=== PATIENT | male | born 1945 | race Caucasian/White ===

== ENCOUNTER 2019-04-27 08:11 | Outpatient (CLI) | payer MEDICARE, SELFPAY ==
--- NOTE | 2019-04-27 08:00 | USCV_ITS ---
Chad Hoover Age: 74 Gender: M : 1945 Exam Date: 04/27/2019 08:37 Ordering Phys: Mayra Hamilton MD ([email or web address]) Technologist: Mary Serna Exam Location: [facility] [place] Indication: MVR BP: / HR: 123 Rhythm: Sinus Technical Quality: Good MEASUREMENTS (Male / Female) Normal Values 2D ECHO LV Diastolic Diameter PLAX 6.1 cm 4.2 - 5.9 / 3.9 - 5.3 cm LV Systolic Diameter PLAX 4.5 cm IVS Diastolic Thickness 1.1 cm 0.6 - 1.0 / 0.6 - 0.9 cm IVS Systolic Thickness 1.4 cm LVPW Diastolic Thickness 0.8 cm 0.6 - 1.0 / 0.6 - 0.9 cm LVPW Systolic Thickness 1.5 cm LVOT Diameter 2.0 cm LV Ejection Fraction 2D Teich 51.7 % LV Ejection Fraction MOD 2C 46.9 % LV Ejection Fraction 2C AL 46.4 % LA Diameter 4.5 cm LA Width 4.6 cm LA Height 5.0 cm RA Width 5.3 cm RA Height 6.3 cm M-MODE LV Diastolic Diameter MM 5.8 cm 4.2 - 5.9 / 3.9 - 5.3 cm LV Systolic Diameter MM 3.4 cm LV Ejection Fraction MM Teich 71.5 % IVS Diastolic Thickness MM 0.8 cm 0.6 - 1.0 / 0.6 - 0.9 cm IVS Systolic Thickness MM 1.4 cm LVPW Diastolic Thickness MM 1.2 cm 0.6 - 1.0 / 0.6 - 0.9 cm LVPW Systolic Thickness MM 1.9 cm Aortic Annulus Diameter 3.4 cm LA Ao Ratio MM 1.3 DOPPLER AV Peak Velocity 130.0 cm/s LVOT Peak Velocity 111.0 cm/s AV Area Cont Eq vti 2.9 cm squared AV Area Cont Eq pk 2.8 cm squared MV Peak Velocity 165.0 cm/s MV Area PHT 2.1 cm squared Mitral E to A Ratio 7.1 MV E' Velocity 9.0 cm/s Mitral E to MV E' Ratio 19.9 Mitral E to LV E' Lateral Ratio 15.3 Mitral E to LV E' Septal Ratio 29.2 TR Peak Velocity 310.0 cm/s TR Peak Gradient 38.5 mmHg Right Atrial Pressure 3.0 mmHg Pulmonary Artery Systolic Pressu 41.4 mmHg PV Peak Velocity 106.0 cm/s RV Acceleration Time 0.1 s FINDINGS Left Ventricle Diffuse hypokinesis left ventricle with ejection fraction of around 40 to 45%. Mildly dilated LV cavity Right Ventricle Normal right ventricular size and systolic function. Catheter/pacemaker wire visualized in the right ventricle. Right Atrium Moderately increased right atrial size. Catheter/pacemaker wire in the right atrial cavity. Left Atrium Moderately increased left atrial size. Mitral Valve The bioprosthetic valve of the mitral position appears to be seated close to the LV outflow tract. trace ofmitral valve regurgitation. Normal leaflet motion . The mitral valve area, based on the pressure half-time was calculated to be 2.1 cm squared Aortic Valve Thickened aortic valve. Mild to moderate aortic valve regurgitation. Tricuspid Valve Moderate tricuspid valve regurgitation. Estimated pulmonary artery peak systolic pressure of 41 mmHg Pulmonic Valve No gross abnormalities noted Pericardium No pericardial effusion. Aorta Normal aortic annulus size. CONCLUSIONS Diffuse hypokinesis left ventricle with ejection fraction of around 40 to 45%. Mildly dilated LV cavity. Moderate biatrial enlargement The bioprosthetic valve of the mitral position appears to be close to the LV outflow tract. The mitral valve area, based on the pressure half-time was calculated to be 2.1 cm squared Trace of mitral valve regurgitation. Normal leaflet motion Moderate tricuspid valve regurgitation. Estimated pulmonary artery peak systolic pressure of 41 mmHg There is no pericardial effusion. There are no intracardiac masses. Compared to the study from 10/17/2017, the mitral regurgitation is only trace Dr Mayra Hamilton MD [facility] (Electronically Signed) Final Date: 28 April 2019 08:55 S
== END 2019-04-27 08:12 | disposition home or self-care (01) ==
LOC: RAD 08:13
PROVIDERS: Family Provider Electrodiagnostic Medicine; PCP Electrodiagnostic Medicine; Visit Provider Internal Medicine Cardiovascular Disease
DX: I08.1 Rheumatic disorders of both mitral and tricuspid valves (principal); R06.02 Shortness of breath; Z95.2 Presence of prosthetic heart valve
CPT/HCPCS: 93306

== ENCOUNTER → 2019-10-18 16:09 | Outpatient (BNVA) | payer MEDICARE, SELFPAY | PROVIDERS: Family Provider Electrodiagnostic Medicine; PCP Electrodiagnostic Medicine; Visit Provider Internal Medicine Cardiovascular Disease | DX: I50.33 Acute on chronic diastolic (congestive) heart failure (principal); Z79.01 Long term (current) use of anticoagulants; I48.11 Longstanding persistent atrial fibrillation; I43 Cardiomyopathy in diseases classified elsewhere; Z95.0 Presence of cardiac pacemaker; Z95.2 Presence of prosthetic heart valve; I11.0 Hypertensive heart disease with heart failure | CPT/HCPCS: 80048; 83880; 85025 ==

== ENCOUNTER → 2019-11-01 10:01 | Outpatient (BNVA) | payer MEDICARE, SELFPAY | PROVIDERS: Family Provider Electrodiagnostic Medicine; PCP Electrodiagnostic Medicine; Visit Provider Internal Medicine Cardiovascular Disease | DX: I43 Cardiomyopathy in diseases classified elsewhere (principal); R06.02 Shortness of breath; Z95.0 Presence of cardiac pacemaker; Z95.2 Presence of prosthetic heart valve | CPT/HCPCS: 80048; 83880 ==

== ENCOUNTER → 2019-11-15 10:17 | Outpatient (BNVA) | payer MEDICARE, SELFPAY | PROVIDERS: Family Provider Electrodiagnostic Medicine; PCP Electrodiagnostic Medicine; Visit Provider Internal Medicine Cardiovascular Disease | DX: I43 Cardiomyopathy in diseases classified elsewhere (principal); R06.02 Shortness of breath; I48.11 Longstanding persistent atrial fibrillation | CPT/HCPCS: 80048; 83880 ==

== ENCOUNTER 2019-12-03 12:45 | Outpatient (CLI) | payer MEDICARE, SELFPAY ==
--- NOTE | 2019-12-03 12:51 | XR_ITS ---
WS: [id number] CHEST 2 VIEWS HISTORY: BRONCHITIS COMPARISON: 02/08/2019 Lungs: Stable patchy infiltrate RIGHT lower lobe with a linear area of scar. Otherwise lungs are celina r. No pneumonia. Cardiac size: Mildly enlarged cardiac silhouette. Mediastinum/Aorta: Prior median sternotomy. Single lead LEFT subclavian cardiac pacer. Bones: Single anchor LEFT rotator cuff. XR/XR chest 2V* [id number] IMPRESSION: Stable area of scarring at the RIGHT lung base. No pneumonia.
== END 2019-12-03 12:46 | disposition home or self-care (01) ==
LOC: RADWPI 12:48
PROVIDERS: Family Provider Electrodiagnostic Medicine; PCP Electrodiagnostic Medicine; Visit Provider Electrodiagnostic Medicine
DX: J42 Unspecified chronic bronchitis (principal)
CPT/HCPCS: 71046

== ENCOUNTER 2019-12-20 12:58 | Outpatient (CLI) | payer MEDICARE, SELFPAY ==
--- NOTE | 2019-12-20 14:41 | USCV_ITS ---
Chad Hoover Age: 74 Gender: M : 1945 Exam Date: 12/20/2019 14:39 Ordering Phys: Nick Kamara DO Technologist: Madison Sorensen [place] [facility] [place]ication: PAIN LT CALF HISTORY: Pain Lt Calf PROCEDURES: Venous duplex imaging was performed in only the left lower extremity. The following venous structures were evaluated: common femoral vein, profunda vein, proximal portion of the greater saphenous vein, superficial femoral vein, and the popliteal vein. In addition, the posterior tibial and peroneal trunk were evaluated. Serial compression, augmentation maneuvers, and spectral Doppler flow evaluation were performed. FINDINGS: Normal 2-D Doppler and augmentation and compressibility throughout the lower extremity venous structures. Additional imaging through the proximal calf veins also reveals no thrombus. Limited evaluation of the greater saphenous vein is patent with no thrombus. Complex cystic mass with low level echos and no vascularity measuring 12 cm in length in the left popliteal fossa. Maybe hemorrhagic cyst. CONCLUSIONS Left popliteal fossa complex Patel's cyst. No DVT left lower extremity. Dr. Laya Damon DO (Electronically Signed) Final Date: 20 December 2019 15:59 S
== END 2019-12-20 12:59 | disposition home or self-care (01) ==
PROVIDERS: PCP Electrodiagnostic Medicine; Visit Provider Electrodiagnostic Medicine
DX: M79.662 Pain in left lower leg (principal); M25.062 Hemarthrosis, left knee; Z95.0 Presence of cardiac pacemaker; Z95.5 Presence of coronary angioplasty implant and graft; I38 Endocarditis, valve unspecified; M71.22 Synovial cyst of popliteal space [Baker], left knee
CPT/HCPCS: 93971

== ENCOUNTER → 2020-01-26 12:20 | Outpatient (BNVA) | payer MEDICARE, SELFPAY | PROVIDERS: Family Provider Electrodiagnostic Medicine; PCP Electrodiagnostic Medicine; Visit Provider Internal Medicine Cardiovascular Disease | DX: R06.02 Shortness of breath (principal); Z79.01 Long term (current) use of anticoagulants; I50.33 Acute on chronic diastolic (congestive) heart failure | CPT/HCPCS: 80048; 83880 ==

== ENCOUNTER → 2020-02-09 10:21 | Outpatient (BNVA) | payer MEDICARE, SELFPAY | PROVIDERS: Family Provider Electrodiagnostic Medicine; PCP Electrodiagnostic Medicine; Visit Provider Internal Medicine Cardiovascular Disease | DX: R06.00 Dyspnea, unspecified (principal); I43 Cardiomyopathy in diseases classified elsewhere; R06.02 Shortness of breath; I48.11 Longstanding persistent atrial fibrillation; I10 Essential (primary) hypertension | CPT/HCPCS: 80048; 83880 ==

== ENCOUNTER 2020-03-15 12:35 | Outpatient (CLI) | payer MEDICARE, SELFPAY ==
[2020-03-15 12:49] LABS: Basophils % 0.3 %; Eosinophils # 0.2 10^3/uL (0.0-0.8); Eosinophils % 2.3 %; Hematocrit 30.4 % (42.0-52.0); Hemoglobin 9.7 g/dL (11.7-16.6); Lymphocytes # 1.2 10^3/uL (0.8-4.8); Lymphocytes % 17.9 %; Mean Corpuscular HGB Conc 31.9 g/dL (30.0-36.0); Mean Corpuscular Hemoglobin 32.8 pg (28.0-34.0); Mean Corpuscular Volume 102.7 fL (80-94); Mean Platelet Volume 10.3 fL (7.4-10.4); Monocytes # 1.2 10^3/uL (0.2-0.9); Monocytes % 17.9 %; Neutrophils # 3.88 10^3/uL (1.8-7.7); Neutrophils % 59.6 %; Nucleated Red Blood Cells % 0 %; Platelet Count 208 10^3/cmm (130-400); Red Blood Count 2.96 10^6/uL (4.1-5.3); Red Cell Distribution Width 16.2 % (12.1-15.1); White Blood Count 6.5 10^3/uL (4.0-10.0)
[2020-03-15 13:25] LABS: Alanine Aminotransferase 22 U/L (0-41); Albumin Level 4.2 g/dL (3.5-5.2); Alkaline Phosphatase 100 IU/L (40-130); Aspartate Amino Transferase 75 U/L (0-40); Blood Urea Nitrogen 21 mg/dL (8-23); Calcium 8.9 mg/dL (8.5-10.5); Carbon Dioxide 25 mmol/L (22-29); Chloride 102 mmol/L (98-107); Globulin 2.1 g/dL (1.3-4.6); Glucose 88 mg/dL (65-115); Osmolality Calculated 282 mOsm/kg (285-295); Sodium 135 mmol/L (136-145); Total Bilirubin 3.6 mg/dL (0.15-1.2); Total Protein 6.3 g/dL (6.6-8.7)
== END 2020-03-15 12:36 | disposition home or self-care (01) ==
PROVIDERS: PCP Electrodiagnostic Medicine; Visit Provider Electrodiagnostic Medicine
DX: R06.02 Shortness of breath (principal)
CPT/HCPCS: 80053; 85025

== ENCOUNTER 2020-03-17 07:50 | Outpatient (CLI) | payer MEDICARE, SELFPAY ==
--- NOTE | 2020-03-17 | CT_ITS ---
WS: [id number] CT CHEST TECHNIQUE: Contrast enhanced CT of the chest with coronal and sagittal reformatted images. CLINICAL INFORMATION: DYSPNEA COMPARISON: CT 4 28,010 DLP: 887.[address] scans at [facility] use at least one of these dose optimization techniques: automat ed exposure control; mA and/or kV adjustment per patient size (includes targeted exams where dose is matched to clinical indication); or iterative reconstruction. FINDINGS: Moderate chronic emphysematous changes. Subsegmental atelectasis in the right middle lobe. Small righ t pleural effusion. Left lung is well aerated. Cardiomegaly. Normal caliber thoracic aorta. Cardiomeg freddy. Prominent proximal main pulmonary arteries can be seen with pulmonary arterial hypertension. No mediastinal or hilar lymphadenopathy. No axillary lymphadenopathy. Adrenal glands are normal. Part ially visualized epigastric ventral abdominal wall hernia in the upper abdomen containing omental fat . Chronic left rib fractures with callus formation. IMPRESSION: 1. Small right pleural effusion with subsegmental atelectasis right lower lobe. 2. Moderate chronic emphysematous changes. 3. Cardiomegaly. 4. Prominent proximal main pulmonary arteries can be seen with pulmonary arterial hypertension. 5. No mediastinal or hilar lymphadenopathy. No axillary lymphadenopathy. 6. Partially visualized epigastric ventral abdominal wall hernia containing omental fat. This is onl y partially included.
[2020-03-17] MEDS: iohexol 300 mg/mL 100 mL Btl IV (09:05)
== END 2020-03-17 07:51 | disposition home or self-care (01) ==
LOC: RADWPI 07:53
PROVIDERS: PCP Electrodiagnostic Medicine; Visit Provider Electrodiagnostic Medicine
DX: R06.00 Dyspnea, unspecified (principal); J90 Pleural effusion, not elsewhere classified; I51.7 Cardiomegaly; K43.9 Ventral hernia without obstruction or gangrene
CPT/HCPCS: 71260; Q9967

== ENCOUNTER → 2020-07-24 16:42 | Outpatient (BNVA) | payer MEDICARE, SELFPAY | PROVIDERS: PCP Electrodiagnostic Medicine; Visit Provider Internal Medicine Cardiovascular Disease | DX: R06.02 Shortness of breath (principal); Z79.01 Long term (current) use of anticoagulants; I50.33 Acute on chronic diastolic (congestive) heart failure; R06.00 Dyspnea, unspecified; I48.11 Longstanding persistent atrial fibrillation; I43 Cardiomyopathy in diseases classified elsewhere; Z95.0 Presence of cardiac pacemaker; Z95.2 Presence of prosthetic heart valve; I11.0 Hypertensive heart disease with heart failure | CPT/HCPCS: 80048; 83880 ==

== ENCOUNTER → 2020-08-08 10:58 | Outpatient (BNVA) | payer MEDICARE, SELFPAY | PROVIDERS: PCP Electrodiagnostic Medicine; Visit Provider Internal Medicine Cardiovascular Disease | DX: R06.00 Dyspnea, unspecified (principal); I48.11 Longstanding persistent atrial fibrillation; I43 Cardiomyopathy in diseases classified elsewhere; R06.02 Shortness of breath; Z79.01 Long term (current) use of anticoagulants; Z95.0 Presence of cardiac pacemaker; Z95.2 Presence of prosthetic heart valve | CPT/HCPCS: 80048; 83880 ==

== ENCOUNTER → 2020-08-31 09:37 | Outpatient (BNVA) | payer MEDICARE, SELFPAY | PROVIDERS: PCP Electrodiagnostic Medicine; Visit Provider Internal Medicine Cardiovascular Disease | DX: I48.11 Longstanding persistent atrial fibrillation (principal); I43 Cardiomyopathy in diseases classified elsewhere; R06.00 Dyspnea, unspecified; R06.02 Shortness of breath; Z95.2 Presence of prosthetic heart valve; Z95.0 Presence of cardiac pacemaker | CPT/HCPCS: 80048; 83880 ==

== ENCOUNTER → 2020-09-18 08:49 | Outpatient (BNVA) | payer MEDICARE, SELFPAY | PROVIDERS: PCP Electrodiagnostic Medicine; Visit Provider Internal Medicine Cardiovascular Disease | DX: R06.00 Dyspnea, unspecified (principal); I43 Cardiomyopathy in diseases classified elsewhere; R06.02 Shortness of breath; I48.11 Longstanding persistent atrial fibrillation; Z95.2 Presence of prosthetic heart valve; Z79.01 Long term (current) use of anticoagulants; Z95.0 Presence of cardiac pacemaker | CPT/HCPCS: 80048; 83880 ==

== ENCOUNTER → 2021-01-22 16:14 | Outpatient (BNVA) | payer MEDICARE, SELFPAY | PROVIDERS: PCP Electrodiagnostic Medicine; Visit Provider Internal Medicine Cardiovascular Disease | DX: R06.02 Shortness of breath (principal); I50.33 Acute on chronic diastolic (congestive) heart failure; R06.00 Dyspnea, unspecified; I43 Cardiomyopathy in diseases classified elsewhere; I48.91 Unspecified atrial fibrillation; Z79.01 Long term (current) use of anticoagulants | CPT/HCPCS: 80048; 83880 ==

== ENCOUNTER → 2021-02-06 09:27 | Outpatient (BNVA) | payer MEDICARE, SELFPAY | PROVIDERS: PCP Electrodiagnostic Medicine; Visit Provider Internal Medicine Cardiovascular Disease | DX: R06.00 Dyspnea, unspecified (principal); R06.02 Shortness of breath | CPT/HCPCS: 80048; 83880 ==

== ENCOUNTER → 2021-03-08 09:08 | Outpatient (BNVA) | payer MEDICARE, SELFPAY | PROVIDERS: PCP Electrodiagnostic Medicine; Visit Provider Internal Medicine Cardiovascular Disease | DX: R06.00 Dyspnea, unspecified (principal); I43 Cardiomyopathy in diseases classified elsewhere; R06.02 Shortness of breath; Z79.01 Long term (current) use of anticoagulants; I48.11 Longstanding persistent atrial fibrillation; Z95.2 Presence of prosthetic heart valve | CPT/HCPCS: 80048; 83880 ==

== ENCOUNTER 2021-03-13 14:47 | Outpatient (CLI) | payer MEDICARE, SELFPAY ==
--- NOTE | 2021-03-13 15:00 | USCV_ITS ---
Chad Hoover Age: 76 Gender: M : 1945 Exam Date: 03/13/2021 15:04 Ordering Phys: Mayra Hamilton MD ([email or web address]) Technologist: Elisha Lebron [place]am [place] [facility] [place]ication: dyspnea BP: 128 / 62 HR: 72 Rhythm: Sinus Technical Quality: Adequate MEASUREMENTS (Male / Female) Normal Values 2D ECHO LV Diastolic Diameter PLAX 5.4 cm 4.2 - 5.9 / 3.9 - 5.3 cm LV Systolic Diameter PLAX 4.3 cm IVS Diastolic Thickness 1.4 cm 0.6 - 1.0 / 0.6 - 0.9 cm IVS Systolic Thickness 1.5 cm LVPW Diastolic Thickness 1.5 cm 0.6 - 1.0 / 0.6 - 0.9 cm LVPW Systolic Thickness 2.3 cm LVOT Diameter 2.0 cm LV Ejection Fraction 2D Teich 42.4 % LV Ejection Fraction MOD 2C 47.5 % LV Ejection Fraction 2C AL 46.9 % LA Diameter 4.1 cm LA Width 4.9 cm LA Height 6.0 cm RA Width 5.8 cm RA Height 6.8 cm Aorta at Sinotubular Diameter 2.7 cm M-MODE Aortic Annulus Diameter 2.9 cm LA Ao Ratio MM 1.4 DOPPLER AV Peak Velocity 150.3 cm/s LVOT Peak Velocity 121.0 cm/s AV Area Cont Eq vti 2.6 cm squared AV Area Cont Eq pk 2.5 cm squared MV Area PHT 1.5 cm squared Mitral E to A Ratio 1.8 MV E' Velocity 75.0 cm/s Mitral E to MV E' Ratio 13.7 Mitral E to LV E' Lateral Ratio 9.8 Mitral E to LV E' Septal Ratio 23.4 TR Peak Velocity 311.0 cm/s TR Peak Gradient 38.7 mmHg TR Mean Velocity 214.2 cm/s TR Mean Gradient 20.4 mmHg TR Velocity Time Integral 85.4 cm TV Peak E Velocity 60.0 cm/s Right Atrial Pressure 10.0 mmHg Pulmonary Artery Systolic Pressu 48.7 mmHg PV Peak Velocity 146.0 cm/s RV Acceleration Time 0.1 s RV Ejection Time 0.3 s RV AcT/ET 0.2 FINDINGS Left Ventricle Normal LV size with diminished ejection fraction of 46%. Diffuse hypokinesia of the septum and anteroseptal segments. Somewhat dyskinetic basal septal segment. Right Ventricle Maker wire is noted in the right ventricle Right Atrium Mildly increased right atrial size. Pacemaker wire is noted Left Atrium Mildly increased left atrial size. Mitral Valve A bioprosthetic valve at the mitral position appears to be seated close to the LV outflow tract. Mitral valve area is calculated to be 1.5 cm squared by pressure half-time Aortic Valve Thickened aortic valve. Mild aortic valve regurgitation. Tricuspid Valve Moderate tricuspid valve regurgitation. Estimated pulmonary artery peak systolic pressure was 49 mmHg. Pulmonic Valve No gross abnormalities noted Pericardium Mildly dilated inferior vena cava Aorta Normal aortic annulus size. CONCLUSIONS Normal LV size with diminished ejection fraction of 46%. Diffuse hypokinesia of the septum and anteroseptal segments. Somewhat dyskinetic basal septal segment. Mild biatrial enlargement. A bioprosthetic valve at the mitral position appears to be seated close to the LV outflow tract. Mitral valve area is calculated to be 1.5 cm squared by pressure half- time. Thickened aortic valve. Mild aortic valve regurgitation. Moderate tricuspid valve regurgitation. Estimated pulmonary artery peak systolic pressure was 49 mmHg. Mildly dilated inferior vena cava. Compared to the previous study from 04/27/2019, there may not be a significant change Dr Mayra Hamilton MD [facility] (Electronically Signed) Final Date: 13 March 2021 20:42 S
== END 2021-03-13 14:48 | disposition home or self-care (01) ==
LOC: RAD 14:49
PROVIDERS: PCP Electrodiagnostic Medicine; Visit Provider Internal Medicine Cardiovascular Disease
DX: R06.00 Dyspnea, unspecified (principal); I43 Cardiomyopathy in diseases classified elsewhere; Z95.2 Presence of prosthetic heart valve; I08.2 Rheumatic disorders of both aortic and tricuspid valves
CPT/HCPCS: 93306

== ENCOUNTER 2021-07-03 13:17 | Outpatient (CLI) | payer MEDICARE, SELFPAY ==
[2021-07-03 14:04] LABS: Basophils % 0.5 %; Eosinophils # 0.1 10^3/uL (0.0-0.8); Eosinophils % 1.4 %; Hematocrit 33.1 % (42.0-52.0); Hemoglobin 10.7 g/dL (11.7-16.6); Lymphocytes # 1.6 10^3/uL (0.8-4.8); Lymphocytes % 24.5 %; Mean Corpuscular HGB Conc 32.3 g/dL (30.0-36.0); Mean Corpuscular Hemoglobin 33.8 pg (28.0-34.0); Mean Corpuscular Volume 104.4 fl (80-94); Mean Platelet Volume 9.5 fL (7.4-10.4); Monocytes # 1.3 10^3/uL (0.2-0.9); Monocytes % 19.8 %; Neutrophils % 51.7 %; Nucleated Red Blood Cells % 0 %; Platelet Count 269 10^3/cmm (130-400); Red Blood Count 3.17 10^6/uL (4.1-5.3); White Blood Count 6.6 10^3/uL (4.0-10.0)
[2021-07-03 16:41] LABS: Ferritin 334 ng/mL (30-400); Iron 183 ug/dL (59-158); Percent Saturation 71.2 % (20-50); Total Iron Binding Capacity 257 mcg/dl; Unsaturated Iron Binding 74 ug/dL (112-347)
[2021-07-03 16:45] LABS: Reticulocyte % 3.3 % (0.5-2.0)
[2021-07-03 16:56] LABS: Vitamin B12 1001 pg/mL (232-1245)
[2021-07-03 19:18] LABS: Folate Level > 20.0 ng/mL (4.5-32.2)
--- NOTE | 2021-07-09 07:54 | ONC CON_ITS ---
Dr. Bustillos New Patient Note Patient: Chad Hoover Unit #: [id number]: 1945 Dicatated By: Fabrice Bustillos M.D.Date of Visit: Jul 03, 2021 Onc MED New Patient/Consult Referring Physician: Dr. Nick Kamara M.D. History of Present Illness: Mr. Chad Hoover, is a 76-year-old gentleman with history of anemia, initially diagnosed in early 2020, as per patient he was started on oral iron which he took it till summer 2020 and then stopped taking it till March 2021 when repeat labs shows evidence of anemia, he is also taking B12 supplement. Patient has history of atrial fibrillation, for which he was started on Xarelto which he took it for some time and then stopped taking in fall of 2020, as per patient he was having bleeding spots in his legs and in his eye and decided to consider herbal supplement from [facility] to keep his blood thin instead of taking Xarelto. As per patient lab work-up done on June 22, 2021 showed white blood count 11,500, hemoglobin 11.3 g hematocrit 33.1 platelets 258,000. Patient said he took prednisone for 10 days in February 2021 and then in March 2021 for upper respiratory infection/shortness of breath. Patient also use fluticasone spray but not on regular basis. Past medical history significant for coronary artery disease with valvular disease status post CABG in 2013 with mitral valve replacement by Dr. Acevedo. Then pacemaker in 2016 and in 2018 with new mitral valve replacement. Patient denies any melena or hematochezia, denies any hemoptysis hematemesis, denies any jaundice, denies any night sweats, denies any peripheral lymphadenopathy or abdominal fullness, denies any weight loss.. Patient never had colonoscopy or EGD done but has history of abdominal wall hernia repair by Dr. Salcedo. Past Medical History: Mr. Hoover's medical history consists of atrial fibrillation, cardiomyopathy, and coronary artery disease. Past Surgical History: Mr. Hoover's surgical/procedural history consists of coronary artery bypass, left shoulder, mitral valve replaacement, and pacemaker placement. Medications: Advair Diskus 1 Puff(s) (of 500-50 mcg/dose) Aerosol Powder, Breath Activated Inhalation daily, Cardizem LA 1 Tablet (of 180 mg) Tablet SR 24 HR Oral daily, Ferrous Sulfate 1 Tablet (of 325 (65 fe) mg) Oral t.i.d., Fluticasone Propionate 1 Hockley(s) (of 50 mcg/act) Suspension Nasal daily, Furosemide 1 Tablet (of 20 mg) Oral daily PRN, Potassium Chloride Shawna ER 1 Tablet (of 20 meq) Tablet, controlled release Oral daily Allergies: This patient has no documented allergies. Social History: Mr. Hoover is . Mr. Hoover has never smoked. He has no history of drinking. Family History: There is no documented family history. Review Of Symptoms: Review of Systems is not available for this patient. Vital Signs: Performed on Jul 03, 2021 15:03: 0, 0, 23.82, 1.97 sq.m, 71 in, 97 %, 61 /min, 16 /min, 108/66 mm(hg), 98.4 F, and 170.8 lbs (HIGH). Performance Status: 0 - Fully active, able to carry on all predisease activities without restrictions. (ECOG) Physical Examination: ENMT - No mouth sores, no thrush, no jaundice, Respiratory - Lungs are clear to auscultation, Cardiovascular - Irregular rate and rhythm, Abdomen - Soft, bowel sounds present, Extremities - No visible edema or peripheral lymphadenopathy. Lab/Imaging: Most recent lab results are not available for this patient. Impression: Anemia, etiology unclear but could be multifactorial including iron/B12 deficiency or anemia of chronic disease or considering his age underlying myelodysplasia cannot be ruled out. Leukocytosis, again could be due to steroids, or inflammation or subacute infection or myeloproliferative disorder but less likely. Coronary artery disease Mitral valve replacement Pacemaker placement Plan: Discussed with patient regarding his labs white blood count 6.6 compared to 11.5 on June 22, 2021, hemoglobin 10.7 g compared to 11.3 g on June 22, 2021, platelets 269,000 MCV 104.4 Clinically, patient is doing well with no new signs symptoms, he has well compensated mild anemia, etiology of his macrocytic anemia is unclear but possibilities include B12 deficiency or reticulocytosis due to acute/chronic blood loss or myelodysplasia. At this point we will check his iron studies, B12 level, folic acid level, reticulocyte count, patient is on ferrous sulfate 1 tablet 3 times a day since March 2021,-repeat iron studies shows low iron, will consider discontinue oral iron and try parenteral iron. Patient is on oral B12 supplement and if his B12 level is low consider parenteral B12 supplements on the other hand if anemia work-up remained inconclusive and patient has progressive anemia, will consider bone marrow evaluation to rule out underlying myelodysplasia. Leukocytosis seen on labs done on June 22, 2021, on repeat labs today shows resolution, his white blood count is in normal range so we will monitor Return to clinic in 2 weeks with CBC. Signed By: Fabrice Bustillos M.D. <<Signature on File>>
== END 2021-07-03 13:18 | disposition home or self-care (01) ==
LOC: ONCMED 13:21
PROVIDERS: PCP Electrodiagnostic Medicine; Visit Provider Internal Medicine Hematology & Oncology
DX: D64.9 Anemia, unspecified (principal); D72.829 Elevated white blood cell count, unspecified; I25.10 Atherosclerotic heart disease of native coronary artery without angina pectoris; I48.91 Unspecified atrial fibrillation; Z79.899 Other long term (current) drug therapy; Z95.2 Presence of prosthetic heart valve; Z95.0 Presence of cardiac pacemaker; Z95.1 Presence of aortocoronary bypass graft
CPT/HCPCS: 36415; 82607; 82728; 82746; 83540; 83550; 85025; 85045; 99204

== ENCOUNTER 2021-07-17 11:43 | Outpatient (CLI) | payer MEDICARE, SELFPAY ==
[2021-07-17 12:09] LABS: Basophils % 0.2 %; Eosinophils # 0.1 10^3/uL (0.0-0.8); Eosinophils % 1.1 %; Hematocrit 31.7 % (42.0-52.0); Hemoglobin 10.4 g/dL (11.7-16.6); Lymphocytes # 1.4 10^3/uL (0.8-4.8); Lymphocytes % 25.2 %; Mean Corpuscular HGB Conc 32.8 g/dL (30.0-36.0); Mean Corpuscular Hemoglobin 33.8 pg (28.0-34.0); Mean Corpuscular Volume 102.9 fl (80-94); Mean Platelet Volume 9.7 fL (7.4-10.4); Monocytes % 17.8 %; Neutrophils # 2.68 10^3/uL (1.8-7.7); Neutrophils % 48.5 %; Nucleated Red Blood Cells % 0 %; Platelet Count 207 10^3/cmm (130-400); Red Blood Count 3.08 10^6/uL (4.1-5.3); White Blood Count 5.5 10^3/uL (4.0-10.0)
[2021-07-17 12:53] LABS: Slide Review Slide Review Perform
--- NOTE | 2021-07-23 17:29 | ONC FU_ITS ---
Dr. Bustillos follow up note Patient: Chad Hoover Unit #: [id number]: 1945 Dicatated By: Fabrice Bustillos M.D.Date of Visit:Jul 17, 2021 Onc Med Follow-up/Prog Note History of Present Illness: Mr. Chad Hoover, is a 76-year-old gentleman with history of anemia, initially diagnosed in early 2020, as per patient he was started on oral iron which he took it till summer 2020 and then stopped taking it till March 2021 when repeat labs shows evidence of anemia, he is also taking B12 supplement. Patient has history of atrial fibrillation, for which he was started on Xarelto which he took it for some time and then stopped taking in fall, as per patient he was having bleeding spots in his legs and in his eye and decided to consider herbal supplement from [facility] to keep his blood thin instead of taking Xarelto. As per patient lab work-up done on June 22, 2021 showed white blood count 11,500, hemoglobin 11.3 g hematocrit 33.1 platelets 258,000. Patient said he took prednisone for 10 days in February 2021 and then in March 2021 for upper respiratory infection/shortness of breath. Patient also use fluticasone spray but not on regular basis. Past medical history significant for coronary artery disease with valvular disease status post CABG in 2013 with mitral valve replacement by Dr. Acevedo. Then pacemaker in 2017 and in 2018 with new mitral valve replacement. Patient denies any melena or hematochezia, denies any hemoptysis hematemesis, denies any jaundice, denies any night sweats, denies any peripheral lymphadenopathy or abdominal fullness, denies any weight loss.. Patient never had colonoscopy or EGD done but has history of abdominal wall hernia repair by Dr. Salcedo. Came for follow-up, denies any specific complaints, no fever chills, no nausea or vomiting, no diarrhea or constipation, no melena or hematochezia, no hemoptysis or hematemesis, no shortness of breath or dyspnea on exertion, no palpitation on exertion. No jaundice Medications: Advair Diskus 1 Puff(s) (of 500-50 mcg/dose) Aerosol Powder, Breath Activated Inhalation daily, Cardizem LA 1 Tablet (of 180 mg) Tablet SR 24 HR Oral daily, Ferrous Sulfate 1 Tablet (of 325 (65 fe) mg) Oral t.i.d., Fluticasone Propionate 1 Gamerco(s) (of 50 mcg/act) Suspension Nasal daily, Furosemide 1 Tablet (of 20 mg) Oral daily PRN, Potassium Chloride Shawna ER 1 Tablet (of 20 meq) Tablet, controlled release Oral daily Allergies: This patient has no documented allergies. Review of Systems: Review of Systems is not available for this patient. Vital Signs: Performed on Jul 17, 2021 15:31 Height - 71.00 in Weight - 170.8 lbs BSA - 1.97 sq.m BMI - 23.82 Temperature - 97.4 F (LOW) Pulse - 75 /min Respiration - 18 /min BP - 108/54 mm(hg) O2 Sat - 97 % Pain - 0 Fatigue - 8 Performance Status: 0 - Fully active, able to carry on all predisease activities without restrictions. (ECOG) Physical Examination: ENMT - No mouth sores, no thrush, no jaundice, no cervical lymphadenopathy, Respiratory - Lungs are clear to auscultation, Cardiovascular - Regular rate and rhythm of heart, Abdomen - Soft, bowel sounds present, Extremities - No visible edema. Lab/Imaging: Most recent lab results are not available for this patient. Impression: Anemia, etiology unclear but could be multifactorial including iron/B12 deficiency or anemia of chronic disease or considering his age underlying myelodysplasia cannot be ruled out. Leukocytosis, again could be due to steroids, or inflammation or subacute infection or myeloproliferative disorder but less likely. Coronary artery disease Mitral valve replacement Pacemaker placement Plan: Discussed with patient regarding his labs white blood count 5.5 hemoglobin 10.4 g compared to 10.7 g previously hematocrit 31.7 MCV 102.9 platelets 207,000 anemia work-up including iron studies shows iron saturation 71.2% ferritin 334 folic acid more than 20 iron 183 TIBC 257 vitamin B12 1001 Clinically, patient doing well with no new signs symptoms his follow-up lab work-up shows persistent moderate, macrocytic anemia with normal B12, folate level and iron studies, etiology, considering his age underlying myelodysplasia cannot be ruled out, discussed with patient regarding role of bone marrow evaluation but patient wants to think about and he will return to clinic in 1 month with CBC CMP. Signed By: Fabrice Bustillos M.D. <<Signature on File>>
== END 2021-07-17 11:44 | disposition home or self-care (01) ==
LOC: ONCMED 11:45
PROVIDERS: PCP Electrodiagnostic Medicine; Visit Provider Internal Medicine Hematology & Oncology
DX: D53.9 Nutritional anemia, unspecified (principal); D72.829 Elevated white blood cell count, unspecified; I25.10 Atherosclerotic heart disease of native coronary artery without angina pectoris; Z79.899 Other long term (current) drug therapy; Z95.2 Presence of prosthetic heart valve; Z95.0 Presence of cardiac pacemaker
CPT/HCPCS: 36415; 85025; 99214

== ENCOUNTER → 2021-07-23 15:19 | Outpatient (BNVA) | payer MEDICARE, SELFPAY | PROVIDERS: PCP Electrodiagnostic Medicine; Visit Provider Internal Medicine Cardiovascular Disease | DX: I48.11 Longstanding persistent atrial fibrillation (principal); Z79.01 Long term (current) use of anticoagulants; I43 Cardiomyopathy in diseases classified elsewhere; Z95.0 Presence of cardiac pacemaker; Z95.2 Presence of prosthetic heart valve | CPT/HCPCS: 99214 ==

== ENCOUNTER 2021-09-26 08:30 | Oncology outpatient (recurring) (ONCR) | payer MEDICARE, SELFPAY ==
[2021-09-19 16:07] LABS: Reticulocyte % 3.2 % (0.5-2.0)
[2021-09-19 17:16] LABS: Total Bilirubin 2.3 mg/dL (0.15-1.2)
[2021-09-19 17:30] LABS: Lactate Dehydrogenase 383 U/L (135-225)
--- NOTE | 2021-09-25 08:00 | US_ITS ---
WS: [id number] Complete ABDOMINAL ULTRASOUND HISTORY: jaundice COMPARISON: None available. Quality of this examination is limited by body habitus and increased GI content. Liver: 14.3 cm in length. Liver is normal size and echogenicity with no mass or intrahepatic dilatati on. Portal Vein: Normal hepatopetal flow with monophasic waveform. Gallbladder: Normally distended with no gallstones, wall thickening or pericholecystic fluid. Gallbladder wall thickness: 0.3 cm. Pancreas: Head and tail are obscured by bowel gas. The remaining pancreas is negative. CBD: 0.4 cm. Right kidney: 9.8 cm x 5.3 cm x 4.7 cm. No mass, cortical thickening or hydronephrosis. Left kidney: 9.0 cm x 4.7 cm x 4.3 cm. Normal size kidney. Cyst in the superior pole measures 1.8 x 2.2 x 1.4 cm. No solid mass or obstruction. Spleen: Normal size and echogenicity. Mild atherosclerosis aorta. IVC is dilated. No ascites. US/US abdomen complete* [id number] IMPRESSION: 1. Normal gallbladder. 2. Normal common bile duct. 3. Mildly dilated IVC. 4. Poorly visualized pancreas.
[2021-09-26 09:06] LABS: Hematocrit 34.2 % (42.0-52.0); Hemoglobin 11.9 g/dL (11.7-16.6); Mean Corpuscular HGB Conc 34.8 g/dL (30.0-36.0); Mean Corpuscular Hemoglobin 34.2 pg (28.0-34.0); Mean Corpuscular Volume 98.3 fl (80-94); Mean Platelet Volume 9.9 fL (7.4-10.4); Platelet Count 191 10^3/cmm (130-400); Red Blood Count 3.48 10^6/uL (4.1-5.3); Red Cell Distribution Width 15.7 % (12.1-15.1); White Blood Count 15.3 10^3/uL (4.0-10.0)
[2021-09-26 09:30] LABS: Alanine Aminotransferase 31 U/L (0-41); Albumin Level 4.1 g/dL (3.5-5.2); Alkaline Phosphatase 68 IU/L (40-130); Blood Urea Nitrogen 58 mg/dL (8-23); Calcium 8.1 mg/dL (8.5-10.5); Carbon Dioxide 21 mmol/L (22-29); Chloride 100 mmol/L (98-107); Globulin 2.2 g/dL (1.3-4.6); Glucose 103 mg/dL (65-115); Osmolality Calculated 284 mOsm/kg (285-295); Sodium 129 mmol/L (136-145); Total Bilirubin 3.3 mg/dL (0.15-1.2); Total Protein 6.3 g/dL (6.6-8.7)
[2021-09-26 09:50] LABS: Aspartate Amino Transferase 37 U/L (0-40)
[2021-09-26 10:18] LABS: Slide Review Slide Review Perform
[2021-09-26 10:19] LABS: Absolute Neutrophil 11.3 10^3/cmm (1.4-6.5); Absolute Segmented Neutrophil 11.2 10/cmm (1.6-7.1); Band Neutrophils Absolute 0.2 10^3/cmm (0.0-1.2); Lymphocytes 15 %; Lymphocytes Absolute 2.9 10^3/cmm (1.2-3.4); Monocytes Absolute 1.1 10^3/cmm (0.1-0.6); Platelet Estimate Decreased (Normal); Segmented Neutrophils 73 %; Total Cells Counted 100 (0-100)
[2021-09-26 11:57] LABS: Alanine Aminotransferase 34 U/L (0-41); Albumin Level 4.3 g/dL (3.5-5.2); Alkaline Phosphatase 69 IU/L (40-130); Anion Gap 13.8 (5-19); Aspartate Amino Transferase 32 U/L (0-40); Blood Urea Nitrogen 58 mg/dL (8-23); Calcium 8.6 mg/dL (8.5-10.5); Carbon Dioxide 25 mmol/L (22-29); Chloride 99 mmol/L (98-107); Globulin 2.1 g/dL (1.3-4.6); Glucose 99 mg/dL (65-115); Osmolality Calculated 292 mOsm/kg (285-295); Potassium 4.8 mmol/L (3.5-5.1); Sodium 133 mmol/L (136-145); Total Bilirubin 3.7 mg/dL (0.15-1.2); Total Protein 6.4 g/dL (6.6-8.7)
== END 2021-10-04 23:59 | disposition home or self-care (01) ==
PROVIDERS: Internal Medicine Hematology & Oncology; PCP Electrodiagnostic Medicine; Visit Provider Nurse Practitioner Family
DX: D64.9 Anemia, unspecified (principal); D72.829 Elevated white blood cell count, unspecified; I25.10 Atherosclerotic heart disease of native coronary artery without angina pectoris; Z95.2 Presence of prosthetic heart valve; Z95.0 Presence of cardiac pacemaker; Z53.9 Procedure and treatment not carried out, unspecified reason
CPT/HCPCS: 36415; 76700; 80053; 82247; 82248; 83010; 83615; 85007; 85025; 85045; 86880; 99214

== ENCOUNTER 2021-11-20 11:54 | Oncology outpatient (recurring) (ONCR) | payer MEDICARE, SELFPAY ==
[2021-11-20 12:12] LABS: Basophils # 0.1 10^3/uL (0.0-0.1); Eosinophils # 0.8 10^3/uL (0.0-0.8); Nucleated Red Blood Cells % 0 %
[2021-11-20 12:45] LABS: Alanine Aminotransferase 13 U/L (0-41); Albumin Level 4.2 g/dL (3.5-5.2); Alkaline Phosphatase 112 U/L (40-130); Anion Gap 14.7 (5-19); Aspartate Amino Transferase 37 U/L (0-40); Blood Urea Nitrogen 30 mg/dL (8-23); Carbon Dioxide 25 mmol/L (22-29); Chloride 101 mmol/L (98-107); Globulin 2.5 g/dL (1.3-4.6); Glucose 88 mg/dL (65-115); Osmolality Calculated 288 mOsm/kg (285-295); Potassium 4.7 mmol/L (3.5-5.1); Sodium 136 mmol/L (136-145); Total Bilirubin 2.3 mg/dL (0.15-1.2); Total Protein 6.7 g/dL (6.6-8.7)
[2021-11-20 13:25] LABS: Slide Review Slide Review Perform
[2021-11-20 14:38] LABS: Basophils % 0.7 %; Eosinophils % 7.6 %; Hematocrit 31.8 % (42.0-52.0); Hemoglobin 10.1 g/dL (11.7-16.6); Lymphocytes # 1.3 10^3/uL (0.8-4.8); Lymphocytes % 13.2 %; Mean Corpuscular HGB Conc 31.8 g/dL (30.0-36.0); Mean Corpuscular Hemoglobin 33.2 pg (28.0-34.0); Mean Corpuscular Volume 104.6 fl (80-94); Mean Platelet Volume 10.5 fL (7.4-10.4); Monocytes # 2.2 10^3/uL (0.2-0.9); Monocytes % 21.9 %; Neutrophils # 4.69 10^3/uL (1.8-7.7); Neutrophils % 46.1 %; Platelet Count 236 10^3/cmm (130-400); Red Blood Count 3.04 10^6/uL (4.1-5.3); White Blood Count 10.2 10^3/uL (4.0-10.0)
[2021-11-20 14:50] LABS: Ferritin 366 ng/mL (30-400); Iron 123 ug/dL (59-158); Lactate Dehydrogenase 511 U/L (135-225); Percent Saturation 50.4 % (20-50); Total Iron Binding Capacity 244 mcg/dl; Unsaturated Iron Binding 121 ug/dL (112-347)
[2021-11-20 15:06] LABS: LAB Peripheral Smear Sent for Review
== END 2021-12-05 23:59 | disposition home or self-care (01) ==
PROVIDERS: Internal Medicine Hematology & Oncology; PCP Electrodiagnostic Medicine; Visit Provider Nurse Practitioner Family
DX: D64.9 Anemia, unspecified (principal); D72.829 Elevated white blood cell count, unspecified; I25.10 Atherosclerotic heart disease of native coronary artery without angina pectoris; I10 Essential (primary) hypertension; Z95.4 Presence of other heart-valve replacement; Z95.0 Presence of cardiac pacemaker; Z79.52 Long term (current) use of systemic steroids; Z79.899 Other long term (current) drug therapy
CPT/HCPCS: 80053; 82728; 83010; 83540; 83550; 83615; 85025; 85045; 99214

== ENCOUNTER 2021-12-27 11:40 | Oncology outpatient (recurring) (ONCR) | payer MEDICARE, SELFPAY | END 2022-01-04 23:59 | disposition home or self-care (01) | PROVIDERS: PCP Electrodiagnostic Medicine; Visit Provider Nurse Practitioner Family | DX: D59.8 Other acquired hemolytic anemias; I48.20 Chronic atrial fibrillation, unspecified; Z79.899 Other long term (current) drug therapy | CPT/HCPCS: 80053; 82784; 83883; 84155; 84165; 85025; 86334; 99214 ==

== ENCOUNTER → 2022-01-15 14:15 | Outpatient (BNVA) | payer MEDICARE, SELFPAY | PROVIDERS: PCP Electrodiagnostic Medicine; Visit Provider Internal Medicine Cardiovascular Disease | DX: I48.11 Longstanding persistent atrial fibrillation (principal); I43 Cardiomyopathy in diseases classified elsewhere; R06.00 Dyspnea, unspecified; Z79.01 Long term (current) use of anticoagulants; Z95.0 Presence of cardiac pacemaker; Z95.2 Presence of prosthetic heart valve | CPT/HCPCS: 99214 ==

== ENCOUNTER 2022-02-12 08:00 | Oncology outpatient (recurring) (ONCR) | payer MEDICARE, SELFPAY ==
[2022-02-12 08:26] LABS: Basophils # 0.1 10^3/uL (0.0-0.1); Basophils % 0.6 %; Eosinophils # 0.1 10^3/uL (0.0-0.8); Eosinophils % 0.8 %; Hematocrit 32.3 % (42.0-52.0); Hemoglobin 10.6 g/dL (11.7-16.6); Lymphocytes # 1.6 10^3/uL (0.8-4.8); Lymphocytes % 15.3 %; Mean Corpuscular HGB Conc 32.8 g/dL (30.0-36.0); Mean Corpuscular Hemoglobin 33.1 pg (28.0-34.0); Mean Corpuscular Volume 100.9 fl (80-94); Mean Platelet Volume 9.7 fL (7.4-10.4); Monocytes # 2.2 10^3/uL (0.2-0.9); Monocytes % 20.2 %; Neutrophils # 5.64 10^3/uL (1.8-7.7); Neutrophils % 52.9 %; Nucleated Red Blood Cells % 0 %; Platelet Count 195 10^3/cmm (130-400); Red Cell Distribution Width 15.9 % (12.1-15.1); White Blood Count 10.7 10^3/uL (4.0-10.0)
[2022-02-12 08:52] LABS: Alanine Aminotransferase 16 U/L (0-41); Albumin Level 4.1 g/dL (3.5-5.2); Alkaline Phosphatase 112 U/L (40-130); Anion Gap 13.7 (5-19); Aspartate Amino Transferase 36 U/L (0-40); Blood Urea Nitrogen 23 mg/dL (8-23); Calcium 9.1 mg/dL (8.5-10.5); Carbon Dioxide 26 mmol/L (22-29); Chloride 95 mmol/L (98-107); Globulin 2.6 g/dL (1.3-4.6); Glucose 94 mg/dL (65-115); Lactate Dehydrogenase 464 U/L (135-225); NT Pro B Type Natriuretic Pept 1901 pg/mL (0-450); Osmolality Calculated 273 mOsm/kg (285-295); Potassium 4.7 mmol/L (3.5-5.1); Sodium 130 mmol/L (136-145); Total Bilirubin 2.4 mg/dL (0.15-1.2); Total Protein 6.7 g/dL (6.6-8.7)
== END 2022-03-06 23:59 | disposition home or self-care (01) ==
PROVIDERS: Internal Medicine Hematology & Oncology; PCP Electrodiagnostic Medicine; Visit Provider Nurse Practitioner Family
DX: D64.9 Anemia, unspecified (principal); D72.829 Elevated white blood cell count, unspecified; E80.7 Disorder of bilirubin metabolism, unspecified; I48.20 Chronic atrial fibrillation, unspecified; Z79.01 Long term (current) use of anticoagulants; Z79.52 Long term (current) use of systemic steroids; Z79.899 Other long term (current) drug therapy
CPT/HCPCS: 36415; 80053; 83615; 83880; 85025; 99214

== ENCOUNTER → 2022-03-08 11:28 | Outpatient (BNVA) | payer MEDICARE, SELFPAY | PROVIDERS: PCP Electrodiagnostic Medicine; Visit Provider Internal Medicine Cardiovascular Disease | DX: Z45.010 Encounter for checking and testing of cardiac pacemaker pulse generator [battery] (principal) | CPT/HCPCS: 93279 ==

== ENCOUNTER 2022-04-11 14:07 | Oncology outpatient (recurring) (ONCR) | payer MEDICARE, SELFPAY ==
[2022-04-11 15:25] LABS: Basophils % 0.4 %; Eosinophils # 0.1 10^3/uL (0.0-0.8); Eosinophils % 1.1 %; Hematocrit 33.7 % (42.0-52.0); Hemoglobin 10.5 g/dL (11.7-16.6); Lymphocytes # 1.2 10^3/uL (0.8-4.8); Lymphocytes % 10.8 %; Mean Corpuscular HGB Conc 31.2 g/dL (30.0-36.0); Mean Corpuscular Hemoglobin 32.6 pg (28.0-34.0); Mean Corpuscular Volume 104.7 fl (80-94); Mean Platelet Volume 10.4 fL (7.4-10.4); Monocytes # 2.6 10^3/uL (0.2-0.9); Monocytes % 22.9 %; Neutrophils # 6.34 10^3/uL (1.8-7.7); Neutrophils % 56.7 %; Nucleated Red Blood Cells % 0 %; Platelet Count 233 10^3/cmm (130-400); Red Blood Count 3.22 10^6/uL (4.1-5.3); Red Cell Distribution Width 17.3 % (12.1-15.1); White Blood Count 11.2 10^3/uL (4.0-10.0)
[2022-04-11 15:49] LABS: Slide Review Slide Review Perform
[2022-04-11 15:51] LABS: Alanine Aminotransferase 15 U/L (0-41); Albumin Level 4.1 g/dL (3.5-5.2); Alkaline Phosphatase 97 U/L (40-130); Anion Gap 12.6 (5-19); Aspartate Amino Transferase 37 U/L (0-40); Blood Urea Nitrogen 27 mg/dL (8-23); Calcium 8.9 mg/dL (8.5-10.5); Carbon Dioxide 27 mmol/L (22-29); Chloride 106 mmol/L (98-107); Globulin 2.6 g/dL (1.3-4.6); Glucose 96 mg/dL (65-115); Lactate Dehydrogenase 461 U/L (135-225); Osmolality Calculated 297 mOsm/kg (285-295); Potassium 4.6 mmol/L (3.5-5.1); Sodium 141 mmol/L (136-145); Total Protein 6.7 g/dL (6.6-8.7)
[2022-04-12 10:24] LABS: PROTEIN, TOTAL 6.3 g/dL (6.1-8.1)
[2022-04-12 15:40] LABS: ALPHA 1 GLOBULIN 0.3 g/dL (0.2-0.3); ALPHA 2 GLOBULIN 0.4 g/dL (0.5-0.9); BETA 1 GLOBULIN 0.3 g/dL (0.4-0.6); BETA 2 GLOBULIN 0.2 g/dL (0.2-0.5)
== END 2022-05-07 23:59 | disposition home or self-care (01) ==
PROVIDERS: Internal Medicine Hematology & Oncology; PCP Electrodiagnostic Medicine; Visit Provider Nurse Practitioner Family
DX: D64.9 Anemia, unspecified
CPT/HCPCS: 36415; 80053; 83615; 84155; 84165; 85025; 86334; 99214

== ENCOUNTER 2022-06-13 13:31 | Oncology outpatient (recurring) (ONCR) | payer MEDICARE, SELFPAY ==
[2022-06-13 14:12] LABS: Hematocrit 34.7 % (42.0-52.0); Mean Corpuscular HGB Conc 31.7 g/dL (30.0-36.0); Mean Corpuscular Hemoglobin 31.8 pg (28.0-34.0); Mean Corpuscular Volume 100.3 fl (80-94); Mean Platelet Volume 9.2 fL (7.4-10.4); Platelet Count 276 10^3/cmm (130-400); Red Blood Count 3.46 10^6/uL (4.1-5.3); Red Cell Distribution Width 17.3 % (12.1-15.1); White Blood Count 12.2 10^3/uL (4.0-10.0)
[2022-06-13 14:20] LABS: Reticulocyte % 5.1 % (0.5-2.0)
[2022-06-13 14:26] LABS: Alanine Aminotransferase 13 U/L (0-41); Albumin Level 3.9 g/dL (3.5-5.2); Alkaline Phosphatase 114 U/L (40-130); Anion Gap 13.6 (5-19); Aspartate Amino Transferase 35 U/L (0-40); Blood Urea Nitrogen 22 mg/dL (8-23); Calcium 8.9 mg/dL (8.5-10.5); Carbon Dioxide 27 mmol/L (22-29); Chloride 98 mmol/L (98-107); Globulin 2.6 g/dL (1.3-4.6); Glucose 103 mg/dL (65-115); Lactate Dehydrogenase 438 U/L (135-225); Osmolality Calculated 282 mOsm/kg (285-295); Potassium 4.6 mmol/L (3.5-5.1); Sodium 134 mmol/L (136-145); Total Protein 6.5 g/dL (6.6-8.7)
[2022-06-13 14:53] LABS: Slide Review Slide Review Perform
[2022-06-13 14:55] LABS: Absolute Segmented Neutrophil 7.7 10/cmm (1.6-7.1); Lymphocytes 12 %; Lymphocytes Absolute 1.5 10^3/cmm (1.2-3.4); Monocytes Absolute 2.3 10^3/cmm (0.1-0.6); Segmented Neutrophils 63 %; Total Cells Counted 100 (0-100)
[2022-06-13 14:56] LABS: Absolute Eosinophils 0.3 10^3/cmm (0.0-0.7); Absolute Neutrophil 7.7 10^3/cmm (1.4-6.5); Eosinophils 3 %; Platelet Estimate Normal (Normal)
== END 2022-07-05 23:59 | disposition home or self-care (01) ==
PROVIDERS: PCP Electrodiagnostic Medicine; Visit Provider Internal Medicine Hematology & Oncology
DX: D64.9 Anemia, unspecified (principal); J32.9 Chronic sinusitis, unspecified; Z79.52 Long term (current) use of systemic steroids
CPT/HCPCS: 36415; 80053; 83615; 85007; 85025; 85045; 99213

== ENCOUNTER → 2022-07-23 12:54 | Outpatient (BNVA) | payer MEDICARE, SELFPAY | PROVIDERS: PCP Electrodiagnostic Medicine; Visit Provider Nurse Practitioner Family | DX: I48.11 Longstanding persistent atrial fibrillation (principal); I43 Cardiomyopathy in diseases classified elsewhere; Z95.0 Presence of cardiac pacemaker | CPT/HCPCS: 99214 ==

== ENCOUNTER 2022-09-17 13:43 | Oncology outpatient (recurring) (ONCR) | payer MEDICARE, SELFPAY ==
[2022-09-17 14:15] VITALS: BP 98/65; PULSE 69; RESP 18; TEMP 36.7; O2SAT 94
[2022-09-17 14:27] LABS: Hematocrit 39.4 % (42.0-52.0); Hemoglobin 12.6 g/dL (11.7-16.6); Mean Corpuscular Hemoglobin 31.7 pg (28.0-34.0); Mean Corpuscular Volume 99.2 fl (80-94); Mean Platelet Volume 10.1 fL (7.4-10.4); Platelet Count 171 10^3/cmm (130-400); Red Blood Count 3.97 10^6/uL (4.1-5.3); White Blood Count 8.6 10^3/uL (4.0-10.0)
[2022-09-17 14:33] LABS: Reticulocyte % 3.5 % (0.5-2.0)
[2022-09-17 14:56] LABS: Alanine Aminotransferase 17 U/L (0-41); Albumin Level 4.3 g/dL (3.5-5.2); Alkaline Phosphatase 96 U/L (40-130); Anion Gap 12.8 (5-19); Aspartate Amino Transferase 47 U/L (0-40); Blood Urea Nitrogen 27 mg/dL (8-23); Calcium 8.7 mg/dL (8.5-10.5); Carbon Dioxide 26 mmol/L (22-29); Chloride 104 mmol/L (98-107); Globulin 2.1 g/dL (1.3-4.6); Glucose 103 mg/dL (65-115); Lactate Dehydrogenase 570 U/L (135-225); NT Pro B Type Natriuretic Pept 2475 pg/mL (0-450); Osmolality Calculated 291 mOsm/kg (285-295); Potassium 4.8 mmol/L (3.5-5.1); Sodium 138 mmol/L (136-145); Total Bilirubin 3.2 mg/dL (0.15-1.2); Total Protein 6.4 g/dL (6.6-8.7)
[2022-09-17 15:09] LABS: Absolute Segmented Neutrophil 4.9 10/cmm (1.6-7.1); Band Neutrophils Absolute 0.1 10^3/cmm (0.0-1.2); Eosinophils 1 %; Lymphocytes 13 %; Lymphocytes Absolute 1.2 10^3/cmm (1.2-3.4); Macrocytosis 1+; Monocytes Absolute 2.3 10^3/cmm (0.1-0.6); Platelet Estimate Normal (Normal); Segmented Neutrophils 57 %; Total Cells Counted 100 (0-100)
[2022-10-11 11:25] LABS: Miscellaneous Test SEE COMMENTS
[2023-01-01 15:45] LABS: PNH Clinical Type Not Provided; PNH Viability % 86%
[2023-01-01 15:46] LABS: PNH Abnormal Cells Detected Not Detected
[2023-01-01 15:47] LABS: PNH RBCS Normal CD59 level
== END 2022-10-04 23:59 | disposition home or self-care (01) ==
PROVIDERS: Nurse Practitioner Family; PCP Electrodiagnostic Medicine; Visit Provider Internal Medicine Hematology & Oncology
DX: R74.02 Elevation of levels of lactic acid dehydrogenase [LDH]; D58.9 Hereditary hemolytic anemia, unspecified; E80.6 Other disorders of bilirubin metabolism; Z79.899 Other long term (current) drug therapy; I25.10 Atherosclerotic heart disease of native coronary artery without angina pectoris
CPT/HCPCS: 36415; 80053; 83010; 83615; 83880; 85007; 85025; 85045; 88184; 88185; 99214

== ENCOUNTER 2022-10-15 09:27 | Oncology outpatient (recurring) (ONCR) | payer MEDICARE, SELFPAY ==
[2022-10-15 09:49] VITALS: BP 93/60; PULSE 71; RESP 16; TEMP 36.8; O2SAT 95
[2022-10-15 10:02] LABS: Hematocrit 34.2 % (42.0-52.0); Hemoglobin 11.1 g/dL (11.7-16.6); Mean Corpuscular HGB Conc 32.5 g/dL (30.0-36.0); Mean Corpuscular Hemoglobin 31.9 pg (28.0-34.0); Mean Corpuscular Volume 98.3 fl (80-94); Mean Platelet Volume 10.6 fL (7.4-10.4); Platelet Count 190 10^3/cmm (130-400); Red Blood Count 3.48 10^6/uL (4.1-5.3); Red Cell Distribution Width 16.1 % (12.1-15.1); White Blood Count 8.4 10^3/uL (4.0-10.0)
[2022-10-15 10:25] LABS: Alanine Aminotransferase 14 U/L (0-41); Albumin Level 4.1 g/dL (3.5-5.2); Alkaline Phosphatase 110 U/L (40-130); Anion Gap 13.3 (5-19); Aspartate Amino Transferase 29 U/L (0-40); Blood Urea Nitrogen 29 mg/dL (8-23); Calcium 8.7 mg/dL (8.5-10.5); Carbon Dioxide 26 mmol/L (22-29); Chloride 105 mmol/L (98-107); Ferritin 157 ng/mL (30-400); Globulin 2.3 g/dL (1.3-4.6); Glucose 81 mg/dL (65-115); Iron 127 ug/dL (59-158); Osmolality Calculated 293 mOsm/kg (285-295); Percent Saturation 50.5 % (20-50); Potassium 5.3 mmol/L (3.5-5.1); Sodium 139 mmol/L (136-145); Total Bilirubin 2.5 mg/dL (0.15-1.2); Total Iron Binding Capacity 251 mcg/dl; Total Protein 6.4 g/dL (6.6-8.7); Unsaturated Iron Binding 124 ug/dL (112-347)
[2022-10-15 11:17] LABS: Slide Review Slide Review Perform
[2022-10-15 11:23] LABS: Total Cells Counted 100 (0-100)
[2022-10-15 11:24] LABS: Eosinophils 1 %; Lymphocytes 12 %; Macrocytosis 1+; Microcytosis 1+; Platelet Estimate Normal (Normal); Segmented Neutrophils 59 %
== END 2022-11-04 23:59 | disposition home or self-care (01) ==
PROVIDERS: PCP Electrodiagnostic Medicine; Visit Provider Internal Medicine Hematology & Oncology
DX: D64.9 Anemia, unspecified (principal); D58.9 Hereditary hemolytic anemia, unspecified; Z79.52 Long term (current) use of systemic steroids; I25.10 Atherosclerotic heart disease of native coronary artery without angina pectoris; Z95.2 Presence of prosthetic heart valve; Z95.0 Presence of cardiac pacemaker
CPT/HCPCS: 36415; 80053; 82728; 83540; 83550; 85007; 85025; 99214

== ENCOUNTER → 2023-01-22 16:34 | Outpatient (BNVA) | payer MEDICARE, SELFPAY | PROVIDERS: PCP Electrodiagnostic Medicine; Visit Provider Internal Medicine Cardiovascular Disease | DX: I48.91 Unspecified atrial fibrillation (principal); R06.02 Shortness of breath | CPT/HCPCS: 80048; 83880; 99214 ==

== ENCOUNTER 2023-01-31 15:24 | Outpatient (CLI) | payer MEDICARE, SELFPAY ==
--- NOTE | 2023-01-31 15:45 | USCV_ITS ---
Chad Hoover Age: 77 Gender: M : 1945 Exam Date: 01/31/2023 15:38 Ordering Phys: Mayra Hamilton MD ([email or web address]) Technologist: CT Exam Location: [facility] [place] Indication: mvr/tr BP: 138 / 80 HR: Rhythm: Sinus Technical Quality: Adequate MEASUREMENTS (Male / Female) Normal Values 2D ECHO LV Chamber Size 5.9 cm RV Chamber Size 6.9 cm LVOT Diameter 2.0 cm LV Ejection Fraction MOD 2C 41.1 % LV Ejection Fraction 2C AL 39.2 % LA Diameter 4.7 cm LA Width 5.7 cm LA Height 6.1 cm RA Width 7.0 cm RA Height 7.6 cm Aorta at Sinotubular Diameter 2.5 cm IVC Diameter 2.1 cm M-MODE Aortic Annulus Diameter 3.3 cm LA Ao Ratio MM 1.5 DOPPLER AV Peak Velocity 153.0 cm/s LVOT Peak Velocity 164.0 cm/s AV Area Cont Eq vti 3.7 cm squared AV Area Cont Eq pk 3.4 cm squared MV Area PHT 1.7 cm squared Mitral E to A Ratio 2.2 MV E' Velocity 79.0 cm/s Mitral E to MV E' Ratio 14.8 Mitral E to LV E' Lateral Ratio 10.2 Mitral E to LV E' Septal Ratio 27.6 TR Peak Velocity 357.7 cm/s TR Peak Gradient 51.2 mmHg TV Peak E Velocity 118.0 cm/s Right Atrial Pressure 3.0 mmHg Pulmonary Artery Systolic Pressu 54.2 mmHg PV Peak Velocity 134.0 cm/s FINDINGS Left Ventricle Diffuse hypokinesia of the septum and inferior wall segments with dyskinetic basal septum. Overall LV ejection fraction to 45%, visual.Grade III/IV diastolic dysfunction (restrictive filling pattern), severely elevated filling pressures. Right Ventricle Mildly dilated right ventricle with a normal ejection fraction Right Atrium Moderately increased right atrial size. Catheter/pacemaker wire in the right atrial cavity. Left Atrium Moderately increased left atrial size. Mitral Valve The bioprosthetic valve at the mitral position appears to be well-seated. Normal leaflet motions. Calculated mitral valve area was 1.7 cm squared, based on the pressure half-time Aortic Valve Thickened aortic valve. Mild aortic valve regurgitation. Tricuspid Valve [id number] tricuspid valve regurgitation. Pulmonic Valve Mild pulmonary valve regurgitation. Moderate pulmonary hypertension with an estimated pulmonary artery peak systolic pressure of 57 mmHg and a mean pressure of 30 mmHg. Pericardium No pericardial effusion. Aorta Normal aortic annulus size. IVC Normal IVC dimension with >50% respiratory change of the inferior vena cava. Estimated right atrial pressure 3 Hg. CONCLUSIONS Diffuse hypokinesia of the septum and inferior wall segments with dyskinetic basal septum. Overall LV ejection fraction to 45%, visual.Grade III/IV diastolic dysfunction (restrictive filling pattern), severely elevated filling pressures. The bioprosthetic valve at the mitral position appears to be well-seated. Normal leaflet motions. Calculated mitral valve area was 1.7 cm squared, based on the pressure half-time. Moderate biatrial enlargement Thickened aortic valve. Mild aortic valve regurgitation. [id number] tricuspid valve regurgitation. Moderate pulmonary valve regurgitation. with an estimated pulmonary artery peak systolic pressure of 57 mmHg and a mean pressure of 30 mmHg. Mildly dilated right ventricle with a normal ejection fraction. There is no pericardial effusion. There are no intracardiac masses. Compared to the study from 03/13/2021, there is slight worsening of the tricuspid regurgitation and increase in the PA pressure Dr Mayra Hamilton MD [facility] (Electronically Signed) Final Date: 10 February 2023 08:06 S
== END 2023-01-31 15:25 | disposition home or self-care (01) ==
LOC: RAD 15:25
PROVIDERS: PCP Electrodiagnostic Medicine; Visit Provider Internal Medicine Cardiovascular Disease
DX: R06.09 Other forms of dyspnea (principal); I08.8 Other rheumatic multiple valve diseases
CPT/HCPCS: 93306

== ENCOUNTER 2023-03-03 15:09 | Outpatient (CLI) | payer MEDICARE, SELFPAY ==
[2023-03-03 16:38] LABS: Blood Urea Nitrogen 32 mg/dL (8-23); Carbon Dioxide 24 mmol/L (22-29); Chloride 102 mmol/L (98-107); Glucose 86 mg/dL (65-115); NT Pro B Type Natriuretic Pept 2882 pg/mL (0-450); Osmolality Calculated 290 mOsm/kg (285-295); Sodium 137 mmol/L (136-145)
[2023-03-03 16:42] LABS: Anion Gap 15.8 (5-19); Potassium 4.8 mmol/L (3.5-5.1)
== END 2023-03-03 15:10 | disposition home or self-care (01) ==
LOC: LAB 15:10
PROVIDERS: PCP Electrodiagnostic Medicine; Visit Provider Internal Medicine Cardiovascular Disease
DX: R06.02 Shortness of breath (principal)
CPT/HCPCS: 36415; 80048; 83880

== ENCOUNTER → 2023-08-19 15:25 | Outpatient (BNVA) | payer MEDICARE, SELFPAY | PROVIDERS: PCP Electrodiagnostic Medicine; Visit Provider Internal Medicine Cardiovascular Disease | DX: Z95.2 Presence of prosthetic heart valve (principal); Z95.0 Presence of cardiac pacemaker; I48.11 Longstanding persistent atrial fibrillation; I43 Cardiomyopathy in diseases classified elsewhere; Z79.01 Long term (current) use of anticoagulants | CPT/HCPCS: 99214 ==

== ENCOUNTER 2023-11-03 09:35 | Outpatient (CLI) | payer MEDICARE, SELFPAY ==
[2023-11-03 10:37] LABS: Anion Gap 15.5 (5-19); Blood Urea Nitrogen 31 mg/dL (8-23); Calcium 8.9 mg/dL (8.5-10.5); Carbon Dioxide 25 mmol/L (22-29); Chloride 102 mmol/L (98-107); Glucose 93 mg/dL (65-115); NT Pro B Type Natriuretic Pept 1891 pg/mL (0-450); Osmolality Calculated 292 mOsm/kg (285-295); Potassium 4.5 mmol/L (3.5-5.1); Sodium 138 mmol/L (136-145)
== END 2023-11-03 09:36 | disposition home or self-care (01) ==
LOC: LAB 09:38
PROVIDERS: PCP Electrodiagnostic Medicine; Visit Provider Internal Medicine Cardiovascular Disease
DX: I48.11 Longstanding persistent atrial fibrillation (principal)
CPT/HCPCS: 36415; 80048; 83880

== ENCOUNTER 2023-12-03 10:05 | Outpatient (CLI) | payer MEDICARE, SELFPAY ==
[2023-12-03 10:55] LABS: NT Pro B Type Natriuretic Pept 2091 pg/mL (0-450)
== END 2023-12-03 10:06 | disposition home or self-care (01) ==
LOC: LAB 10:06
PROVIDERS: PCP Electrodiagnostic Medicine; Visit Provider Internal Medicine Cardiovascular Disease
DX: Z79.01 Long term (current) use of anticoagulants (principal)
CPT/HCPCS: 36415; 83880

== ENCOUNTER → 2024-02-26 13:55 | Outpatient (BNVA) | payer MEDICARE, SELFPAY | PROVIDERS: PCP Electrodiagnostic Medicine; Visit Provider Internal Medicine Cardiovascular Disease | DX: I43 Cardiomyopathy in diseases classified elsewhere (principal); Z95.2 Presence of prosthetic heart valve; Z95.0 Presence of cardiac pacemaker; I48.11 Longstanding persistent atrial fibrillation; Z79.01 Long term (current) use of anticoagulants; R06.09 Other forms of dyspnea; R06.02 Shortness of breath | CPT/HCPCS: 36415; 80048; 83880; 99214 ==

== ENCOUNTER → 2024-03-03 11:22 | Outpatient (BNVA) | payer MEDICARE, SELFPAY | PROVIDERS: PCP Electrodiagnostic Medicine; Visit Provider Internal Medicine Cardiovascular Disease | DX: Z45.010 Encounter for checking and testing of cardiac pacemaker pulse generator [battery] (principal) | CPT/HCPCS: 93296 ==

== ENCOUNTER 2024-04-02 14:42 | Outpatient (CLI) | payer MEDICARE, SELFPAY ==
--- NOTE | 2024-04-02 14:45 | USCV_ITS ---
Chad Hoover Age: 79 Gender: M : 1945 Exam Date: 04/02/2024 15:17 Ordering Phys: Mayra Hamilton MD ([email or web address]) Technologist: Tima Bright [place] [facility] [place]: MVR/ TR BP: 110 / 62 HR: 68 Rhythm: Sinus Technical Quality: Adequate MEASUREMENTS (Male / Female) Normal Values 2D ECHO LV Diastolic Diameter PLAX 4.9 cm 4.2 - 5.9 / 3.9 - 5.3 cm IVS Diastolic Thickness 1.2 cm 0.6 - 1.0 / 0.6 - 0.9 cm IVS Systolic Thickness 1.2 cm LVPW Diastolic Thickness 1.2 cm 0.6 - 1.0 / 0.6 - 0.9 cm LVPW Systolic Thickness 1.6 cm LVOT Diameter 2.1 cm LV Ejection Fraction 2D Teich 46.0 % LV Ejection Fraction MOD 4C 40.7 % LV Ejection Fraction MOD 2C 40.2 % LV Ejection Fraction 2C AL 37.9 % LA Diameter 4.8 cm RA Systolic Volume 4C AL 99.9 ml RA Systolic Volume 4C MOD 98.7 ml LA Sys Volume AL 68.5 cm cubed LA Sys Volume Index AL 34.0 cm cubed/m squared Aorta at Sinotubular Diameter 2.6 cm IVC Diameter 2.0 cm M-MODE LA Ao Ratio MM 1.6 AV Cusp Separation MM 1.8 cm DOPPLER AV Peak Velocity 136.3 cm/s LVOT Peak Velocity 101.0 cm/s AV Area Cont Eq vti 2.7 cm squared AV Area Cont Eq pk 2.7 cm squared MV Peak Velocity 232.0 cm/s TV Peak Velocity 392.7 cm/s TR Peak Velocity 413.0 cm/s TR Peak Gradient 68.2 mmHg TR Mean Velocity 298.0 cm/s TR Mean Gradient 41.2 mmHg TR Velocity Time Integral 125.1 cm PV Peak Velocity 128.0 cm/s RV Ejection Time 0.3 s FINDINGS Left Ventricle Diffuse hypokinesia of the left ventricule with an ejection fraction of 41%. Mildly dilated LV cavity Right Ventricle Pacemaker wire in the right ventricle normal RV size and ejection fraction. Right Atrium Moderately increased right atrial size. Pacemaker wire is noted Left Atrium Moderately dilated left atrium Mitral Valve The bioprosthetic valve the mitral position appears to be well- seated. Mean gradient across the valve was 8.42 mmHg Aortic Valve No gross abnormalities noted Tricuspid Valve Moderate tricuspid valve regurgitation. Estimated pulmonary artery peak systolic pressure 71 mmHg Pulmonic Valve No gross abnormalities noted Pericardium No pericardial effusion. Aorta Normal aortic annulus size. IVC Normal inferior vena cava. CONCLUSIONS Diffuse hypokinesia of the left ventricule with an ejection fraction of 41%. Mildly dilated LV cavity. Moderately increased right atrial size. Pacemaker wire is noted. Moderately dilated left atrium. The bioprosthetic valve the mitral position appears to be well- seated. The mean gradient across the valve was found to be 8.42 mmHg Moderate tricuspid valve regurgitation. Estimated pulmonary artery peak systolic pressure 71 mmHg There is no pericardial effusion. There are no intracardiac masses. Compared to the study from 01/31/2023, there is slight worsening of the LV systolic function. The PA pressure also has gone up. Dr Mayra Hamilton MD [facility] (Electronically Signed) Final Date: 10 April 2024 21:16 S
== END 2024-04-02 14:43 | disposition home or self-care (01) ==
LOC: RAD 14:43
PROVIDERS: PCP Electrodiagnostic Medicine; Visit Provider Internal Medicine Cardiovascular Disease
DX: I50.1 Left ventricular failure, unspecified (principal); I07.1 Rheumatic tricuspid insufficiency; R06.09 Other forms of dyspnea; Z95.2 Presence of prosthetic heart valve; Z95.0 Presence of cardiac pacemaker
CPT/HCPCS: 93306

== ENCOUNTER 2024-04-17 07:06 | Inpatient (IN) | payer MEDICARE, SELFPAY ==
[2024-04-17] VITALS (138 sets, daily range): BP systolic 85–148; BP diastolic 43–81; PULSE 69–152; RESP 14–40; TEMP 36.6–37.2; O2SAT 90–100; BMI 22.6
--- NOTE | 2024-04-17 07:12 | XRR_ITS ---
PROCEDURE INFORMATION: Exam: XR Chest Exam date and time: 04/17/2024 7:32 AM Age: 79 years old Clinical indication: Shortness of breath; Prior surgery; Surgery date: 6+ months; Surgery type: Heart pacemaker; Additional info: Dyspnea/cough TECHNIQUE: Imaging protocol: Radiologic exam of the chest. Views: 1 view. COMPARISON: CR XR chest 2V* [id number] 04/21/2023 11:52 AM FINDINGS: Tubes, catheters and devices: Cardiac pacemaker system noted. Lungs: New infiltrate projects over the right lung base. Pleural spaces: Unremarkable. No pleural effusion. No pneumothorax. Heart/Mediastinum: There is severe cardiomegaly with vascular congestion. Surgical changes of the mitral valve. Bones/joints: Unremarkable. XR/XR chest 1V portable [id number] IMPRESSION: 1. Severe cardiomegaly with vascular congestion. 2. New infiltrate projects over the right lung base.
--- NOTE | 2024-04-17 07:12 | ECG_ITS ---
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1945 Requested By: Ben Dia Order Number: [id number] Ad MD: SARA MARQUEZ Measurements Intervals [place] Rate: 101 P: 0 GA: 0 QRS: 116 QRSD: 128 T: 55 QT: 326 QTc: 423 Interpretive Statements ATRIAL FIBRILLATION WITH RAPID VENTRICULAR RESPONSE RIGHT AXIS DEVIATION [QRS AXIS > 100] ANTEROSEPTAL MYOCARDIAL INFARCTION , OF INDETERMINATE AGE [40+ ms Q WAVE IN V1-V4] Compared to ECG 04/18/2018 11:00:03 Right-axis deviation now present Myocardial infarct finding now present Ventricular-paced complex(es) or rhythm no longer present Left-axis deviation no longer present Intraventricular conduction delay no longer present Electronically Signed On 04-17-2024 18:39:03 FLOUR DISTRIBUTOR by SRAA MARQUEZ [id number]
--- NOTE | 2024-04-17 07:17 | ED_ITS ---
HPI - SOB/Dyspnea 2 General: Chief Complaint: Shortness of Breath/Dyspnea Stated Complaint: sob / COUGH Time Seen by Provider: 04/17/24 07:11 History of Present Illness: HPI Narrative: 79-year-old male with a history of cardi omyopathy and coronary artery disease bioprosthetic mitral valve presents to the emergency room with increasing shortness of breath on arrival staff states he was tachypneic with a oxygen sat in the 70s. He has been placed on supplemental oxygen. Patient reports he has been increasingly short of breath he has had severe orthopnea and exertional dyspnea no significant chest pain. Patient states for the last couple of days he has been increasingly short of breath had marked decrease in exercise tolerance. Patient's last echo was approximately 2 and 3:30 weeks ago done here and had an EF of 41%. Patient was noted to have a markedly dilated right atrium on that echo as well. Associated symptoms: Reports chest congestion and orthopnea; Deny abdominal pain, chest pain or fever(s) Related Data Home Medications Medication Instructions Recorded Confirmed ascorbic acid (vitamin C) 1,000 mg 2 gm PO DAILY 04/19/19 04/17/24 tablet multivitamin 1 tab PO DAILY 09/19/21 04/17/24 cholecalciferol (vitamin D3) 10 10 mcg PO DAILY 07/23/22 04/17/24 mcg (400 unit) capsule fluticasone 500 mcg-salmeterol 50 1 inh inhalation BID 07/23/22 04/17/24 mcg/dose blistr powdr for inhalation (Advair Diskus) vitamin B complex 1 cap PO BID 07/23/22 04/17/24 magnesium oxide 500 mg PO DAILY 01/22/23 04/17/24 Holy Basil 1 cap PO DAILY 04/17/24 04/17/24 acetaminophen 325 mg tablet 650 mg PO QID PRN Pain 04/17/24 04/17/24 (Tylenol) albuterol sulfate 90 mcg/actuation 2 puff inhalation Q4H PRN 04/17/24 04/17/24 aerosol inhaler Shortness Of Breath Or Wheezing turmeric 400 mg capsule 400 mg PO DAILY 04/17/24 04/17/24 Previous Rx's Medication Instructions Recorded potassium chloride 20 mEq 20 meq PO DAILY #30 tabs 02/12/22 tablet,extended release(part/cryst) sacubitril 24 mg-valsartan 26 mg 1 tab PO DAILY #90 tabs 03/18/23 tablet (Entresto) furosemide 40 mg tablet (Lasix) 40 mg PO DAILY PRN edema #30 tabs 03/26/23 diltiazem HCl 180 mg 180 mg PO DAILY #90 caps 09/12/23 capsule,extended release 24 hr Allergies Allergy/AdvReac Type Severity Reaction Status Date / Time oxycodone Allergy Severe other Verified 02/26/24 14:04 Review of Systems 2 Const: Denies: fever(s) or chills Card: Reports: dyspnea on exertion and orthopnea; Denies: chest pain Resp: Reports: dyspnea, non-productive cough and chest congestion GI: Denies: abdominal pain : Denies: dysuria, urinary frequency or urinary urgency Musc: Denies: neck pain or back pain Skin/Breast: Denies: rash PFSH ED 2 PFSH: Medical History Cardiac LV ejection fraction of 40-49% History of cataract 04/2022 Bilateral Hemolytic anemia Anemia Dyspnea on exertion Anticoagulant long-term use 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 Shoulder pain with history of repair of rotator cuff Surgical History Hx of shoulder surgery Hx of umbilical hernia repair Hx of thumb surgery History of permanent cardiac pacemaker placement H/O mitral valve replacement Patient had a initial mitral valve replacement by Dr. Acevedo in 2013. He developed a perivalvular leak for which he underwent redo surgery by Dr. Sutton at the [facility] in [place] in October 2017. Most recent echocardiogram was done in March 2021. Ejection fraction was 46%. Moderate TR, mild AR mitral valve area was calculated to be 1.5 cm2 Family History Mother Rheumatoid arthritis at age of 62 Grandmother Cancer Dementia Brother Diabetes Father Lung disease Family/Other Lung disease Denies family history of CAD (coronary artery disease) Clotting disorder Chronic kidney disease (CKD) Suicide Anesthesia complication Bleeding disorder Stroke Social History Smoking and tobacco/nicotine status: never used tobacco/nicotine Alcohol intake: never Substance/Drug Use: never Physical Exam 2 Const: GENERAL APPEARANCE: cooperative ORIENTATION/CONSCIOUSNESS: Yes awake, Yes oriented to person, Yes oriented to place and Yes oriented to time HENMT: COMMON NORMALS: normocephalic, atraumatic and hearing grossly normal bilaterally HEAD & SCALP: normocephalic and atraumatic Resp: EFFORT & INSPECTION: Yes tachypneic and Yes labored AUSCULTATION: c rackles Cardio: COMMON NORMALS: No murmurs present (Cardio) RATE: tachycardic R HYTHM: abnormal rhythm irregularly irregular GI: COMMON NORMALS: Soft to palpation and No hepatosplenomegaly present A USCULTATION: Yes normoactive bowel sounds PALPATION: Yes Soft to palpation, No Tenderness to palpation present (GI), No Guarding due to palpation present (GI) and Yes No hepatosplenomegaly present Extremity: COMMON NORMALS: normal to inspection, capillary refill normal, no clubbing, cyanosis or edema, no calf tenderness and no pedal edema Neuro: SENSORIUM/ORIENTATION: Yes oriented to person, Yes oriented to place and Yes oriented to time Skin: COMMON NORMALS: no rashes or lesions noted GENERAL SKIN EXAM: no rashes or lesions noted Course 2 Vital Signs: Vital signs: Vital Signs Temperature 98.0 F 04/19/24 03:00 Pulse Rate 70 04/19/24 06:00 Respiratory Rate 22 H 04/19/24 06:00 Blood Pressure 100/56 04/19/24 06:00 Pulse Oximetry 98 04/19/24 06:00 Oxygen Delivery Me thod High Flow Nasal C annula 04/19/24 03:10 Oxygen Flow Rate 3 04/19/24 03:10 MDM - SOB/Dyspnea Medical Decision Making Decompensated congestive heart failure with A-fib with RVR likely been going on a few days. His blood pressure will not tolerate Cardizem he normally is on Cardizem for rate control. His medications were reviewed. He was initiated on amiodarone with a bolus and drip for rate control did improve his symptoms. He may need some diuresis as well however at this point I do not know well how well he will be able to control it he will likely need an repeat echo. Will admit to ICU. His troponins are elevated but are not trending higher. Believe this is a result of myocardial strain from his A-fib with RVR and congestive heart failure. Medical Records I reviewed the patient's medical records. Echocardiogram 04/02/2024 CONCLUSIONS Diffuse hypokinesia of the left ventricule with an ejection fraction of 41%. Mildly dilated LV cavity. Moderately increased right atrial size. Pacemaker wire is noted. Moderately dilated left atrium. The bioprosthetic valve the mitral position appears to be well- seated. The mean gradient across the valve was found to be 8.42 mmHg Moderate tricuspid valve regurgitation. Estimated pulmonary artery peak systolic pressure 71 mmHg There is no pericardial effusion. There are no intracardiac masses. Compared to the study from 01/31/2023, there is slight worsening of the LV systolic function. The PA pressure also has gone up. Dr Mayra Hamilton MD [facility] (Electronically Signed) Final Date: 10 April 2024 Lab Data I reviewed the patient's lab results. 04/19/24 04:30 04/18/24 02:03 Labs/Radiology: Radiology Impressions Venous Duplex 04/17/24 11:18 IMPRESSION: No evidence of deep vein thrombosis. Chest/Abdomen/Pelvis CT 04/18/24 08:52 IMPRESSION: 1. Peribronchial wall thickening; query viral infection/bronchitis, chronic bronchitis and/or asthma. 2. Patchy ground-glass and airspace opacities in the lower lobes suspicious for pneumonia. 3. Tree-in-bud opacities in the right chest with clustered nodules. These findings raise concern for atypical infection such as mycobacterium avium intracellulare or fungal infection. 4. Solid pulmonary nodules measure up to 6.9 mm. As per Fleischner Society IMPRESSION: 1. There are a few mildly dilated loops of small bowel in the right lower quadrant which could reflect ileus/adynamic state. Partial small bowel obstruction is considered less likely. Correlate clinically. 2. The bladder wall is thickened. Considerations include underdistention, partial bladder outlet obstruction or cystitis. Correlate with urinalysis. 3. Trace free pelvic fluid. COMMENTS: Consistent with the [place] [employer]'s Incidental Findings Committee white paper (J Am Jessika Radiol 2018): Any incidental renal lesion less than 1 cm or classified as too small to characterize, or any incidental cystic renal lesion characterized as simple-appearing, is likely benign. No follow-up imaging is recommended for these lesions per consensus recommendations based on imaging criteria. ADDENDUM: 04/18/24 1035 Findings discussed with JAMES GUERRERO at 04/18/2024 10:33 AM SOFTWARE SUPPORT SPECIALIST. Chest X-Ray 04/18/24 13:09 IMPRESSION: 1. No acute findings. 2. Low lung volumes 3. Right-sided PICC line in the SVC 4. Right shoulder arthroplasty good position 5. Metallic sternotomy wires are present 6. Cardiac device left anterior chest in good position KUB X-Ray 04/18/24 16:47 IMPRESSION: 1. Moderate constipation without bowel dilation to indicate obstruction. 2. Right central venous catheter tip in the superior vena cava. 3. Left-sided pacemaker. 4. Sternotomy wires. 5. Cardiomegaly. 6. Right mid lung atelectasis versus minimal nfiltrate. 7. Patchy left lung field airspace infiltrates suspected. Laboratory Results WBC 26.98 10^3/uL (3.29-11.43) H 04/17/24 07:28 RBC 4.38 10^6/uL (3.85-5.65) 04/17/24 07:28 Hgb 13.30 g/dL (11.27-16.99) 04/17/24 07:28 Hct 42.9 % (37-53) 04/17/24 07:28 MCV 97.9 fl (82-101) 04/17/24 07:28 MCH 30.4 pg (27-33) 04/17/24 07:28 MCHC 31.0 g/dL (30-55) 04/17/24 07:28 RDW 14.6 % (12.1-15.1) 04/17/24 07:28 Plt Count 132 10^3/cmm (157-399) L 04/17/24 07:28 MPV 10.8 fL (7.4-10.4) H 04/17/24 07:28 Neut % (Auto) 68.2 % 04/17/24 07:28 Lymph % (Auto) 5.3 % 04/17/24 07:28 [place] % (Auto) 21.6 % 04/17/24 07:28 Eos % (Auto) 0.2 % 04/17/24 07:28 Baso % (Auto) 0.4 % 04/17/24 07:28 Neut # (Auto) 18.39 10^3/uL (1.8-7.7) H 04/17/24 07:28 Lymph # (Auto) 1.4 10^3/uL (0.8-4.8) 04/17/24 07:28 [place] # (Auto) 5.8 10^3/uL (0.2-0.9) H 04/17/24 07:28 Eos # (Auto) 0.1 10^3/uL (0.0-0.8) 04/17/24 07:28 Baso # (Auto) 0.1 10^3/uL (0.0-0.1) 04/17/24 07:28 Nucleated RBC % (auto) 0 % 04/17/24 07: Nucleated RBCs # 0.0 /100WBC 04/17/24 07:28 PT 13.90 SECONDS (12.1-14.9) 04/17/24 07:28 INR 1.00 (0.8-1.2) 04/17/24 07:28 D-Dimer 1.17 ug/mLFEU (0-0.59) H 04/17/24 07:28 Specimen Type Arterial 04/17/24 07:56 Sample Site Radial, right 04/17/24 07:56 ABG pH 7.37 (7.35-7.45) 04/17/24 07:56 ABG pCO2 50.9 mmHg (35-45) H 04/17/24 07:56 ABG pO2 294.0 mmHg (80.0-100.0) H 04/17/24 07:56 ABG HCO3 29.2 mmol/L (22-26) H 04/17/24 07:56 ABG O2 Saturation > 99.1 04/17/24 07:56 ABG Base Excess 2.9 mmol/L (-2.0-2.0) H 04/17/24 07:56 Maciel Test Pos 04/17/24 07:56 A-a O2 Gradient Not Reportable 04/17/24 07:56 Hematocrit 39.9 % (42-52) L 04/17/24 07:56 Hgb O2 Saturation 97.0 % (95-100) 04/17/24 07:56 Carboxyhemoglobin 2.4 %THgb (0.4-20.1) 04/17/24 07:56 Methemoglobin 1.1 % (0.4-1.5) 04/17/24 07:56 Total Hemoglobin 13.0 g/dL (14-18) L 04/17/24 07:56 Sodium 137.0 mmol/L (131-143) 04/17/24 07:56 Potassium 4.1 mmol/L (3.5-5.0) 04/17/24 07:56 Glucose 112.0 mg/dL (70-115) 04/17/24 07:56 Ionized Calcium 1.2 mmol/L (1.1-1.4) 04/17/24 07:56 O2 Delivery Device Nrb 04/17/24 07:56 O2 Liters/Min 15.0 % 04/17/24 07:56 Retirement Specialist ID Amh 04/17/24 07:56 Sodium 136 mmol/L (136-145) 04/17/24 07:28 Potassium 4.7 mmol/L (3.5-5.1) 04/17/24 07:28 Chloride 96 mmol/L (98-107) L 04/17/24 07:28 Carbon Dioxide 29 mmol/L (22-29) 04/17/24 07:28 Anion Gap 15.7 (5-19) 04/17/24 07:28 BUN 38 mg/dL (8-23) H 04/17/24 07:28 Creatinine 1.5 mg/dL (0.7-1.2) H 04/17/24 07:28 GFR Calculation Not Reportable 04/17/24 07:28 Glucose 125 mg/dL (65-115) H 04/17/24 07:28 Estimat Average Glucose 80 04/17/24 07:28 Hemoglobin A1c 4.4 % (4.0-6.0) 04/17/24 07:28 Calculated Osmolality 293 mOsm/kg (285-295) 04/17/24 07:28 Lactic Acid 2.7 mmol/L (0.5-2.2) H 04/17/24 07:28 Calcium 9.6 mg/dL (8.5-10.5) 04/17/24 07:28 Magnesium 2.5 mg/dL (1.7-2.3) H 04/17/24 07:28 Iron 103 ug/dL (59-158) 04/17/24 07:28 Ferritin 277 ng/mL (30-400) 04/17/24 07:28 Total Bilirubin 2.4 mg/dL (0.15-1.2) H 04/17/24 07:28 AST 50 U/L (0-40) H 04/17/24 07:28 ALT 20 U/L (0-41) 04/17/24 07:28 Alkaline Phosphatase 102 U/L (40-130) 04/17/24 07:28 Troponin T Baseline 56 ng/L (0-15) H 04/17/24 07:28 Troponin T 120 Minute 62.00 ng/L (0-15) H 04/17/24 09:55 Delta Troponin T 6.00 ABS# (0-10) 04/17/24 09:55 C-Reactive Protein 17.8 mg/L (0.0-4.9) H 04/17/24 07:28 NT-Pro-B Natriuret Pep 2427 pg/mL (0-450) H 04/17/24 07:28 Total Protein 7.8 g/dL (6.6-8.7) 04/17/24 07: Albumin 4.7 g/dL (3.5-5.2) 04/17/24 07: Globulin 3.1 g/dL (1.3-4.6) 04/17/24 07:28 Triglycerides 61 mg/dL (0-150) 04/17/24 07: Cholesterol 125 mg/dL (0-200) 04/17/24 07: LDL Cholesterol, Calc 57 mg/dL (50-129) 04/17/24 07: HDL Cholesterol 56 mg/dL (60-100) L 04/17/24 07:28 LDL/HDL Ratio 1.02 RATIO (0.00-3.22) 04/17/24 07: Cholesterol/HDL Ratio 2.23 mg/dL (1.0-5.00) 04/17/24 07:28 Procalcitonin 0.24 ng/mL (0-0.5) 04/17/24 07: TSH 4.65 uIU/mL (0.27-4.20) H 04/17/24 07:28 Urine Color Dark yellow (Yellow) A 04/17/24 08:25 Urine Appearance Clear (CLEAR) 04/17/24 08: Urine pH 5.5 (5-7) 04/17/24 08:25 Ur Specific Gill 1.015 (1.005-1.030) 04/17/24 08:25 Urine Protein Trace (Negative) A 04/17/24 08:25 Urine Glucose (UA) Negative (Normal) 04/17/24: Urine Ketones Negative (Negative) 04/17/24 08: Urine Blood Negative (Negative) 04/17/24 08: Urine Nitrate Negative (Negative) 04/17/24: Urine Bilirubin Negative (Negative) 04/17/24: Urine Urobilinogen 1.0 mg/dL (Negative) 04/17/24 08: Ur Leukocyte Esterase Negative (Negative) 04/17/24 08: Urine RBC 0-2 /hpf (0-2) 04/17/24: Urine WBC 0-5 /hpf (0-5) 04/17/24:25 Ur Squamous Epith Cells 0-5 /hpf (0-5) 04/17/24 08: Amorphous Sediment Not Reportable 04/17/24 08:25 Urine Bacteria None seen /hpf (NONE) 04/17/24: Hyaline Casts 0-4 /lpf H 04/17/24 08:25 Adenovirus (PCR) Not detected (NOT DETECT) 04/17/24 08:00 C. pneumoniae DNA (PCR) Not detected (NOT DETECT) 04/17/24 08:00 Coronavirus (PCR) Cancelled 04/17/24 08:00 Coronavirus 229E (PCR) Not detected (NOT DETECT) 04/17/24 08:00 Human Metapneumovir PCR Detected (NOT DETECT) A 04/17/24 08:00 Influenza A (H1) PCR Not detected (NOT DETECT) 04/17/24 08:00 Influenza A (PCR) Cancelled 04/17/24 08:00 Influ A (H1/09) PCR Not detected (NOT DETECT) 04/17/24 08:00 Influenza A (H3) PCR Not detected (NOT DETECT) 04/17/24 08:00 Influenza Type A (PCR) Not detected (NOT DETECT) 04/17/24 08:00 Influenza Type B (PCR) Cancelled 04/17/24 08:00 Influenza Type B (PCR) Not detected (NOT DETECT) 04/17/24 08:00 M. pneumoniae (PCR) Not detected (NOT DETECT) 04/17/24 08:00 Parainfluenza 1 (PCR) Not detected (NOT DETECT) 04/17/24 08:00 Parainfluenza 2 (PCR) Not detected (NOT DETECT) 04/17/24 08:00 Parainfluenza 3 (PCR) Not detected (NOT DETECT) 04/17/24 08:00 Parainfluenza 4 (PCR) Not detected (NOT DETECT) 04/17/24 08:00 RSV (PCR) Cancelled 04/17/24 08:00 RSV Type A (PCR) Not detected (NOT DETECT) 04/17/24 08:00 RSV Type B (PCR) Not detected (NOT DETECT) 04/17/24 08:00 Entero/Rhino (PCR) Not detected (NOT DETECT) 04/17/24 08:00 SARS-CoV-2 (PCR) Not detected (NOT DETECT) 04/17/24 08:00 All radiology interpretation(s) finalized by discharge Critical Care Time 2 Critical Care Time: Critical Care Time: Yes Total Critical Care Time: 40 Attestation: The high probability of a clinically significant, sudden or life threatening deterioration of the patient's cardiovascular respiratory system(s) required my full and direct attention, intervention and personal management. The critical care time is as shown. This time is in addition to time spent performing any reported procedures but includes the following: [x] Data and vital sign review and interpretation [x] Patient assessment, examination and intervention [x] Documentation [x] Medication orders and management Discharge Plan Discharge Patient Disposition: Admitted As Inpatient Admit Provider: James Guerrero Clinical Impression: Atrial fibrillation with RVR, H/O mitral valve replacement, Systolic CHF, acute on chronic, Pneumonia, FACUNDO (acute kidney injury), Pacemaker Condition: Stable Coding Level of Care Code ED French Binder for Codi Mcgrath
[2024-04-17 07:39] LABS: Basophils # 0.1 10^3/uL (0.0-0.1); Basophils % 0.4 %; Eosinophils # 0.1 10^3/uL (0.0-0.8); Eosinophils % 0.2 %; Hematocrit 42.9 % (37-53); Lymphocytes # 1.4 10^3/uL (0.8-4.8); Lymphocytes % 5.3 %; Mean Corpuscular Hemoglobin 30.4 pg (27-33); Mean Corpuscular Volume 97.9 fl (82-101); Mean Platelet Volume 10.8 fL (7.4-10.4); Monocytes # 5.8 10^3/uL (0.2-0.9); Monocytes % 21.6 %; Neutrophils # 18.39 10^3/uL (1.8-7.7); Neutrophils % 68.2 %; Nucleated Red Blood Cells % 0 %; Platelet Count 132 10^3/cmm (157-399); Red Blood Count 4.38 10^6/uL (3.85-5.65); Red Cell Distribution Width 14.6 % (12.1-15.1); White Blood Count 26.98 10^3/uL (3.29-11.43)
[2024-04-17] MEDS: dexamethasone 10 mg/mL INJ IM (07:43)
--- NOTE | 2024-04-17 07:50 | ECG_ITS ---
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1945 Requested By: Ben Dia Order Number: [id number] Reading MD: SARA MARQUEZ Measurements Intervals [place] Rate: 135 P: 0 LA: 0 QRS: 106 QRSD: 116 T: -11 QT: 295 QTc: 442 Interpretive Statements ATRIAL FIBRILLATION WITH RAPID VENTRICULAR RESPONSE RIGHT AXIS DEVIATION [QRS AXIS > 100] ANTEROSEPTAL MYOCARDIAL INFARCTION , OF INDETERMINATE AGE [40+ ms Q WAVE IN V1-V4] Compared to ECG 04/17/2024 07:35:39 No significant changes Electronically Signed On 04-17-2024 18:38:58 RECEIVING INSPECTOR by SARA MARQUEZ [id number]
[2024-04-17 07:56] LABS: Troponin(5th) Baseline 56 ng/L (0-15)
[2024-04-17] MEDS: amiodarone 150 MG/100 ML PREMIX 400 MG IV (07:58)
[2024-04-17 07:59] LABS: Alanine Aminotransferase 20 U/L (0-41); Albumin Level 4.7 g/dL (3.5-5.2); Alkaline Phosphatase 102 U/L (40-130); Anion Gap 15.7 (5-19); Aspartate Amino Transferase 50 U/L (0-40); Blood Urea Nitrogen 38 mg/dL (8-23); Calcium 9.6 mg/dL (8.5-10.5); Carbon Dioxide 29 mmol/L (22-29); Chloride 96 mmol/L (98-107); Globulin 3.1 g/dL (1.3-4.6); Glucose 125 mg/dL (65-115); Osmolality Calculated 293 mOsm/kg (285-295); Potassium 4.7 mmol/L (3.5-5.1); Sodium 136 mmol/L (136-145); Total Bilirubin 2.4 mg/dL (0.15-1.2); Total Protein 7.8 g/dL (6.6-8.7)
[2024-04-17] MEDS: ipratropium-albuterol 3 mL Neb INHALATION ×5 (07:59→23:32)
--- NOTE | 2024-04-17 08:00 | PC.NURSE ---
Verbal order to start amio drip at 0.5
[2024-04-17 08:01] LABS: Creatinine Clr Calc Pharmacy 40.7388
[2024-04-17 08:02] LABS: D Dimer 1.17 ug/mLFEU (0-0.59)
[2024-04-17 08:06] LABS: NT Pro B Type Natriuretic Pept 2427 pg/mL (0-450); Procalcitonin 0.24 ng/mL (0-0.5)
[2024-04-17 08:07] LABS: ABG PCO2 50.9 mmHg (35-45); ABG PH Result 7.37 (7.35-7.45); Arterial Blood Gas Hematocrit 39.9 % (42-52); Base Excess ABG 2.9 mmol/L (-2.0-2.0); Blood Gas Allen Test Pos; Blood Gas Operator Identificat AMH; Blood Gas Sample Site Radial, right; Blood Gas Sample Type Arterial; Carboxyhemoglobin 2.4 %THgb (0.4-20.1); HCO3 ABG 29.2 mmol/L (22-26); Ionized Calcium Level - ABG 1.2 mmol/L (1.1-1.4); Methemoglobin 1.1 % (0.4-1.5); Oxygen Device NRB; Oxygen Saturation ABG > 99.1; Potassium Level - ABG 4.1 mmol/L (3.5-5.0)
[2024-04-17 08:17] LABS: Magnesium 2.5 mg/dL (1.7-2.3)
[2024-04-17 08:29] LABS: Lactic Sepsis W/Reflex 2.7 mmol/L (0.5-2.2)
[2024-04-17 08:42] LABS: Bilirubin Urine Negative (Negative); Blood Urine Negative (Negative); Glucose Urine UA Negative (Normal); Ketones Urine Negative (Negative); Leukocyte Esterase Urine Negative (Negative); Nitrate Urine Negative (Negative); Protein Urine Trace (Negative); Specific Gravity, Urine 1.015 (1.005-1.030); Urine Appearance Clear (CLEAR); Urine Color Dark Yellow (Yellow); pH Urine 5.5 (5-7)
[2024-04-17 08:47] LABS: Add Urine Microscopic? YES; Bacteria Urine None Seen /hpf; Hyaline Casts Urine 0-4 /lpf; RBC Urine 0-2 /hpf (0-2); Squamous Epithelial Cell Urine 0-5 /hpf (0-5); WBC Urine 0-5 /hpf (0-5)
[2024-04-17] MEDS: pantoprazole 40 mg SDV IVP (09:28)
[2024-04-17] MEDS: FUROsemide 10 mg/mL SDV 4mL 40 MG IVP ×2 (09:28→16:39)
--- NOTE | 2024-04-17 09:30 | PC.NURSE ---
Pt O2 sat dropping from low 90s to the mid 80s, pt placed back on 15L nonbreather and RT called
[2024-04-17 09:39] LABS: C Reactive Protein 17.8 mg/L (0.0-4.9); Chol HDL Ratio 2.23 mg/dL (1.0-5.00); Cholesterol 125 mg/dL (0-200); Ferritin 277 ng/mL (30-400); HDL Cholesterol 56 mg/dL (60-100); Iron 103 ug/dL (59-158); LDL Cholesterol Calculated 57 mg/dL (50-129); LDL HDL Ratio 1.02 RATIO (0.00-3.22); Triglycerides 61 mg/dL (0-150)
[2024-04-17 09:47] LABS: Estmated Average Glucose 80; Hemoglobin A1C 4.4 % (4.0-6.0)
[2024-04-17 09:55] LABS: Thyroid Stimulating Hormone 4.65 uIU/mL (0.27-4.20)
[2024-04-17 10:02] LABS: Reflex Lactate Order REFLEX LACTIC ORDERD
[2024-04-17 10:05] LABS: Adenovirus Not Detected (NOT DETECT); Chlamydia Pneumoniae Not Detected (NOT DETECT); Coronavirus 229E,HKU1,NL63,OC4 Not Detected (NOT DETECT); Human Metapneumovirus Detected (NOT DETECT); Human Rhinovirus/Enterovirus Not Detected (NOT DETECT); Influenza A Not Detected (NOT DETECT); Influenza A H1 Not Detected (NOT DETECT); Influenza A H1-2009 Not Detected (NOT DETECT); Influenza A H3 Not Detected (NOT DETECT); Influenza B Not Detected (NOT DETECT); Mycoplasma Pneumoniae Not Detected (NOT DETECT); Parainfluenza Virus Type 1 Not Detected (NOT DETECT); Parainfluenza Virus Type 2 Not Detected (NOT DETECT); Parainfluenza Virus Type 3 Not Detected (NOT DETECT); Parainfluenza Virus Type 4 Not Detected (NOT DETECT); Respiratory Syncytial Virus A Not Detected (NOT DETECT); Respiratory Syncytial Virus B Not Detected (NOT DETECT); SARS-COV-2 Not Detected (NOT DETECT)
--- NOTE | 2024-04-17 10:50 | P.HP_ITS ---
Providers/Chief Complaint 2 Admitting Physician: James Edwards MD Primary Care Provider: Nick Kamara DO Chief Complaint: sob / COUGH History of Present Illness Chad Hoover is a 79 year old male with a past medical history of mitral valve replacement, permanent place maker, CHF, severe tricuspid valve regurg who presents to [facility] for shortness of breath, cough, fatigue, malaise. Currently patient is alert oriented x 3, following all commands, on 6 L, nasal flaring, intercostal retractions suprasternal retractions short of breath with a few words, O2 sats in the low 90s. He reports progressive increased shortness of breath shortness of breath with exertion, fatigue, malaise, does report a nonproductive cough, no fevers, no chills, no nausea, no vomiting, he does report anterior chest discomfort but describes it more a chest tightness, denies any sick contacts, no recent travel, Review of Systems 2 Const: Reports: fatigue and malaise; Denies: fever(s) or chills Card: Reports: chest pain Resp: Reports: dyspnea and non-productive cough GI: Denies: abdominal pain : Denies: flank pain or difficulty urinating Musc: Denies: back pain Neuro: Denies: headache(s) or weakness in extremities Endo: Denies: polyuria Medications/Allergies Home Medications Medication Instructions Recorded Confirmed Last Taken Type ascorbic acid (vitamin C) 1,000 mg 2 gm PO DAILY 04/19/19 04/17/24 04/16/24 History tablet multivitamin 1 tab PO DAILY 09/19/21 04/17/24 04/16/24 History potassium chloride 20 mEq 20 meq PO DAILY #30 tabs 02/12/22 04/17/24 04/16/24 Rx tablet,extended release(part/cryst) cholecalciferol (vitamin D3) 10 10 mcg PO DAILY 07/23/22 04/17/24 04/16/24 History mcg (400 unit) capsule fluticasone 500 mcg-salmeterol 50 1 inh inhalation BID 07/23/22 04/17/24 04/16/24 History mcg/dose blistr powdr for inhalation (Advair Diskus) vitamin B complex 1 cap PO BID 07/23/22 04/17/24 04/16/24 History magnesium oxide 500 mg PO DAILY 01/22/23 04/17/24 04/16/24 History sacubitril 24 mg-valsartan 26 mg 1 tab PO DAILY #90 tabs 03/18/23 04/17/24 04/16/24 Rx tablet (Entresto) furosemide 40 mg tablet (Lasix) 40 mg PO DAILY PRN edema #30 tabs 03/26/23 04/17/24 04/16/24 Rx diltiazem HCl 180 mg 180 mg PO DAILY #90 caps 09/12/23 04/17/24 04/16/24 Rx capsule,extended release 24 hr Holy Basil 1 cap PO DAILY 04/17/24 04/17/24 04/16/24 History acetaminophen 325 mg tablet 650 mg PO QID PRN Pain 04/17/24 04/17/24 Unknown History (Tylenol) albuterol sulfate 90 mcg/actuation 2 puff inhalation Q4H PRN 04/17/24 04/17/24 04/16/24 History aerosol inhaler Shortness Of Breath Or Wheezing turmeric 400 mg capsule 400 mg PO DAILY 04/17/24 04/17/24 04/16/24 History Allergies Allergy/AdvReac Type Severity Reaction Status Date / Time oxycodone Allergy Severe other Verified 02/26/24 14:04 PFSH Acute 2 PFSH: Medical History (Updated 04/17/24 @ 10:55 by James Edwards MD) Cardiac LV ejection fraction of 40-49% History of cataract 04/2022 Bilateral Hemolytic anemia Anemia Dyspnea on exertion Anticoagulant long-term use 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 Shoulder pain with history of repair of rotator cuff Surgical History Hx of shoulder surgery Hx of umbilical hernia repair Hx of thumb surgery History of permanent cardiac pacemaker placement H/O mitral valve replacement Patient had a initial mitral valve replacement by Dr. Acevedo in 2013. He developed a perivalvular leak for which he underwent redo surgery by Dr. Sutton at the [facility] in [place] in October 2017. Most recent echocardiogram was done in March 2021. Ejection fraction was 46%. Moderate TR, mild AR mitral valve area was calculated to be 1.5 cm2 Family History Mother Rheumatoid arthritis at age of 62 Grandmother Cancer Dementia Brother Diabetes Father Lung disease Family/Other Lung disease Denies family history of CAD (coronary artery disease) Clotting disorder Chronic kidney disease (CKD) Suicide Anesthesia complication Bleeding disorder Stroke Social History Smoking and tobacco/nicotine status: never used tobacco/nicotine Alcohol intake: never Substance/Drug Use: never Vitals/I&O/Wt Last Vital Signs Temp 97.9 F 04/17/24 07:29 Pulse 110 H 04/17/24 10:00 Resp 30 H 04/17/24 10:00 BP 111/61 04/17/24 10:00 Pulse Ox 93 04/17/24 10:00 O2 Del Method Oxymask 04/17/24 10:00 O2 Flow Rate 9 04/17/24 10:00 04/16/24 04/17/24 04/17/24 22:59 06:59 14:59 Intake Total 101.389 / 101.389 Balance 101.389 / 101.389 Weight last 48 hrs Weight 73.482 kg Physical Exam 2 Const: COMMON NORMALS: no acute distress and patient oriented x3 N UTRITIONAL APPEARANCE: thin ORIENTATION/CONSCIOUSNESS: Yes awake, Yes oriented to person and Yes oriented to place HENMT: COMMON NORMALS: normocephalic HEAD & SCALP: normocephalic Eye: COMMON NORMALS: Equal, round and reactive pupils present Resp: AUSCULTATION: crackles and wheezes OTHER: Tachypnea, tachycardia, nasal flaring, intercostal retractions, suprasternal retractions, wheezing and crackles in all lung mack and mild to moderate respiratory distress Cardio: COMMON NORMALS: regular rate, regular rhythm, S1 normal heart sound present and S2 normal heart sound present RATE: tachycardic RHYTHM: a bnormal rhythm HEART SOUNDS: S1 normal heart sound present and S2 normal heart sound present GI: COMMON NORMALS: Normal to inspection, nondistended, normoactive bowel sounds present, Soft to palpation and non-tender Extremity: COMMON NORMALS: no calf tenderness and no pedal edema Neuro: COMMON NORMALS: patient oriented x3, CN's II-XII intact bilaterally and moves all extremities Psych: COMMON NORMALS: mental status grossly normal Sepsis: Is patient septic: Yes Focused sepsis exam performed: Yes F ocused sepsis exam: DP PT pulses diminished bilaterally, cap refill greater than 2 seconds, mild mottling bilateral extremities Date exam was performed: 04/17/24 Time exam was performed: 09:00 Data 04/17/24 07:28 04/17/24 07:28 Micro: Microbiology 04/17/24 08:32 Blood Culture - Preliminary Blood SPECIMEN COLLECTED 04/17/24 08:30 Blood Culture - Preliminary Blood SPECIMEN COLLECTED A&P Assessment and plan (1) Atrial fibrillation with RVR: (2) NSTEMI (non-ST elevated myocardial infarction): (3) Chest pain: (4) Pneumonia: (5) Sepsis: (6) Human metapneumovirus (hMPV) pneumonia: (7) Systolic CHF, acute on chronic: (8) FACUNDO (acute kidney injury): Plan Acute hypoxic respiratory failure, with evidence of acute respiratory distress, nasal flaring, intercostal retractions, suprasternal retractions, tachypnea, tachycardia, requiring up to 15 L nonrebreather -Multifactorial -From systolic CHF exacerbation acute on chronic -Pneumonia -Human metapneumovirus Plan -Monitor in the ICU closely -Requiring between 6 to 9 L in the emergency room -Will consider BiPAP based on clinical progress -Broad-spectrum antibiotic therapy -Vancomycin -Zosyn -Lasix 40 IV twice daily -Has received steroids in the emergency room -Monitor respiratory status closely -DuoNeb -Budesonide Sepsis secondary to pneumonia, human metapneumovirus, sepsis features met given tachycardia, tachypnea, respiratory distress, leukocytosis, lactic acid A-fib with RVR -Continue amiodarone drip -Continue heparin drip Systolic CHF exacerbation -Diuresis 40 IV twice daily -Repeat cardiac echo Elevated D-dimer, venous ultrasound Pneumonia -Follow blood cultures -Sputum cultures Human metapneumovirus -Isolation precautions FACUNDO on CKD, monitor NSTEMI -With complaints of chest pain -Serial EKGs, serial troponins, telemetry monitoring -Aspirin, statin, heparin drip Patient is a full code Heparin drip for DVT prophylaxis Attestations 2 Medical Necessity Statement*: Patient requires hospitalization, inpatient, greater than 2 midnights, for sepsis, secondary to pneumonia, human metapneumovirus, systolic CHF, FACUNDO, A-fib with RVR,, acute hypoxic respiratory failure Diagnoses Atrial fibrillation with RVR I48.91 NSTEMI (non-ST elevated myocardial infarction) I21.4 Chest pain R07.9 Pneumonia J18.9 Sepsis A41.9 Human metapneumovirus (hMPV) pneumonia J12.3 Systolic CHF, acute on chronic I50.23 FACUNDO (acute kidney injury) N17.9
--- NOTE | 2024-04-17 10:57 | ECG_ITS ---
[facility]: 2024-[facility]17 Pat Name: Chad Hoover Department: Room: ICU10 Gender: Male Rubber Tubing Splicer: : 1945 Requested By: Ben Dia Order Number: [id number] Reading MD: SARA MARQUEZ Measurements Intervals [place] Rate: 85 P: 0 NC: 0 QRS: 242 QRSD: 134 T: 60 QT: 386 QTc: 459 Interpretive Statements UNCERTAIN IRREGULAR RHYTHM ELECTRONIC VENTRICULAR PACEMAKER -- CONTOUR ANALYSIS BASED ON INTRINSIC RHYTHM INDETERMINATE AXIS INTRAVENTRICULAR CONDUCTION DELAY [130+ ms QRS DURATION] ANTEROSEPTAL MYOCARDIAL INFARCTION , OF INDETERMINATE AGE [40+ ms Q WAVE IN V1-V4] Compared to ECG 04/17/2024 07:50:27 Indeterminate axis now present Intraventricular conduction delay now present Atrial fibrillation no longer present Right-axis deviation no longer present Myocardial infarct finding still present Electronically Signed On 04-17-2024 18:41:02 AMBULETTE DRIVER by SARA MARQUEZ [id number]
--- NOTE | 2024-04-17 11:18 | USR_ITS ---
PROCEDURE INFORMATION: Exam: US Duplex Lower Extremity Veins, Bilateral Exam date and time: 04/17/2024 3:19 PM Age: 79 years old Clinical indication: Edema, localized; Lower extremity, bilateral; Additional info: Swellling TECHNIQUE: Imaging protocol: Real-time duplex ultrasound of the bilateral extremities with 2-D peraza scale, color Doppler flow and spectral waveform analysis including responses to compression and other maneuvers (when performed) with image documentation. Complete exam focused on the lower extremity veins. COMPARISON: No relevant prior studies available. FINDINGS: Right deep veins: Unremarkable. The common femoral, femoral, proximal profunda femoral and popliteal veins are patent without thrombus. Normal Doppler waveforms. Normal compressibility and/or augmentation response. Left deep veins: Unremarkable. The common femoral, femoral, proximal profunda femoral and popliteal veins are patent without thrombus. Normal Doppler waveforms. Normal compressibility and/or augmentation response. Superficial veins: Greater saphenous veins at the saphenofemoral junctions are patent bilaterally without thrombus. Soft tissues: Unremarkable. US/CV venous duplex [facility] [id number] IMPRESSION: No evidence of deep vein thrombosis.
--- NOTE | 2024-04-17 11:18 | USCV_ITS ---
Chad Hoover Age: 79 Gender: M : 1945 Exam Date: 04/17/2024 15:34 Ordering Phys: James Edwards MD Technologist: Tima Bright [place] [facility] [place]: SOB BP: 108 / 75 HR: Rhythm: Sinus Technical Quality: Adequate MEASUREMENTS (Male / Female) Normal Values 2D ECHO LV Diastolic Diameter PLAX 5.3 cm 4.2 - 5.9 / 3.9 - 5.3 cm IVS Diastolic Thickness 0.8 cm 0.6 - 1.0 / 0.6 - 0.9 cm IVS Systolic Thickness 1.2 cm LVPW Diastolic Thickness 1.2 cm 0.6 - 1.0 / 0.6 - 0.9 cm LVPW Systolic Thickness 1.8 cm LVOT Diameter 2.0 cm LV Ejection Fraction 2D Teich 36.9 % LV Ejection Fraction MOD 4C 45.3 % LV Ejection Fraction MOD 2C 38.1 % LV Ejection Fraction 2C AL 38.5 % LA Diameter 4.4 cm RA Systolic Volume 4C AL 130.1 ml RA Systolic Volume 4C MOD 135.4 ml LA Sys Volume AL 109.1 cm cubed LA Sys Volume Index AL 56.9 cm cubed/m squared Aorta at Sinotubular Diameter 2.8 cm IVC Diameter 2.8 cm M-MODE LA Ao Ratio MM 1.2 AV Cusp Separation MM 1.8 cm FINDINGS Left Ventricle Moderately increased left ventricular cavity size. Modeately decreased left ventricular systolic function. Global left ventricular hypokinesis. Left ventricular ejection fraction is estimated at 35-40 %. Right Ventricle Normal right ventricular size. Right Atrium Moderately increased right atrial size. Left Atrium Moderately increased left atrial size. Mitral Valve Aortic Valve Tricuspid Valve Pulmonic Valve Pericardium Aorta IVC CONCLUSIONS Limited echo Moderately increased left ventricular cavity size. Modeately decreased left ventricular systolic function. Global left ventricular hypokinesis. Left ventricular ejection fraction is estimated at 35-40 %. Moderate biatrial enlargment There is no pericardial effusion. Right atrial pressure is around 20 mm of mercury. Guru Buckley MD (Electronically Signed) Final Date: 18 April 2024 17:38 S
--- NOTE | 2024-04-17 11:31 | PHA.VACGOAL ---
Vancomycin Goal - Goal Vancomycin Goal:: 15-20 mg/L Vancomycin Indication:: Pneumonia (sepsis) - Therapy Current therapy:: Pip/Tazo Day of therpy:: Day [1]of [] . Actual body weight (kg): 73.482 kg - Data Labs: WBC 26.98 10^3/uL (3.29-11.43) H 04/17/24 07:28 RBC 4.38 10^6/uL (3.85-5.65) 04/17/24 07:28 Hgb 13.30 g/dL (11.27-16.99) 04/17/24 07:28 Hct 42.9 % (37-53) 04/17/24 07:28 MCV 97.9 fl (82-101) 04/17/24 07:28 MCH 30.4 pg (27-33) 04/17/24 07:28 MCHC 31.0 g/dL (30-55) 04/17/24 07:28 RDW 14.6 % (12.1-15.1) 04/17/24 07:28 Sodium 136 mmol/L (136-145) 04/17/24 07:28 Potassium 4.7 mmol/L (3.5-5.1) 04/17/24 07:28 Chloride 96 mmol/L (98-107) L 04/17/24 07:28 Carbon Dioxide 29 mmol/L (22-29) 04/17/24 07:28 Anion Gap 15.7 (5-19) 04/17/24 07:28 BUN 38 mg/dL (8-23) H 04/17/24 07:28 Creatinine 1.5 mg/dL (0.7-1.2) H 04/17/24 07:28 GFR Calculation Not Reportable 04/17/24 07:28 Treatment plan:: new consult Regimen:: New start Vancomycin for Pneumonia/sepsis. No prior Vancomycin history found. Load dose of 2000 mg. Maintenance dose of 1000 mg q24h started based on population based pharmacokinetic Nomogram. Pharmacy will continue to monitor daily.
--- NOTE | 2024-04-17 11:46 | PC.NURSE ---
Delay in heparin due Nguyen catheter insertion.
[2024-04-17] MEDS: vancomycin 2,000 MG/400 ML PIGGYBACK 200 MG IV (12:30)
--- NOTE | 2024-04-17 12:32 | ECG_ITS ---
[facility] Test Date: 2024-04-17 Pat Name: Chad Hoover Department: Room: ICU10 Gender: Male Academic Specialist: : 1945 Requested By: Ben Dia Order Number: [id number] Reading MD: SARA MARQUEZ Measurements Intervals [place] Rate: 86 P: 0 MD: 0 QRS: -32 QRSD: 127 T: 73 QT: 363 QTc: 434 Interpretive Statements ATRIAL FIBRILLATION LEFT AXIS DEVIATION [QRS AXIS < -30] SEPTAL MYOCARDIAL INFARCTION , OF INDETERMINATE AGE [40+ ms Q WAVE IN V1/V2] Compared to ECG 04/17/2024 10:57:39 Left-axis deviation now present Ventricular-paced complex(es) or rhythm no longer present Indeterminate axis no longer present Intraventricular conduction delay no longer present Myocardial infarct finding still present Electronically Signed On 04-17-2024 18:40:52 BUSINESS PROJECT ANALYST by ASRA MARQUEZ [id number]
[2024-04-17] MEDS: piperacillin-tazobactam 3.375 GM in sodium chloride 0.9% (plus) 50 ML IV ×2 (12:33→17:23)
[2024-04-17] MEDS: heparin 5,000 unit/mL INJ 1 mL IVP (13:12)
[2024-04-17] MEDS: heparin drip 25,000 UNIT/500 ML PREMIX 21 UNIT IV (13:13)
--- NOTE | 2024-04-17 14:03 | PM.CONSULT ---
Providers/Reason For Consult Consulting Physician/Specialty*: Guru Buckley MD Reason for Consult*: Respiratory failure A-fib RVR Nonischemic cardiomyopathy History of mitral valve replacement Attending Physician: James Edwards MD Primary Care Provider: Nick Kamara DO History of Present Illness History of Present Illness Chad Hoover is a 79 year old male past medical history significant for redo mitral valve replacement with bioprosthetic valve, chronic atrial fibrillation, history of permanent pacemaker placement, anemia, systolic heart failure, moderately depressed left ventricular ejection fraction and chronic kidney disease presented with worsening of shortness of breath cough and sputum. He was noted to have RSV at the same time he was volume overloaded along with A-fib with RVR. Patient was started on antibiotics and IV amiodarone. He was given IV Lasix 40 mg in the ER after that he has felt somewhat better. Currently denies chest pain PND orthopnea does not have much lower extremity edema. Denies any recent weight gain. Review of Systems Const: Reports: fatigue and malaise; Denies: fever(s) or chills Card: Reports: chest pain, dyspnea on exertion and orthopnea Resp: Reports: dyspnea, non-productive cough and chest congestion GI: Denies: abdominal pain : Denies: flank pain, difficulty urinating, dysuria, urinary frequency or urinary urgency Musc: Denies: neck pain or back pain Skin/Breast: Denies: rash Neuro: Denies: headache(s) or weakness in extremities Endo: Denies: polyuria All/Imm: Denies: acute wheezing Medications/Allergies Home Medications Medication Instructions Recorded Confirmed Last Taken Type ascorbic acid (vitamin C) 1,000 mg 2 gm PO DAILY 04/19/19 04/17/24 04/16/24 History tablet multivitamin 1 tab PO DAILY 09/19/21 04/17/24 04/16/24 History potassium chloride 20 mEq 20 meq PO DAILY #30 tabs 02/12/22 04/17/24 04/16/24 Rx tablet,extended release(part/cryst) cholecalciferol (vitamin D3) 10 10 mcg PO DAILY 07/23/22 04/17/24 04/16/24 History mcg (400 unit) capsule fluticasone 500 mcg-salmeterol 50 1 inh inhalation BID 07/23/22 04/17/24 04/16/24 History mcg/dose blistr powdr for inhalation (Advair Diskus) vitamin B complex 1 cap PO BID 07/23/22 04/17/24 04/16/24 History magnesium oxide 500 mg PO DAILY 01/22/23 04/17/24 04/16/24 History sacubitril 24 mg-valsartan 26 mg 1 tab PO DAILY #90 tabs 03/18/23 04/17/24 04/16/24 Rx tablet (Entresto) furosemide 40 mg tablet (Lasix) 40 mg PO DAILY PRN edema #30 tabs 03/26/23 04/17/24 04/16/24 Rx diltiazem HCl 180 mg 180 mg PO DAILY #90 caps 09/12/23 04/17/24 04/16/24 Rx capsule,extended release 24 hr Holy Basil 1 cap PO DAILY 04/17/24 04/17/24 04/16/24 History acetaminophen 325 mg tablet 650 mg PO QID PRN Pain 04/17/24 04/17/24 Unknown History (Tylenol) albuterol sulfate 90 mcg/actuation 2 puff inhalation Q4H PRN 04/17/24 04/17/24 04/16/24 History aerosol inhaler Shortness Of Breath Or Wheezing turmeric 400 mg capsule 400 mg PO DAILY 04/17/24 04/17/24 04/16/24 History Allergies Allergy/AdvReac Type Severity Reaction Status Date / Time oxycodone Allergy Severe other Verified 02/26/24 14:04 Current Medications Generic Name Dose Route Start Last Admin Trade Name Freq PRN Reason Stop Dose Admin Albuterol/Ipratropium 3 ml 04/17/24 12:00 04/17/24 12:20 Ipratropium-Albuterol 3 Ml Neb INHALATION 3 ml Q4H.RESPIRATORY JOSE ARMANDO Administration Amiodarone HCl/Dextrose 360 mg in 200 mls @ 0 mls/hr 04/17/24 08:00 04/17/24 08:20 Nexterone IV 1 mg/min .Q0M JOSE ARMANDO 33.33 mls/hr Titration Protocol Per Protocol Heparin Sodium/Sodium Chloride 25,000 unit in 500 mls @ 0 mls/hr 04/17/24 11:18 04/17/24 13:13 Heparin Drip IV 21 unit/kg/hr CONT JOSE ARMANDO 30.86 mls/hr Administration Protocol Per Protocol Pantoprazole Sodium 40 mg 04/17/24 09:15 04/17/24 09:28 Pantoprazole 40 Mg Sdv IVP 40 mg Q24H JOSE ARMANDO Administration PFSH Acute PFSH: Medical History (Updated 04/17/24 @ 10:55 by James Edwards MD) Cardiac LV ejection fraction of 40-49% History of cataract 04/2022 Bilateral Hemolytic anemia Anemia Dyspnea on exertion Anticoagulant long-term use 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 Shoulder pain with history of repair of rotator cuff Surgical History Hx of shoulder surgery Hx of umbilical hernia repair Hx of thumb surgery History of permanent cardiac pacemaker placement H/O mitral valve replacement Patient had a initial mitral valve replacement by Dr. Acevedo in 2013. He developed a perivalvular leak for which he underwent redo surgery by Dr. Sutton at the [facility] in [place] in October 2017. Most recent echocardiogram was done in March 2021. Ejection fraction was 46%. Moderate TR, mild AR mitral valve area was calculated to be 1.5 cm2 Family History Mother Rheumatoid arthritis at age of 62 Grandmother Cancer Dementia Brother Diabetes Father Lung disease Family/Other Lung disease Denies family history of CAD (coronary artery disease) Clotting disorder Chronic kidney disease (CKD) Suicide Anesthesia complication Bleeding disorder Stroke Social History Smoking and tobacco/nicotine status: never used tobacco/nicotine Alcohol intake: never Substance/Drug Use: never Dietary Habits: Current diet type/program: regular Vitals/I&O/Wt Last Vital Signs Temp 98.9 F 04/17/24 13:20 Pulse 78 04/17/24 13:20 Resp 23 H 04/17/24 13:20 BP 108/75 04/17/24 13:20 Pulse Ox 97 04/17/24 13:20 O2 Del Method Nasal Cannula 04/17/24 13:28 O2 Flow Rate 7 04/17/24 12:20 04/16/24 04/17/2404/17/25 22:59 06:59 14:59 Intake Total 101.389 / 101.389 Balance 101.389 / 101.389 Weight last 48 hrs Weight 162 lb Weight 162 lb Physical Exam Const: OTHER: GENERAL: Patient is alert, awake and oriented x3. HEART: Irregularly irregular S1 and S2. LUNGS: Right lower lung rhonchi no obvious crackles. CENTRAL NERVOUS SYSTEM: Grossly nonfocal. EXTREMITIES: Lower extremities with out edema bilaterally. Data 04/17/24 07:28 04/17/24 07:28 Micro: Microbiology 04/17/24 08:32 Blood Culture - Preliminary Blood SPECIMEN COLLECTED 04/17/24 08:30 Blood Culture - Preliminary Blood SPECIMEN COLLECTED A&P Assessment and plan (1) Systolic CHF, acute on chronic: (2) Human metapneumovirus (hMPV) pneumonia: (3) Atrial fibrillation: Qualifiers: Atrial fibrillation type: longstanding persistent Qualified Code(s): I48.11 - Longstanding persistent atrial fibrillation (4) 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 Agree with IV 40 mg Lasix twice daily will reassess in the morning and may have to back off as he appear to be near euvolemia. Continue IV antibiotics Agree with IV amiodarone since heart rate is better under control with it as infection hypoxemia and CHF is driving his heart rate due to atrial fibrillation. For now continue IV amiodarone may will switch to p.o. from tomorrow once heart rate is better controlled. Consult Attestations Medical Necessity Statement: Require continuation hospitalization for above defined care Coding Level of Care Code Acute Code for Chg Fwd Diagnoses Systolic CHF, acute on chronic I50.23 Human metapneumovirus (hMPV) pneumonia J12.3 Longstanding persistent atrial fibrillation I48.11 Atrial fibrillation type: longstanding persistent Cardiomyopathy in disease classified elsewhere I43 Pacemaker Z95.0
[2024-04-17 14:19] LABS: Troponin 5 6HR 55.55 ng/L (0-15); Troponin 5 6HR Delta -0.45 ng/L (0-12)
--- NOTE | 2024-04-17 14:43 | PC.NURSE ---
At approximately 1330 coude catheter obtained from power house engineer and placed per policy. Heparin drip then started. See JUN.
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
[2024-04-17 15:11] LABS: MRSA PCR OZH (swab) NOT DETECTED (Negative)
[2024-04-17 19:16] LABS: Partial Thromboplastin Time 107.6 SECONDS (23.9-36.7)
[2024-04-17] MEDS: budesonide 0.5 mg/2 mL Neb INHALATION (20:10)
[2024-04-17] MEDS: trazodone 50 mg Tablet 25 MG PO (21:30)
--- NOTE | 2024-04-17 21:46 | PC.NURSE ---
Addendum entered by Philly Jackson RN 04/18/24 04:55: Notified Dr. Orellana of Levophed @8mcg/min and only peripheral IV access. New order for PICC Line. Addendum entered by Philly Jackson RN 04/17/24 23:25: Dr. Orellana called @0038 to notify of persistently low BP, New order to start Levophed titratable drip. Original Note: Low BP: Notified Dr. Orellana @3155 of low BP- 88/44 and HR 70 Paced. New order to d/c amio drip and transition to PO Amio 400 mg BID start now and 500ml fluid bolus once now.
[2024-04-17] MEDS: amiodarone 200 mg Tablet 400 MG PO (21:52)
[2024-04-17] MEDS: sodium chloride 0.9% 500 ML IV (21:55)
[2024-04-17] MEDS: norepinephrine 4 MG/250 ML BAG 7.5 MG IV (23:13)
[2024-04-18] VITALS (95 sets, daily range): BP systolic 83–126; BP diastolic 43–77; PULSE 69–95; RESP 13–32; TEMP 36.8–37.2; O2SAT 86–99; BMI 23.4
[2024-04-18] MEDS: piperacillin-tazobactam 3.375 GM in sodium chloride 0.9% (plus) 50 ML IV ×3 (01:04→17:17)
[2024-04-18 02:29] LABS: Basophils # 0.2 10^3/uL (0.0-0.1); Basophils % 0.3 %; Hematocrit 37.3 % (37-53); Lymphocytes # 0.6 10^3/uL (0.8-4.8); Lymphocytes % 0.9 %; Mean Corpuscular HGB Conc 31.6 g/dL (30-55); Mean Corpuscular Hemoglobin 30.9 pg (27-33); Mean Corpuscular Volume 97.6 fl (82-101); Mean Platelet Volume 11.2 fL (7.4-10.4); Monocytes # 9.3 10^3/uL (0.2-0.9); Monocytes % 13.2 %; Neutrophils # 58.31 10^3/uL (1.8-7.7); Neutrophils % 82.9 %; Nucleated Red Blood Cells % 0 %; Platelet Count 106 10^3/cmm (157-399); Red Blood Count 3.82 10^6/uL (3.85-5.65); Red Cell Distribution Width 14.8 % (12.1-15.1)
[2024-04-18 02:44] LABS: Alanine Aminotransferase 15 U/L (0-41); Alkaline Phosphatase 72 U/L (40-130); Anion Gap 16.2 (5-19); Aspartate Amino Transferase 39 U/L (0-40); Blood Urea Nitrogen 40 mg/dL (8-23); Calcium 8.8 mg/dL (8.5-10.5); Carbon Dioxide 26 mmol/L (22-29); Chloride 98 mmol/L (98-107); Glucose 154 mg/dL (65-115); Magnesium 2.3 mg/dL (1.7-2.3); Osmolality Calculated 295 mOsm/kg (285-295); Phosphorus 2.6 mg/dL (2.5-4.5); Potassium 4.2 mmol/L (3.5-5.1); Sodium 136 mmol/L (136-145); Total Bilirubin 1.6 mg/dL (0.15-1.2)
[2024-04-18 02:49] LABS: NT Pro B Type Natriuretic Pept 5951 pg/mL (0-450)
[2024-04-18 02:50] LABS: Slide Review Slide Review Perform; White Blood Count 70.35 10^3/uL (3.29-11.43)
[2024-04-18 03:14] LABS: Partial Thromboplastin Time 144.6 SECONDS (23.9-36.7)
[2024-04-18] MEDS: ipratropium-albuterol 3 mL Neb INHALATION ×6 (03:32→23:46)
[2024-04-18] MEDS: FUROsemide 10 mg/mL SDV 4mL 40 MG IVP ×2 (04:37→15:31)
[2024-04-18] MEDS: norepinephrine 4 MG/250 ML BAG 30 MG IV ×2 (07:03→14:35)
[2024-04-18] MEDS: budesonide 0.5 mg/2 mL Neb INHALATION ×2 (08:47→19:28)
--- NOTE | 2024-04-18 08:52 | CTR_ITS ---
PROCEDURE INFORMATION: Exam: CT Chest Without Contrast; Diagnostic Exam date and time: 04/18/2024 9:19 AM Age: 79 years old Clinical indication: Shortness of breath, abdominal tenderness and leukocytosis. TECHNIQUE: Imaging protocol: Diagnostic computed tomography of the chest without contrast. Radiation optimization: All CT scans at this facility use at least one of these dose optimization techniques: automated exposure control; mA and/or kV adjustment per patient size (includes targeted exams where dose is matched to clinical indication); or iterative reconstruction. COMPARISON: CT chest w con* [id number] 03/17/2020 8:58 AM RADIATION DOSE METRICS: Total DLP (mGy-cm): 716.86 FINDINGS: Tubes, catheters and devices: A left subclavian pacer AICD is noted. 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 Lungs: There is peribronchial wall thickening most prominent in the lower lobes. Patchy ground-glass and airspace opacities in the lower lobes suspicious for pneumonia. Subsegmental atelectasis in the right middle lobe. There are tree-in-bud opacities in the right chest with clustered nodules measuring up to 6.9 mm (image 39). Pleural spaces: No pleural effusion. No pneumothorax. Heart: The heart is enlarged. No pericardial effusion. Coronary arteries: Possible coronary arterial calcifications. Lymph nodes: A pretracheal lymph node measures 1.3 x 2.0 cm. A subcarinal lymph node measures 1.4 x 2.2 cm. Vasculature: No thoracic aortic aneurysm. Diaphragm: No hiatal hernia. Bones/joints: No acute fracture is identified. Median sternotomy wires are noted. Right shoulder hardware is incompletely visualized. Soft tissues: No significant subcutaneous soft tissue swelling. 2017 guidelines for follow-up and management of pulmonary nodules: For patients at low risk (minimal or absent history of smoking and of other known risk factors), recommend CT at 3-6 months, then consider CT at 18-24 months. For patient at high risk (history of smoking or of other known risk factors), recommend CT at 3-6 months, then CT at 18-24 months. 5. Mild mediastinal lymphadenopathy. 6. Cardiomegaly. PROCEDURE INFORMATION: Exam: CT Abdomen And Pelvis Without Contrast Exam date and time: 04/18/2024 9:19 AM Age: 79 years old Clinical indication: Shortness of breath, abdominal tenderness and leukocytosis. TECHNIQUE: Imaging protocol: Computed tomography of the abdomen and pelvis without contrast. Radiation optimization: All CT scans at this facility use at least one of these dose optimization techniques: automated exposure control; mA and/or kV adjustment per patient size (includes targeted exams where dose is matched to clinical indication); or iterative reconstruction. COMPARISON: CT chest w con* [id number] 03/17/2020 8:58 AM RADIATION DOSE METRICS: Total DLP (mGy-cm): 716.86 FINDINGS: Liver: The liver is unremarkable. Gallbladder and biliary ducts: The gallbladder is unremarkable. Pancreas: The pancreas is unremarkable. Spleen: The spleen is unremarkable. Adrenal glands: The adrenal glands are unremarkable. Kidneys and ureters: A simple left renal cyst measures 1.2 cm. No hydronephrosis. Stomach and bowel: There are a few mildly dilated loops of small bowel in the right lower quadrant which could reflect ileus/adynamic state. Partial small bowel obstruction is considered less likely. Correlate clinically. Colonic diverticulosis without evidence of acute diverticulitis. Appendix: The appendix is unremarkable. Intraperitoneal space: No free intraperitoneal air. Trace free pelvic fluid. Vasculature: No abdominal aortic aneurysm. Lymph nodes: No retroperitoneal lymphadenopathy. Urinary bladder: The bladder wall is thickened. Considerations include underdistention, partial bladder outlet obstruction or cystitis. Correlate with urinalysis. A Nguyen catheter is present in the bladder. Reproductive: The prostate measures approximately 3.9 x 4.8 cm. Bones/joints: The L5 vertebral body is sacralized. Old bilateral pars interarticularis fractures at L4 with grade 2 anterolisthesis of L4. No acute fracture is identified. Soft tissues: Small fat containing umbilical hernia. CT/[place] [id number] IMPRESSION: 1. Peribronchial wall thickening; query viral infection/bronchitis, chronic bronchitis and/or asthma. 2. Patchy ground-glass and airspace opacities in the lower lobes suspicious for pneumonia. 3. Tree-in-bud opacities in the right chest with clustered nodules. These findings raise concern for atypical infection such as mycobacterium avium intracellulare or fungal infection. 4. Solid pulmonary nodules measure up to 6.9 mm. As per Fleischner Society IMPRESSION: 1. There are a few mildly dilated loops of small bowel in the right lower quadrant which could reflect ileus/adynamic state. Partial small bowel obstruction is considered less likely. Correlate clinically. 2. The bladder wall is thickened. Considerations include underdistention, partial bladder outlet obstruction or cystitis. Correlate with urinalysis. 3. Trace free pelvic fluid. COMMENTS: Consistent with the [employer]'s Incidental Findings Committee white paper (J Am Jessika Radiol 2018): Any incidental renal lesion less than 1 cm or classified as too small to characterize, or any incidental cystic renal lesion characterized as simple-appearing, is likely benign. No follow-up imaging is recommended for these lesions per consensus recommendations based on imaging criteria.
[2024-04-18 09:30] LABS: LAB Peripheral Smear Sent for Review
[2024-04-18] MEDS: vancomycin 125 mg Capsule PO ×3 (09:42→21:30)
[2024-04-18] MEDS: pantoprazole 40 mg SDV IVP (09:42)
[2024-04-18] MEDS: amiodarone 200 mg Tablet 400 MG PO ×2 (09:42→17:17)
[2024-04-18 09:52] LABS: Lactate Dehydrogenase 341 U/L (135-225)
[2024-04-18 09:59] LABS: Lactate (Lactic Acid level) 2.3 mmol/L (0.5-2.2)
[2024-04-18 10:02] LABS: Partial Thromboplastin Time 77.7 SECONDS (23.9-36.7)
[2024-04-18] MEDS: fluconazole 100 mg Tablet 200 MG PO (11:19)
[2024-04-18] MEDS: VANCOMYCIN ADD-Vantage 1,000 MG in 0.9% NaCl ADD-Vantage 250 ML 250 MG IV (11:48)
[2024-04-18] MEDS: heparin drip 25,000 UNIT/500 ML PREMIX 12 UNIT IV (11:49)
--- NOTE | 2024-04-18 13:09 | XRR_ITS ---
PROCEDURE INFORMATION: Exam: XR Chest Exam date and time: 04/18/2024 1:53 PM Age: 79 years old Clinical indication: Device placement; Prior surgery; Surgery date: 6+ months; Surgery type: Cabg, pacemaker, RT total shoulder; Patient HX: Picc line confirmation only TECHNIQUE: Imaging protocol: Radiologic exam of the chest. Views: 1 view. COMPARISON: [place] [id number] 04/18/2024 9:19 AM FINDINGS: Tubes, catheters and devices: Cardiac device left anterior chest in good position. Lungs: Low lung volumes are seen. The lungs are clear. No consolidation. Pleural spaces: Unremarkable. No pleural effusion. No pneumothorax. Heart/Mediastinum: Unremarkable. No cardiomegaly. Bones/joints: Metallic sternotomy wires are present. Metallic arthroplasty right shoulder Right side PICC line is in the SVC. XR/XR chest 1V portable [id number] IMPRESSION: 1. No acute findings. 2. Low lung volumes 3. Right-sided PICC line in the SVC 4. Right shoulder arthroplasty good position 5. Metallic sternotomy wires are present 6. Cardiac device left anterior chest in good position
--- NOTE | 2024-04-18 15:04 | PC.NURSE ---
Triple lumen PICC placed to right basilic vein. Referred to vascular access nurse for PICC placement due to use of IV vasopressors and heparin. Risks and benefits discussed and informed consent obtained from pt. Right arm assessed with right basilc vein measuring 3.6 mm, straight, and apparent best choice for placement. Using sterile technique and MST, right basilic vein accessed x 1 stick. Mid-arm circumference measured 10 cm from right AC 27 cm. Trimmed cath 41 cm with 1 cm external length noted. CXR shows tip in SVC, in good position per radiologist. Line secured with stat-lock. Insertion site covered with Secureport IV and TSM. Report given to bedside nurse, TOBIAS Escobedo.
[2024-04-18 16:01] LABS: Basophils # 0.1 10^3/uL (0.0-0.1); Basophils % 0.2 %; Eosinophils % 0.1 %; Hematocrit 36.8 % (37-53); Lymphocytes # 1.1 10^3/uL (0.8-4.8); Lymphocytes % 2.2 %; Mean Corpuscular HGB Conc 30.2 g/dL (30-55); Mean Corpuscular Hemoglobin 30.6 pg (27-33); Mean Corpuscular Volume 101.4 fl (82-101); Mean Platelet Volume 12.2 fL (7.4-10.4); Monocytes # 6.3 10^3/uL (0.2-0.9); Monocytes % 12.8 %; Neutrophils # 40.77 10^3/uL (1.8-7.7); Neutrophils % 82.1 %; Nucleated Red Blood Cells % 0 %; Platelet Count 102 10^3/cmm (157-399); Red Blood Count 3.63 10^6/uL (3.85-5.65); Red Cell Distribution Width 14.9 % (12.1-15.1)
[2024-04-18 16:23] LABS: Partial Thromboplastin Time 53.7 SECONDS (23.9-36.7); White Blood Count 49.61 10^3/uL (3.29-11.43)
--- NOTE | 2024-04-18 16:41 | P.PN_ITS ---
Subjective 2 Subjective: Patient was seen this morning, currently on 3 L, does report shortness of breath, respiratory 20, no fevers, no chills, overnight he was placed on Levophed currently on 8 of Levophed, denies any nausea, no vomiting, no abdominal pain, no lightheaded, dizziness, Vitals/I&O/Wt Last Vital Signs Temp 98.8 F 04/18/24 16:00 Pulse 76 04/18/24 16:00 Resp 25 H 04/18/24 16:00 BP 116/67 04/18/24 16:00 Pulse Ox 98 04/18/24 16:00 O2 Del Method Nasal Cannula 04/18/24 16:00 O2 Flow Rate 3 04/18/24 15:37 04/18/24 04/18/24 04/18/24 06:59 14:59 22:59 Intake Total 1301.90 / 3249.439 908.4 / 908.4 56.4 / 964.8 Output Total 1625 / 2575 1300 / 1300 Balance -323.10 / 674.439 908.4 / 908.4 -1243.6 / -335.2 Weight last 48 hrs Weight 76.204 kg Weight 73.482 kg Weight 73.482 kg Physical Exam 2 Const: COMMON NORMALS: no acute distress and patient oriented x3 Eye: COMMON NORMALS: Equal, round and reactive pupils present PUPIL: Yes Equal, round and reactive pupils present Resp: COMMON NORMALS: normal respiratory effort, No retractions and No use of accessory muscles AUSCULTATION: crackles and wheezes Cardio: COMMON NORMALS: regular rate, regular rhythm, S1 normal heart sound present and S2 normal heart sound present RATE: regular rate RHYTHM: r egular rhythm HEART SOUNDS: S1 normal heart sound present and S2 normal heart sound present GI: COMMON NORMALS: Normal to inspection, nondistended, normoactive bowel sounds present and non-tender Neuro: COMMON NORMALS: patient oriented x3 Psych: COMMON NORMALS: mental status grossly normal Urinary Catheter Management: Nguyen: Cath Placed During This Visit: yes Reason for Continuing Indwelling Catheter: Accurate Measurement of Urinary Output in Critically Ill Patients Urinary Catheter Date of Insertion: 04/17/24 Urinary Catheter Time of Insertion: 13:30 Sepsis: Is patient septic: Yes Focused sepsis exam performed: Yes F ocused sepsis exam: DP PT pulses diminished bilaterally, cap refill greater than 2 seconds mild mottling Date exam was performed: 04/18/24 Time exam was performed: 09:00 Data 04/18/24 15:35 04/18/24 02:03 Micro: Microbiology 04/17/24 13:47 Gram Stain - Final Sputum - Expectorated Sputum Sputum Culture - Preliminary 04/17/24 08:32 Blood Culture - Preliminary Blood NEGATIVE TO DATE 04/17/24 08:30 Blood Culture - Preliminary Blood NEGATIVE TO DATE A&P Assessment and plan (1) Atrial fibrillation with RVR: (2) NSTEMI (non-ST elevated myocardial infarction): (3) Chest pain: (4) Pneumonia: (5) Sepsis: (6) Human metapneumovirus (hMPV) pneumonia: (7) Systolic CHF, acute on chronic: (8) FACUNDO (acute kidney injury): (9) Septic shock: Plan Acute hypoxic respiratory failure, with evidence of acute respiratory distress, nasal flaring, intercostal retractions, suprasternal retractions, tachypnea, tachycardia, requiring up to 15 L nonrebreather -Now on 3 L -Multifactorial -From systolic CHF exacerbation acute on chronic -Pneumonia -Human metapneumovirus -Concerns for atypical pneumonia -Concerns for possible fungal infection? CT chest CT/[place] [id number] IMPRESSION: 1. Peribronchial wall thickening; query viral infection/bronchitis, chronic bronchitis and/or asthma. 2. Patchy ground-glass and airspace opacities in the lower lobes suspicious for pneumonia. 3. Tree-in-bud opacities in the right chest with clustered nodules. These findings raise concern for atypical infection such as mycobacterium avium intracellulare or fungal infection. Plan -Monitor in the ICU closely -Currently on 3 L -Currently on 8 of Levophed -Will consider BiPAP based on clinical progress -Broad-spectrum antibiotic therapy -Vancomycin -Zosyn -Add azithromycin -Lasix 40 IV twice daily -Hold off of further doses of steroids -LDH, beta 3 glucan, PCP, QuantiFERON gold, AFB smears, Coccidioides mycosis, histo, blasto antigens ordered -Monitor respiratory status closely -DuoNeb -Budesonide Septic shock -Currently on day 8 of Levophed -Placed order for PICC line Sepsis secondary to pneumonia, human metapneumovirus, sepsis features met given tachycardia, tachypnea, respiratory distress, leukocytosis, lactic acid A-fib with RVR -Continue amiodarone drip, currently on p.o. amiodarone -Continue heparin drip Systolic CHF exacerbation -Diuresis 40 IV twice daily -Repeat cardiac echo pending Elevated D-dimer, venous ultrasound with normal limits Pneumonia as above -Follow blood cultures -Sputum cultures Human metapneumovirus -Isolation precautions FACUNDO on CKD, monitor NSTEMI -With complaints of chest pain -Serial EKGs, serial troponins, telemetry monitoring -Aspirin, statin, heparin drip Constipation, passing gas from below, no abdominal pain IMPRESSION: 1. There are a few mildly dilated loops of small bowel in the right lower quadrant which could reflect ileus/adynamic state. Partial small bowel obstruction is considered less likely. Correlate clinically. -Serial abdominal exams -Clear liquids Patient is a full code Heparin drip for DVT prophylaxis Attestations 2 Medical Necessity Statement*: Patient requires hospitalization for septic shock, acute respiratory failure, sepsis, pneumonia, human metapneumovirus, NSTEMI, CHF, FACUNDO Coding Level of Care Code Critical Care >/= 30 minutes Critical care time (in minutes): 35 The high probability of a clinically significant, sudden or life threatening deterioration, as referenced in this documentation, required my full and direct attention, intervention and personal management. The critical care time shown is in addition to time spent performing any reported separately billable procedures and includes the following: [x] Data and vital sign review and interpretation [x ] Patient assessment, examination and intervention [x] Medication orders and management [x] Patient/Family updates as able [x] Care Coordination and Documentation. Diagnoses Atrial fibrillation with RVR I48.91 NSTEMI (non-ST elevated myocardial infarction) I21.4 Chest pain R07.9 Pneumonia J18.9 Sepsis A41.9 Human metapneumovirus (hMPV) pneumonia J12.3 Systolic CHF, acute on chronic I50.23 FACUNDO (acute kidney injury) N17.9 Septic shock A41.9; R65.21
--- NOTE | 2024-04-18 16:47 | XRR_ITS ---
PROCEDURE INFORMATION: Exam: XR Abdomen Exam date and time: 04/18/2024 8:16 PM Age: 79 years old Clinical indication: Bloating; Prior surgery; Surgery date: 6+ months; Surgery type: Cabg, pacemaker, RT total shoulder; Patient HX: Abdominal distention; Nausea TECHNIQUE: Imaging protocol: Radiologic exam of the abdomen. Views: Frontal supine view of the abdomen. 1 View. COMPARISON: [place] [id number] 04/18/2024 9:19 AM FINDINGS: Tubes, catheters and devices: Right central venous catheter tip in the superior vena cava. Left-sided pacemaker. Heart/Mediastinum: Cardiomegaly. Lungs: Right mid lung atelectasis versus minimal nfiltrate. Patchy left lung field airspace infiltrates suspected. Gastrointestinal tract: Moderate constipation without bowel dilation to indicate obstruction. Bones/joints: Sternotomy wires. XR/XR KUB portable [id number] IMPRESSION: 1. Moderate constipation without bowel dilation to indicate obstruction. 2. Right central venous catheter tip in the superior vena cava. 3. Left-sided pacemaker. 4. Sternotomy wires. 5. Cardiomegaly. 6. Right mid lung atelectasis versus minimal nfiltrate. 7. Patchy left lung field airspace infiltrates suspected.
[2024-04-18] MEDS: AZITHROMYCIN ADD-Vantage 500 MG in 0.9% NaCl ADD-Vantage 250 ML 250 MG IV (17:17)
--- NOTE | 2024-04-18 20:04 | PM.PN ---
Subjective Subjective: Feeling better, he says no overnight event, mild creatinine bump Vitals/I&O/Wt Last Vital Signs Temp 98.8 F 04/18/24 16:00 Pulse 71 04/18/24 19:28 Resp 22 H 04/18/24 19:28 BP 116/67 04/18/24 16:00 Pulse Ox 98 04/18/24 19:28 O2 Del Method High Flow Nasal Cannula 04/18/24 19:28 O2 Flow Rate 3 04/18/24 19:28 04/18/24 04/18/24 04/18/24 06:59 14:59 22:59 Intake Total 1301.90 / 3249.439 908.4 / 908.4 756.4 / 1664.8 Output Total 1625 / 2575 1900 / 1900 Balance -323.10 / 674.439 908.4 / 908.4 -1143.6 / -235.2 Weight last 48 hrs Weight 168 lb Weight 162 lb Weight 162 lb Physical Exam Const: OTHER: GENERAL: Patient is alert, awake and oriented x3. HEART: Regular S1 and S2. No murmur, rub or gallop. LUNGS: Right lower lobe mild bilaterally. CENTRAL NERVOUS SYSTEM: Grossly nonfocal. EXTREMITIES: Lower extremities with out edema bilaterally. Urinary Catheter Management: Nguyen: Cath Placed During This Visit: yes Reason for Continuing Indwelling Catheter: Accurate Measurement of Urinary Output in Critically Ill Patients Urinary Catheter Date of Insertion: 04/17/24 Urinary Catheter Time of Insertion: 13:30 Data 04/18/24 15:35 04/18/24 02:03 Micro: Microbiology 04/17/24 13:47 Gram Stain - Final Sputum - Expectorated Sputum Sputum Culture - Preliminary 04/17/24 08:32 Blood Culture - Preliminary Blood NEGATIVE TO DATE 04/17/24 08:30 Blood Culture - Preliminary Blood NEGATIVE TO DATE A&P Assessment and plan (1) Systolic CHF, acute on chronic: (2) Human metapneumovirus (hMPV) pneumonia: (3) Atrial fibrillation: Qualifiers: Atrial fibrillation type: longstanding persistent Qualified Code(s): I48.11 - Longstanding persistent atrial fibrillation (4) 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 Agree with IV 40 mg Lasix twice daily will reassess in the morning and may have to back off as he appear to be near euvolemia. Continue IV antibiotics Agree with IV amiodarone since heart rate is better under control with it as infection hypoxemia and CHF is driving his heart rate due to atrial fibrillation. For now continue IV amiodarone may will switch to p.o. from tomorrow once heart rate is better controlled. On today's visit dated April 18, 2024, patient appeared to be more on euvolemic side Will reduce Lasix to 40 mg once a day Continue IV amiodarone, once slow down or cardiovert into sinus rhythm will switch to p.o. 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
[2024-04-18 21:55] LABS: Partial Thromboplastin Time 53.8 SECONDS (23.9-36.7)
[2024-04-18] MEDS: heparin 5,000 unit/mL INJ 1 mL IVP (22:00)
[2024-04-19] VITALS (65 sets, daily range): BP systolic 74–107; BP diastolic 43–70; PULSE 68–91; RESP 10–27; TEMP 36.2–37.1; O2SAT 89–100
[2024-04-19] MEDS: norepinephrine 4 MG/250 ML BAG 7.5 MG IV ×2 (00:19→19:16)
[2024-04-19] MEDS: piperacillin-tazobactam 3.375 GM in sodium chloride 0.9% (plus) 50 ML IV ×3 (01:23→17:08)
[2024-04-19] MEDS: vancomycin 125 mg Capsule PO ×4 (03:03→20:36)
[2024-04-19] MEDS: ondansetron 2 mg/ML SDV 2 mL 4 MG IVP (03:03)
[2024-04-19] MEDS: FUROsemide 10 mg/mL SDV 4mL 40 MG IVP ×2 (03:03→15:20)
[2024-04-19] MEDS: ipratropium-albuterol 3 mL Neb INHALATION ×6 (03:10→23:53)
[2024-04-19 06:06] LABS: Basophils # 0.1 10^3/uL (0.0-0.1); Basophils % 0.2 %; Eosinophils % 0.1 %; Hematocrit 34.9 % (37-53); Lymphocytes # 1.2 10^3/uL (0.8-4.8); Lymphocytes % 4.1 %; Mean Corpuscular HGB Conc 29.5 g/dL (30-55); Mean Corpuscular Hemoglobin 30.7 pg (27-33); Mean Corpuscular Volume 104.2 fl (82-101); Mean Platelet Volume 12.4 fL (7.4-10.4); Monocytes % 13.3 %; Neutrophils % 79.7 %; Nucleated Red Blood Cells % 0 %; Platelet Count 83 10^3/cmm (157-399); Red Blood Count 3.35 10^6/uL (3.85-5.65); Red Cell Distribution Width 16.6 % (12.1-15.1)
[2024-04-19 06:11] LABS: White Blood Count 30.11 10^3/uL (3.29-11.43)
[2024-04-19 06:27] LABS: Lactate (Lactic Acid level) 1.3 mmol/L (0.5-2.2)
[2024-04-19 06:29] LABS: NT Pro B Type Natriuretic Pept 3326 pg/mL (0-450)
[2024-04-19 06:31] LABS: Alanine Aminotransferase 16 U/L (0-41); Albumin Level 3.5 g/dL (3.5-5.2); Alkaline Phosphatase 57 U/L (40-130); Blood Urea Nitrogen 43 mg/dL (8-23); Calcium 8.5 mg/dL (8.5-10.5); Carbon Dioxide 27 mmol/L (22-29); Chloride 100 mmol/L (98-107); Creatinine Clr Calc Pharmacy 34.6099; Globulin 2.5 g/dL (1.3-4.6); Glucose 86 mg/dL (65-115); Magnesium 2.5 mg/dL (1.7-2.3); Osmolality Calculated 296 mOsm/kg (285-295); Phosphorus 3.8 mg/dL (2.5-4.5); Sodium 138 mmol/L (136-145); Total Bilirubin 1.4 mg/dL (0.15-1.2)
[2024-04-19 06:40] LABS: Anion Gap 15.3 (5-19); Aspartate Amino Transferase 44 U/L (0-40); Potassium 4.3 mmol/L (3.5-5.1)
[2024-04-19 06:45] LABS: C Reactive Protein 106.2 mg/L (0.0-4.9)
--- NOTE | 2024-04-19 07:00 | XR_ITS ---
WS: [id number] XR chest 1V portable [id number] REASON FOR EXAM: sob FINDINGS: Significant cardiomegaly and previous sternotomy. Right arm PICC line has retracted several centimete rs with the tip remaining in the proximal SVC. Cardiac device present over the left chest with single trans left subclavian lead to the right ventricular apex. Compared to the examination of 04/18/2024, reticular interstitial and groundglass opacity has develope d in the right lower lung field, previously minimal minimal subtle opacity in this region. Areas of atelectasis have cleared from the left lung base. XR/XR chest 1V portable [id number] IMPRESSION: Change in position of the right arm PICC line as above. More definitive definition of interstitial and groundglass opacities in the rig ht lower lung most compatible with subacute pneumonitis.
[2024-04-19] MEDS: amiodarone 200 mg Tablet 400 MG PO ×2 (08:29→17:08)
[2024-04-19] MEDS: fluconazole 100 mg Tablet 200 MG PO (08:29)
[2024-04-19] MEDS: sennosides-docusate Tablet 2 TAB PO ×2 (08:29→17:08)
[2024-04-19] MEDS: pantoprazole 40 mg SDV IVP (08:29)
[2024-04-19] MEDS: polyethylene glycol 3350 Pkt 17 gm PO ×2 (08:30→17:08)
[2024-04-19] MEDS: budesonide 0.5 mg/2 mL Neb INHALATION ×2 (09:16→19:51)
[2024-04-19] MEDS: VANCOMYCIN ADD-Vantage 1,000 MG in 0.9% NaCl ADD-Vantage 250 ML 250 MG IV (10:49)
[2024-04-19 11:38] LABS: Reflex FDPQ test REFLEX FDP QUEST TES
[2024-04-19 11:54] LABS: INR 1.09 (0.8-1.2)
[2024-04-19 11:55] LABS: Partial Thromboplastin Time 46.2 SECONDS (23.9-36.7)
[2024-04-19 11:58] LABS: D Dimer 0.73 ug/mLFEU (0-0.59)
[2024-04-19 12:00] LABS: Fibrinogen 393 mg/dL (174-498)
--- NOTE | 2024-04-19 12:02 | PM.PN ---
Subjective Subjective: He is in a ventricular paced rhythm, with atrial fibrillation. Appears to be rate controlled currently. He is on oral amiodarone since 04/17/24, currently 400mg BID. He still seems near euvolemic, but with scattered crackles, some rhonchi likely related to pneumonia. Creatinine this morning 1.8, higher than his baseline 1.4 to 1.5. Blood pressure soft. Vitals/I&O/Wt Last Vital Signs Temp 97.2 F L 04/19/24 08:00 Pulse 75 04/19/24 09:30 Resp 27 H 04/19/24 09:30 BP 104/54 04/19/24 09:30 Pulse Ox 98 04/19/24 09:30 O2 Del Method High Flow Nasal Cannula 04/19/24 09:00 O2 Flow Rate 3 04/19/24 09:00 04/18/24 04/19/24 04/19/24 22:59 06:59 14:59 Intake Total 1157.4 / 2403.175 337.375 / 2403.175 240 / 240 Output Total 1900 / 3550 1650 / 3550 Balance -742.6 / -1146.825 -1312.625 / -1146.825 240 / 240 Weight last 48 hrs Weight 170 lb Weight 168 lb Weight 162 lb Physical Exam Const: COMMON NORMALS: no acute distress and patient oriented x3 GENERAL APPEARANCE: cooperative and comfortable ORIENTATION/CONSCIOUSNESS: Yes awake, Yes oriented to person, Yes oriented to place and Yes oriented to time Chest: COMMONS NORMALS: normal inspection of the chest and normal palpation of entire chest wall CHEST: Yes Symmetrical chest wall rise Resp: COMMON NORMALS: normal respiratory effort, No retractions and No use of accessory muscles EFFORT & INSPECTION: Yes symmetric chest movement AUSCULTATION: crackles (scattered) Laterality: bilateral and posterior Cardio: COMMON NORMALS: regular rate, regular rhythm, S1 normal heart sound present, S2 normal heart sound present, No gallops present (Cardio), No clicks present (Cardio), No murmurs present (Cardio) and No rub (Cardio) RATE: regular rate RHYTHM: regular rhythm HEART SOUNDS: S1 normal heart sound present and S2 normal heart sound present PERIPHERAL PULSES: radial pulses present Extremity: COMMON NORMALS: no pedal edema Neuro: COMMON NORMALS: patient oriented x3 and moves all extremities SENSORIUM/ORIENTATION: Yes oriented to person, Yes oriented to place and Yes oriented to time Urinary Catheter Management: Nguyen: Cath Placed During This Visit: yes Reason for Continuing Indwelling Catheter: Accurate Measurement of Urinary Output in Critically Ill Patients Urinary Catheter Date of Insertion: 04/17/24 Urinary Catheter Time of Insertion: 13:30 Data 04/19/24 04:30 04/19/24 04:30 Micro: Microbiology 04/17/24 13:47 Gram Stain - Final Sputum - Expectorated Sputum Sputum Culture - Final 04/17/24 08:32 Blood Culture - Preliminary Blood NEGATIVE TO DATE 04/17/24 08:30 Blood Culture - Preliminary Blood NEGATIVE TO DATE A&P Assessment and plan (1) Systolic CHF, acute on chronic: Careful diuresis given creatinine, continue Lasix 40 IV BID. (2) Atrial fibrillation: Good ventricular rate control with oral amiodarone 400mg BID, continues in atrial fibrillation. 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
--- NOTE | 2024-04-19 14:11 | PC.SOCIAL ---
IMM Updated Updated pt on IMM. No questions voiced. Provided pt a copy. Initialed, dated, & timed a copy & placed in chart.
[2024-04-19] MEDS: enoxaparin 80 mg/0.8 mL Syringe SUBCUT (15:20)
--- NOTE | 2024-04-19 15:46 | P.PN_ITS ---
Subjective 2 Subjective: - Patient was seen this morning -Nursing staff at bedside -He is alert oriented x 3, follows all c ommands -Continues to complain of a cough and sh ortness of breath but shortness of breath is improving -Denies any fevers, no chills -No abdominal pain, passing gas from [place] does feel constipated he is hungry wants to try to eat something more -He still remains on Levophed currently on 4 of Levophed -I had a detailed discussion with him ab out his shock, could be multifactorial septic shock, component of cardiogenic shock will continue to monitor closely discussed with him his echocardiogram findings, denies any chest pain, no palpitations -Discussed with him his CT chest finding s, 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, 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, 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, no history of tuberculosis, no history of tuberculosis exposure, no history of bloody cough -Does report that he had this chronic co ugh for few months that would not go away, but no hemoptysis -Does also report that his was sick for some period of time Vitals/I&O/Wt Last Vital Signs Temp 97.2 F L 04/19/24 08:00 Pulse 72 04/19/24 12:35 Resp 22 H 04/19/24 12:35 BP 102/61 04/19/24 11:00 Pulse Ox 98 04/19/24 12:35 O2 Del Method High Flow Nasal Cannula 04/19/24 12:35 O2 Flow Rate 3 04/19/24 12:35 04/19/24 04/19/24 04/19/24 06:59 14:59 22:59 Intake Total 337.375 / 2403.175 480 / 480 Output Total 1650 / 3550 Balance -1312.625 / -1146.825 480 / 480 Weight last 48 hrs Weight 77.111 kg Weight 76.204 kg Physical Exam 2 Const: COMMON NORMALS: no acute distress ORIENTATION/CONSCIOUSNESS: Yes awake, Yes oriented to person, Yes oriented to place and Yes patient obtunded Eye: COMMON NORMALS: Equal, round and reactive pupils present PUPIL: Yes Equal, round and reactive pupils present Lymph: LYMPHATIC: no lymphadenopathy noted Resp: COMMON NORMALS: No retractions and No use of accessory muscles A USCULTATION: crackles and wheezes Cardio: COMMON NORMALS: regular rate, regular rhythm, S1 normal heart sound present and S2 normal heart sound present RATE: regular rate RHYTHM: r egular rhythm HEART SOUNDS: S1 normal heart sound present and S2 normal heart sound present GI: COMMON NORMALS: Normal to inspection, nondistended, normoactive bowel sounds present and non-tender Neuro: SENSORIUM/ORIENTATION: Yes oriented to person and Yes oriented to place Skin: NARRATIVE SKIN EXAM: Evidence of moderate protein calorie malnutrition, bilateral temporal muscle wasting, thinning of fat pad under bilateral ribs, clavicles, bilateral arms Urinary Catheter Management: Nguyen: Cath Placed During This Visit: yes Reason for Continuing Indwelling Catheter: Accurate Measurement of Urinary Output in Critically Ill Patients Urinary Catheter Date of Insertion: 04/17/24 Urinary Catheter Time of Insertion: 13:30 Sepsis: Is patient septic: Yes Focused sepsis exam performed: Yes F ocused sepsis exam: DP PT pulses diminished, cap refill greater than 2 seconds no mottling Date exam was performed: 04/19/24 Time exam was performed: 09:00 Data 04/19/24 04:30 04/19/24 04:30 Micro: Microbiology 04/17/24 13:47 Gram Stain - Final Sputum - Expectorated Sputum Sputum Culture - Final A&P Assessment and plan (1) Atrial fibrillation with RVR: (2) NSTEMI (non-ST elevated myocardial infarction): (3) Chest pain: (4) Pneumonia: (5) Sepsis: (6) Human metapneumovirus (hMPV) pneumonia: (7) Systolic CHF, acute on chronic: (8) FACUNDO (acute kidney injury): (9) Septic shock: Plan Acute hypoxic respiratory failure, with evidence of acute respiratory distress, nasal flaring, intercostal retractions, suprasternal retractions, tachypnea, tachycardia, requiring up to 15 L nonrebreather -Now on 3 L -WBC 30, Pro-Elvis 11.3, CRP 106.2 -Multifactorial -From systolic CHF exacerbation acute on chronic -Pneumonia -Human metapneumovirus -Concerns for atypical pneumonia -Concerns for possible fungal infection? -Concern for possible Mycobacterium infection, does drink raw unpasteurized milk CT chest CT/[place] [id number] IMPRESSION: 1. Peribronchial wall thickening; query viral infection/bronchitis, chronic bronchitis and/or asthma. 2. Patchy ground-glass and airspace opacities in the lower lobes suspicious for pneumonia. 3. Tree-in-bud opacities in the right chest with clustered nodules. These findings raise concern for atypical infection such as mycobacterium avium intracellulare or fungal infection. Plan -Monitor in the ICU closely -Currently on 3 L -Currently on 4 of Levophed -Will consider BiPAP based on clinical progress -Broad-spectrum antibiotic therapy -Vancomycin -Zosyn -azithromycin -Lasix 40 IV twice daily -Hold off of further doses of steroids -LDH, beta 3 glucan, PCP, QuantiFERON gold, AFB smears, Coccidioides mycosis, histo, blasto antigens ordered -AFB smears ordered -QuantiFERON gold ordered -Keep under isolation precautions -Monitor respiratory status closely -DuoNeb -Budesonide thrombocytopenia, -likely from sepsis -dic panel -hit panel -swithc to lovenox Septic shock -Currently on day 4 of Levophed -Placed order for PICC line Sepsis secondary to pneumonia, human metapneumovirus, sepsis features met given tachycardia, tachypnea, respiratory distress, leukocytosis, lactic acid A-fib with RVR -Continue amiodarone drip, currently on p.o. amiodarone -switch lovenox Systolic CHF exacerbation -Diuresis 40 IV twice daily -Repeat cardiac echo CONCLUSIONS Limited echo Moderately increased left ventricular cavity size. Modeately decreased left ventricular systolic function. Global left ventricular hypokinesis. Left ventricular ejection fraction is estimated at 35-40 %. Moderate biatrial enlargment There is no pericardial effusion. Right atrial pressure is around 20 mm of mercury. Elevated D-dimer, venous ultrasound with normal limits Pneumonia as above -Follow blood cultures -Sputum cultures Human metapneumovirus -Isolation precautions FACUNDO on CKD, monitor NSTEMI -With complaints of chest pain -Serial EKGs, serial troponins, telemetry monitoring -Aspirin, statin, lovenox Constipation, passing gas from below, no abdominal pain IMPRESSION: 1. There are a few mildly dilated loops of small bowel in the right lower quadrant which could reflect ileus/adynamic state. Partial small bowel obstruction is considered less likely. Correlate clinically. -Serial abdominal exams -Clear liquids Moderate protein calorie malnutrition, consult dietary Patient is a full code lovenox for DVT prophylaxis Attestations 2 Medical Necessity Statement*: Patient requires hospitalization for septic shock, pneumonia, concerns for mycobacterial infection, fungal infection, NSTEMI, CHF, requiring Levophed, ICU admission, Coding Level of Care Code Critical Care >/= 30 minutes Critical care time (in minutes): 40 The high probability of a clinically significant, sudden or life threatening deterioration, as referenced in this documentation, required my full and direct attention, intervention and personal management. The critical care time shown is in addition to time spent performing any reported separately billable procedures and includes the following: [x] Data and vital sign review and interpretation [x ] Patient assessment, examination and intervention [x] Medication orders and management [x] Patient/Family updates as able [x] Care Coordination and Documentation. Diagnoses Atrial fibrillation with RVR I48.91 NSTEMI (non-ST elevated myocardial infarction) I21.4 Chest pain R07.9 Pneumonia J18.9 Sepsis A41.9 Human metapneumovirus (hMPV) pneumonia J12.3 Systolic CHF, acute on chronic I50.23 FACUNDO (acute kidney injury) N17.9 Septic shock A41.9; R65.21
[2024-04-19] MEDS: AZITHROMYCIN ADD-Vantage 500 MG in 0.9% NaCl ADD-Vantage 250 ML 250 MG IV (17:08)
[2024-04-19] MEDS: trazodone 50 mg Tablet 25 MG PO (23:20)
[2024-04-20] VITALS (57 sets, daily range): BP systolic 89–105; BP diastolic 49–64; PULSE 69–86; RESP 9–31; TEMP 36.2–36.9; O2SAT 93–100
[2024-04-20] MEDS: piperacillin-tazobactam 3.375 GM in sodium chloride 0.9% (plus) 50 ML IV ×3 (02:01→18:42)
[2024-04-20 03:31] LABS: C.Diff PCR (Lab) NEGATIVE (Negative)
[2024-04-20] MEDS: ipratropium-albuterol 3 mL Neb INHALATION ×5 (04:01→20:29)
[2024-04-20 04:28] LABS: Hematocrit 33.6 % (37-53); Mean Corpuscular HGB Conc 30.1 g/dL (30-55); Mean Corpuscular Hemoglobin 30.6 pg (27-33); Mean Corpuscular Volume 101.8 fl (82-101); Mean Platelet Volume 12.3 fL (7.4-10.4); Platelet Count 101 10^3/cmm (157-399); Red Cell Distribution Width 14.9 % (12.1-15.1); White Blood Count 15.59 10^3/uL (3.29-11.43)
[2024-04-20 04:56] LABS: Procalcitonin 6.13 ng/mL (0-0.5)
[2024-04-20 04:59] LABS: Lactate (Lactic Acid level) 0.9 mmol/L (0.5-2.2)
[2024-04-20 05:01] LABS: Alanine Aminotransferase 16 U/L (0-41); Albumin Level 3.6 g/dL (3.5-5.2); Alkaline Phosphatase 57 U/L (40-130); Blood Urea Nitrogen 38 mg/dL (8-23); Calcium 8.6 mg/dL (8.5-10.5); Carbon Dioxide 26 mmol/L (22-29); Chloride 100 mmol/L (98-107); Creatinine Clr Calc Pharmacy 29.6656; Globulin 2.5 g/dL (1.3-4.6); Glucose 85 mg/dL (65-115); Magnesium 2.4 mg/dL (1.7-2.3); Osmolality Calculated 290 mOsm/kg (285-295); Phosphorus 3.4 mg/dL (2.5-4.5); Sodium 136 mmol/L (136-145); Total Bilirubin 1.4 mg/dL (0.15-1.2); Total Protein 6.1 g/dL (6.6-8.7)
[2024-04-20 05:02] LABS: Anion Gap 14.1 (5-19); Aspartate Amino Transferase 38 U/L (0-40); NT Pro B Type Natriuretic Pept 2464 pg/mL (0-450); Potassium 4.1 mmol/L (3.5-5.1)
[2024-04-20 05:13] LABS: C Reactive Protein 58.8 mg/L (0.0-4.9)
[2024-04-20 05:28] LABS: Absolute Segmented Neutrophil 11.2 10/cmm (1.6-7.1); Eosinophils 0 %; Lymphocytes 6 %; Monocytes Absolute 2.7 10^3/cmm (0.1-0.6); Platelet Estimate Decreased (Normal); Segmented Neutrophils 72 %; Slide Review Slide Review Perform; Total Cells Counted 100 (0-100)
[2024-04-20 05:29] LABS: Giant Platelets Trace
[2024-04-20] MEDS: enoxaparin 80 mg/0.8 mL Syringe SUBCUT (05:52)
[2024-04-20] MEDS: vancomycin 125 mg Capsule PO ×4 (05:53→20:40)
[2024-04-20] MEDS: budesonide 0.5 mg/2 mL Neb INHALATION ×2 (08:18→20:29)
[2024-04-20] MEDS: fluconazole 100 mg Tablet 200 MG PO (08:32)
[2024-04-20] MEDS: sennosides-docusate Tablet 2 TAB PO ×2 (08:32→18:42)
[2024-04-20] MEDS: amiodarone 200 mg Tablet 400 MG PO ×2 (08:32→18:42)
[2024-04-20] MEDS: pantoprazole 40 mg SDV IVP (08:32)
[2024-04-20 11:15] LABS: Vancomycin Trough 14.2 ug/mL (10-15)
[2024-04-20] MEDS: VANCOMYCIN ADD-Vantage 1,000 MG in 0.9% NaCl ADD-Vantage 250 ML 250 MG IV (12:19)
[2024-04-20] MEDS: norepinephrine 4 MG/250 ML BAG 11.25 MG IV (12:25)
--- NOTE | 2024-04-20 15:45 | P.PN_ITS ---
Subjective 2 Subjective: Patient was seen this morning, he is sitting up in a chair, on 2 of Levophed, denies any nausea, no vomiting, no abdominal pain, does report shortness of breath, no fevers, no chills, no lightheadedness, no dizziness, Vitals/I&O/Wt Last Vital Signs Temp 97.2 F L 04/20/24 07:00 Pulse 76 04/20/24 13:30 Resp 18 04/20/24 13:30 BP 97/53 04/20/24 13:30 Pulse Ox 95 04/20/24 13:30 O2 Del Method High Flow Nasal Cannula 04/20/24 11:32 O2 Flow Rate 1 04/20/24 11:32 04/20/24 04/20/24 04/20/24 06:59 14:59 22:59 Intake Total 670 / 1944.375 669.563 / 669.563 Output Total 200 / 3100 Balance 470 / -1155.625 669.563 / 669.563 Weight last 48 hrs Weight 78.471 kg Weight 78.289 kg Weight 77.111 kg Physical Exam 2 Const: COMMON NORMALS: no acute distress and patient oriented x3 Resp: COMMON NORMALS: normal respiratory effort, No retractions and No use of accessory muscles AUSCULTATION: crackles and wheezes Cardio: COMMON NORMALS: regular rate, regular rhythm, S1 normal heart sound present and S2 normal heart sound present RATE: regular rate RHYTHM: r egular rhythm HEART SOUNDS: S1 normal heart sound present and S2 normal heart sound present GI: COMMON NORMALS: Normal to inspection, nondistended, normoactive bowel sounds present and non-tender Extremity: COMMON NORMALS: no pedal edema Neuro: COMMON NORMALS: patient oriented x3 Psych: COMMON NORMALS: mental status grossly normal Urinary Catheter Management: Nguyen: Cath Placed During This Visit: yes Reason for Continuing Indwelling Catheter: Accurate Measurement of Urinary Output in Critically Ill Patients Urinary Catheter Date of Insertion: 04/17/24 Urinary Catheter Time of Insertion: 13:30 Data 04/20/24 03:38 04/20/24 03:38 Micro: Microbiology 04/19/24 11:00 Fungal Smear - Preliminary Sputum - Expectorated Sputum 04/19/24 17:37 Occult Blood (FIT) - Final Stool Routine Collection A&P Assessment and plan (1) Atrial fibrillation with RVR: (2) NSTEMI (non-ST elevated myocardial infarction): (3) Chest pain: (4) Pneumonia: (5) Sepsis: (6) Human metapneumovirus (hMPV) pneumonia: (7) Systolic CHF, acute on chronic: (8) FACUNDO (acute kidney injury): (9) Septic shock: Plan Acute hypoxic respiratory failure, with evidence of acute respiratory distress, nasal flaring, intercostal retractions, suprasternal retractions, tachypnea, tachycardia, requiring up to 15 L nonrebreather -Now on 3 L -WBC improving -Multifactorial -From systolic CHF exacerbation acute on chronic -Pneumonia -Human metapneumovirus -Concerns for atypical pneumonia -Concerns for possible fungal infection? -Concern for possible Mycobacterium infection, does drink raw unpasteurized milk CT chest CT/[place] [id number] IMPRESSION: 1. Peribronchial wall thickening; query viral infection/bronchitis, chronic bronchitis and/or asthma. 2. Patchy ground-glass and airspace opacities in the lower lobes suspicious for pneumonia. 3. Tree-in-bud opacities in the right chest with clustered nodules. These findings raise concern for atypical infection such as mycobacterium avium intracellulare or fungal infection. Plan -Monitor in the ICU closely -Currently on 3 L -Currently on 2 of Levophed -Will consider BiPAP based on clinical progress -Broad-spectrum antibiotic therapy -Vancomycin -Zosyn -azithromycin -Lasix 40 IV twice daily currently on hold -Hold off of further doses of steroids -LDH, beta 3 glucan, PCP, QuantiFERON gold, AFB smears, Coccidioides mycosis, histo, blasto antigens ordered -AFB smears ordered -QuantiFERON gold ordered -Keep under isolation precautions -Monitor respiratory status closely -DuoNeb -Budesonide FACUNDO on CKD, creatinine 2.1, hold Lasix therapy thrombocytopenia, -likely from sepsis -dic panel -hit panel -swithc to lovenox Septic shock -Currently on day 2 of Levophed -Placed order for PICC line Sepsis secondary to pneumonia, human metapneumovirus, sepsis features met given tachycardia, tachypnea, respiratory distress, leukocytosis, lactic acid A-fib with RVR -Continue amiodarone drip, currently on p.o. amiodarone -switch lovenox Systolic CHF exacerbation -Diuresis 40 IV twice daily currently on hold creatinine 2.1 -Repeat cardiac echo CONCLUSIONS Limited echo Moderately increased left ventricular cavity size. Modeately decreased left ventricular systolic function. Global left ventricular hypokinesis. Left ventricular ejection fraction is estimated at 35-40 %. Moderate biatrial enlargment There is no pericardial effusion. Right atrial pressure is around 20 mm of mercury. Elevated D-dimer, venous ultrasound with normal limits Pneumonia as above -Follow blood cultures -Sputum cultures Human metapneumovirus -Isolation precautions NSTEMI -With complaints of chest pain -Serial EKGs, serial troponins, telemetry monitoring -Aspirin, statin, lovenox Constipation, passing gas from below, no abdominal pain IMPRESSION: 1. There are a few mildly dilated loops of small bowel in the right lower quadrant which could reflect ileus/adynamic state. Partial small bowel obstruction is considered less likely. Correlate clinically. -Serial abdominal exams -Clear liquids Moderate protein calorie malnutrition, consult dietary Patient is a full code lovenox for DVT prophylaxis Attestations 2 Medical Necessity Statement*: Patient requires hospitalization for acute respiratory failure secondary to pneumonia, septic shock currently on Levophed, CHF, FACUNDO Diagnoses Atrial fibrillation with RVR I48.91 NSTEMI (non-ST elevated myocardial infarction) I21.4 Chest pain R07.9 Pneumonia J18.9 Sepsis A41.9 Human metapneumovirus (hMPV) pneumonia J12.3 Systolic CHF, acute on chronic I50.23 FACUNDO (acute kidney injury) N17.9 Septic shock A41.9; R65.21
[2024-04-20] MEDS: AZITHROMYCIN ADD-Vantage 500 MG in 0.9% NaCl ADD-Vantage 250 ML 250 MG IV (16:10)
[2024-04-20] MEDS: trazodone 50 mg Tablet 25 MG PO (20:40)
--- NOTE | 2024-04-20 20:41 | P.PN_ITS ---
Subjective 2 Subjective: Sitting in the chair denies any complaint breathing better Vitals/I&O/Wt Last Vital Signs Temp 97.2 F L 04/20/24 07:00 Pulse 70 04/20/24 20:33 Resp 18 04/20/24 20:33 BP 97/58 04/20/24 16:30 Pulse Ox 99 04/20/24 20:33 O2 Del Method High Flow Nasal Cannula 04/20/24 20:33 O2 Flow Rate 1 04/20/24 20:33 04/20/24 04/20/24 04/20/24 06:59 14:59 22:59 Intake Total 670 / 1944.375 719.563 / 719.563 826.25 / 1545.813 Output Total 200 / 3100 1000 / 1000 Balance 470 / -1155.625 719.563 / 719.563 -173.75 / 545.813 Weight last 48 hrs Weight 173 lb Weight 172 lb 9.561 oz Weight 170 lb Physical Exam 2 Const: OTHER: GENERAL: Patient is alert, awake and oriented x3. HEART: Regular S1 and S2. No murmur, rub or gallop. LUNGS: Right middle lobe inspiratory rhonchi. CENTRAL NERVOUS SYSTEM: Grossly nonfocal. EXTREMITIES: Lower extremities with out edema bilaterally. Urinary Catheter Management: Nguyen: Cath Placed During This Visit: yes Reason for Continuing Indwelling Catheter: Accurate Measurement of Urinary Output in Critically Ill Patients Urinary Catheter Date of Insertion: 04/17/24 Urinary Catheter Time of Insertion: 13:30 Data 04/20/24 03:38 04/20/24 03:38 Micro: Microbiology 04/19/24 11:00 Fungal Smear - Preliminary Sputum - Expectorated Sputum 04/19/24 17:37 Occult Blood (FIT) - Final Stool Routine Collection A&P Assessment and plan (1) Systolic CHF, acute on chronic: Patient around euvolemic back off Lasix to IV 40 mg once a day (2) Atrial fibrillation: Continue p.o. 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
[2024-04-21] VITALS (57 sets, daily range): BP systolic 83–116; BP diastolic 43–66; PULSE 69–92; RESP 10–35; TEMP 36.8–37.1; O2SAT 88–97
[2024-04-21] MEDS: ipratropium-albuterol 3 mL Neb INHALATION ×6 (00:39→20:09)
[2024-04-21] MEDS: piperacillin-tazobactam 3.375 GM in sodium chloride 0.9% (plus) 50 ML IV ×3 (02:14→17:12)
[2024-04-21] MEDS: vancomycin 125 mg Capsule PO ×4 (04:02→21:24)
[2024-04-21] MEDS: enoxaparin 80 mg/0.8 mL Syringe SUBCUT (04:02)
[2024-04-21 04:27] LABS: Hematocrit 31.9 % (37-53); Mean Corpuscular HGB Conc 29.8 g/dL (30-55); Mean Corpuscular Hemoglobin 30.2 pg (27-33); Mean Corpuscular Volume 101.3 fl (82-101); Mean Platelet Volume 11.5 fL (7.4-10.4); Platelet Count 94 10^3/cmm (157-399); Red Blood Count 3.15 10^6/uL (3.85-5.65); Red Cell Distribution Width 14.3 % (12.1-15.1); White Blood Count 9.91 10^3/uL (3.29-11.43)
[2024-04-21 04:46] LABS: Alanine Aminotransferase 14 U/L (0-41); Albumin Level 3.5 g/dL (3.5-5.2); Alkaline Phosphatase 66 U/L (40-130); Anion Gap 11.4 (5-19); Aspartate Amino Transferase 30 U/L (0-40); Blood Urea Nitrogen 33 mg/dL (8-23); Calcium 8.8 mg/dL (8.5-10.5); Carbon Dioxide 28 mmol/L (22-29); Chloride 101 mmol/L (98-107); Creatinine Clr Calc Pharmacy 39.2147; Globulin 2.4 g/dL (1.3-4.6); Glucose 95 mg/dL (65-115); Magnesium 2.5 mg/dL (1.7-2.3); Osmolality Calculated 289 mOsm/kg (285-295); Phosphorus 2.7 mg/dL (2.5-4.5); Potassium 4.4 mmol/L (3.5-5.1); Sodium 136 mmol/L (136-145); Total Bilirubin 1.2 mg/dL (0.15-1.2); Total Protein 5.9 g/dL (6.6-8.7)
[2024-04-21 04:49] LABS: C Reactive Protein 36.9 mg/L (0.0-4.9)
[2024-04-21 04:50] LABS: Lactate (Lactic Acid level) 0.7 mmol/L (0.5-2.2)
[2024-04-21 05:01] LABS: NT Pro B Type Natriuretic Pept 2786 pg/mL (0-450); Procalcitonin 2.95 ng/mL (0-0.5)
[2024-04-21 05:15] LABS: Absolute Eosinophils 0.2 10^3/cmm (0.0-0.7); Absolute Segmented Neutrophil 6.3 10/cmm (1.6-7.1); Anisocytosis 1+; Eosinophils 2 %; Lymphocytes 8 %; Monocytes Absolute 1.5 10^3/cmm (0.1-0.6); Platelet Estimate Decreased (Normal); Segmented Neutrophils 64 %; Slide Review Slide Review Perform; Total Cells Counted 100 (0-100)
[2024-04-21] MEDS: budesonide 0.5 mg/2 mL Neb INHALATION ×2 (08:15→20:09)
[2024-04-21] MEDS: amiodarone 200 mg Tablet 400 MG PO ×2 (08:56→17:13)
[2024-04-21] MEDS: fluconazole 100 mg Tablet 200 MG PO (08:56)
[2024-04-21] MEDS: sennosides-docusate Tablet 2 TAB PO (08:57)
[2024-04-21] MEDS: pantoprazole 40 mg SDV IVP (08:57)
[2024-04-21] MEDS: midodrine 5 mg TABLET 10 MG PO ×3 (09:40→21:24)
[2024-04-21 11:13] LABS: Vancomycin Trough 14.6 ug/mL (10-15)
[2024-04-21] MEDS: VANCOMYCIN ADD-Vantage 1,000 MG in 0.9% NaCl ADD-Vantage 250 ML 250 MG IV (11:15)
--- NOTE | 2024-04-21 13:12 | PC.SOCIAL ---
IMM Updated Updated pt on IMM. No questions voiced. Provided pt a copy. Initialed, dated, & timed copy in chart.
--- NOTE | 2024-04-21 14:00 | P.PN_ITS ---
Subjective 2 Subjective: Patient was seen this morning, he is sitting up in a chair, blood pressures remain soft as he is off Levophed discussed trying midodrine, discussed watching him in the hospital, waiting on the culture results, overall he is clinically improving he feels better this morning, continues to have productive cough Vitals/I&O/Wt Last Vital Signs Temp 98.7 F 04/21/24 03:00 Pulse 81 04/21/24 12:30 Resp 18 04/21/24 12:30 BP 99/56 04/21/24 12:30 Pulse Ox 89 L 04/21/24 12:00 O2 Del Method Room Air 04/21/24 11:29 O2 Flow Rate 1 04/21/24 04:56 04/20/24 04/21/24 04/21/24 22:59 06:59 14:59 Intake Total 1280.063 / 1999.626 812.563 / 2812.189 400 / 400 Output Total 1000 / 1000 850 / 1850 Balance 280.063 / 999.626 -37.437 / 962.189 400 / 400 Weight last 48 hrs Weight 79.379 kg Weight 78.471 kg Weight 78.289 kg Physical Exam 2 Const: COMMON NORMALS: no acute distress and patient oriented x3 Resp: COMMON NORMALS: normal respiratory effort, No retractions and No use of accessory muscles AUSCULTATION: crackles and wheezes Cardio: COMMON NORMALS: regular rate, regular rhythm, S1 normal heart sound present and S2 normal heart sound present RATE: regular rate RHYTHM: r egular rhythm HEART SOUNDS: S1 normal heart sound present and S2 normal heart sound present GI: COMMON NORMALS: Normal to inspection, nondistended, normoactive bowel sounds present and non-tender Extremity: COMMON NORMALS: no pedal edema Neuro: COMMON NORMALS: patient oriented x3 Psych: COMMON NORMALS: mental status grossly normal Urinary Catheter Management: Nguyen: Cath Placed During This Visit: yes Reason for Continuing Indwelling Catheter: Accurate Measurement of Urinary Output in Critically Ill Patients Urinary Catheter Date of Insertion: 04/17/24 Urinary Catheter Time of Insertion: 13:30 Data 04/21/24 04:05 04/21/24 04:05 Micro: Microbiology 04/19/24 11:00 Fungal Smear - Preliminary Sputum - Expectorated Sputum A&P Assessment and plan (1) Atrial fibrillation with RVR: (2) NSTEMI (non-ST elevated myocardial infarction): (3) Chest pain: (4) Pneumonia: (5) Sepsis: (6) Human metapneumovirus (hMPV) pneumonia: (7) Systolic CHF, acute on chronic: (8) FACUNDO (acute kidney injury): (9) Septic shock: Plan Acute hypoxic respiratory failure, with evidence of acute respiratory distress, nasal flaring, intercostal retractions, suprasternal retractions, tachypnea, tachycardia, requiring up to 15 L nonrebreather -Now on 2 L -WBC improving -Multifactorial -From systolic CHF exacerbation acute on chronic -Pneumonia -Human metapneumovirus -Concerns for atypical pneumonia -Concerns for possible fungal infection? -Concern for possible Mycobacterium infection, does drink raw unpasteurized milk CT chest CT/[place] [id number] IMPRESSION: 1. Peribronchial wall thickening; query viral infection/bronchitis, chronic bronchitis and/or asthma. 2. Patchy ground-glass and airspace opacities in the lower lobes suspicious for pneumonia. 3. Tree-in-bud opacities in the right chest with clustered nodules. These findings raise concern for atypical infection such as mycobacterium avium intracellulare or fungal infection. Plan -Monitor in the ICU closely -Currently on 3 L -Currently on 2 of Levophed -Will consider BiPAP based on clinical progress -Broad-spectrum antibiotic therapy -Vancomycin -Zosyn -azithromycin -Lasix 40 IV twice daily currently on hold -Hold off of further doses of steroids -LDH 341, beta 3 glucan, PCP, QuantiFERON gold, AFB smears, Coccidioides mycosis, histo, blasto antigens ordered, Aspergillus -AFB smears ordered -QuantiFERON gold ordered -Keep under isolation precautions -Monitor respiratory status closely -DuoNeb -Budesonide FACUNDO on CKD, creatinine 1.6, Lasix 40 mg daily thrombocytopenia, -likely from sepsis -dic panel -hit panel -swithc to lovenox Septic shock -Currently off levophed -Placed order for PICC line Sepsis secondary to pneumonia, human metapneumovirus, sepsis features met given tachycardia, tachypnea, respiratory distress, leukocytosis, lactic acid A-fib with RVR -Continue amiodarone drip, currently on p.o. amiodarone -switch lovenox Systolic CHF exacerbation -lasix 40mg qd -Repeat cardiac echo CONCLUSIONS Limited echo Moderately increased left ventricular cavity size. Modeately decreased left ventricular systolic function. Global left ventricular hypokinesis. Left ventricular ejection fraction is estimated at 35-40 %. Moderate biatrial enlargment There is no pericardial effusion. Right atrial pressure is around 20 mm of mercury. Elevated D-dimer, venous ultrasound with normal limits Pneumonia as above -Follow blood cultures -Sputum cultures Human metapneumovirus -Isolation precautions NSTEMI -With complaints of chest pain -Serial EKGs, serial troponins, telemetry monitoring -Aspirin, statin, lovenox Constipation, passing gas from below, no abdominal pain IMPRESSION: 1. There are a few mildly dilated loops of small bowel in the right lower quadrant which could reflect ileus/adynamic state. Partial small bowel obstruction is considered less likely. Correlate clinically. -Serial abdominal exams -Clear liquids Moderate protein calorie malnutrition, consult dietary Patient is a full code lovenox for DVT prophylaxis Attestations 2 Medical Necessity Statement*: Patient requires hospitalization for acute respiratory failure secondary to pneumonia, septic shock currently off Levophed,requirinf midodrine, CHF, FACUNDO Diagnoses Atrial fibrillation with RVR I48.91 NSTEMI (non-ST elevated myocardial infarction) I21.4 Chest pain R07.9 Pneumonia J18.9 Sepsis A41.9 Human metapneumovirus (hMPV) pneumonia J12.3 Systolic CHF, acute on chronic I50.23 FACUNDO (acute kidney injury) N17.9 Septic shock A41.9; R65.21
--- NOTE | 2024-04-21 16:44 | P.PN_ITS ---
Subjective 2 Subjective: He is sitting up in the chair, overall feeling better. Levophed currently off, blood pressure soft. Vitals/I&O/Wt Last Vital Signs Temp 98.7 F 04/21/24 03:00 Pulse 69 04/21/24 16:00 Resp 17 04/21/24 16:00 BP 83/43 04/21/24 16:00 Pulse Ox 90 04/21/24 16:00 O2 Del Method Room Air 04/21/24 15:30 O2 Flow Rate 1 04/21/24 04:56 04/21/24 04/21/24 04/21/24 06:59 14:59 22:59 Intake Total 812.563 / 2812.189 400 / 400 Output Total 850 / 1850 Balance -37.437 / 962.189 400 / 400 Weight last 48 hrs Weight 175 lb Weight 173 lb Weight 172 lb 9.561 oz Physical Exam 2 Resp: AUSCULTATION: wheezes (slight) throughout Cardio: COMMON NORMALS: regular rate, S1 normal heart sound present and S2 normal heart sound present RATE: regular rate RHYTHM: abnormal rhythm irregularly irregular and other (ventricular paced intermittently) HEART SOUNDS: S1 normal heart sound present, S2 normal heart sound present, no gallops, no murmurs and no rubs Extremity: GENERAL: No edema Urinary Catheter Management: Nguyen: Cath Placed During This Visit: yes Reason for Continuing Indwelling Catheter: Accurate Measurement of Urinary Output in Critically Ill Patients Urinary Catheter Date of Insertion: 04/17/24 Urinary Catheter Time of Insertion: 13:30 Data 04/21/24 04:05 04/21/24 04:05 Micro: Microbiology 04/19/24 11:00 Fungal Smear - Preliminary Sputum - Expectorated Sputum A&P Assessment and plan (1) Systolic CHF, acute on chronic: Recommend to continue Lasix 40mg IV daily, to maintain euvolemia. (2) Atrial fibrillation: He is in atrial fibrillation, with good ventricular rate control. Continue amiodarone 400mg BID. 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
[2024-04-21] MEDS: AZITHROMYCIN ADD-Vantage 500 MG in 0.9% NaCl ADD-Vantage 250 ML 250 MG IV (17:12)
[2024-04-21 19:59] LABS: Bacillus cereus group Not Detected (NOT DETECT); Bacillus subtillis group Not Detected (NOT DETECT); Corynebacterium Not Detected (NOT DETECT); Cutibacterium acnes (P.acnes) Not Detected (NOT DETECT); Enterococcus Not Detected (NOT DETECT); Enterococcus faecalis Not Detected (NOT DETECT); Enterococcus faecium Not Detected (NOT DETECT); Lactobacillus species Not Detected (NOT DETECT); Listeria Not Detected (NOT DETECT); Listeria monocytogenes Not Detected (NOT DETECT); Micrococcus Not Detected (NOT DETECT); Pan Candida Not Detected (NOT DETECT); Pan Gram-Negative Not Detected (NOT DETECT); Staphylococcus lugdunensis Not Detected (NOT DETECT); Streptococcus agalactiae Not Detected (NOT DETECT); Streptococcus anginosus group Not Detected (NOT DETECT); Streptococcus pneumoniae Not Detected (NOT DETECT); Streptococcus pyogenes Not Detected (NOT DETECT); Streptococcus species Not Detected (NOT DETECT); mecA Not Detected (NOT DETECT); mecC Not Detected (NOT DETECT)
[2024-04-21 20:29] LABS: Staphylococcus epidermidis Detected (NOT DETECT); Staphylococcus species Detected (NOT DETECT)
[2024-04-22] VITALS (49 sets, daily range): BP systolic 85–112; BP diastolic 45–87; PULSE 65–76; RESP 17–30; TEMP 36.6–37.1; O2SAT 88–99
[2024-04-22] MEDS: ipratropium-albuterol 3 mL Neb INHALATION ×4 (00:43→21:42)
[2024-04-22 00:44] LABS: Fungitell 1-3-B Glucan Assay 91 pg/ml
[2024-04-22] MEDS: piperacillin-tazobactam 3.375 GM in sodium chloride 0.9% (plus) 50 ML IV ×3 (02:00→17:48)
[2024-04-22 03:21] LABS: Heparin Induced Platelet AB NEGATIVE (NEGATIVE); Patient O.D 0.068
[2024-04-22 03:38] LABS: Basophils # 0.1 10^3/uL (0.0-0.1); Basophils % 0.9 %; Eosinophils # 0.1 10^3/uL (0.0-0.8); Eosinophils % 0.5 %; Hematocrit 29.7 % (37-53); Lymphocytes # 1.2 10^3/uL (0.8-4.8); Lymphocytes % 11.8 %; Mean Corpuscular Hemoglobin 31.1 pg (27-33); Mean Corpuscular Volume 100.3 fl (82-101); Mean Platelet Volume 11.2 fL (7.4-10.4); Monocytes # 1.2 10^3/uL (0.2-0.9); Monocytes % 11.2 %; Nucleated Red Blood Cells % 0.2 %; Platelet Count 86 10^3/cmm (157-399); Red Blood Count 2.96 10^6/uL (3.85-5.65); Red Cell Distribution Width 13.9 % (12.1-15.1); White Blood Count 10.54 10^3/uL (3.29-11.43)
[2024-04-22] MEDS: enoxaparin 80 mg/0.8 mL Syringe SUBCUT (03:48)
[2024-04-22] MEDS: midodrine 5 mg TABLET 10 MG PO ×4 (03:48→22:11)
[2024-04-22] MEDS: vancomycin 125 mg Capsule PO ×4 (03:49→20:34)
[2024-04-22 03:57] LABS: Alanine Aminotransferase 16 U/L (0-41); Albumin Level 3.2 g/dL (3.5-5.2); Alkaline Phosphatase 69 U/L (40-130); Anion Gap 11.5 (5-19); Aspartate Amino Transferase 31 U/L (0-40); Blood Urea Nitrogen 29 mg/dL (8-23); Calcium 8.8 mg/dL (8.5-10.5); Carbon Dioxide 27 mmol/L (22-29); Chloride 101 mmol/L (98-107); Creatinine Clr Calc Pharmacy 42.0274; Globulin 2.2 g/dL (1.3-4.6); Glucose 90 mg/dL (65-115); Magnesium 2.4 mg/dL (1.7-2.3); Osmolality Calculated 285 mOsm/kg (285-295); Phosphorus 2.6 mg/dL (2.5-4.5); Potassium 4.5 mmol/L (3.5-5.1); Sodium 135 mmol/L (136-145); Total Protein 5.4 g/dL (6.6-8.7)
[2024-04-22 04:03] LABS: C Reactive Protein 21.6 mg/L (0.0-4.9)
[2024-04-22 04:06] LABS: Slide Review Slide Review Perform
[2024-04-22 04:09] LABS: NT Pro B Type Natriuretic Pept 5229 pg/mL (0-450)
[2024-04-22 06:06] LABS: MTB Complex Respiratory PCR NOT DETECTED; MTB Source SPUTUM
[2024-04-22 08:10] LABS: Interpretation Positive (Negative)
[2024-04-22] MEDS: amiodarone 200 mg Tablet 400 MG PO ×2 (08:10→17:48)
[2024-04-22] MEDS: fluconazole 100 mg Tablet 200 MG PO (08:10)
[2024-04-22] MEDS: pantoprazole 40 mg SDV IVP (08:11)
[2024-04-22] MEDS: budesonide 0.5 mg/2 mL Neb INHALATION ×2 (10:02→21:41)
[2024-04-22] MEDS: VANCOMYCIN ADD-Vantage 1,000 MG in 0.9% NaCl ADD-Vantage 250 ML 250 MG IV (10:27)
--- NOTE | 2024-04-22 10:47 | PC.NURSE ---
Castellanos catheter showed hematuria red/brown urine upon morning assessment, Dr. Edwards gave okay to remove castellanos, Flushed with 50cc sterile water, 50cc returned with no clots and color improved to yellow/pink. Foely removed with no complications. Patient instructed to use urinal and then call nurse so that accurate output and monitoring of color can be charted.
[2024-04-22 12:49] LABS: Quantiferon Mitogen 2.58 IU/mL; Quantiferon Nil 0.02 IU/mL; Quantiferon TB Gold NEGATIVE (NEGATIVE)
--- NOTE | 2024-04-22 13:49 | P.PN_ITS ---
Subjective 2 Subjective: Patient was seen this morning, denies any fevers, chills, continues to have a cough, no nausea, no vomiting Vitals/I&O/Wt Last Vital Signs Temp 98.8 F 04/22/24 08:00 Pulse 70 04/22/24 12:30 Resp 26 H 04/22/24 12:30 BP 101/55 04/22/24 12:30 Pulse Ox 91 04/22/24 12:30 O2 Del Method Room Air 04/22/24 12:30 O2 Flow Rate 1 04/22/24 00:48 04/21/24 04/22/24 04/22/24 22:59 06:59 14:59 Intake Total 730 / 1430 650 / 2080 780 / 780 Output Total 900 / 900 900 / 1800 50 / 50 Balance -170 / 530 -250 / 280 730 / 730 Weight last 48 hrs Weight 80.195 kg Weight 79.379 kg Physical Exam 2 Const: COMMON NORMALS: no acute distress and patient oriented x3 Resp: COMMON NORMALS: normal respiratory effort, No retractions, No use of accessory muscles and clear to auscultation bilaterally AUSCULTATION: clear to auscultation bilaterally Cardio: COMMON NORMALS: regular rate, regular rhythm, S1 normal heart sound present and S2 normal heart sound present RATE: regular rate RHYTHM: r egular rhythm HEART SOUNDS: S1 normal heart sound present and S2 normal heart sound present GI: COMMON NORMALS: Normal to inspection, nondistended, normoactive bowel sounds present and non-tender Extremity: COMMON NORMALS: no pedal edema Neuro: COMMON NORMALS: patient oriented x3 Psych: COMMON NORMALS: mental status grossly normal Urinary Catheter Management: Nguyen: Cath Placed During This Visit: yes, but has since been removed by the nurse Reason for Continuing Indwelling Catheter: Decision to DC Catheter Urinary Catheter Date of Insertion: 04/17/24 Urinary Catheter Time of Insertion: 13:30 Date Urinary Catheter Removed: 04/22/24 Time Urinary Catheter Discontinued: 10:47 Data 04/22/24 03:15 04/22/24 03:15 Micro: Microbiology 04/17/24 08:32 Blood Culture - Final Blood NO GROWTH AFTER 5 DAYS 04/17/24 08:30 Blood Culture - Preliminary Blood Staphylococcus epidermidis 04/19/24 10:39 Mycobacterial Smear - Preliminary Sputum - Expectorated Sputum 04/19/24 11:00 Mycobacterial Smear - Preliminary Sputum - Expectorated Sputum A&P Assessment and plan (1) Atrial fibrillation with RVR: (2) NSTEMI (non-ST elevated myocardial infarction): (3) Chest pain: (4) Pneumonia: (5) Sepsis: (6) Human metapneumovirus (hMPV) pneumonia: (7) Systolic CHF, acute on chronic: (8) FACUNDO (acute kidney injury): (9) Septic shock: Plan Acute hypoxic respiratory failure, with evidence of acute respiratory distress, nasal flaring, intercostal retractions, suprasternal retractions, tachypnea, tachycardia, requiring up to 15 L nonrebreather -Now on room air to 2 L -WBC improving -Multifactorial -From systolic CHF exacerbation acute on chronic -Pneumonia -Human metapneumovirus -Concerns for atypical pneumonia -Concerns for possible fungal infection? -Concern for possible Mycobacterium infection, does drink raw unpasteurized milk CT chest CT/[place] [id number] IMPRESSION: 1. Peribronchial wall thickening; query viral infection/bronchitis, chronic bronchitis and/or asthma. 2. Patchy ground-glass and airspace opacities in the lower lobes suspicious for pneumonia. 3. Tree-in-bud opacities in the right chest with clustered nodules. These findings raise concern for atypical infection such as mycobacterium avium intracellulare or fungal infection. Plan -Monitor in the ICU closely -Currently on 3 L -Currently on 2 of Levophed -Will consider BiPAP based on clinical progress -Broad-spectrum antibiotic therapy -Vancomycin -Zosyn -azithromycin -Lasix 40 mg IV daily -Hold off of further doses of steroids -LDH 341, beta 3 glucan, PCP, QuantiFERON gold, AFB smears, Coccidioides mycosis, histo, blasto antigens ordered, Aspergillus -AFB smears ordered -QuantiFERON gold ordered -Keep under isolation precautions -Monitor respiratory status closely -DuoNeb -Budesonide FACUNDO on CKD, creatinine 1.6, Lasix 40 mg daily thrombocytopenia, -likely from sepsis -dic panel -hit panel -switch to lovenox Septic shock -Currently off levophed -Placed order for PICC line Sepsis secondary to pneumonia, human metapneumovirus, sepsis features met given tachycardia, tachypnea, respiratory distress, leukocytosis, lactic acid A-fib with RVR -Continue amiodarone drip, currently on p.o. amiodarone -switch lovenox Systolic CHF exacerbation -lasix 40mg qd -Repeat cardiac echo CONCLUSIONS Limited echo Moderately increased left ventricular cavity size. Modeately decreased left ventricular systolic function. Global left ventricular hypokinesis. Left ventricular ejection fraction is estimated at 35-40 %. Moderate biatrial enlargment There is no pericardial effusion. Right atrial pressure is around 20 mm of mercury. Elevated D-dimer, venous ultrasound with normal limits Pneumonia as above -Follow blood cultures -Sputum cultures Human metapneumovirus -Isolation precautions NSTEMI -With complaints of chest pain -Serial EKGs, serial troponins, telemetry monitoring -Aspirin, statin, lovenox Constipation, passing gas from below, no abdominal pain IMPRESSION: 1. There are a few mildly dilated loops of small bowel in the right lower quadrant which could reflect ileus/adynamic state. Partial small bowel obstruction is considered less likely. Correlate clinically. -Serial abdominal exams -Clear liquids Moderate protein calorie malnutrition, consult dietary Patient is a full code lovenox for DVT prophylaxis Attestations 2 Medical Necessity Statement*: Patient requires hospitalization for CHF exacerbation, sepsis, pneumonia Diagnoses Atrial fibrillation with RVR I48.91 NSTEMI (non-ST elevated myocardial infarction) I21.4 Chest pain R07.9 Pneumonia J18.9 Sepsis A41.9 Human metapneumovirus (hMPV) pneumonia J12.3 Systolic CHF, acute on chronic I50.23 FACUNDO (acute kidney injury) N17.9 Septic shock A41.9; R65.21
[2024-04-22] MEDS: FUROsemide 10 mg/mL SDV 4mL 40 MG IVP (14:41)
[2024-04-22] MEDS: azithromycin 250 mg Tablet PO (17:48)
[2024-04-22 20:58] LABS: UFH High Dose, 100 IU/ML 0 % release; UFH Low Dose, 0.1 IU/ML 0 % release; UFH Low Dose, 0.5 IU/ML 0 % release; UFH SRA Result NEGATIVE (NEGATIVE)
[2024-04-22 23:05] LABS: P. Jirovecii DNA QL PCR Not Detected (Not Detected); P. Jirovecii DNA QL PCR Source Sputum
--- NOTE | 2024-04-22 23:09 | P.PN_ITS ---
Subjective 2 Subjective: Feeling much better off Levophed Vitals/I&O/Wt Last Vital Signs Temp 98 F 04/22/24 19:30 Pulse 70 04/22/24 22:16 Resp 27 H 04/22/24 22:00 BP 111/71 04/22/24 22:00 Pulse Ox 93 04/22/24 22:00 O2 Del Method Room Air 04/22/24 19:30 O2 Flow Rate 1 04/22/24 00:48 04/22/24 04/22/24 04/23/24 14:59 22:59 06:59 Intake Total 780 / 780 240 / 1020 Output Total 50 / 50 1175 / 1225 Balance 730 / 730 -935 / -205 Weight last 48 hrs Weight 176 lb 12.8 oz Weight 175 lb Physical Exam 2 Const: OTHER: GENERAL: Patient is alert, awake and oriented x3. HEART: Regular S1 and S2. No murmur, rub or gallop. LUNGS: Right middle lobe inspiratory rhonchi. No crackles CENTRAL NERVOUS SYSTEM: Grossly nonfocal. EXTREMITIES: Lower extremities with out edema bilaterally. Urinary Catheter Management: Nguyen: Cath Placed During This Visit: yes, but has since been removed by the nurse Reason for Continuing Indwelling Catheter: Decision to DC Catheter Urinary Catheter Date of Insertion: 04/17/24 Urinary Catheter Time of Insertion: 13:30 Date Urinary Catheter Removed: 04/22/24 Time Urinary Catheter Discontinued: 10:47 Data 04/22/24 03:15 04/22/24 03:15 Micro: Microbiology 04/22/24 14:53 Blood Culture - Preliminary Blood SPECIMEN COLLECTED 04/22/24 14:57 Blood Culture - Preliminary Blood SPECIMEN COLLECTED 04/19/24 11:00 Fungal Smear - Preliminary Sputum - Expectorated Sputum 04/17/24 08:32 Blood Culture - Final Blood NO GROWTH AFTER 5 DAYS 04/17/24 08:30 Blood Culture - Preliminary Blood Staphylococcus epidermidis 04/19/24 10:39 Mycobacterial Smear - Preliminary Sputum - Expectorated Sputum 04/19/24 11:00 Mycobacterial Smear - Preliminary Sputum - Expectorated Sputum A&P Assessment and plan (1) Systolic CHF, acute on chronic: Appear to be euvolemic will switch to p.o. Lasix 40 mg once a day from tomorrow (2) Atrial fibrillation: Continue p.o. 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
[2024-04-23] VITALS (35 sets, daily range): BP systolic 84–124; BP diastolic 45–70; PULSE 69–139; RESP 12–40; TEMP 36.3–36.7; O2SAT 90–99; BMI 25.1
[2024-04-23] MEDS: piperacillin-tazobactam 3.375 GM in sodium chloride 0.9% (plus) 50 ML IV ×3 (02:10→16:52)
[2024-04-23] MEDS: ipratropium-albuterol 3 mL Neb INHALATION ×4 (03:33→20:57)
[2024-04-23] MEDS: vancomycin 125 mg Capsule PO ×2 (03:59→09:03)
[2024-04-23] MEDS: midodrine 5 mg TABLET 10 MG PO ×4 (03:59→21:37)
[2024-04-23] MEDS: enoxaparin 80 mg/0.8 mL Syringe SUBCUT (04:00)
[2024-04-23 04:40] LABS: Mean Corpuscular HGB Conc 30.9 g/dL (30-55); Mean Corpuscular Hemoglobin 30.8 pg (27-33); Mean Corpuscular Volume 99.7 fl (82-101); Platelet Count 96 10^3/cmm (157-399); Red Blood Count 3.21 10^6/uL (3.85-5.65); Red Cell Distribution Width 14.4 % (12.1-15.1)
[2024-04-23 04:58] LABS: Alanine Aminotransferase 22 U/L (0-41); Albumin Level 3.5 g/dL (3.5-5.2); Alkaline Phosphatase 74 U/L (40-130); Anion Gap 15.4 (5-19); Aspartate Amino Transferase 37 U/L (0-40); Blood Urea Nitrogen 32 mg/dL (8-23); Carbon Dioxide 25 mmol/L (22-29); Chloride 101 mmol/L (98-107); Creatinine Clr Calc Pharmacy 39.5679; Globulin 2.5 g/dL (1.3-4.6); Glucose 93 mg/dL (65-115); Magnesium 2.3 mg/dL (1.7-2.3); Osmolality Calculated 291 mOsm/kg (285-295); Phosphorus 2.8 mg/dL (2.5-4.5); Potassium 4.4 mmol/L (3.5-5.1); Sodium 137 mmol/L (136-145); Total Bilirubin 1.1 mg/dL (0.15-1.2)
[2024-04-23 05:00] LABS: C Reactive Protein 15.3 mg/L (0.0-4.9)
[2024-04-23 05:04] LABS: NT Pro B Type Natriuretic Pept 9863 pg/mL (0-450)
[2024-04-23 05:12] LABS: Slide Review Slide Review Perform; Total Cells Counted 100 (0-100)
[2024-04-23 05:13] LABS: Absolute Segmented Neutrophil 10.2 10/cmm (1.6-7.1); Anisocytosis 1+; Eosinophils 0 %; Giant Platelets 1+; Lymphocytes 8 %; Monocytes Absolute 1.4 10^3/cmm (0.1-0.6); Platelet Estimate Decreased (Normal); Segmented Neutrophils 66 %
[2024-04-23] MEDS: amiodarone 200 mg Tablet 400 MG PO ×2 (09:03→17:45)
[2024-04-23] MEDS: pantoprazole 40 mg SDV IVP (09:03)
[2024-04-23] MEDS: fluconazole 100 mg Tablet 200 MG PO (09:03)
[2024-04-23] MEDS: budesonide 0.5 mg/2 mL Neb INHALATION ×2 (09:30→20:57)
[2024-04-23] MEDS: VANCOMYCIN ADD-Vantage 1,000 MG in 0.9% NaCl ADD-Vantage 250 ML 250 MG IV (12:05)
--- NOTE | 2024-04-23 12:09 | PC.SOCIAL ---
IMM Updated Updated pt on IMM. No questions voiced. Provided pt a copy. Initialed, dated, & timed copy in chart.
--- NOTE | 2024-04-23 13:15 | PC.NURSE ---
Transfer Note Patient transferred to med-surg room 261 from ICU via wheelchair. Handoff report given to Dontrell. Patient oriented to environment and equipment. Covering service notified. Orders reviewed and will continue to monitor. Family notified of patient transfer, all questions answered at this time. Upon transfer patient is alert/oriented x4 on room air.
--- NOTE | 2024-04-23 14:20 | P.PN_ITS ---
Subjective 2 Subjective: Patient was seen this morning, sitting up beside the bed, currently afebrile, no fevers, chills, no nausea, no vomiting, no diarrhea, Nguyen catheter has been removed, urinating well on room air Vitals/I&O/Wt Last Vital Signs Temp 97.8 F 04/23/24 14:00 Pulse 69 04/23/24 14:00 Resp 17 04/23/24 14:00 BP 121/70 04/23/24 14:00 Pulse Ox 96 04/23/24 14:00 O2 Del Method Room Air 04/23/24 14:00 O2 Flow Rate 1 04/23/24 04:00 04/22/24 04/23/24 04/23/24 22:59 06:59 14:59 Intake Total 240 / 1020 50 / 1070 990 / 990 Output Total 1175 / 1225 465 / 1690 50 / 50 Balance -935 / -205 -415 / -620 940 / 940 Weight last 48 hrs Weight 81.817 kg Weight 80.195 kg Physical Exam 2 Const: COMMON NORMALS: no acute distress and patient oriented x3 Resp: COMMON NORMALS: normal respiratory effort, No retractions and No use of accessory muscles AUSCULTATION: wheezes Cardio: COMMON NORMALS: regular rate, regular rhythm, S1 normal heart sound present and S2 normal heart sound present RATE: regular rate RHYTHM: r egular rhythm HEART SOUNDS: S1 normal heart sound present and S2 normal heart sound present GI: COMMON NORMALS: Normal to inspection, nondistended, normoactive bowel sounds present and non-tender Extremity: COMMON NORMALS: no pedal edema Neuro: COMMON NORMALS: patient oriented x3 Psych: COMMON NORMALS: mental status grossly normal Urinary Catheter Management: Nguyen: Cath Placed During This Visit: yes, but has since been removed by the nurse Reason for Continuing Indwelling Catheter: Decision to DC Catheter Urinary Catheter Date of Insertion: 04/17/24 Urinary Catheter Time of Insertion: 13:30 Date Urinary Catheter Removed: 04/22/24 Time Urinary Catheter Discontinued: 10:47 Data 04/23/24 04:07 04/23/24 04:07 Micro: Microbiology 04/22/24 14:53 Blood Culture - Preliminary Blood SPECIMEN COLLECTED 04/22/24 14:57 Blood Culture - Preliminary Blood SPECIMEN COLLECTED 04/19/24 11:00 Fungal Smear - Preliminary Sputum - Expectorated Sputum 04/17/24 08:32 Blood Culture - Final Blood NO GROWTH AFTER 5 DAYS A&P Assessment and plan (1) Atrial fibrillation with RVR: (2) NSTEMI (non-ST elevated myocardial infarction): (3) Chest pain: (4) Pneumonia: (5) Sepsis: (6) Human metapneumovirus (hMPV) pneumonia: (7) Systolic CHF, acute on chronic: (8) FACUNDO (acute kidney injury): (9) Septic shock: Plan Acute hypoxic respiratory failure, with evidence of acute respiratory distress, nasal flaring, intercostal retractions, suprasternal retractions, tachypnea, tachycardia, requiring up to 15 L nonrebreather -Now on room air to 2 L -WBC improving -Multifactorial -From systolic CHF exacerbation acute on chronic -Pneumonia -Human metapneumovirus -Concerns for atypical pneumonia -Concerns for possible fungal infection? -Concern for possible Mycobacterium infection, does drink raw unpasteurized milk CT chest CT/[place] [id number] IMPRESSION: 1. Peribronchial wall thickening; query viral infection/bronchitis, chronic bronchitis and/or asthma. 2. Patchy ground-glass and airspace opacities in the lower lobes suspicious for pneumonia. 3. Tree-in-bud opacities in the right chest with clustered nodules. These findings raise concern for atypical infection such as mycobacterium avium intracellulare or fungal infection. Plan -Overall clinical improving moved to [facility] -Currently on room air -Off Levophed -Will consider BiPAP based on clinical progress -Broad-spectrum antibiotic therapy -Vancomycin -Zosyn -azithromycin -Continue p.o. fluconazole -Lasix 40 mg po -Hold off of further doses of steroids -LDH 341, beta 3 glucan, PCP, QuantiFERON gold, AFB smears, Coccidioides mycosis, histo, blasto antigens ordered, Aspergillus -AFB smears ordered so far negative -QuantiFERON gold negative -Keep under isolation precautions -Monitor respiratory status closely -DuoNeb -Budesonide FACUNDO on CKD, creatinine 1.6, Lasix 40 mg daily thrombocytopenia, -likely from sepsis -dic panel -hit panel -switch to therapeutic lovenox Septic shock -Currently off levophed -Placed order for PICC line Sepsis secondary to pneumonia, human metapneumovirus, sepsis features met given tachycardia, tachypnea, respiratory distress, leukocytosis, lactic acid A-fib with RVR -Continue amiodarone drip, currently on p.o. amiodarone -switch lovenox Systolic CHF exacerbation -lasix 40mg qd -Repeat cardiac echo CONCLUSIONS Limited echo Moderately increased left ventricular cavity size. Modeately decreased left ventricular systolic function. Global left ventricular hypokinesis. Left ventricular ejection fraction is estimated at 35-40 %. Moderate biatrial enlargment There is no pericardial effusion. Right atrial pressure is around 20 mm of mercury. Elevated D-dimer, venous ultrasound with normal limits Pneumonia as above -Follow blood cultures -Sputum cultures Human metapneumovirus -Isolation precautions NSTEMI -With complaints of chest pain -Serial EKGs, serial troponins, telemetry monitoring -Aspirin, statin, lovenox Constipation, passing gas from below, no abdominal pain IMPRESSION: 1. There are a few mildly dilated loops of small bowel in the right lower quadrant which could reflect ileus/adynamic state. Partial small bowel obstruction is considered less likely. Correlate clinically. -Serial abdominal exams -Clear liquids Moderate protein calorie malnutrition, consult dietary Patient is a full code lovenox for DVT prophylaxis Plan for today PT OT, continue IV antibiotics, WBC up to 50,000 afebrile CRP still low at 15.3, continue to monitor Attestations 2 Medical Necessity Statement*: Patient requires hospitalization for acute respiratory failure secondary to pneumonia, CHF, shock, Diagnoses Atrial fibrillation with RVR I48.91 NSTEMI (non-ST elevated myocardial infarction) I21.4 Chest pain R07.9 Pneumonia J18.9 Sepsis A41.9 Human metapneumovirus (hMPV) pneumonia J12.3 Systolic CHF, acute on chronic I50.23 FACUNDO (acute kidney injury) N17.9 Septic shock A41.9; R65.21
[2024-04-23] MEDS: azithromycin 250 mg Tablet PO (17:45)
[2024-04-24] VITALS (12 sets, daily range): BP systolic 110–135; BP diastolic 60–76; PULSE 60–76; RESP 16–20; TEMP 36.4–36.8; O2SAT 90–94
[2024-04-24] MEDS: piperacillin-tazobactam 3.375 GM in sodium chloride 0.9% (plus) 50 ML IV ×3 (01:24→18:00)
[2024-04-24] MEDS: ipratropium-albuterol 3 mL Neb INHALATION ×4 (02:56→21:40)
[2024-04-24 03:45] LABS: Basophils # 0.1 10^3/uL (0.0-0.1); Basophils % 0.5 %; Eosinophils # 0.1 10^3/uL (0.0-0.8); Eosinophils % 0.6 %; Hematocrit 31.3 % (37-53); Lymphocytes # 1.8 10^3/uL (0.8-4.8); Lymphocytes % 9.5 %; Mean Corpuscular Hemoglobin 30.9 pg (27-33); Mean Corpuscular Volume 99.7 fl (82-101); Mean Platelet Volume 11.4 fL (7.4-10.4); Monocytes # 1.8 10^3/uL (0.2-0.9); Monocytes % 9.7 %; Neutrophils % 53.4 %; Nucleated Red Blood Cells % 0.2 %; Platelet Count 104 10^3/cmm (157-399); Red Blood Count 3.14 10^6/uL (3.85-5.65); Red Cell Distribution Width 14.5 % (12.1-15.1); White Blood Count 18.38 10^3/uL (3.29-11.43)
[2024-04-24 04:06] LABS: C Reactive Protein 10.4 mg/L (0.0-4.9); NT Pro B Type Natriuretic Pept 11410 pg/mL (0-450)
[2024-04-24 04:07] LABS: NT Pro B Type Natriuretic Pept 11505 pg/mL (0-450); Procalcitonin 0.58 ng/mL (0-0.5)
[2024-04-24] MEDS: midodrine 5 mg TABLET 10 MG PO ×4 (04:13→21:57)
[2024-04-24 04:29] LABS: Slide Review Slide Review Perform
[2024-04-24 04:49] LABS: Alanine Aminotransferase 23 U/L (0-41); Albumin Level 3.6 g/dL (3.5-5.2); Alkaline Phosphatase 75 U/L (40-130); Anion Gap 16.5 (5-19); Aspartate Amino Transferase 39 U/L (0-40); Blood Urea Nitrogen 28 mg/dL (8-23); Carbon Dioxide 22 mmol/L (22-29); Chloride 99 mmol/L (98-107); Creatinine Clr Calc Pharmacy 36.3309; Globulin 2.5 g/dL (1.3-4.6); Glucose 88 mg/dL (65-115); Magnesium 2.2 mg/dL (1.7-2.3); Osmolality Calculated 281 mOsm/kg (285-295); Potassium 4.5 mmol/L (3.5-5.1); Sodium 133 mmol/L (136-145); Total Bilirubin 1.1 mg/dL (0.15-1.2); Total Protein 6.1 g/dL (6.6-8.7)
[2024-04-24] MEDS: budesonide 0.5 mg/2 mL Neb INHALATION ×2 (07:45→21:39)
[2024-04-24] MEDS: amiodarone 200 mg Tablet 400 MG PO ×2 (08:33→18:00)
[2024-04-24] MEDS: fluconazole 100 mg Tablet 200 MG PO (08:33)
[2024-04-24] MEDS: pantoprazole 40 mg SDV IVP (08:34)
--- NOTE | 2024-04-24 10:23 | PC.NURSE ---
PICC line removed, pressure held for 15 minutes, no bleeding noted, no new bruising at this time. Gauze dressing and Coban applied. Catheter tip saved for culture per Dr. Edwards order.
[2024-04-24 10:58] LABS: Vancomycin Trough 16.4 ug/mL (10-15)
[2024-04-24] MEDS: VANCOMYCIN ADD-Vantage 1,000 MG in 0.9% NaCl ADD-Vantage 250 ML 250 MG IV (12:17)
--- NOTE | 2024-04-24 12:37 | CTR_ITS ---
PROCEDURE INFORMATION: Exam: CT Chest Without Contrast; Diagnostic Exam date and time: 04/24/2024 1:38 PM Age: 79 years old Clinical indication: Other: Leukocytosis; Prior surgery; Surgery date: 6+ months; Surgery type: Heart; Shoulder TECHNIQUE: Imaging protocol: Diagnostic computed tomography of the chest without contrast. Sagittal and coronal reformatted images were also reviewed. Radiation optimization: All CT scans at this facility use at least one of these dose optimization techniques: automated exposure control; mA and/or kV adjustment per patient size (includes targeted exams where dose is matched to clinical indication); or iterative reconstruction. COMPARISON: [place] [id number] 04/18/2024 9:19 AM RADIATION DOSE METRICS: Total DLP (mGy-cm): 867.52 FINDINGS: Limitations: Respiratory motion artifact on multiple images that can limit evaluation. Evaluation of the mediastinum and vasculature is limited without intravenous contrast. Tubes, catheters and devices: There is a single lead cardiac pacer via left subclavian approach. Findings are stable. Prosthetic mitral valve is stable. Trachea: Tracheobronchial structures are patent. Lungs: Improving aeration in the right and left lungs with residual patchy airspace disease in the right and left lower lobe suggesting resolving pneumonia. Dependent atelectasis in the lungs bilaterally. Stable calcified granulomas in the right upper lobe and right lower lobe. Stable linear scarring in the right middle lobe. Pleural spaces: New small right pleural effusion, stable small left pleural effusion. No pneumothorax. Heart: Stable marked enlargement of the heart. Stable mild focal calcification of the superior pericardium. Esophagus: The esophagus is unremarkable. Mediastinal space: No mediastinal hematoma. No pneumomediastinum. Lymph nodes: Calcified lymph nodes in the right hilum. No lymphadenopathy. Vasculature: Stable mild atherosclerotic calcifications in the visualized arteries. No evidence for aortic aneurysm. Pulmonary arteries are unremarkable. Pulmonary veins are unremarkable. Bones/joints: Poststernotomy changes in the chest. Patient has had a previous right reverse shoulder arthroplasty. Degenerative changes in the spine. Moderate to severe degenerative changes at the left shoulder. Postsurgical changes consistent with a previous left rotator cuff repair. Osseous findings are stable. Soft tissues: Mild body wall edema. PROCEDURE INFORMATION: Exam: CT Abdomen And Pelvis Without Contrast Exam date and time: 04/24/2024 1:38 PM Age: 79 years old Clinical indication: Other: Leukocytosis; Prior surgery; Surgery date: 6+ months; Surgery type: Heart; Shoulder TECHNIQUE: Imaging protocol: Computed tomography of the abdomen and pelvis without contrast. Sagittal and coronal reformatted images were also reviewed. Radiation optimization: All CT scans at this facility use at least one of these dose optimization techniques: automated exposure control; mA and/or kV adjustment per patient size (includes targeted exams where dose is matched to clinical indication); or iterative reconstruction. COMPARISON: [place] [id number] 04/18/2024 9:19 AM RADIATION DOSE METRICS: Total DLP (mGy-cm): 867.52 FINDINGS: Limitations: Evaluation of solid organs and vasculature is limited without intravenous contrast. Tubes, catheters and devices: The Nguyen catheter has been removed. The bladder is now mildly distended. Liver: The liver is unremarkable. Gallbladder and biliary ducts: No gallstones or intraluminal gallbladder sludge on CT scan. There is pericholecystic fluid versus marked edema of the gallbladder wall. No biliary ductal dilatation. Pancreas: The pancreas is unremarkable. No pancreatic ductal dilatation. Spleen: The spleen is unremarkable. Adrenal glands: The right and left adrenal glands are unremarkable. Kidneys and ureters: The right and left kidneys are unremarkable. The right and left ureters are unremarkable. Stomach and bowel: Stable scattered diverticula in the sigmoid colon. No evidence for diverticulitis. Increased fecal content in the colon. Ingested contents in the stomach. No acute abnormality in the small bowel. Appendix: The appendix is visualized and is unremarkable. No findings to suggest acute appendicitis. Intraperitoneal space: No free intraperitoneal air. No ascites. No loculated fluid collections to suggest an abscess. Vasculature: Stable mild atherosclerotic calcifications in the visualized arteries. No evidence for aortic aneurysm. Lymph nodes: No lymphadenopathy. Urinary bladder: Near complete resolution of air in the bladder. Stable diffuse, mild bladder wall thickening. Reproductive: Stable mild enlargement of the prostate gland. Stable nonspecific parenchymal calcifications in the prostate gland. Bones/joints: Bones are diffusely osteopenic. Degenerative changes in the spine and hips. 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 Osseous findings are stable. Soft tissues: Mild body wall edema. CT/[place] [id number] IMPRESSION: 1. Improving aeration in the right and left lungs with residual patchy airspace disease in the right and left lower lobe suggesting resolving pneumonia. 2. New small right pleural effusion, stable small left pleural effusion. 3. Stable mild focal calcification of the superior pericardium. 4. Stable marked cardiomegaly. 5. Mild body wall edema. 6. Incidental/nonacute findings are listed in the report. IMPRESSION: 1. No gallstones or intraluminal gallbladder sludge on CT scan. There is pericholecystic fluid versus marked edema of the gallbladder wall. Findings are concerning for cholecystitis. Further evaluation may be obtained with ultrasound of the gallbladder if it will change clinical management. 2. The Nguyen catheter has been removed. The bladder is now mildly distended. 3. Stable diffuse, mild bladder wall thickening. In the correct clinical setting, this may suggest cystitis. Recommend correlation with laboratory findings. Alternatively, this may be secondary to chronic outlet obstruction. 4. Stable scattered sigmoid diverticula. No evidence for diverticulitis. 5. Increased fecal content in the colon. 6. Mild body wall edema. 7. 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 8. Incidental/nonacute findings are listed in the report.
[2024-04-24 12:45] LABS: Aspergillus Source WHOLE BLOOD; Aspergillus Supp NOT DETECTED; Aspergillus Terreus DNA NOT DETECTED
[2024-04-24] MEDS: FUROsemide 40 mg Tablet PO (13:33)
--- NOTE | 2024-04-24 15:45 | PM.PN ---
Subjective Subjective: Patient was seen this morning, he is alert oriented x 3, following all commands, denies any nausea, no vomiting, no abdominal pain, no fevers, no chills, no cough, we discussed his leukocytosis, etiology is unclear, he is on p.o. for antibiotic therapies cultures so far has been unremarkable, discussed continued inpatient monitoring, he is agreeable Vitals/I&O/Wt Last Vital Signs Temp 98.0 F 04/24/24 12:00 Pulse 60 04/24/24 14:40 Resp 20 H 04/24/24 14:18 BP 135/76 04/24/24 12:00 Pulse Ox 94 04/24/24 14:18 O2 Del Method Room Air 04/24/24 14:18 O2 Flow Rate 1 04/23/24 04:00 04/24/24 04/24/24 04/24/24 06:59 14:59 22:59 Intake Total 50 / 1450 900 / 900 Output Total 200 / 250 250 / 250 Balance -150 / 1200 650 / 650 Weight last 48 hrs Weight 75.478 kg Weight 81.817 kg Physical Exam Const: COMMON NORMALS: no acute distress and patient oriented x3 Resp: COMMON NORMALS: normal respiratory effort, No retractions, No use of accessory muscles and clear to auscultation bilaterally AUSCULTATION: clear to auscultation bilaterally Cardio: COMMON NORMALS: regular rate, regular rhythm, S1 normal heart sound present and S2 normal heart sound present RATE: regular rate RHYTHM: regular rhythm HEART SOUNDS: S1 normal heart sound present and S2 normal heart sound present GI: COMMON NORMALS: Normal to inspection, nondistended, normoactive bowel sounds present, Soft to palpation and non-tender PALPATION: Yes Soft to palpation Extremity: COMMON NORMALS: no pedal edema Neuro: COMMON NORMALS: patient oriented x3 Psych: COMMON NORMALS: mental status grossly normal Urinary Catheter Management: Nguyen: Cath Placed During This Visit: yes, but has since been removed by the nurse Reason for Continuing Indwelling Catheter: Decision to DC Catheter Urinary Catheter Date of Insertion: 04/17/24 Urinary Catheter Time of Insertion: 13:30 Date Urinary Catheter Removed: 04/22/24 Time Urinary Catheter Discontinued: 10:47 Data 04/24/24 03:14 04/24/24 03:14 Micro: Microbiology 04/22/24 14:53 Blood Culture - Preliminary Blood NEGATIVE TO DATE 04/22/24 14:57 Blood Culture - Preliminary Blood NEGATIVE TO DATE A&P Assessment and plan (1) Atrial fibrillation with RVR: (2) NSTEMI (non-ST elevated myocardial infarction): (3) Chest pain: (4) Pneumonia: (5) Sepsis: (6) Human metapneumovirus (hMPV) pneumonia: (7) Systolic CHF, acute on chronic: (8) FACUNDO (acute kidney injury): (9) Septic shock: Plan Acute hypoxic respiratory failure, with evidence of acute respiratory distress, nasal flaring, intercostal retractions, suprasternal retractions, tachypnea, tachycardia, requiring up to 15 L nonrebreather -Now on room air to 2 L -WBC improving -Multifactorial -From systolic CHF exacerbation acute on chronic -Pneumonia -Human metapneumovirus -Concerns for atypical pneumonia -Concerns for possible fungal infection? -Concern for possible Mycobacterium infection, does drink raw unpasteurized milk CT chest CT/[place] [id number] IMPRESSION: 1. Peribronchial wall thickening; query viral infection/bronchitis, chronic bronchitis and/or asthma. 2. Patchy ground-glass and airspace opacities in the lower lobes suspicious for pneumonia. 3. Tree-in-bud opacities in the right chest with clustered nodules. These findings raise concern for atypical infection such as mycobacterium avium intracellulare or fungal infection. Plan -Overall clinical improving moved to [facility] -Currently on room air -Off Levophed -Will consider BiPAP based on clinical progress -Broad-spectrum antibiotic therapy -Vancomycin -Zosyn -azithromycin -Continue p.o. fluconazole -Lasix 40 mg po -Hold off of further doses of steroids -LDH 341, beta 3 glucan, PCP, QuantiFERON gold, AFB smears, Coccidioides mycosis, histo, blasto antigens ordered, Aspergillus -AFB smears ordered so far negative -QuantiFERON gold negative -Keep under isolation precautions -Monitor respiratory status closely -DuoNeb -Budesonide FACUNDO on CKD, creatinine 1.6, Lasix 40 mg daily thrombocytopenia, -likely from sepsis -dic panel -hit panel -switch to therapeutic lovenox Septic shock -Currently off levophed -Placed order for PICC line Sepsis secondary to pneumonia, human metapneumovirus, sepsis features met given tachycardia, tachypnea, respiratory distress, leukocytosis, lactic acid A-fib with RVR -Continue amiodarone drip, currently on p.o. amiodarone -switch lovenox Systolic CHF exacerbation -lasix 40mg qd -Repeat cardiac echo CONCLUSIONS Limited echo Moderately increased left ventricular cavity size. Modeately decreased left ventricular systolic function. Global left ventricular hypokinesis. Left ventricular ejection fraction is estimated at 35-40 %. Moderate biatrial enlargment There is no pericardial effusion. Right atrial pressure is around 20 mm of mercury. Elevated D-dimer, venous ultrasound with normal limits Pneumonia as above -Follow blood cultures -Sputum cultures Human metapneumovirus -Isolation precautions NSTEMI -With complaints of chest pain -Serial EKGs, serial troponins, telemetry monitoring -Aspirin, statin, lovenox Constipation, passing gas from below, no abdominal pain IMPRESSION: 1. There are a few mildly dilated loops of small bowel in the right lower quadrant which could reflect ileus/adynamic state. Partial small bowel obstruction is considered less likely. Correlate clinically. -Serial abdominal exams -Clear liquids Moderate protein calorie malnutrition, consult dietary Patient is a full code lovenox for DVT prophylaxis Plan for today leukocytosis up to 18,000, repeat CT chest abdomen pelvis, repeat UA, stool studies, will continue to monitor Attestations Medical Necessity Statement*: Patient requires hospitalization for persistent leukocytosis, pneumonia, CHF Diagnoses Atrial fibrillation with RVR I48.91 NSTEMI (non-ST elevated myocardial infarction) I21.4 Chest pain R07.9 Pneumonia J18.9 Sepsis A41.9 Human metapneumovirus (hMPV) pneumonia J12.3 Systolic CHF, acute on chronic I50.23 FACUNDO (acute kidney injury) N17.9 Septic shock A41.9; R65.21
[2024-04-24 17:19] LABS: Aspergillus AG,EIA,Serum NOT DETECTED; Aspergillus Galactomannan Inde <0.50
[2024-04-24] MEDS: azithromycin 250 mg Tablet PO (18:00)
--- NOTE | 2024-04-24 20:57 | P.PN_ITS ---
Subjective 2 Subjective: Feeling better today sitting in the bed would like to go home heart rate is well-controlled Vitals/I&O/Wt Last Vital Signs Temp 97.6 F 04/24/24 20:00 Pulse 69 04/24/24 20:00 Resp 17 04/24/24 20:00 BP 127/76 04/24/24 20:00 Pulse Ox 93 04/24/24 20:00 O2 Del Method Room Air 04/24/24 20:00 O2 Flow Rate 1 04/23/24 04:00 04/24/24 04/24/24 04/24/24 06:59 14:59 22:59 Intake Total 50 / 1450 900 / 900 200 / 1100 Output Total 200 / 250 250 / 250 550 / 800 Balance -150 / 1200 650 / 650 -350 / 300 Weight last 48 hrs Weight 166 lb 6.4 oz Weight 180 lb 6 oz Physical Exam 2 Const: OTHER: GENERAL: Patient is alert, awake and oriented x3. HEART: Regular S1 and S2. No murmur, rub or gallop. LUNGS: Right middle lobe inspiratory rhonchi. No crackles CENTRAL NERVOUS SYSTEM: Grossly nonfocal. EXTREMITIES: Lower extremities with out edema bilaterally. Urinary Catheter Management: Nguyen: Cath Placed During This Visit: yes, but has since been removed by the nurse Reason for Continuing Indwelling Catheter: Decision to DC Catheter Urinary Catheter Date of Insertion: 04/17/24 Urinary Catheter Time of Insertion: 13:30 Date Urinary Catheter Removed: 04/22/24 Time Urinary Catheter Discontinued: 10:47 Data 04/24/24 03:14 04/24/24 03:14 Micro: Microbiology 04/17/24 08:30 Blood Culture - Preliminary Blood Staphylococcus epidermidis 04/22/24 14:53 Blood Culture - Preliminary Blood NEGATIVE TO DATE 04/22/24 14:57 Blood Culture - Preliminary Blood NEGATIVE TO DATE A&P Assessment and plan (1) Systolic CHF, acute on chronic: Well compensated. Will hold Lasix and creatinine is worse (2) Atrial fibrillation: Continue amiodarone, continue anticoagulation Qualifiers: Atrial fibrillation type: longstanding persistent Qualified Code(s): I 48.11 - Longstanding persistent atrial fibrillation (3) Cardiomyopathy in disease classified elsewhere: Continue Entresto and beta-serena (4) Pacemaker: Working in good condition (5) Human metapneumovirus (hMPV) pneumonia: As per medicine Plan As above Attestations 2 Medical Necessity Statement*: As per medicine colleague Coding Level of Care Code Acute Code for Chg Fwd Diagnoses Systolic CHF, acute on chronic I50.23 Longstanding persistent atrial fibrillation I48.11 Atrial fibrillation type: longstanding persistent 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
[2024-04-25] VITALS (14 sets, daily range): BP systolic 108–151; BP diastolic 60–81; PULSE 68–76; RESP 16–20; TEMP 36.4–36.7; O2SAT 91–94
[2024-04-25] MEDS: piperacillin-tazobactam 3.375 GM in sodium chloride 0.9% (plus) 50 ML IV ×3 (01:21→17:18)
[2024-04-25 03:18] LABS: C.Diff PCR (Lab) NEGATIVE (Negative)
[2024-04-25] MEDS: midodrine 5 mg TABLET 10 MG PO ×2 (04:03→09:09)
[2024-04-25 04:48] LABS: Basophils # 0.4 10^3/uL (0.0-0.1); Basophils % 1.9 %; Eosinophils # 0.1 10^3/uL (0.0-0.8); Eosinophils % 0.4 %; Hematocrit 31.3 % (37-53); Lymphocytes # 1.6 10^3/uL (0.8-4.8); Lymphocytes % 7.5 %; Mean Corpuscular HGB Conc 31.9 g/dL (30-55); Mean Corpuscular Hemoglobin 31.5 pg (27-33); Mean Corpuscular Volume 98.7 fl (82-101); Mean Platelet Volume 11.5 fL (7.4-10.4); Monocytes # 2.5 10^3/uL (0.2-0.9); Monocytes % 11.6 %; Neutrophils # 11.22 10^3/uL (1.8-7.7); Neutrophils % 52.5 %; Nucleated Red Blood Cells % 0.1 %; Platelet Count 111 10^3/cmm (157-399); Red Blood Count 3.17 10^6/uL (3.85-5.65); Red Cell Distribution Width 15.6 % (12.1-15.1); White Blood Count 21.38 10^3/uL (3.29-11.43)
[2024-04-25 05:09] LABS: Alanine Aminotransferase 22 U/L (0-41); Albumin Level 3.5 g/dL (3.5-5.2); Alkaline Phosphatase 74 U/L (40-130); Anion Gap 15.5 (5-19); Aspartate Amino Transferase 39 U/L (0-40); Blood Urea Nitrogen 28 mg/dL (8-23); C Reactive Protein 8.3 mg/L (0.0-4.9); Calcium 9.1 mg/dL (8.5-10.5); Carbon Dioxide 19 mmol/L (22-29); Chloride 96 mmol/L (98-107); Creatinine Clr Calc Pharmacy 32.5066; Globulin 2.5 g/dL (1.3-4.6); Glucose 85 mg/dL (65-115); Magnesium 2.1 mg/dL (1.7-2.3); Osmolality Calculated 267 mOsm/kg (285-295); Potassium 4.5 mmol/L (3.5-5.1); Sodium 126 mmol/L (136-145); Total Bilirubin 1.3 mg/dL (0.15-1.2)
[2024-04-25 05:14] LABS: NT Pro B Type Natriuretic Pept 16418 pg/mL (0-450); Procalcitonin 0.42 ng/mL (0-0.5)
[2024-04-25 05:23] LABS: Slide Review Slide Review Perform
[2024-04-25] MEDS: budesonide 0.5 mg/2 mL Neb INHALATION ×2 (08:34→20:27)
[2024-04-25] MEDS: ipratropium-albuterol 3 mL Neb INHALATION ×3 (08:34→20:27)
[2024-04-25 08:44] LABS: LAB Peripheral Smear Sent for Review
[2024-04-25] MEDS: pantoprazole 40 mg SDV IVP (09:08)
[2024-04-25] MEDS: fluconazole 100 mg Tablet 200 MG PO (09:09)
[2024-04-25] MEDS: amiodarone 200 mg Tablet 400 MG PO ×2 (09:09→17:18)
[2024-04-25 10:19] LABS: Lipase 50 U/L (13-60)
[2024-04-25 10:31] LABS: Gamma Glutamyl Transferase 103 U/L (8-61)
--- NOTE | 2024-04-25 10:44 | P.CONIM_ITS ---
Providers/Reason For Consult 2 Consulting Physician/Specialty*: General Surgery Reason for Consult*: Cholecystitis Attending Physician: James Edwards MD Primary Care Provider: Nick Kamara DO History of Present Illness History of Present Illness Chad Hoover is a 79 year old male admitted to the hospital with sepsis, pneumonia, exacerbated heart failure. He has been improving until 3 days ago when he was noted to have an uptrend in the white count without significant symptoms. Repeat laboratory workup and CT scan of the abdomen and pelvis show evidence of a inflamed gallbladder that was not present during admission 8 days ago. I was consulted for this finding. Patient denies any abdominal pain, is tolerating diet, no nausea nor vomit. Review of Systems 2 General: Reports: 10 or more systems reviewed and unremarkable except in HPI and below Medications/Allergies Home Medications Medication Instructions Recorded Confirmed Last Taken Type ascorbic acid (vitamin C) 1,000 mg 2 gm PO DAILY 04/19/19 04/17/24 04/16/24 History tablet multivitamin 1 tab PO DAILY 09/19/21 04/17/24 04/16/24 History potassium chloride 20 mEq 20 meq PO DAILY #30 tabs 02/12/22 04/17/24 04/16/24 Rx tablet,extended release(part/cryst) cholecalciferol (vitamin D3) 10 10 mcg PO DAILY 07/23/22 04/17/24 04/16/24 History mcg (400 unit) capsule fluticasone 500 mcg-salmeterol 50 1 inh inhalation BID 07/23/22 04/17/24 04/16/24 History mcg/dose blistr powdr for inhalation (Advair Diskus) vitamin B complex 1 cap PO BID 07/23/22 04/17/24 04/16/24 History magnesium oxide 500 mg PO DAILY 01/22/23 04/17/24 04/16/24 History sacubitril 24 mg-valsartan 26 mg 1 tab PO DAILY #90 tabs 03/18/23 04/17/24 04/16/24 Rx tablet (Entresto) furosemide 40 mg tablet (Lasix) 40 mg PO DAILY PRN edema #30 tabs 03/26/23 04/17/24 04/16/24 Rx diltiazem HCl 180 mg 180 mg PO DAILY #90 caps 09/12/23 04/17/24 04/16/24 Rx capsule,extended release 24 hr [place] Basil 1 cap PO DAILY 04/17/24 04/17/24 04/16/24 History acetaminophen 325 mg tablet 650 mg PO QID PRN Pain 04/17/24 04/17/24 Unknown History (Tylenol) albuterol sulfate 90 mcg/actuation 2 puff inhalation Q4H PRN 04/17/24 04/17/24 04/16/24 History aerosol inhaler Shortness Of Breath Or Wheezing turmeric 400 mg capsule 400 mg PO DAILY 04/17/24 04/17/24 04/16/24 History Allergies Allergy/AdvReac Type Severity Reaction Status Date / Time oxycodone Allergy Severe other Verified 02/26/24 14:04 Current Medications Generic Name Dose Route Start Last Admin Trade Name Freq PRN Reason Stop Dose Admin Albuterol/Ipratropium 3 ml 04/22/24 08:00 04/25/24 08:34 Ipratropium-Albuterol 3 Ml Neb INHALATION 3 ml Q6H.RESP JOSE ARMANDO Administration Amiodarone HCl 400 mg 04/17/24 21:40 04/25/24 09:09 Amiodarone 200 Mg Tablet PO 400 mg BID JOSE ARMANDO Administration Azithromycin 250 mg 04/22/24 18:00 04/24/24 18:00 Azithromycin 250 Mg Tablet PO 250 mg Q24H JOSE ARMANDO Administration Protocol Budesonide 0.5 mg 04/17/24 20:00 04/25/24 08:34 Budesonide 0.5 Mg/2 Ml Neb INHALATION 0.5 mg BID.RESPIRATORY JOSE ARMANDO Administration Enoxaparin Sodium 80 mg 04/21/24 04:00 04/25/24 04:07 Enoxaparin 80 Mg/0.8 Ml Syringe SUBCUT Not Given Q24H JOSE ARMANDO Fluconazole 200 mg 04/18/24 10:05 04/25/24 09:09 Fluconazole 100 Mg Tablet PO 200 mg DAILY JOSE ARMANDO Administration Piperacillin Sod/Tazobactam 50 mls @ 12.5 mls/hr 04/17/24 17:30 04/25/24 09:08 Sod 3.375 gm/ Sodium Chloride IV 12.5 mls/hr Q8H JOSE ARMANDO Administration Vancomycin HCl 1,000 mg/ 250 mls @ 250 mls/hr 04/18/24 11:30 04/24/24 13:24 Sodium Chloride IV Infused Q24H JOSE ARMANDO Infusion Midodrine 10 mg 04/21/24 10:00 04/25/24 09:09 Midodrine 5 Mg Tablet PO 10 mg Q6H JOSE ARMANDO Administration Ondansetron HCl 4 mg 04/17/24 09:10 04/19/24 03:03 Ondansetron 2 Mg/Ml Sdv 2 Ml IVP 4 mg Q6H PRN Administration vomiting, or N/V if npo Pantoprazole Sodium 40 mg 04/17/24 09:15 04/25/24 09:08 Pantoprazole 40 Mg Sdv IVP 40 mg Q24H JOSE ARMANDO Administration Senna/Docusate Sodium 2 tab 04/19/24 09:00 04/25/24 09:09 Sennosides-Docusate Tablet PO Not Given BID JOSE ARMANDO Trazodone HCl 25 mg 04/20/24 19:54 04/20/24 20:40 Trazodone 50 Mg Tablet PO 25 mg BEDTIME PRN Administration INSOMNIA PFSH Acute 2 PFSH: Medical History Cardiac LV ejection fraction of 40-49% History of cataract 04/2022 Bilateral Hemolytic anemia Anemia Dyspnea on exertion Anticoagulant long-term use 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 Shoulder pain with history of repair of rotator cuff Surgical History Hx of shoulder surgery Hx of umbilical hernia repair Hx of thumb surgery History of permanent cardiac pacemaker placement H/O mitral valve replacement Patient had a initial mitral valve replacement by Dr. Acevedo in 2013. He developed a perivalvular leak for which he underwent redo surgery by Dr. Sutton at the [facility] in [place] in October 2017. Most recent echocardiogram was done in March 2021. Ejection fraction was 46%. Moderate TR, mild AR mitral valve area was calculated to be 1.5 cm2 Family History Mother Rheumatoid arthritis at age of 62 Grandmother Cancer Dementia Brother Diabetes Father Lung disease Family/Other Lung disease Denies family history of CAD (coronary artery disease) Clotting disorder Chronic kidney disease (CKD) Suicide Anesthesia complication Bleeding disorder Stroke Social History Smoking and tobacco/nicotine status: never used tobacco/nicotine Alcohol intake: never Substance/Drug Use: never Vitals/I&O/Wt Last Vital Signs Temp 97.8 F 04/25/24 08:00 Pulse 72 04/25/24 08:34 Resp 18 04/25/24 08:34 BP 151/76 04/25/24 08:00 Pulse Ox 94 04/25/24 08:34 O2 Del Method Room Air 04/25/24 08:34 O2 Flow Rate 1 04/23/24 04:00 04/24/24 04/25/24 04/25/24 22:59 06:59 14:59 Intake Total 250 / 1150 50 / 1200 Output Total 550 / 800 625 / 1425 Balance -300 / 350 -575 / -225 Weight last 48 hrs Weight 157 lb 4.8 oz Weight 166 lb 6.4 oz Physical Exam 2 GI: OTHER: Abdominal exam is benign abdomen is soft, there is no tenderness to palpation during my evaluation. Urinary Catheter Management: Nguyen: Cath Placed During This Visit: yes, but has since been removed by the nurse Reason for Continuing Indwelling Catheter: Decision to DC Catheter Urinary Catheter Date of Insertion: 04/17/24 Urinary Catheter Time of Insertion: 13:30 Date Urinary Catheter Removed: 04/22/24 Time Urinary Catheter Discontinued: 10:47 Data 04/25/24 04:02 04/25/24 04:02 Micro: Microbiology 04/17/24 08:30 Blood Culture - Preliminary Blood Staphylococcus epidermidis A&P Assessment and plan (1) Sepsis: (2) Human metapneumovirus (hMPV) pneumonia: (3) Pneumonia: (4) Atrial fibrillation: Qualifiers: Atrial fibrillation type: longstanding persistent Qualified Code(s): I 48.11 - Longstanding persistent atrial fibrillation (5) NSTEMI (non-ST elevated myocardial infarction): (6) Cardiomyopathy in disease classified elsewhere: (7) Systolic CHF, acute on chronic: (8) Cholecystitis without calculus: Plan After a complete history, physical examination and review of all available clinical data the following is my assessment. This a patient with multiple medical comorbidities including heart failure, CKD, history NSTEMI, A-fib who is admitted with sepsis due to pneumonia and exacerbated CHF. I have been consulted for imaging findings suggesting acute cholecystitis as demonstrated by thickened gallbladder wall that is new on imaging, no evidence of stones only small amount of sludge inside of the gallbladder. Patient is completely asymptomatic at this time. Vital signs are stable and no fever. Per imaging findings consistent with significant inflammation at the level of right upper quadrant with a gallbladder wall thickness of 7 mm and elevation of white count to 21,000 as well as duration of the leukocytosis more than 3 days this consider moderate acute cholecystitis, likely in the setting of acute illness causing cholestasis. Patient has a Charlson comorbidity index of 6 and his ASA of 4. Per current clinical guidelines, initial management with resuscitation and IV antibiotics is indicated at this time, especially in the setting of an asymptomatic patient. In the case of clinical worsening including fever, worsening abdominal pain or continues worsening leukocytosis the next step will be to proceed with a cholecystostomy tube placement for decompression of the gallbladder. Surgical intervention at the moment is not indicated as the patient is a high risk candidate for surgery due to multiple comorbidities as well as elevated CCI. Patient shows understanding he is agreeable with the plan. Recommend to continue Zosyn, patient can transition to Augmentin twice a day for 10 to 14 days once he goes to the outpatient setting. I have encouraged the patient to ambulate as this will assist with GI motility. We will continue GI soft diet. I recommend IV resuscitation as guided by medical team as patient has history of CHF and cardiology has been trying to diurese him. -No acute surgical invention -Resuscitation and IV antibiotics indicated -In case of clinical worsening consider cholecystostomy tube placement. Coding Level of Care Code Acute Code for [facility] Diagnoses Sepsis A41.9 Human metapneumovirus (hMPV) pneumonia J12.3 Pneumonia J18.9 Longstanding persistent atrial fibrillation I48.11 Atrial fibrillation type: longstanding persistent NSTEMI (non-ST elevated myocardial infarction) I21.4 Cardiomyopathy in disease classified elsewhere I43 Systolic CHF, acute on chronic I50.23 Cholecystitis without calculus K81.9
[2024-04-25 12:43] LABS: Anion Gap 13.4 (5-19); Blood Urea Nitrogen 29 mg/dL (8-23); Calcium 9.3 mg/dL (8.5-10.5); Carbon Dioxide 23 mmol/L (22-29); Chloride 94 mmol/L (98-107); Creatinine Clr Calc Pharmacy 33.5608; Glucose 96 mg/dL (65-115); Osmolality Calculated 268 mOsm/kg (285-295); Potassium 4.4 mmol/L (3.5-5.1); Sodium 126 mmol/L (136-145); Total Bilirubin 1.4 mg/dL (0.15-1.2)
[2024-04-25] MEDS: VANCOMYCIN ADD-Vantage 1,000 MG in 0.9% NaCl ADD-Vantage 250 ML 250 MG IV (13:00)
[2024-04-25 14:29] LABS: Bilirubin Urine Negative (Negative); Blood Urine 3+ (Negative); Glucose Urine UA Negative (Normal); Ketones Urine Negative (Negative); Leukocyte Esterase Urine Negative (Negative); Nitrate Urine Negative (Negative); Protein Urine Trace (Negative); Specific Gravity, Urine 1.011 (1.005-1.030); Urine Appearance Clear (CLEAR); Urine Color Yellow (Yellow); Urobilinogen Urine 0.2 mg/dL (Negative)
[2024-04-25 14:34] LABS: Add Urine Microscopic? YES; Bacteria Urine None Seen /hpf; Hyaline Casts Urine 2.46 /lpf; Squamous Epithelial Cell Urine 0-5 /hpf (0-5); WBC Urine 0-5 /hpf (0-5)
[2024-04-25 14:36] LABS: Add Urine Culture? Yes
--- NOTE | 2024-04-25 15:44 | USR_ITS ---
PROCEDURE INFORMATION: Exam: US Abdomen, Limited; Right Upper Quadrant Exam date and time: 04/25/2024 8:05 AM Age: 79 years old Clinical indication: Abnormal findings; Abnormal radiologic finding of the abdomen; Radiologic exam and body structure: CT gb; Additional info: Cholecystitis, nurse notified to keep patient npo at midnight and will scan in the am. CR TECHNIQUE: Imaging protocol: Real time ultrasound of the abdomen with image documentation. Limited exam focused on the right upper quadrant. COMPARISON: US abdomen complete* [id number] 09/25/2021 8:28 AM FINDINGS: Liver: Nodular contour of the liver, suggestive of chronic hepatic disease. Dilated hepatic veins suggestive of cardiac hepatopathy. Gallbladder: There is gallbladder sludge. There is gallbladder wall thickening measuring 7 mm. Biliary ducts: Normal. No stones. No dilation. Pancreas: Visualized pancreas is unremarkable. Right kidney: Normal. No mass. No hydronephrosis. Intraperitoneal space: There is a small amount of free intraperitoneal fluid present. US/US gall bladder [id number] IMPRESSION: Gallbladder wall thickening with gallbladder sludge findings may be related to early acute cholecystitis versus reactive changes from the ascites.
--- NOTE | 2024-04-25 15:45 | P.PN_ITS ---
Subjective 2 Subjective: Patient was seen this morning, sitting up beside the bed, afebrile overnight, no fevers, chills, no cough no abdominal pain no new rashes, no Lantus, dizziness, no sore throat no new toothache, we discussed his leukocytosis, he is upset by being here in the hospital, discussed his elevated leukocytosis, etiology unclear I am worried that he might be a gallbladder other possibilities could be leukemia lymphoma test have been ordered to further evaluate this, but I would recommend for him to stay here in the hospital as I am worried about his persistent leukocytosis he understands this, I also spoke to patient's discussed his care, discussed his pneumonia, CHF, his A-fib his FACUNDO overall clinical improving but now his persistent leukocytosis recommended for him to stay another night in the hospital Vitals/I&O/Wt Last Vital Signs Temp 97.5 F L 04/25/24 12:00 Pulse 70 04/25/24 14:00 Resp 20 H 04/25/24 13:33 BP 123/69 04/25/24 12:00 Pulse Ox 93 04/25/24 13:33 O2 Del Method Room Air 04/25/24 13:33 O2 Flow Rate 1 04/23/24 04:00 04/25/24 04/25/24 04/25/24 06:59 14:59 22:59 Intake Total 50 / 1200 300 / 300 Output Total 625 / 1425 100 / 100 Balance -575 / -225 200 / 200 Weight last 48 hrs Weight 71.35 kg Weight 75.478 kg Physical Exam 2 Const: COMMON NORMALS: no acute distress and patient oriented x3 Resp: COMMON NORMALS: normal respiratory effort, No retractions, No use of accessory muscles and clear to auscultation bilaterally AUSCULTATION: clear to auscultation bilaterally Cardio: COMMON NORMALS: regular rate, regular rhythm, S1 normal heart sound present and S2 normal heart sound present RATE: regular rate RHYTHM: r egular rhythm HEART SOUNDS: S1 normal heart sound present and S2 normal heart sound present GI: COMMON NORMALS: Normal to inspection, nondistended, normoactive bowel sounds present and non-tender Extremity: COMMON NORMALS: no pedal edema Neuro: COMMON NORMALS: patient oriented x3 Psych: COMMON NORMALS: mental status grossly normal Urinary Catheter Management: Nguyen: Cath Placed During This Visit: yes, but has since been removed by the nurse Reason for Continuing Indwelling Catheter: Decision to DC Catheter Urinary Catheter Date of Insertion: 04/25/24 Urinary Catheter Time of Insertion: 14:16 Date Urinary Catheter Removed: 04/22/24 Time Urinary Catheter Discontinued: 10:47 Data 04/25/24 04:02 04/25/24 12:08 Micro: Microbiology 04/17/24 08:30 Blood Culture - Final Blood Staphylococcus epidermidis 04/24/24 10:20 Catheter Tip Culture - Preliminary Picc Line 04/24/24 10:54 Urine Culture - Preliminary Urine,Voided A&P Assessment and plan (1) Atrial fibrillation with RVR: (2) NSTEMI (non-ST elevated myocardial infarction): (3) Chest pain: (4) Pneumonia: (5) Sepsis: (6) Human metapneumovirus (hMPV) pneumonia: (7) Systolic CHF, acute on chronic: (8) FACUNDO (acute kidney injury): (9) Septic shock: (10) Leukocytosis: Plan Persistent leukocytosis -Etiology unclear -21,000, etiology unclear -Repeat blood cultures so far within normal limits -Prior blood culture showed Staph epidermidis 1 out of 4 blood cultures this was before the PICC line, likely contamination -Midline removed catheter tip culture so far within normal limits -Repeat urinalysis within normal limits -Repeat CRP, Pro-Elvis within normal limits -Repeat C. difficile PCR within normal range -No bedsores -Does have evidence of acute cholecystitis possible etiology? -Serum immunofixation, lymphoma panel, leukemia panel -Repeat castillo CT scan CT/[place] [id number] IMPRESSION: 1. Improving aeration in the right and left lungs with residual patchy airspace disease in the right and left lower lobe suggesting resolving pneumonia. 2. New small right pleural effusion, stable small left pleural effusion. 3. Stable mild focal calcification of the superior pericardium. 4. Stable marked cardiomegaly. 5. Mild body wall edema. 6. Incidental/nonacute findings are listed in the report. IMPRESSION: 1. No gallstones or intraluminal gallbladder sludge on CT scan. There is pericholecystic fluid versus marked edema of the gallbladder wall. Findings are concerning for cholecystitis. Further evaluation may be obtained with ultrasound of the gallbladder if it will change clinical management. 2. The Nguyen catheter has been removed. The bladder is now mildly distended. 3. Stable diffuse, mild bladder wall thickening. In the correct clinical setting, this may suggest cystitis. Recommend correlation with laboratory findings. Alternatively, this may be secondary to chronic outlet obstruction. 4. Stable scattered sigmoid diverticula. No evidence for diverticulitis. 5. Increased fecal content in the colon. 6. Mild body wall edema. 7. 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 8. Incidental/nonacute findings are listed in the report. Staph epidermidis 1 out of 4 blood cultures positive -Blood culture on admission -Likely contamination -Repeat blood cultures negative so far -On vancomycin Concerns for acute cholecystitis -GGT 103 -Lipase within normal limits -Direct bili 1.4 -AST, ALT, alk phos within normal range -Gallbladder ultrasound - US/US gall bladder [id number] IMPRESSION: Gallbladder wall thickening with gallbladder sludge findings may be related to early acute cholecystitis versus reactive changes from the ascites. -General Surgery consulted Acute hypoxic respiratory failure, with evidence of acute respiratory distress, nasal flaring, intercostal retractions, suprasternal retractions, tachypnea, tachycardia, requiring up to 15 L nonrebreather -Now on room air to 2 L -WBC improving -Multifactorial -From systolic CHF exacerbation acute on chronic -Pneumonia -Human metapneumovirus -Concerns for atypical pneumonia -Concerns for possible fungal infection? Fairly unlikely as testing so far negative -Concern for possible Mycobacterium infection, does drink raw unpasteurized milk, fairly unlikely as testing so far negative CT chest CT/[place] [id number] IMPRESSION: 1. Peribronchial wall thickening; query viral infection/bronchitis, chronic bronchitis and/or asthma. 2. Patchy ground-glass and airspace opacities in the lower lobes suspicious for pneumonia. 3. Tree-in-bud opacities in the right chest with clustered nodules. These findings raise concern for atypical infection such as mycobacterium avium intracellulare or fungal infection. Plan -Overall clinical improving moved to [facility] -Currently on room air -Off Levophed -Will consider BiPAP based on clinical progress -Broad-spectrum antibiotic therapy -Vancomycin -Zosyn -azithromycin -Continue p.o. fluconazole -Lasix 40 mg po -Hold off of further doses of steroids -LDH 341, beta 3 glucan, PCP, QuantiFERON gold, AFB smears, Coccidioides mycosis, histo, blasto antigens ordered, Aspergillus -AFB smears ordered so far negative -QuantiFERON gold negative -Keep under isolation precautions -Monitor respiratory status closely -DuoNeb -Budesonide FACUNDO on CKD, creatinine 1.6, Lasix 40 mg daily thrombocytopenia, -likely from sepsis -dic panel -hit panel -switch to therapeutic lovenox Septic shock -Currently off levophed -Placed order for PICC line Sepsis secondary to pneumonia, human metapneumovirus, sepsis features met given tachycardia, tachypnea, respiratory distress, leukocytosis, lactic acid A-fib with RVR -Continue amiodarone drip, currently on p.o. amiodarone -switch lovenox Systolic CHF exacerbation -lasix 40mg qd -Repeat cardiac echo CONCLUSIONS Limited echo Moderately increased left ventricular cavity size. Modeately decreased left ventricular systolic function. Global left ventricular hypokinesis. Left ventricular ejection fraction is estimated at 35-40 %. Moderate biatrial enlargment There is no pericardial effusion. Right atrial pressure is around 20 mm of mercury. Elevated D-dimer, venous ultrasound with normal limits Pneumonia as above -Follow blood cultures -Sputum cultures Human metapneumovirus -Isolation precautions NSTEMI -With complaints of chest pain -Serial EKGs, serial troponins, telemetry monitoring -Aspirin, statin, lovenox Constipation, passing gas from below, no abdominal pain IMPRESSION: 1. There are a few mildly dilated loops of small bowel in the right lower quadrant which could reflect ileus/adynamic state. Partial small bowel obstruction is considered less likely. Correlate clinically. -Serial abdominal exams -Clear liquids Moderate protein calorie malnutrition, consult dietary Acute on chronic hyponatremia, 126, monitor Patient is a full code lovenox for DVT prophylaxis Plan for today concern for acute cholecystitis, hyponatremia 126, leukocytosis Attestations 2 Medical Necessity Statement*: Patient requires hospitalization for acute cholecystitis, hyponatremia, leukocytosis, CHF, pneumonia Diagnoses Atrial fibrillation with RVR I48.91 NSTEMI (non-ST elevated myocardial infarction) I21.4 Chest pain R07.9 Pneumonia J18.9 Sepsis A41.9 Human metapneumovirus (hMPV) pneumonia J12.3 Systolic CHF, acute on chronic I50.23 FACUNDO (acute kidney injury) N17.9 Septic shock A41.9; R65.21 Leukocytosis D72.829
[2024-04-25 16:12] LABS: Erythrocyte Sedimentation Rate < 1 mm/hr (0-10)
[2024-04-25] MEDS: azithromycin 250 mg Tablet PO (17:18)
[2024-04-25] MEDS: midodrine 5 mg TABLET PO ×2 (17:18→22:20)
[2024-04-25] MEDS: sennosides-docusate Tablet 2 TAB PO (17:18)
[2024-04-25 17:54] LABS: Coccidioides IgG Antibody NEGATIVE; Coccidioides IgM Antibody NEGATIVE
[2024-04-26] VITALS (7 sets, daily range): BP systolic 125–136; BP diastolic 75–81; PULSE 67–102; RESP 16–20; TEMP 36.4–36.7; O2SAT 92–95
[2024-04-26] MEDS: piperacillin-tazobactam 3.375 GM in sodium chloride 0.9% (plus) 50 ML IV ×2 (01:00→09:07)
[2024-04-26] MEDS: midodrine 5 mg TABLET PO (03:58)
[2024-04-26] MEDS: enoxaparin 80 mg/0.8 mL Syringe SUBCUT (03:58)
[2024-04-26 04:39] LABS: Mean Corpuscular HGB Conc 28.9 g/dL (30-55); Mean Corpuscular Hemoglobin 30.4 pg (27-33); Mean Corpuscular Volume 105.4 fl (82-101); Mean Platelet Volume 11.4 fL (7.4-10.4); Platelet Count 116 10^3/cmm (157-399); Red Blood Count 3.32 10^6/uL (3.85-5.65); Red Cell Distribution Width 17.2 % (12.1-15.1); White Blood Count 20.02 10^3/uL (3.29-11.43)
[2024-04-26 04:52] LABS: Alanine Aminotransferase 21 U/L (0-41); Albumin Level 3.4 g/dL (3.5-5.2); Alkaline Phosphatase 68 U/L (40-130); Aspartate Amino Transferase 39 U/L (0-40); Blood Urea Nitrogen 25 mg/dL (8-23); C Reactive Protein 6.6 mg/L (0.0-4.9); Calcium 8.8 mg/dL (8.5-10.5); Carbon Dioxide 20 mmol/L (22-29); Chloride 96 mmol/L (98-107); Creatinine Clr Calc Pharmacy 33.5608; Globulin 2.3 g/dL (1.3-4.6); Glucose 86 mg/dL (65-115); Magnesium 2.3 mg/dL (1.7-2.3); Osmolality Calculated 270 mOsm/kg (285-295); Sodium 128 mmol/L (136-145); Total Bilirubin 1.3 mg/dL (0.15-1.2); Total Protein 5.7 g/dL (6.6-8.7)
[2024-04-26 04:56] LABS: Anion Gap 16.4 (5-19); Potassium 4.4 mmol/L (3.5-5.1)
[2024-04-26 04:59] LABS: NT Pro B Type Natriuretic Pept 15870 pg/mL (0-450); Procalcitonin 0.34 ng/mL (0-0.5)
[2024-04-26 05:29] LABS: Absolute Segmented Neutrophil 13.4 10/cmm (1.6-7.1); Eosinophils 0 %; Lymphocytes 12 %; Segmented Neutrophils 67 %; Slide Review Slide Review Perform; Total Cells Counted 100 (0-100)
[2024-04-26 05:30] LABS: Absolute Neutrophil 13.4 10^3/cmm (1.4-6.5); Lymphocytes Absolute 2.4 10^3/cmm (1.2-3.4); Platelet Estimate Decreased (Normal)
[2024-04-26 05:31] LABS: Anisocytosis 4+
[2024-04-26 05:32] LABS: Acanthocytes 3+
--- NOTE | 2024-04-26 07:01 | PM.PN ---
Subjective Subjective: Patient doing well, no abdominal pain, tolerating diet. Has had bowel movements. Vitals/I&O/Wt Last Vital Signs Temp 97.6 F 04/26/24 04:00 Pulse 70 04/26/24 05:17 Resp 17 04/26/24 04:00 BP 125/76 04/26/24 04:00 Pulse Ox 95 04/26/24 04:00 O2 Del Method Room Air 04/26/24 04:00 O2 Flow Rate 1 04/23/24 04:00 04/25/24 04/26/24 04/26/24 22:59 06:59 14:59 Intake Total 290 / 590 500 / 1090 Output Total 650 / 750 1000 / 1750 Balance -360 / -160 -500 / -660 Weight last 48 hrs Weight 157 lb 4.8 oz Weight 157 lb 4.8 oz Physical Exam GI: OTHER: Benign abdominal exam, abdomen is soft nontender nondistended. Urinary Catheter Management: Nguyen: Cath Placed During This Visit: yes, but has since been removed by the nurse Reason for Continuing Indwelling Catheter: Acute Urinary Retention or Obstruction Urinary Catheter Date of Insertion: 04/25/24 Urinary Catheter Time of Insertion: 14:16 Date Urinary Catheter Removed: 04/22/24 Time Urinary Catheter Discontinued: 10:47 Data 04/26/24 03:12 04/26/24 03:12 Micro: Microbiology 04/17/24 08:30 Blood Culture - Final Blood Staphylococcus epidermidis 04/24/24 10:20 Catheter Tip Culture - Preliminary Picc Line 04/24/24 10:54 Urine Culture - Preliminary Urine,Voided A&P Assessment and plan (1) Cholecystitis without calculus: Plan Patient showing good progression, no further uptrend of the white count, inflammatory markers improving including CRP trending down from 8.3-6.6 and normal procalcitonin. LFTs stable. No intervention expected at this time, continue antibiotic management per primary team, patient can follow-up as outpatient in 2 weeks and we can discuss the need for possible Interval cholecystectomy in the future. Patient shows understanding agrees with the plan. Attestations Medical Necessity Statement*: Per medical team Coding Level of Care Code Acute Code for [facility] Diagnoses Cholecystitis without calculus K81.9
[2024-04-26] MEDS: budesonide 0.5 mg/2 mL Neb INHALATION (08:00)
[2024-04-26] MEDS: ipratropium-albuterol 3 mL Neb INHALATION (08:00)
[2024-04-26] MEDS: pantoprazole 40 mg SDV IVP (09:06)
[2024-04-26] MEDS: fluconazole 100 mg Tablet 200 MG PO (09:07)
[2024-04-26] MEDS: amiodarone 200 mg Tablet 400 MG PO (09:07)
[2024-04-26] MEDS: sennosides-docusate Tablet 2 TAB PO (09:07)
[2024-04-26 11:13] LABS: Blastomyces Antigen Interpret NEGATIVE; Blastomyces Antigen Result NONE DETECTED; Histoplasma Antigen (Quant) NONE DETECTED; Histoplasma Antigen Interpreta NEGATIVE; Histoplasma Antigen Specimen SERUM
[2024-04-26] MEDS: VANCOMYCIN ADD-Vantage 1,000 MG in 0.9% NaCl ADD-Vantage 250 ML 250 MG IV (11:40)
--- NOTE | 2024-04-26 11:40 | PM.DCS ---
Discharge Providers Date of Admission: 04/17/24 10:08 Date of Discharge: April 26, 2024 Attending Provider at Admission: James Edwards MD Attending Provider at Discharge: James Edwards MD Primary Care Provider: Nick Kamara DO Diagnoses at Discharge Discharge Diagnosis (1) Cholecystitis without calculus: Status: Acute Reason for Visit Reason for Visit: sob / COUGH Hospital Course Hospital Course Chad Hoover is a 79 year old male with a past medical history of mitral valve replacement, permanent place maker, CHF, severe tricuspid valve regurg who presents to [facility] for shortness of breath, cough, fatigue, malaise. Currently patient is alert oriented x 3, following all commands, on 6 L, nasal flaring, intercostal retractions suprasternal retractions short of breath with a few words, O2 sats in the low 90s. He reports progressive increased shortness of breath shortness of breath with exertion, fatigue, malaise, does report a nonproductive cough, no fevers, no chills, no nausea, no vomiting, he does report anterior chest discomfort but describes it more a chest tightness, denies any sick contacts, no recent travel, Please look at my progress note for further detail as patient had a prolonged hospitalization Patient was admitted for acute hypoxic respiratory failure, septic shock multifactorial from NSTEMI, atrial fibrillation with rapid ventricular response, pneumonia, human metapneumovirus, systolic CHF, FACUNDO First acute hypoxic respiratory failure secondary to pneumonia received broad-spectrum antibiotic therapy, overall clinically improved he did have a workup for fungal/mycobacterial infection, so far his studies have had no growth. Patient was advised if he were to have any hemoptysis, fevers, chills to come back to the emergency room. Sputum cultures did show Melania albicans discharged on fluconazole Patient had systolic CHF exacerbation during his hospitalization requiring cardiology consultation, IV diuresis, overall clinically improved, discharged on diuretic therapy For his A-fib with RVR requiring amiodarone drip transition to p.o. amiodarone, Eliquis, cardiology consulted. Will be discharged on p.o. amiodarone, Eliquis with a close follow-up with cardiology as outpatient Patient's hospitalization was complicated with persistent leukocytosis, repeat blood cultures so far no growth, PICC line removed so far no growth, repeat UA no acute findings, C. difficile within normal limits, CT scan showed findings concerning for pericholecystic fluid, concerning for acute cholecystitis, although he was afebrile, no significant right upper quadrant pain, AST, ALT, alk phos within normal image. Gallbladder ultrasound did show gallbladder wall thickening, findings may suggest early acute cholecystitis versus reactive changes from ascites. General surgery was consulted, recommended medical management. Patient will be discharged on Cipro and Flagyl for 2 weeks, GI soft diet, patient was advised if he were to have any sudden onset right upper quadrant pain to immediately go to the emergency room. Follow-up with general surgery as outpatient. Septic shock, requiring Levophed, ICU admission, has resolved on admission Systolic CHF EF 35 to 40%, cardiology consulted, medical management Physical Exam Const: COMMON NORMALS: no acute distress and patient oriented x3 Resp: COMMON NORMALS: normal respiratory effort, No retractions, No use of accessory muscles and clear to auscultation bilaterally AUSCULTATION: clear to auscultation bilaterally Cardio: COMMON NORMALS: regular rate, regular rhythm, S1 normal heart sound present and S2 normal heart sound present RATE: regular rate RHYTHM: regular rhythm HEART SOUNDS: S1 normal heart sound present and S2 normal heart sound present GI: COMMON NORMALS: Normal to inspection, nondistended, normoactive bowel sounds present and non-tender Extremity: COMMON NORMALS: no pedal edema Neuro: COMMON NORMALS: patient oriented x3 Psych: COMMON NORMALS: mental status grossly normal Urinary Catheter Management: Nguyen: Cath Placed During This Visit: yes, but has since been removed by the nurse Reason for Continuing Indwelling Catheter: Acute Urinary Retention or Obstruction Urinary Catheter Date of Insertion: 04/25/24 Urinary Catheter Time of Insertion: 14:16 Date Urinary Catheter Removed: 04/22/24 Time Urinary Catheter Discontinued: 10:47 Discharge Data Studies Completed and Pending Completed Studies During Hospitalization Category Date Time Status CT chest abdomen pelvis [[place] [id number] Cat Scan 04/24/24 12:37 Completed ] Routine CT chest abdomen pelvis [[place] [id number] Cat Scan 04/18/24 08:52 Completed ] Stat CXRP [XR chest 1V portable [id number]] Routine Exams 04/18/24 13:09 Completed XR KUB portable [id number] Routine Exams 04/18/24 16:47 Completed XR chest 1V portable [id number] Routine Exams 04/19/24 07:00 Completed XR chest 1V portable [id number] Stat Exams 04/17/24 07:12 [place] [id number] Routine Ultrasound 04/17/24 11:18 Completed CV. echo limited [id number] Routine Ultrasound 04/17/24 11:18 Completed US gall bladder [id number] Routine Ultrasound 04/25/24 15:44 Completed Pending at discharge Category Date Time Status Amylase Routine Lab 04/25/24 12:08 Received AFB [Mycobacteria, Culture w/Fluor] Stat Lab 04/18/24 09:14 Results AFB [Mycobacteria, Culture w/Fluor] Stat Lab 04/19/24 10:39 Results Blood Culture Stat Lab 04/22/24 14:53 Results FREE LIGHT CHAIN SERUM [KAPPA/LAMBDA Light Free Serum] Lab 04/25/24 12:08 Received Routine Fibrinogen Degradation Product Routine Lab 04/19/24 11:38 Received Fungal Culture not HR/SK/BL Routine Lab 04/18/24 09:14 Results Immunofixation Serum Stat Lab 04/25/24 12:08 Received Serum Protien Electrophoresis [Total Protein Lab 04/25/24 12:08 Received Electrophoresis] Routine Urine Culture Routine Lab 04/25/24 14:15 Results Radiology Impressions Venous Duplex 04/17/24 11:18 IMPRESSION: No evidence of deep vein thrombosis. KUB X-Ray 04/18/24 16:47 IMPRESSION: 1. Moderate constipation without bowel dilation to indicate obstruction. 2. Right central venous catheter tip in the superior vena cava. 3. Left-sided pacemaker. 4. Sternotomy wires. 5. Cardiomegaly. 6. Right mid lung atelectasis versus minimal nfiltrate. 7. Patchy left lung field airspace infiltrates suspected. Chest X-Ray 04/19/24 07:00 IMPRESSION: Change in position of the right arm PICC line as above. More definitive definition of interstitial and groundglass opacities in the right lower lung most compatible with subacute pneumonitis. Chest/Abdomen/Pelvis CT 04/24/24 12:37 IMPRESSION: 1. Improving aeration in the right and left lungs with residual patchy airspace disease in the right and left lower lobe suggesting resolving pneumonia. 2. New small right pleural effusion, stable small left pleural effusion. 3. Stable mild focal calcification of the superior pericardium. 4. Stable marked cardiomegaly. 5. Mild body wall edema. 6. Incidental/nonacute findings are listed in the report. IMPRESSION: 1. No gallstones or intraluminal gallbladder sludge on CT scan. There is pericholecystic fluid versus marked edema of the gallbladder wall. Findings are concerning for cholecystitis. Further evaluation may be obtained with ultrasound of the gallbladder if it will change clinical management. 2. The Nguyen catheter has been removed. The bladder is now mildly distended. 3. Stable diffuse, mild bladder wall thickening. In the correct clinical setting, this may suggest cystitis. Recommend correlation with laboratory findings. Alternatively, this may be secondary to chronic outlet obstruction. 4. Stable scattered sigmoid diverticula. No evidence for diverticulitis. 5. Increased fecal content in the colon. 6. Mild body wall edema. 7. 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 8. Incidental/nonacute findings are listed in the report. Gallbladder Ultrasound 04/25/24 15:44 IMPRESSION: Gallbladder wall thickening with gallbladder sludge findings may be related to early acute cholecystitis versus reactive changes from the ascites. Laboratory Results WBC 20.02 10^3/uL (3.29-11.43) H 04/26/24 03:12 RBC 3.32 10^6/uL (3.85-5.65) L 04/26/24 03:12 Hgb 10.10 g/dL (11.27-16.99) L 04/26/24 03:12 Hct 35.0 % (37-53) L 04/26/24 03:12 MCV 105.4 fl (82-101) H D 04/26/24 03:12 MCH 30.4 pg (27-33) 04/26/24 03:12 MCHC 28.9 g/dL (30-55) L D 04/26/24 03:12 RDW 17.2 % (12.1-15.1) H 04/26/24 03:12 Plt Count 116 10^3/cmm (157-399) L 04/26/24 03:12 MPV 11.4 fL (7.4-10.4) H 04/26/24 03:12 Neut % (Auto) 52.5 % 04/25/24 04:02 Lymph % (Auto) Not Reportable 04/26/24 03:12 [place] % (Auto) Not Reportable 04/26/24 03:12 Eos % (Auto) 0.4 % 04/25/24 04:02 Baso % (Auto) 1.9 % 04/25/24 04:02 Neut # (Auto) 11.22 10^3/uL (1.8-7.7) H 04/25/24 04:02 Lymph # (Auto) Not Reportable 04/26/24 03:12 [place] # (Auto) Not Reportable 04/26/24 03:12 Eos # (Auto) 0.1 10^3/uL (0.0-0.8) 04/25/24 04:02 Baso # (Auto) 0.4 10^3/uL (0.0-0.1) H 04/25/24 04:02 Nucleated RBC % (auto) 0.1 % 04/25/24 04:02 Total Counted 100 (0-100) 04/26/24 03:12 Atypical Lymphs % 0.0 % (0-5) 04/26/24 03:12 Absolute Neutrophils 13.4 10^3/cmm (1.4-6.5) H 04/26/24 03:12 Segmented Neutrophils 67 % 04/26/24 03:12 Band Neutrophils 0.0 % 04/26/24 03:12 Absolute Lymphocytes 2.4 10^3/cmm (1.2-3.4) 04/26/24 03:12 Lymphocytes (Manual) 12 % 04/26/24 03:12 Monocytes (Manual) 10.0 % 04/26/24 03:12 Absolute Monocytes 2.0 10^3/cmm (0.1-0.6) H 04/26/24 03:12 Eosinophils (Manual) 0 % 04/26/24 03:12 Absolute Eosinophils 0.0 10^3/cmm (0.0-0.7) 04/26/24 03:12 Basophils (Manual) 0.0 % 04/26/24 03:12 Absolute Basophils 0.0 10^3/cmm (0.0-0.2) 04/26/24 03:12 Metamyelocytes 6.0 % 04/26/24 03:12 Myelocytes 4.0 % 04/26/24 03:12 Promyelocytes 1.0 % 04/26/24 03:12 Nucleated RBCs 1.0 /100WBC (0-1) 04/26/24 03:12 Nucleated RBCs # 0.0 /100WBC 04/25/24 04:02 Platelet Estimate Decreased (Normal) 04/26/24 03:12 Giant Platelets 1+ H 04/23/24 04:07 Anisocytosis 4+ H 04/26/24 03:12 Acanthocytes (Spur) 3+ H 04/26/24 03:12 Peripher Smr Path Cons Sent for review 04/25/24 04:02 ESR < 1 mm/hr (0-10) 04/25/24 12:08 Haptoglobin 10.0 mg/L (30-200) L 04/18/24 02:03 Heparin Require Pat 0.068 04/19/24 11:20 PT 14.80 SECONDS (12.1-14.9) 04/19/24 11:20 INR 1.09 (0.8-1.2) 04/19/24 11:20 APTT 46.2 SECONDS (23.9-36.7) H 04/19/24 11:20 Fibrinogen 393 mg/dL (174-498) 04/19/24 11:20 D-Dimer 0.73 ug/mLFEU (0-0.59) H 04/19/24 11:20 Specimen Type Arterial 04/17/24 07:56 Sample Site Radial, right 04/17/24 07:56 ABG pH 7.37 (7.35-7.45) 04/17/24 07:56 ABG pCO2 50.9 mmHg (35-45) H 04/17/24 07:56 ABG pO2 294.0 mmHg (80.0-100.0) H 04/17/24 07:56 ABG HCO3 29.2 mmol/L (22-26) H 04/17/24 07:56 ABG O2 Saturation > 99.1 04/17/24 07:56 ABG Base Excess 2.9 mmol/L (-2.0-2.0) H 04/17/24 07:56 Maciel Test Pos 04/17/24 07:56 A-a O2 Gradient Not Reportable 04/17/24 07:56 Hematocrit 39.9 % (42-52) L 04/17/24 07:56 Hgb O2 Saturation 97.0 % (95-100) 04/17/24 07:56 Carboxyhemoglobin 2.4 %THgb (0.4-20.1) 04/17/24 07:56 Methemoglobin 1.1 % (0.4-1.5) 04/17/24 07:56 Total Hemoglobin 13.0 g/dL (14-18) L 04/17/24 07:56 Sodium 137.0 mmol/L (131-143) 04/17/24 07:56 Potassium 4.1 mmol/L (3.5-5.0) 04/17/24 07:56 Glucose 112.0 mg/dL (70-115) 04/17/24 07:56 Ionized Calcium 1.2 mmol/L (1.1-1.4) 04/17/24 07:56 O2 Delivery Device Nrb 04/17/24 07:56 O2 Liters/Min 15.0 % 04/17/24 07:56 Crematory Attendant ID Amh 04/17/24 07:56 Sodium 128 mmol/L (136-145) L 04/26/24 03:12 Potassium 4.4 mmol/L (3.5-5.1) 04/26/24 03:12 Chloride 96 mmol/L (98-107) L 04/26/24 03:12 Carbon Dioxide 20 mmol/L (22-29) L 04/26/24 03:12 Anion Gap 16.4 (5-19) 04/26/24 03:12 BUN 25 mg/dL (8-23) H 04/26/24 03:12 Creatinine 1.8 mg/dL (0.7-1.2) H 04/26/24 03:12 GFR Calculation Not Reportable 04/26/24 03:12 Glucose 86 mg/dL (65-115) 04/26/24 03:12 Estimat Average Glucose 80 04/17/24 07:28 Hemoglobin A1c 4.4 % (4.0-6.0) 04/17/24 07:28 Calculated Osmolality 270 mOsm/kg (285-295) L 04/26/24 03:12 Lactic Acid 2.7 mmol/L (0.5-2.2) H 04/17/24 07:28 Lactic Acid (Sepsis) 2.0 mmol/L (0.5-2.2) 04/17/24 10:50 Lactate 0.7 mmol/L (0.5-2.2) 04/21/24 04:05 Calcium 8.8 mg/dL (8.5-10.5) 04/26/24 03:12 Phosphorus 2.8 mg/dL (2.5-4.5) 04/23/24 04:07 Magnesium 2.3 mg/dL (1.7-2.3) 04/26/24 03:12 Iron 103 ug/dL (59-158) 04/17/24 07:28 Ferritin 277 ng/mL (30-400) 04/17/24 07:28 Total Bilirubin 1.3 mg/dL (0.15-1.2) H 04/26/24 03:12 Direct Bilirubin 0.50 mg/dL (0.00-0.30) H 04/25/24 12:08 Indirect Bilirubin 0.90 04/25/24 12:08 GGT 103 U/L (8-61) H 04/25/24 04:02 AST 39 U/L (0-40) 04/26/24 03:12 ALT 21 U/L (0-41) 04/26/24 03:12 Alkaline Phosphatase 68 U/L (40-130) 04/26/24 03:12 Lactate Dehydrogenase 341 U/L (135-225) H 04/18/24 02:03 Troponin T Baseline 56 ng/L (0-15) H 04/17/24 07:28 Troponin T 120 Minute 62.00 ng/L (0-15) H 04/17/24 09:55 Delta Troponin T 6.00 ABS# (0-10) 04/17/24 09:55 Troponin T Hi Sens 6Hr 55.55 ng/L (0-15) H 04/17/24 13:47 Troponin T Hi Sens 6Hr Delta -0.45 ng/L (0-12) L 04/17/24 13:47 C-Reactive Protein 6.6 mg/L (0.0-4.9) H 04/26/24 03:12 NT-Pro-B Natriuret Pep 37591 pg/mL (0-450) H 04/26/24 03:12 Total Protein 5.7 g/dL (6.6-8.7) L 04/26/24 03:12 Albumin 3.4 g/dL (3.5-5.2) L 04/26/24 03:12 Globulin 2.3 g/dL (1.3-4.6) 04/26/24 03:12 Triglycerides 61 mg/dL (0-150) 04/17/24 07:28 Cholesterol 125 mg/dL (0-200) 04/17/24 07:28 LDL Cholesterol, Calc 57 mg/dL (50-129) 04/17/24 07: HDL Cholesterol 56 mg/dL (60-100) L 04/17/24 07: LDL/HDL Ratio 1.02 RATIO (0.00-3.22) 04/17/24 07: Cholesterol/HDL Ratio 2.23 mg/dL (1.0-5.00) 04/17/24 07:28 Lipase 50 U/L (13-60) 04/25/24 04:02 Procalcitonin 0.34 ng/mL (0-0.5) 04/26/24 03:12 TSH 4.65 uIU/mL (0.27-4.20) H 04/17/24 07:28 Urine Color Yellow (Yellow) 04/25/24 14:15 Urine Appearance Clear (CLEAR) 04/25/24 14:15 Urine pH 6.0 (5-7) 04/25/24 14:15 Ur Specific [place] 1.011 (1.005-1.030) 04/25/24 14:15 Urine Protein Trace (Negative) A 04/25/24 14:15 Urine Glucose (UA) Negative (Normal) 04/25/24 14:15 Urine Ketones Negative (Negative) 04/25/24 14:15 Urine Blood 3+ (Negative) A 04/25/24 14:15 Urine Nitrate Negative (Negative) 04/25/24 14:15 Urine Bilirubin Negative (Negative) 04/25/24 14:15 Urine Urobilinogen 0.2 mg/dL (Negative) 04/25/24 14:15 Ur Leukocyte Esterase Negative (Negative) 04/25/24 14:15 Urine RBC 11-20 /hpf (0-2) H 04/25/24 14:15 Urine WBC 0-5 /hpf (0-5) 04/25/24 14:15 Ur Squamous Epith Cells 0-5 /hpf (0-5) 04/25/24 14:15 Amorphous Sediment Not Reportable 04/25/24 14:15 Urine Bacteria None seen /hpf (NONE) 04/25/24 14:15 Hyaline Casts 2.46 /lpf 04/25/24 14:15 Nasal MRSA (PCR) Not detected (Negative) 04/17/24 13:22 Vancomycin Trough 16.4 ug/mL (10-15) H 04/24/24 10:34 Heparin-induced Ab Negative (NEGATIVE) 04/19/24 11:20 UF Heparin Low Dose 1 0 % release 04/19/24 11:20 UF Heparin Low Dose 2 0 % release 04/19/24 11:20 UF Heparin High Dose 0 % release 04/19/24 11:20 WILMER Unfract Heparin Negative (NEGATIVE) 04/19/24 11:20 Adenovirus (PCR) Not detected (NOT DETECT) 04/17/24 08:00 Blastomyces Ag Result None detected ng/mL 04/18/24 15:35 Blastomyces Ag Interp Negative 04/18/24 15:35 C. pneumoniae DNA (PCR) Not detected (NOT DETECT) 04/17/24 08:00 C. difficile (PCR) Negative (Negative) 04/25/24 01:27 Coccidioides IgG Ab Negative 04/18/24 15:35 Coccidioides IgM Ab Negative 04/18/24 15:35 Coronavirus (PCR) Cancelled 04/17/24 08:00 Coronavirus 229E (PCR) Not detected (NOT DETECT) 04/17/24 08:00 Histoplasma Antigen Serum 04/18/24 15:35 Histoplasma Ag (Qnt) None detected ng/mL 04/18/24 15:35 Histoplasma Ag Interp Negative 04/18/24 15:35 Human Metapneumovir PCR Detected (NOT DETECT) A 04/17/24 08:00 Influenza A (H1) PCR Not detected (NOT DETECT) 04/17/24 08:00 Influenza A (PCR) Cancelled 04/17/24 08:00 Influ A (H1/09) PCR Not detected (NOT DETECT) 04/17/24 08:00 Influenza A (H3) PCR Not detected (NOT DETECT) 04/17/24 08:00 Influenza Type A (PCR) Not detected (NOT DETECT) 04/17/24 08:00 Influenza Type B (PCR) Cancelled 04/17/24 08:00 Influenza Type B (PCR) Not detected (NOT DETECT) 04/17/24 08:00 Myco Comp PCR Spec Srce Sputum 04/18/24 18:25 M. pneumoniae (PCR) Not detected (NOT DETECT) 04/17/24 08:00 Parainfluenza 1 (PCR) Not detected (NOT DETECT) 04/17/24 08:00 Parainfluenza 2 (PCR) Not detected (NOT DETECT) 04/17/24 08:00 Parainfluenza 3 (PCR) Not detected (NOT DETECT) 04/17/24 08:00 Parainfluenza 4 (PCR) Not detected (NOT DETECT) 04/17/24 08:00 Pneumocystis Source Sputum 04/18/24 18:25 Pneumocyst jirovecii PCR Not detected (Not Detected) 04/18/24 18:25 Aspergillus Source Whole blood 04/21/24 04:05 Aspergillus sp (PCR) Not detected 04/21/24 04:05 A. fumigatus (PCR) Not detected 04/21/24 04:05 A. galactomannan Ag EIA Not detected 04/21/24 04:05 A. galactomannan Ag Idx <0.50 04/21/24 04:05 A. terreus (PCR) Not detected 04/21/24 04:05 RSV (PCR) Cancelled 04/17/24 08:00 RSV Type A (PCR) Not detected (NOT DETECT) 04/17/24 08:00 RSV Type B (PCR) Not detected (NOT DETECT) 04/17/24 08:00 Entero/Rhino (PCR) Not detected (NOT DETECT) 04/17/24 08:00 SARS-CoV-2 (PCR) Not detected (NOT DETECT) 04/17/24 08:00 TB (QFT) Gold In Tube Negative (NEGATIVE) 04/19/24 04:30 TB Test (QFT) Nil 0.02 IU/mL 04/19/24 04:30 TB Test (QFT) Mitogen 2.58 IU/mL 04/19/24 04:30 TB Test Mitogen - Nil 0.00 IU/mL 04/19/24 04:30 TB Test TB -Nil 0.00 IU/mL 04/19/24 04:30 Beta-(1,3)-D-Glucan 91 pg/ml 04/18/24 15:35 B-(1,3)-D-Glucan Intrp Positive (Negative) A 04/18/24 15:35 M.tuberculosis Cmplx PCR Not detected 04/18/24 18:25 Vitals Last Vital Signs Temp 98.1 F 04/26/24 11:34 Pulse 102 H 04/26/24 11:34 Resp 18 04/26/24 11:34 BP 132/75 04/26/24 11:34 Pulse Ox 94 04/26/24 11:34 O2 Del Method Room Air 04/26/24 11:34 O2 Flow Rate 1 04/23/24 04:00 Discharge Plan Discharge Patient Disposition: Home Condition: Stable Prescriptions: New amiodarone [Pacerone] 200 mg Tablet See Rx Instructions .ROUTE .COMPLEX Qty: 60 0RF Rx Instructions: Take 400 mg (2tabs) daily for 1 week, followed by 1 tab daily(200mg) daily fluconazole 100 mg Tablet 200 mg PO DAILY 7 Days Qty: 14 0RF Eliquis 2.5 mg tablet 2.5 mg PO BID 30 Days Qty: 60 0RF Rx Instructions: please start 04/27/2024 ciprofloxacin HCl 500 mg tablet 500 mg PO BID 14 Days Qty: 28 0RF metronidazole 500 mg tablet 500 mg PO Q8H 14 Days Qty: 42 0RF tamsulosin [Flomax] 0.4 mg capsule 0.4 mg PO DAILY 30 Days Qty: 30 0RF Continued ascorbic acid (vitamin C) 1,000 mg tablet 2 gm PO DAILY cholecalciferol (vitamin D3) 10 mcg (400 unit) capsule 10 mcg PO DAILY vitamin B complex Capsule 1 cap PO BID multivitamin Tablet 1 tab PO DAILY fluticasone propion-salmeterol [Advair Diskus] 500-50 mcg/dose blister with device 1 inh inhalation BID magnesium oxide 500 mg tablet 500 mg PO DAILY Entresto 24-26 mg tablet 1 tab PO DAILY Qty: 90 3RF furosemide [Lasix] 40 mg tablet 40 mg PO DAILY PRN (Reason: edema) Qty: 30 3RF albuterol sulfate 90 mcg/actuation HFA aerosol inhaler 2 puff INHALATION Q4H PRN (Reason: Shortness Of Breath Or Wheezing) Holy Basil 450 mg capsule 1 cap PO DAILY acetaminophen [Tylenol] 325 mg Tablet 650 mg PO QID PRN (Reason: Pain) turmeric 400 mg Capsule 400 mg PO DAILY Changed potassium chloride 20 mEq tablet,ER particles/crystals 20 meq PO DAILY PRN (Reason: With Lasix therapy) Qty: 30 3RF Rx Instructions: Dose reduced Discontinued diltiazem HCl 180 mg capsule,extended release 24hr 180 mg PO DAILY Qty: 90 3RF Discharge Orders: Discharge Order (Routine); Ordered 04/26/24 Ordered By: James Edwards Referrals: [facility] [Outside] (We have notified your physician's clinic of the need for a follow-up appointment to be scheduled. If you have not heard from them within the next 2 business days, please call them directly. SENT REFERRAL) Issa Price MD [Physician] - 1 week (We have notified your physician's clinic of the need for a follow-up appointment to be scheduled. If you have not heard from them within the next 2 business days, please call them directly.) Guru Buckley MD [Physician] - 1-3 days (We have notified your physician's clinic of the need for a follow-up appointment to be scheduled. If you have not heard from them within the next 2 business days, please call them directly.) Nick Kamara DO [Primary Care Provider] - 04/29/24 8:40 am Discharge Diet: Cardiac Discharge Activity: Resume usual activity Patient Instructions: Ciprofloxacin (By mouth), Metronidazole (By mouth), Amiodarone (By mouth), Fluconazole (By mouth), Apixaban (By mouth), A-fib (Atrial Fibrillation) (GEN), Opioid Safety Activity Restrictions/Additional Instructions: - Please take antibiotics as prescribed -If you develop right upper quadrant pain, nausea, vomiting, please go to the emergency room -For your heart rate please take amiodarone as prescribed -I have discharged you on Eliquis 2.5 mg twice daily, monitor for bloody or black stools, hemoptysis if so please go to the emergency room -Follow-up with cardiology -Please take Lasix 40 mg daily as needed as needed for shortness of breath or edema or weight gain more than 3 pounds with potassium placement therapy -Please take Entresto as prescribed, if you do feel lightheaded or dizzy please continue to hold Discharge Attestations Time Spent in Discharge Care*: greater than 30 min Quality Metrics Clinical Quality Measures [ No reported AMI, CVA or VTE this stay] Coding Level of Care Code 63527 Total time (in minutes) for Discharge: 45 Diagnoses Cholecystitis without calculus K81.9
--- NOTE | 2024-04-26 12:59 | PC.SOCIAL ---
IMM Updated Updated pt on IMM. No questions voiced. Provided pt a copy. Initialed, dated, & timed copy in chart.
[2024-04-26] MEDS: tamsulosin 0.4 mg Capsule PO (13:16)
[2024-04-26 15:14] LABS: PROTEIN, TOTAL 6.7 g/dL (6.1-8.1)
--- NOTE | 2024-04-26 15:42 | PC.NURSE ---
Pt states he does not want to wait to urinate. Notified Dr. Edwards. Pt educated if he does not want to wait, he can leave but if he does not urinate to go to ER. Pt states he understands.
[2024-04-26 16:24] LABS: Amylase 61 U/L (21-101)
[2024-04-27 15:44] LABS: Leukemia Profile (BBPL) See Report
[2024-04-29 18:32] LABS: Fibrinogen Degradation Product <5 mcg/mL (LESS THAN 5)
[2024-04-30 09:55] LABS: ALBUMIN 4.2 g/dL (3.8-4.8); ALPHA 1 GLOBULIN 0.3 g/dL (0.2-0.3); ALPHA 2 GLOBULIN 0.4 g/dL (0.5-0.9); BETA 1 GLOBULIN 0.4 g/dL (0.4-0.6); BETA 2 GLOBULIN 0.2 g/dL (0.2-0.5); GAMMA GLOBULIN 1.2 g/dL (0.8-1.7); KAPPA LIGHT CHAIN, FREE, SERUM 44.6 mg/L (3.3-19.4); KAPPA/LAMBDA LIGHT CHAINS FREE 1.46 (0.26-1.65); LAMBDA LIGHT CHAIN, FREE, SERU 30.5 mg/L (5.7-26.3)
[2024-04-30 09:56] LABS: Immunofixation Serum Normal pattern.
== END 2024-04-26 16:15 | disposition home or self-care (01) | DRG 871 ==
LOC: ER 10:02 → ICU 10:09 → MEDSURG 04-23 13:20
PROVIDERS: Internal Medicine; Admitting Provider Family Medicine; Emergency Provider Family Medicine; PCP Electrodiagnostic Medicine; Visit Provider Family Medicine
DX: A41.9 Sepsis, unspecified organism (principal); I21.4 Non-ST elevation (NSTEMI) myocardial infarction; J96.01 Acute respiratory failure with hypoxia; R65.21 Severe sepsis with septic shock; I50.23 Acute on chronic systolic (congestive) heart failure; J12.3 Human metapneumovirus pneumonia; I13.0 Hypertensive heart and chronic kidney disease with heart failure and stage 1 through stage 4 chronic kidney disease, or unspecified chronic kidney disease; I48.11 Longstanding persistent atrial fibrillation; N17.9 Acute kidney failure, unspecified; I42.9 Cardiomyopathy, unspecified; E87.20 Acidosis, unspecified; E44.0 Moderate protein-calorie malnutrition; K81.9 Cholecystitis, unspecified; Z95.2 Presence of prosthetic heart valve; Z95.0 Presence of cardiac pacemaker; N18.9 Chronic kidney disease, unspecified; I07.1 Rheumatic tricuspid insufficiency; B37.9 Candidiasis, unspecified; I27.20 Pulmonary hypertension, unspecified; D69.59 Other secondary thrombocytopenia; Z68.21 Body mass index [BMI] 21.0-21.9, adult
CPT/HCPCS: 36415; 36573; 36592; 36600; 51702; 71045; 71250; 74018; 74176; 76705; 80048; 80051; 80053; 80061; 80202; 80503; 81001; 82150; 82247; 82248; 82274; 82330; 82728; 82805; 82977; 83010; 83036; 83540; 83605; 83615; 83690; 83735; 83880; 83883; 84100; 84145; 84155; 84165; 84443; 84484; 85007; 85025; 85362; 85378; 85384; 85610; 85651; 85730; 86140; 86334; 86480; 86606; 86635; 87015; 87040; 87070; 87075; 87077; 87086; 87102; 87116; 87150; 87186; 87205; 87206; 87305; 87385; 87449; 87486; 87493; 87556; 87581; 87633; 87798; 87801; 88184; 88185; 93005; 93308; 93970; 94640; 94664; 96365; 96366; 96372; 96374; 96375; 96376; 99291; A4222; C1751; J0283; J0456; J1100; J1644; J1650; J1940; J2405; J2470; J2543; J3370; J3372; J7040; J7050; J7626; Q0144

== ENCOUNTER → 2024-05-04 10:58 | Outpatient (BNVA) | payer MEDICARE, SELFPAY | PROVIDERS: PCP Electrodiagnostic Medicine; Referring Provider Family Medicine; Visit Provider Surgery | DX: K82.9 Disease of gallbladder, unspecified (principal) | CPT/HCPCS: 99213 ==

== ENCOUNTER → 2024-05-06 14:22 | Outpatient (BNVA) | payer MEDICARE, SELFPAY | PROVIDERS: PCP Electrodiagnostic Medicine; Visit Provider Nurse Practitioner Family | DX: I48.11 Longstanding persistent atrial fibrillation (principal); Z95.2 Presence of prosthetic heart valve; Z95.0 Presence of cardiac pacemaker; I43 Cardiomyopathy in diseases classified elsewhere; Z79.01 Long term (current) use of anticoagulants; R06.00 Dyspnea, unspecified | CPT/HCPCS: 99213 ==

== ENCOUNTER → 2024-07-12 10:43 | Outpatient (BNVA) | payer MEDICARE, SELFPAY | PROVIDERS: PCP Electrodiagnostic Medicine; Visit Provider Internal Medicine Cardiovascular Disease | DX: R07.9 Chest pain, unspecified (principal) | CPT/HCPCS: 93005; 99214 ==

== ENCOUNTER 2024-11-06 09:39 | Inpatient (IN) | payer MEDICARE, SELFPAY ==
--- OUTSIDE RECORDS SUMMARY | 2024-05-06 12:00 | XMS_ITS ---
Author Organization [facility] Address [address] [facility] [place] [address] Care Team Providers Care Settlement Technician Name Role Phone Nick Kamara Primary Care Provider Charli Tomas Unavailable [phone] REASON FOR VISIT Retention Encounters Encounter Location Date Provider Diagnosis [facility] [address] [place] [facility] [place] [address] 05/06/2024 Charli Hernandez Plan Of Treatment No Information Progress Notes * Chad HOOVERDOB:[birth year] (79 yo M)Acc No.[id number]:05/06/2024 Progress Notes Patient: Chad SERRANO Provider: Rob Hernandez APRN :1945 A ge:79 Y S ex:Male Date:05/06/2024 Address:[address] [place] [address] Pcp:Nick Kamara Subjective: * Chief Complaints: * 1 . Retention. * Medical History: Objective: * Vitals: Assessment: Plan: * Treatment: * Billing Information: * Visit Code: * Procedure Codes: * Electronic signature of Terry Hernandez APRN on 11/06/2024 at 09:46 AM CDT Sign off status: Pending * Provider: Rob Hernandez APRN Date: 05/06/2024 Generated for Lam mcneill/Shirley/eTawaissmitting on: 0 11/06/2024 09:46 AM CDT
[2024-11-06] VITALS (19 sets, daily range): BP systolic 86–113; BP diastolic 49–68; PULSE 83–129; RESP 16–29; TEMP 36.4–37.2; O2SAT 90–99; BMI 23.3
--- OUTSIDE RECORDS SUMMARY | 2024-11-06 09:45 | XMS_ITS | Clinical Summary ---
Author Organization [facility] de Address [address] [place] [address] Phone Care Team Providers Care Ladle Operator Name Role Phone Unavailable Primary Care Provider Unavailabl e Allergies No known active allergies Medications diltiaZEM (CARDIZEM CD) 180 mg Controlled Delivery 24 hour capsule Take 180 mg by mouth daily weigh machine operator . Active aspirin/acetaminoph en/caffeine (EXCEDRIN MIGRAINE ORAL) Take by mouth OTC . Active MAGNESIUM OXIDE ORAL Take 1 Tablet by mouth daily weigh machine operator OTC . Active ascorbic acid, vitamin C, (VITAMIN C) 1,000 mg Tablet Take 1,000 mg by mouth daily Takes a total 3000mg Daily OTC . Active omega-3 fatty acids-fish oil 300-1,000 mg Capsule Take 1 Capsule by mouth daily weigh machine operator OTC . Active OTHER Take 1 Tablet by mouth daily weigh machine operator Holy Basil OTC . Active HAWTHORN LUIS ORAL Take 1 Tablet by mouth daily weigh machine operator OTC . Active OTHER Take 1 Tablet by mouth daily weigh machine operator Sea luis OTC . Active garlic (GARLIQUE ORAL) Take 1 Tablet by mouth daily OTC . Active CAPSICUM, CAYENNE, ORAL Take 1 Tablet by mouth daily weigh machine operator Cayenne pepper OTC . Active aspirin (ANGEL CHEWABLE) 81 mg Tablet, Chewable Take 1 Tablet (81 mg) by mouth daily. 8 Active dextromethorphan polistirex (DELSYM) 30 mg/5 mL Suspension, Sust. Release 12HR Take 10 mL by mouth every 12 hours as needed for Cough. 11/16/201 8 Active apixaban (ELIQUIS) 5 mg tabletIndications:D ilated cardiomyopathy (CMS/HCC),Atrial fibrillation, unspecified type (CMS/HCC),Left ventricular dysfunction,Pulmona ry hypertension (CMS/HCC),Acute deep vein thrombosis (DVT) of distal vein of both lower extremities (CMS/HCC),S/P mitral valve replacement with bioprosthetic valve,S/P placement of cardiac pacemaker,Non-rheum atic mitral regurgitation,Rhino virus infection,Acute blood loss anemia,Dyspnea on exertion Take 1 Tablet (5 mg) by mouth 2 times daily. 60 Tablet 2 8 Active Active Problems Problem Noted Date Diagnosed Date Rhinovirus infection 02/12/2018 DVT (deep venous thrombosis) 02/12/2018 Acute blood loss anemia 02/11/2018 S/P Redo mitral valve replacement with bioprosth etic valve 01/14/2018 S/P placement of cardiac pacemaker 01/14/2018 Left ventricular dysfunction 01/14/2018 Atrial fibrillation 01/14/2018 Dilated cardiomyopathy 01/12/2018 Non-rheumatic mitral regurgitation 01/12/2018 Dyspnea on exertion Pulmonary hypertension Resolved Problems Problem Noted Date Diagnosed Date Resolved Date Ileus 02/15/2018 02/16/2018 Leukocytosis (leucocytosis) 02/11/2018 02/15/2018 Thrombocytopenia 02/11/2018 02/16/2018 Cardiogenic shock 02/11/2018 02/15/2018 Acute hypoxemic respiratory failure 02/15/2018 Family History Medical History Relation Name Comments Diabetes Brother 1 Emphysema Father Heart Attack Father Arthritis-rheumatoid Mother Relation Name Status Comments Brother 1 Alive Brother 2 Alive Brother 3 Alive Daughter 1 Alive Daughter 2 Alive Daughter 3 Alive Father Mother Sister 1 Alive Sister 2 Alive Sister 3 Alive Sister 4 Alive Sister 5 Alive Son 1 Alive Son 2 Alive Social History Tobacco Use Types Packs/Day Years Used Date Smoking Tobacco: Never Smokeless Tobacco: Never Tobacco Cessation:Counseling Given: No Alcohol Use Standard Drinks/Week Comments No 0 (1 standard drink = 0.6 oz pur e alcohol) Sex and Gender Information Value Date Recorded Sex Assigned at Not on file Legal Sex Male 6:34 AM CLOUD SYSTEMS ADMINISTRATOR Gender Identity Not on file Sexual Orientation Not on file 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 Not on file Not on file Not on file Last Filed Vital Signs Vital Sign Reading Time Taken Comments Blood Pressure 100/60 03/18/2018 12:00 PM CLOUD SYSTEMS ADMINISTRATOR Pulse 69 03/18/2018 12:00 PM CLOUD SYSTEMS ADMINISTRATOR Temperature 36.1 C (97 F) 02/20/2018 11:43 AM CLOUD SYSTEMS ADMINISTRATOR Respiratory Rate 16 02/20/2018 11:43 AM CLOUD SYSTEMS ADMINISTRATOR Oxygen Saturation 98% 03/18/2018 12:00 PM CLOUD SYSTEMS ADMINISTRATOR Inhaled Oxygen Concentration - - Weight 84.4 kg (186 lb) 03/18/2018 12:00 PM CLOUD SYSTEMS ADMINISTRATOR Height 180.3 cm (5' 11 ) 03/18/2018 12:00 PM CLOUD SYSTEMS ADMINISTRATOR Body Mass Index 25.94 03/18/2018 12:00 PM CLOUD SYSTEMS ADMINISTRATOR Plan of Treatment Health Maintenance Due Date Last Done Comments DTAP/TDAP/TD VACCINES (1 - Tdap) 1962 PNEUMOCOCCAL VACCINE 50+ YEARS (1 of 1 - PCV) 02/23/19 93 ZOSTER VACCINE (1 of 2) 1993 RSV VACCINE (60+ or ) (1 - 1-dose 75+ series) 2018 INFLUENZA VACCINE (#1) 2024 Medical Devices Implanted Type Area Embossed Or Impressed Lettering Painter Device Identifier Shelf Expiration Date Model / Serial / Lot Hemostatic Surgicel 6x9in 1948 - [id number] Implanted:Qty: 1 on 02/10/2018 by Toño Stewart MD at [facility] Hemostatic N/A: Heart J[employer]J- [employer] 03/06/2022 1948 / / [id number] [place] Ptfe Thck 1.6mmx2.5x10.2c m [id number] - [id number] Implanted:Qty: 1 on 02/10/2018 by Toño Stewart MD at [facility] Tissue N/A: Chest CR BARD- MARY [employer]ASC [employer] 04/03/2022 [id number] / / [id number] Patch Pericardial 5x10 C0510 - [id number] Implanted:Qty: 1 on 02/10/2018 by Toño Stewart MD at [facility] Tissue N/A: Heart ST [employer] 05/05/2020 C0510 / / [id number] Valve Mitral Mosaic Tissue 31mm 310c31 - [id number] Implanted:Qty: 1 on 02/10/2018 by Toño Stewart MD at [facility] Tissue N/A: Heart MEDTRONIC- HEART VALVE 08/06/2022 310C31 / [id number] / Explanted Type Area Embossed Or Impressed Lettering Painter Device Identifier Shelf Expiration Date Model / Serial / Lot Valve Mitral Mosaic Tissue 31mm 310c31 - [id number] Implanted:Qty: 1 Explanted:Qty: 1 on 02/10/2018 by Toño Stewart MD at [facility] Tissue N/A: Heart [employer]- HEART VALVE 02/11/2022 310C31 / [id number] / Insurance [address] [place] [address] MEDICARE PART A AND B Advance Directives For more information, please contact: [phone] * Full Code (Latest Code Status on File) Date Activated Date Inactivated Comments 02/10/2018 4:21 PM 02/20/2018 5:02 PM * Full Code Date Activated Date Inactivated Comments 02/10/2018 5:12 AM 02/10/2018 4:21 PM
--- OUTSIDE RECORDS SUMMARY | 2024-11-06 09:45 | XMS_ITS | Patient Health Record ---
Author Organization [facility] Address [address] [place] [address] Care Team Providers Care Nail Making Machine Tender Name Role Phone Kamara DONick Primary Care Provider Unavail able Kenny Bobby Unavailable [phone] Allergies Allergen (clinical drug ingredient) Drug/Non Drug Allergy documented on EMR Reaction Allergy Type Onset Date Status tree (uncoded) Unknown Allergy Activ e Grass Mix Pollens Allergen Ext Unknown Drug Allergy Active Reason For Referral No Information Medications Medication SIG (Take, Route, Frequency, Duration) Notes Start Date End Date Status Furosemide 40 MG Tablet TAKE 1 TABLET BY MOUTH EVERY DAY Oral; Duration: 30 Active Potassium Chloride Shawna ER 20 MEQ Tablet Extended Release TAKE 1 TABLET BY MOUTH TWICE DAILY Oral; Duration: 30 Active Dilt-XR 180 MG Capsule Extended Release 24 Hour 1 capsule Orally Once a day; Duration: 30 day(s) Active Ferrous Sulfate 325 (65 Fe) MG Tablet 1 tablet Orally Once a day Active guaiFENesin ER 600 MG Tablet Extended Release 12 Hour 1 tablet as needed Orally every 12 hrs Active Vitamin B Complex - Tablet as directed Orally Active ProAir HFA 108 (90 Base) MCG/ACT Aerosol Solution INHALE 2 PUFFS EVERY 4 HOURS OCCASIONALLY NEEDED FOR SHORTNESS OF BREATH AND WHEEZING Inhalation; Duration: 25 Active Omeprazole 20 MG Capsule Delayed Release 1 capsule 30 minutes before morning meal Orally Once a day Active Immunizations Vaccine Route Administration Date Status Comme nts Influenza, seasonal, injecta ble, preservative free, 3 yrs and above Unknown 07/05/2020 Refused Pneumococcal polysaccharide PPV23 Unknown 07/05/2020 Re fused Social History Tobacco Use: Social History Observation Description Date Details (start date - stop date) Never Smoker NA - NA Social History Tobacco Use: Social Info Question Answer Notes xTobacco Use/Smoking Are you a nonsmoker Problems Problem Type SNOMED Code ICD Code Onset Dates Problem Status W/U Status Risk Notes Problem Pulmonary hypertension (I27.20) Active confirmed Plan Of Treatment No Information Insurance Providers Payer Name Payer Address Payer Phone Subscriber Number Group Number Insured Name Patient Relationship to Insured Coverage Start Date Coverage End Date [place] [address] [place] [phone] [id number] Chad Pinzon Self - patient is the insured Medical (General) History Medical History History ICD Code Measles Chicken Pox Pneumonia Arthritis Hernia Back Trouble Bronchitis Pacemaker implant Surgical History Surgery Date(Month/Year) Mitral Valve replacement Hospitalization History Reason Date(Month/Year) see surgical Hx
--- OUTSIDE RECORDS SUMMARY | 2024-11-06 09:46 | XMS_ITS | Clinical Summary ---
Author Organization [facility] Address [address] [facility] Attn: Epic Prelude ADT [place]ID LEE [address] Care Team Providers Care Convention Manager Name Role Phone Unavailable Primary Care Provider Unavailabl e Allergies Active Allergy Reactions Criticality Noted Date Comments Oxycodone Swelling Low 04/10/2023 Medications diltiaZEM (CARDIZEM CD) 180 mg Controlled Delivery 24 hour capsule Take 180 mg by mouth daily warehouse inventory clerk . 8 Active furosemide 80 mg tablet Take 1 Tablet by mouth daily. Active potassium chloride (KLOR-CON) 20 mEq Extended Release tablet Take 1 Tablet by mouth daily. Active sacubitriL 24 mg-valsartan 26 mg tablet Take 1 Tablet by mouth daily at bedtime. Dose unknown, only takes once a day, because he got where he couldn't stand up taking it twice a day Active albuterol sulfate HFA 90 mcg/actuation aerosol inhaler Take 2 Puffs by inhalation every 6 hours as needed. 3 Active fluticasone propionate (FLONASE) 50 mcg/spray [place], Suspension nasal inhaler Administer 2 Sprays in each nostril daily. 3 Active polyethylene glycol 3350 (Miralax) 17 gram/dose Powder Take 1 Scoop (17 Grams) by mouth daily. Dissolve in 8 ounces of fluid and drink entire liquid 527 Gram 4 Active apixaban (Eliquis) 2.5 mg tablet Take 1 Tablet (2.5 mg) by mouth 2 times daily. 60 Tablet 4 Active cefadroxil (DURICEF) 500 mg capsule Take 1 Capsule (500 mg) by mouth every 12 hours. 28 Capsule 4 Active HYDROcodone-acet aminophen (NORCO) 5-325 mg tabletIndication s:Status post total right knee replacement Take 1 Tablet by mouth every 4 hours as needed for Pain, Moderate. Max Daily Amount: 6 Tablets 42 Tablet 4 Active Saccharomyces boulardii (FLORASTOR) 250 mg Capsule Take 1 Capsule (250 mg) by mouth 2 times daily. 60 Capsule 4 Active Sodium Chloride 1,000 mg Tablet, Soluble Take 1 Tablet (1,000 mg) by mouth 2 times daily with meals. 14 Tablet 4 Active traMADoL (ULTRAM) 50 mg tabletIndication s:Status post total right knee replacement Take 1 Tablet (50 mg) by mouth every 6 hours as needed for Pain. 28 Tablet 4 Active celecoxib (CeleBREX) 200 mg capsule TAKE 1 CAPSULE(200 MG) BY MOUTH TWICE DAILY FOR 14 DAYS 28 Capsule 4 Active Active Problems Problem Noted Date Diagnosed Date Acute on Chronic Hyponatremia 05/10/2023 Status post total right knee replacement 024 Stage 3 chronic kidney disease 04/12/2023 Anemia 04/12/2023 Cardiac murmur 04/12/2023 SSS (sick sinus syndrome) 04/12/2023 Diastolic congestive heart failure 04/12/2023 Personal history of DVT (deep vein thrombosis) 0 04/12/2023 Primary osteoarthritis of knee 04/12/2023 DVT (deep venous thrombosis) 02/12/2018 Acute blood loss anemia 02/11/2018 S/P Redo mitral valve replacement with bioprosth etic valve 01/14/2018 S/P placement of cardiac pacemaker 01/14/2018 Left ventricular dysfunction 01/14/2018 Atrial fibrillation 01/14/2018 Dilated cardiomyopathy 01/12/2018 Non-rheumatic mitral regurgitation 01/12/2018 Dyspnea on exertion Pulmonary hypertension Resolved Problems Problem Noted Date Diagnosed Date Resolved Date Preop general physical exam 04/12/2023 05/09/2023 Ileus 02/15/2018 02/16/2018 Rhinovirus infection 02/12/2018 024 Thrombocytopenia 02/11/2018 02/16/2018 Leukocytosis (leucocytosis) 02/11/2018 02/15/2018 Cardiogenic shock 02/11/2018 02/15/2018 Acute hypoxemic respiratory failure 02/15/2018 Family History Medical History Relation Name Comments Diabetes Brother 1 Parminder Heart Disease Brother 1 Parminder pt does not kn ow details about this Heart Disease Brother 2 Juan pt does not kn ow details about this Emphysema Father Heart Attack Father around age 50 Heart Disease Father Arthritis-rheumatoid Mother Heart Disease Sister 1 Janna pt does not kn ow details about this Relation Name Status Comments Brother 1 Parminder (Age 80) Brother 2 Juan Alive Brother 3 Alive Daughter 1 Alive Daughter 2 Alive Daughter 3 Alive Father (Age 79) Mother Sister 1 Janna Alive Sister 2 Alive Sister 3 Alive Sister 4 Alive Sister 5 Alive Son 1 Alive Son 2 Alive Social History Tobacco Use Types Packs/Day Years Used Date Smoking Tobacco: Never Smokeless Tobacco: Never Tobacco Cessation:Counseling Given: Not Answered Alcohol Use Standard Drinks/Week Comments No 0 (1 standard drink = 0.6 oz pur e alcohol) Sex and Gender Information Value Date Recorded Sex Assigned at Not on file Legal Sex Male 12:55 AM CUSTOMER ACQUISITION MANAGER Gender Identity Not on file Sexual Orientation Not on file Last Filed Vital Signs Vital Sign Reading Time Taken Comments Blood Pressure 105/56 05/21/2023 9:56 AM CUSTOMER ACQUISITION MANAGER Pulse 73 05/21/2023 9:56 AM CUSTOMER ACQUISITION MANAGER Temperature 36.4 C (97.5 F) 05/12/2023 7:39 AM CUSTOMER ACQUISITION MANAGER Respiratory Rate 16 05/12/2023 7:39 AM CUSTOMER ACQUISITION MANAGER Oxygen Saturation 94% 05/12/2023 7:39 AM CUSTOMER ACQUISITION MANAGER Inhaled Oxygen Concentration - - Weight 83.7 kg (184 lb 9.6 oz) 05/21/2023 9:56 A M CUSTOMER ACQUISITION MANAGER Height 180.3 cm (5' 11 ) 05/21/2023 9:56 AM CUSTOMER ACQUISITION MANAGER Body Mass Index 25.75 05/21/2023 9:56 AM CUSTOMER ACQUISITION MANAGER Plan of Treatment Health Maintenance Due Date Last Done Comments DTAP/TDAP/TD VACCINES (1 - Tdap) 1962 PNEUMOCOCCAL VACCINE 50+ YEARS (1 of 2 - PCV) 02/23/19 62 ZOSTER VACCINE (1 of 2) 1993 RSV VACCINE (60+ or ) (1 - 1-dose 75+ series) 2018 INFLUENZA VACCINE (#1) 2024 Medical Devices Implanted Type Area Colorist Device Identifier Shelf Expiration Date Model / Serial / Lot Hemostatic Surgicel 6x9in 1948 - [id number] Implanted:Qty: 1 on 02/10/2018 by Toño Stewart MD Hemostatic N/A: Heart J[employer]J- [employer] 03/06/2022 1948 / / [id number] Lens Iol Tecnis Eyhance 6.5 [id number] - [id number] Implanted:Qty: 1 on 04/03/2022 by Juvenal Aquino MD at [facility] Left: Eye [employer]J VISION 08/20/2023 [id number] / [id number] / NA Lens Iol Tecnis Eyhance 10.5 [id number] - [id number] Implanted:Qty: 1 on 04/17/2022 by Juvenal Aquino MD at [facility] Right: Eye [employer]J VISION 09/13/2023 [id number] / [id number] / Valve Mitral Mosaic Tissue 31mm 310c31 - [id number] Implanted:Qty: 1 on 02/10/2018 by Toño Stewart MD Tissue N/A: Heart [employer]- HEART VALVE 08/06/2022 310C31 / [id number] / [place] Ptfe Thck 1.6mmx2.5x10.2 cm [id number] - [id number] Implanted:Qty: 1 on 02/10/2018 by Toño Stewart MD Tissue N/A: Chest CR BARD- M[employer]ASC [employer] 04/03/2022 [id number] / / [id number] Pericardial 5x10 C0510 - [id number] Implanted:Qty: 1 on 02/10/2018 by Toño Stewart MD Tissue N/A: Heart ST [employer] 05/05/2020 C0510 / / [id number] Attune Insert 8mm Right Implanted:Qty: 1 on 05/09/2023 by Chandler Urban MD at [facility] Right: Knee 07/05/2030 [id number] / / [id number] Description:INCLUDED IN CAP PRICING Comp Fem Attune Rt Sz8 Implanted:Qty: 1 on 05/09/2023 by Chandler Urban MD at [facility] Right: Knee [id number] 08/04/2032 [id number] / / [id number] Description:INCLUDED IN CAP PRICING 9 Tibial Base Affixium Implanted:Qty: 1 on 05/09/2023 by Chandler Urban MD at [facility] Right: Knee [id number] 09/04/2032 DEPUY SYNTHES-150 6-21-009 / / [id number] Description:INCLUDED IN CAP PRICING [id number] Attune Fb Cementle Implanted:Qty: 1 on 05/09/2023 by Chandler Urban MD at [facility] Right: Knee [id number] / / Explanted Type Area Colorist Device Identifier Shelf Expiration Date Model / Serial / Lot Valve Mitral Mosaic Tissue 31mm 310c31 - [id number] Implanted:Qty: 1 Explanted:Qty: 1 on 02/10/2018 by Toño Stewart MD Tissue N/A: Heart [employer]- HEART VALVE 02/11/2022 310C31 / [id number] / Insurance MEDICARE PART A AND B Advance Directives For more information, please contact: [phone] * Default Full Code - Needs Discussion (Latest Code Status on File) Date Activated Date Inactivated Comments 05/10/2023 5:51 PM 05/12/2023 2:08 PM * Full Code Date Activated Date Inactivated Comments 04/17/2022 9:56 AM 04/17/2022 3:51 PM * Full Code Date Activated Date Inactivated Comments 04/03/2022 9:22 AM 04/03/2022 1:46 PM
--- OUTSIDE RECORDS SUMMARY | 2024-11-06 09:46 | XMS_ITS | Patient Health Record ---
Author Organization [facility] Address [address] [place] [address] Care Team Providers Care Industrial Spray Painter Name Role Phone KamaraNick nguyễn Primary Care Provider Charli Tomas Unavailable [phone] Reason For Referral No Information Encounters Encounter Location Date Provider Diagnosis [facility] [address] [place] [address] 04/26/2024 Charli Hernandez Plan Of Treatment No Information Insurance Providers Payer Name Payer Address Payer Phone Subscriber Number Group Number Insured Name Patient Relationship to Insured Coverage Start Date Coverage End Date [employer] [address] [place], [place] [id number] Chad Pinzon Self - patient is the insured
--- NOTE | 2024-11-06 10:00 | CTR_ITS ---
PROCEDURE INFORMATION: Exam: CT Abdomen And Pelvis Without Contrast Exam date and time: 11/06/2024 10:59 AM Age: 79 years old Clinical indication: Abdominal pain; Localized; Right lower quadrant (rlq); Prior surgery; Surgery date: 6+ months; Surgery type: Umbilical hernia; Additional info: Abd pain TECHNIQUE: Imaging protocol: Computed tomography of the abdomen and pelvis without contrast. Radiation optimization: All CT scans at this facility use at least one of these dose optimization techniques: automated exposure control; mA and/or kV adjustment per patient size (includes targeted exams where dose is matched to clinical indication); or iterative reconstruction. COMPARISON: CR XR KUB portable [id number] 04/18/2024 8:16 PM RADIATION DOSE METRICS: Total DLP (mGy-cm): 541.77 FINDINGS: Tubes, catheters and devices: Partially imaged prominent cardiomegaly with a right ventricular pacemaker lead and mitral annular calcifications. Lungs: Minimal dependent atelectasis is seen in the lung bases. Lung bases otherwise appear clear. Liver: Normal appearance of the liver. Gallbladder and biliary ducts: Normal. No calcified stones. No ductal dilation. Pancreas: Macro gallbladderNormal appearance of the pancreas. No ductal dilation. Spleen: Normal appearance of the spleen. Adrenal glands: Normal appearance of both adrenal glands. Kidneys and ureters: Incidental simple fluid density cyst on the upper pole of the left kidney measuring approximately 1.5 cm. Otherwise normal appearance of both kidneys. No hydronephrosis or nephrolithiasis. Stomach and bowel: Tiny hiatal hernia of the stomach.Normal appearance of the small bowel without luminal dilation suggested. Mild scattered colonic stool with mild focal stool burden in the rectosigmoid region.There is mild scattered colonic diverticular disease without evidence of diverticulitis. Appendix: The appendix is ill-defined with suggestion of an appendicolith at the origin measuring approximately 1 cm in size. Appendix lopez appear thickened with adjacent inflammatory change at the base measuring up to 1.5 cm in diameter concerning for appendicitis. There is air within the distal appendix. No evidence of perforation. Intraperitoneal space: Unremarkable. No free air. No significant fluid collection. Vasculature: There is mild calcific atherosclerotic disease of the abdominal aorta. No evidence of an aneurysm. Lymph nodes: Unremarkable. No enlarged lymph nodes. Urinary bladder: Normal appearance of the urinary bladder. No intravesicular stone. Reproductive: Incidental prostate calcifications are seen. Bones/joints: Bilateral pars defects at L4 with approximately 1.4 cm of anterolisthesis of L4 on L5 and near complete loss of the disc space. Scattered endplate degenerative changes. No fracture or aggressive lesion. Soft tissues: The visualized superficial soft tissues have a normal appearance. CT/CT abdomen pelvis wo con [id number] IMPRESSION: 1. Ill-defined thickened and enlarged appearance of the proximal appendix with appendicular with at the origin suggesting acute appendicitis. No evidence of perforation. Recommend surgical consultation. 2.Other incidental and/or chronic findings as detailed above. COMMENTS: Consistent with the [place]'s Incidental Findings Committee white paper (J Am Jessika Radiol 2018): Any incidental renal lesion less than 1 cm or classified as too small to characterize, or any incidental cystic renal lesion characterized as simple-appearing, is likely benign. No follow-up imaging is recommended for these lesions per consensus recommendations based on imaging criteria. THIS REPORT CONTAINS FINDINGS THAT MAY BE CRITICAL TO PATIENT CARE. The findings were verbally communicated by me via telephone conference to HARISH NORWOOD at 11:16 AM CDT on 11/06/2024. The findings were acknowledged and understood.
--- NOTE | 2024-11-06 10:04 | W.ED.ABDPA2 ---
HPI - Abdominal Pain General: Chief Complaint: Abdominal Pain Stated Complaint: Lower R ABD pain Time Seen by Provider: 11/06/24 09:41 Source: patient Mode of arrival: ambulatory Limitations: no limitations History of Present Illness: 79-year-old male states that he has been having severe right lower quadrant abdominal pain since last night. States pain sharp in nature rates it a 9 out of 10. Is worse with palpation and movement. He denies any vomiting or diarrhea. Has had a history of a hernia repair no history of appendicitis in the past Associated Symptoms: Denies chills, diarrhea, dysuria, fever(s), nausea and vomiting Related Data Home Medications ?Medication ?Instructions ?Recorded ?Confirmed ascorbic acid (vitamin C) 1,000 mg 2 gm PO DAILY 04/19/19 05/06/24 tablet multivitamin 1 tab PO DAILY 09/19/21 05/06/24 cholecalciferol (vitamin D3) 10 10 mcg PO DAILY 07/23/22 05/06/24 mcg (400 unit) capsule fluticasone 500 mcg-salmeterol 50 1 inh inhalation BID 07/23/22 05/06/24 mcg/dose blistr powdr for inhalation (Advair Diskus) vitamin B complex 1 cap PO BID 07/23/22 05/06/24 magnesium oxide 500 mg PO DAILY 01/22/23 05/06/24 Holy Basil 1 cap PO DAILY 04/17/24 05/06/24 acetaminophen 325 mg tablet 650 mg PO QID PRN Pain 04/17/24 05/06/24 (Tylenol) albuterol sulfate 90 mcg/actuation 2 puff inhalation Q4H PRN 04/17/24 05/06/24 aerosol inhaler Shortness Of Breath Or Wheezing turmeric 400 mg capsule 400 mg PO DAILY 04/17/24 05/06/24 amiodarone 200 mg tablet (Pacerone) 200 mg PO DAILY 07/12/24 spironolactone 25 mg tablet 25 mg PO DAILY 07/12/24 tamsulosin 0.4 mg capsule 0.4 mg PO DAILY 07/12/24 Previous Rx's ?Medication ?Instructions ?Recorded furosemide 40 mg tablet (Lasix) 40 mg PO DAILY PRN edema #30 tabs 03/26/23 potassium chloride 20 mEq 20 meq PO DAILY PRN With Lasix 01/20/25 tablet,extended release(part/cryst) therapy #30 tabs sacubitril 49 mg-valsartan 51 mg 1 tab PO BID 30 days #60 tabs 07/19/24 tablet (Entresto) empagliflozin 10 mg tablet 10 mg PO DAILY 30 days #30 tabs 07/23/24 (Jardiance) Allergies Allergy/AdvReac Type Severity Reaction Status Date / Time oxycodone Allergy Severe other Verified 11/06/24 09:53 Review of Systems Const: Denies: fever(s), chills, body aches or change in appetite ENMT: Denies: throat pain or dental pain Card: Denies: chest pain Resp: Denies: dyspnea GI: Reports: abdominal pain; Denies: nausea, vomiting or diarrhea : Denies: dysuria Musc: Denies: neck pain or back pain Skin/Breast: Denies: rash Neuro: Denies: headache(s) PFS ED PFSH: Medical History Cardiac LV ejection fraction of 40-49% History of cataract 04/2022 Bilateral Hemolytic anemia Anemia Dyspnea on exertion Anticoagulant long-term use 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 He is taking some natural remedies. Shortness of breath Hypertension Mitral stenosis Mitral regurgitation Pulmonary hypertension Pacemaker Patient had the permanent pacer implantation in July 2016. Shoulder pain with history of repair of rotator cuff Surgical History Hx of shoulder surgery Hx of umbilical hernia repair Hx of thumb surgery History of permanent cardiac pacemaker placement H/O mitral valve replacement Patient had a initial mitral valve replacement by Dr. Acevedo in 2013. He developed a perivalvular leak for which he underwent redo surgery by Dr. Sutton at the [facility] in [place] in October 2017. Most recent echocardiogram was done in April 2024. LV ejection fraction was 35 to 40%. Family History Mother Rheumatoid arthritis at age of 62 Grandmother Cancer Dementia Brother Diabetes Father Lung disease Family/Other Lung disease Denies family history of CAD (coronary artery disease) Clotting disorder Chronic kidney disease (CKD) Suicide Anesthesia complication Bleeding disorder Stroke Social History Smoking and tobacco/nicotine status: never used tobacco/nicotine Alcohol intake: never Substance/Drug Use: never Physical Exam Const: COMMON NORMALS: no acute distress, patient oriented x3 and healthy appearing HENMT: COMMON NORMALS: normocephalic and atraumatic HEAD & SCALP: normocephalic and atraumatic Eye: COMMON NORMALS: conjunctivae normal CONJUNCTIVA: Yes conjunctivae normal Neck/C-Spine: COMMON NORMALS: full ROM and supple Chest: COMMONS NORMALS: normal inspection of the chest Resp: COMMON NORMALS: normal respiratory effort, No retractions, No use of accessory muscles and clear to auscultation bilaterally AUSCULTATION: clear to auscultation bilaterally Cardio: COMMON NORMALS: regular rate, regular rhythm and No murmurs present (Cardio) RATE: regular rate RHYTHM: regular rhythm GI: COMMON NORMALS: Normal to inspection, nondistended, normoactive bowel sounds present, Soft to palpation and no masses PALPATION: Yes Soft to palpation and Yes Tenderness to palpation present (GI) Details: RLQ Extremity: COMMON NORMALS: normal to inspection and full ROM Neuro: COMMON NORMALS: patient oriented x3, moves all extremities and no focal motor deficits Psych: COMMON NORMALS: mental status grossly normal, Normal thought process present and cooperative THOUGHT PROCESS: Normal thought process present Skin: COMMON NORMALS: no rashes or lesions noted and no wounds GENERAL SKIN EXAM: no rashes or lesions noted Course Vital Signs: Vital signs: Vital Signs Temperature 97.5 F L 11/06/24 09:47 Pulse Rate 92 11/06/24 12:03 Respiratory Rate 16 11/06/24 12:03 Blood Pressure 97/67 11/06/24 12:03 Pulse Oximetry 90 11/06/24 12:03 Oxygen Delivery Me thod Room Air 11/06/24 12:03 MDM - Abdominal Pain Medical Decision Making Patient presents here with appendicitis did speak to surgeon who is going to admit the patient at this time and start antibiotics he does have elevated white count did give him sepsis bolus along with IV antibiotics. Lactate here was normal. Medical Records I reviewed the patient's medical records. Lab Data I reviewed the patient's lab results. 11/06/24 09:59 11/06/24 09:59 Labs/Radiology: Radiology Impressions Abdomen/Pelvis CT 11/06/24 10:00 IMPRESSION: 1. Ill-defined thickened and enlarged appearance of the proximal appendix with appendicular with at the origin suggesting acute appendicitis. No evidence of perforation. Recommend surgical consultation. 2.Other incidental and/or chronic findings as detailed above. COMMENTS: Consistent with the [employer]'s Incidental Findings Committee white paper (J Am Jessika Radiol 2018): Any incidental renal lesion less than 1 cm or classified as too small to characterize, or any incidental cystic renal lesion characterized as simple-appearing, is likely benign. No follow-up imaging is recommended for these lesions per consensus recommendations based on imaging criteria. THIS REPORT CONTAINS FINDINGS THAT MAY BE CRITICAL TO PATIENT CARE. The findings were verbally communicated by me via telephone conference to HARISH NORWOOD at 11:16 AM CDT on 11/06/2024. The findings were acknowledged and understood. Laboratory Results WBC 26.73 10^3/uL (3.29-11.43) H 11/06/24 09:59 RBC 3.60 10^6/uL (3.85-5.65) L 11/06/24 09:59 Hgb 11.40 g/dL (11.27-16.99) 11/06/24 09:59 Hct 36.0 % (37-53) L 11/06/24 09:59 MCV 100.0 fl (82-101) 11/06/24 09:59 MCH 31.7 pg (27-33) 11/06/24 09:59 MCHC 31.7 g/dL (30-55) 11/06/24 09:59 RDW 14.2 % (12.1-15.1) 11/06/24 09:59 Plt Count 94 10^3/cmm (157-399) L 11/06/24 09:59 MPV 11.5 fL (7.4-10.4) H 11/06/24 09:59 Lymph % (Auto) Not Reportable 11/06/24 09:59 [place] % (Auto) Not Reportable 11/06/24 09:59 Lymph # (Auto) Not Reportable 11/06/24 09:59 [place] # (Auto) Not Reportable 11/06/24 09:59 Total Counted 100 (0-100) 11/06/24 09:59 Atypical Lymphs % 0.0 % (0-5) 11/06/24 09:59 Absolute Neutrophils 17.4 10^3/cmm (1.4-6.5) H 11/06/24 09:59 Segmented Neutrophils 60 % 11/06/24 09:59 Band Neutrophils 5.0 % 11/06/24 09:59 Absolute Lymphocytes 2.4 10^3/cmm (1.2-3.4) 11/06/24 09:59 Lymphocytes (Manual) 9 % 11/06/24 09:59 Monocytes (Manual) 13.0 % 11/06/24 09:59 Absolute Monocytes 3.5 10^3/cmm (0.1-0.6) H 11/06/24 09:59 Eosinophils (Manual) 4 % 11/06/24 09:59 Absolute Eosinophils 1.1 10^3/cmm (0.0-0.7) H 11/06/24 09:59 Basophils (Manual) 3.0 % 11/06/24 09:59 Absolute Basophils 0.8 10^3/cmm (0.0-0.2) H 11/06/24 09:59 Metamyelocytes 2.0 % 11/06/24 09:59 Myelocytes 3.0 % 11/06/24 09:59 Promyelocytes 1.0 % 11/06/24 09:59 Platelet Estimate Decreased (Normal) 11/06/24 09:59 Poikilocytosis Trace 11/06/24 09:59 Anisocytosis 1+ H 11/06/24 09:59 PT 14.90 SECONDS (12.1-14.9) 11/06/24 09:59 INR 1.09 (0.8-1.2) 11/06/24 09:59 Sodium 136 mmol/L (136-145) 11/06/24 09:59 Potassium 4.3 mmol/L (3.5-5.1) 11/06/24 09:59 Chloride 100 mmol/L (98-107) 11/06/24 09:59 Carbon Dioxide 23 mmol/L (22-29) 11/06/24 09:59 Anion Gap 17.3 (5-19) 11/06/24 09:59 BUN 48 mg/dL (8-23) H 11/06/24 09:59 Creatinine 2.1 mg/dL (0.7-1.2) H 11/06/24 09:59 GFR Calculation Not Reportable 11/06/24 09:59 Glucose 118 mg/dL (65-115) H 11/06/24 09:59 Calculated Osmolality 296 mOsm/kg (285-295) H 11/06/24 09:59 Lactic Acid 1.0 mmol/L (0.5-2.2) 11/06/24 09:59 Calcium 9.6 mg/dL (8.5-10.5) 11/06/24 09:59 Total Bilirubin 2.5 mg/dL (0.15-1.2) H 11/06/24 09:59 AST 25 U/L (0-40) 11/06/24 09:59 ALT 12 U/L (0-41) 11/06/24 09:59 Alkaline Phosphatase 95 U/L (40-130) 11/06/24 09:59 Total Protein 7.3 g/dL (6.6-8.7) 11/06/24 09:59 Albumin 4.4 g/dL (3.5-5.2) 11/06/24 09:59 Globulin 2.9 g/dL (1.3-4.6) 11/06/24 09:59 Lipase 47 U/L (13-60) 11/06/24 09:59 All radiology interpretation(s) finalized by discharge Discharge Plan Discharge Patient Disposition: Admitted As Inpatient Clinical Impression: Acute appendicitis Condition: Stable Discharge Diet: Advance as tolerated Discharge Activity: Resume usual activity Coding Level of Care Code ED Bull Wheel Worker for Codi Mcgrath
[2024-11-06 10:08] LABS: Hematocrit 36.0 % (37-53); Hemoglobin 11.40 g/dL (11.27-16.99); Mean Corpuscular HGB Conc 31.7 g/dL (30-55); Mean Corpuscular Hemoglobin 31.7 pg (27-33); Mean Corpuscular Volume 100.0 fl (82-101); Platelet Count 94 10^3/cmm (157-399); Red Blood Count 3.60 10^6/uL (3.85-5.65); White Blood Count 26.73 10^3/uL (3.29-11.43)
[2024-11-06 10:29] LABS: Alanine Aminotransferase 12 U/L (0-41); Albumin Level 4.4 g/dL (3.5-5.2); Alkaline Phosphatase 95 U/L (40-130); Anion Gap 17.3 (5-19); Aspartate Amino Transferase 25 U/L (0-40); Blood Urea Nitrogen 48 mg/dL (8-23); Calcium 9.6 mg/dL (8.5-10.5); Carbon Dioxide 23 mmol/L (22-29); Chloride 100 mmol/L (98-107); Globulin 2.9 g/dL (1.3-4.6); Glucose 118 mg/dL (65-115); Lipase 47 U/L (13-60); Osmolality Calculated 296 mOsm/kg (285-295); Potassium 4.3 mmol/L (3.5-5.1); Sodium 136 mmol/L (136-145); Total Protein 7.3 g/dL (6.6-8.7)
[2024-11-06 10:34] LABS: Slide Review Slide Review Perform
[2024-11-06 10:39] LABS: Absolute Segmented Neutrophil 16.0 10/cmm (1.6-7.1); Atypical Lymphs 0.0 % (0-5); Band Neutrophils Absolute 1.3 10^3/cmm (0.0-1.2); Total Cells Counted 100 (0-100)
[2024-11-06 10:40] LABS: Anisocytosis 1+; Poikilocytosis Trace
[2024-11-06 10:45] LABS: Creatinine Clr Calc Pharmacy 29.4532
[2024-11-06 10:52] LABS: Lactic Sepsis W/Reflex 1.0 mmol/L (0.5-2.2)
--- NOTE | 2024-11-06 11:21 | ECG_ITS ---
[employer] [facility] Test Date: 2024-11-06 Pat Name: Chad Hoover Department: Room: Gender: Male Rides Attendant: : 1945 Requested By: Consuelo Lopez Order Number: [id number] Reading MD: SARA MARQUEZ Measurements Intervals [place] Rate: 97 P: 0 [place]: 0 QRS: 135 QRSD: 112 T: -18 QT: 340 QTc: 433 Interpretive Statements ATRIAL FIBRILLATION POSSIBLE RIGHT VENTRICULAR HYPERTROPHY [SOME/ALL OF: PROMINENT R IN V1, LATE TRANSITION, RAD, JANES, SSS] SEPTAL MYOCARDIAL INFARCTION , OF INDETERMINATE AGE [40+ ms Q WAVE IN V1/V2] Compared to ECG 07/12/2024 10:49:51 Myocardial infarct finding now present Ventricular-paced complex(es) or rhythm no longer present Electronically Signed On 11-08-2024 13:57:58 CDT by SARA MARQUEZ [email or web address]
[2024-11-06] MEDS: piperacillin-tazobactam 3.375 GM in sodium chloride 0.9% (plus) 50 ML IV (11:22)
[2024-11-06 11:34] LABS: INR 1.09 (0.8-1.2); Prothrombin Time 14.90 SECONDS (12.1-14.9)
--- NOTE | 2024-11-06 12:49 | PM.CONSULT ---
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 The patient denied nausea, vomiting, or decreased appetite. CT demonstrates acute appendicitis without evidence of perforation. He did say that his abdomen has been more round (bloated) over the last month. He thinks that he might be constipated. However, he has been having regular bowel movements, he had one yesterday and this morning. He stated that his PCP, Dr. Kamara, said that he had lower lung infection on both sides two weeks ago. According to the patient, he had antibiotics for about 7 days. At the time of my exam, when I inquired about his labored breathing, he said it was due to abdominal pain. Also, when I laid the bed flat for the abdominal exam, he stated that he could not tolerate the bed laying flat very long and asked me to put the head of the bed completely upright. When I inquired about the cardiac clearance (dated 11/02/24) he said that he was supposed to have an elective/outpatient groin hernia repair by Dr. Salcedo in [facility]. 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 The patient believes that he is fairly healthy and has a holistic approach... He takes an herbal supplement TODA to keep his blood thin and prevent blood clots. According to the patient, he has not taken Eliquis or Amiodarone since April of 2024. Review of Systems Const: Reports: body aches; Denies: fever(s) Card: Reports: chest pain and other (Orthopnea and dyspnea with exertion.) Resp: Reports: dyspnea, productive cough and chest congestion GI: Reports: abdominal pain; Denies: nausea, vomiting or change in bowel habits Neuro: Denies: sensory changes Psych: Denies: anxiety or depression Medications/Allergies Home Medications ?Medication ?Instructions ?Recorded ?Confirmed ?Last Taken ?Type ascorbic acid (vitamin C) 1,000 mg 2 gm PO DAILY 04/19/19 11/06/24 11/05/24 History tablet multivitamin 1 tab PO DAILY 09/19/21 11/06/24 11/05/24 History cholecalciferol (vitamin D3) 10 10 mcg PO DAILY 07/23/22 11/06/24 11/05/24 History mcg (400 unit) capsule fluticasone 500 mcg-salmeterol 50 1 inh inhalation BID 07/23/22 11/06/24 04/16/24 History mcg/dose blistr powdr for inhalation (Advair Diskus) vitamin B complex 1 cap PO BID 07/23/22 11/06/24 11/05/24 History magnesium oxide 500 mg PO DAILY 01/22/23 11/06/24 04/16/24 History furosemide 40 mg tablet (Lasix) 40 mg PO DAILY PRN edema #30 tabs 03/26/23 11/06/24 11/05/24 Rx acetaminophen 325 mg tablet 650 mg PO QID PRN Pain 04/17/24 11/06/24 Unknown History (Tylenol) albuterol sulfate 90 mcg/actuation 2 puff inhalation Q4H PRN 04/17/24 11/06/24 04/16/24 History aerosol inhaler Shortness Of Breath Or Wheezing turmeric 400 mg capsule 400 mg PO DAILY 04/17/24 11/06/24 04/16/24 History potassium chloride 20 mEq 20 meq PO DAILY PRN With Lasix 04/26/24 11/06/24 11/05/24 Rx tablet,extended release(part/cryst) therapy #30 tabs tamsulosin 0.4 mg capsule 0.4 mg PO DAILY 07/12/24 11/06/24 11/05/24 History basil leaf extract 450 mg capsule 450 mg PO DAILY 11/06/24 11/06/24 11/06/24 History budesonide 160 mcg-glycopyr 9 2 inh inhalation BID 11/06/24 11/06/24 Unknown History mcg-formot 4.8 mcg/actuation HFA inhaler (Breztri Aerosphere) diltiazem HCl 180 mg capsule,24 180 mg PO DAILY 11/06/24 11/06/24 11/05/24 History hr,extended release spironolactone 50 mg tablet 25 mg PO QAM 11/06/24 11/06/24 11/05/24 History Allergies Allergy/AdvReac Type Severity Reaction Status Date / Time oxycodone Allergy Severe other Verified 11/06/24 09:53 PFSH Acute PFSH: Medical History (Updated 11/06/24 @ 15:40 by Aaron Dave MD) Cardiac LV ejection fraction of 40-49% History of cataract 04/2022 Bilateral Hemolytic anemia Anemia Dyspnea on exertion Anticoagulant long-term use 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 He is taking some natural remedies. Shortness of breath Hypertension Mitral stenosis Mitral regurgitation Pulmonary hypertension Pacemaker Patient had the permanent pacer implantation in July 2016. Shoulder pain with history of repair of rotator cuff Surgical History (Updated 11/06/24 @ 15:13 by Eligio Ely M.D) Hx of shoulder surgery Hx of umbilical hernia repair Hx of thumb surgery History of permanent cardiac pacemaker placement H/O mitral valve replacement Patient had a initial mitral valve replacement by Dr. Acevedo in 2013. He developed a perivalvular leak for which he underwent redo surgery by Dr. Sutton Family History Mother Rheumatoid arthritis at age of 62 Grandmother Cancer Dementia Brother Diabetes Father Lung disease Family/Other Lung disease Denies family history of CAD (coronary artery disease) Clotting disorder Chronic kidney disease (CKD) Suicide Anesthesia complication Bleeding disorder Stroke Social History Smoking and tobacco/nicotine status: never used tobacco/nicotine Alcohol intake: never Substance/Drug Use: never Vitals/I&O/Wt Last Vital Signs Temp 97.5 F L 11/06/24 09:47 Pulse 92 11/06/24 12:03 Resp 16 11/06/24 12:03 BP 97/67 11/06/24 12:03 Pulse Ox 90 11/06/24 12:03 O2 Del Method Room Air 11/06/24 12:03 11/05/24 11/06/24 11/06/24 22:59 06:59 14:59 Intake Total 1000 / 1000 Balance 1000 / 1000 Weight last 48 hrs Weight 167 lb Physical Exam Const: COMMON NORMALS: no acute distress and patient oriented x3 Resp: EFFORT & INSPECTION: Yes abnormal respiratory pattern and Yes uses accessory muscles GI: COMMON NORMALS: Soft to palpation PALPATION: Yes Soft to palpation OTHER: Abdomen is distended but soft. Abdomen is focally tender to palpation in the RLQ of the abdomen. There is no rigidity or rebound tenderness. Equivocal Rovsing's sign. Neuro: COMMON NORMALS: patient oriented x3 Data 11/06/24 09:59 11/06/24 09:59 Micro: Microbiology 11/06/24 11:21 Blood Culture - Preliminary Blood SPECIMEN COLLECTED 11/06/24 09:59 Blood Culture - Preliminary Blood SPECIMEN COLLECTED A&P Assessment and plan 1. Acute appendicitis: -- Back in April of 2024, the patient had acute cholecystitis and due to comorbidities, nonoperative management was pursued. --With the patient's history of cardiomyopathy, mitral valve replacement x 2, FACUNDO on CKI, congestive heart failure chronic A-fib, LV EF of 35 to 40%, in situ pacemaker, orthopnea and dyspnea, chest congestion/chest pain, and review sent long infection treated by his PCP, I recommended cardiology consult and admission to the hospitalist team (CSU), to optimize the patient as much as possible prior to his surgery, as he has a very high risk of a cardiac event or lung complication, and even . This was discussed with the patient and the family members in detail. --Nonoperative management was also discussed with the patient and family members in detail, however due to the 1 cm appendicolith being in the neck of the appendix, he is at a higher risk for failure of nonoperative management. -- Plan for laparoscopic appendectomy, possible open appendectomy, possible bowel resection, possible ostomy creation, possible surgical drain placement. -- Risks included but were not limited to infection, bleeding, inadvertent injury to surrounding structures/bowel/organs, vascular injury, poor wound healing, hernia formation, postoperative abscess, need for surgical drain placement, heart or lung complications, need for ICU admission, possible returning from surgery mechanically ventilated and intubated, and even . -- Prior to the surgery, the surgery and what it would entail were discussed with the patient in detail, including the risks, benefits, and potential alternative treatment options. Risks included, but were not limited to infection, bleeding, injury to intraabdominal organs/bowel, hernia formation, postoperative abscess, need for placement of a surgical drain, need for further surgery or interventional radiology procedures, negative appendectomy, and heart or lung complications. All question were answered and the patient wished to proceed with surgery. 2. Leukocytosis: 3. LV dysfunction: 4. Thrombocytopenia: 5. FACUNDO (acute kidney injury): 6. Atrial fibrillation with RVR: 7. Chest pain: 8. Sepsis: 9. Systolic CHF, acute on chronic: 10. Dyspnea on exertion: 11. Atrial fibrillation: 12. Cardiomyopathy in disease classified elsewhere: 13. Shortness of breath: 14. Pacemaker: 15. H/O mitral valve replacement: PDMP PDMP Reviewed: Not Reviewed Coding Level of Care Code Acute Code for [facility] Diagnoses Acute appendicitis K35.80 Leukocytosis D72.829 LV dysfunction I51.9 Thrombocytopenia D69.6 FACUNDO (acute kidney injury) N17.9 Atrial fibrillation with RVR I48.91 Chest pain R07.9 Sepsis A41.9 Systolic CHF, acute on chronic I50.23 Dyspnea on exertion R06.09 Atrial fibrillation I48.91 Cardiomyopathy in disease classified elsewhere I43 Shortness of breath R06.02 Pacemaker Z95.0 H/O mitral valve replacement Z95.2
--- NOTE | 2024-11-06 13:54 | XRR_ITS ---
PROCEDURE INFORMATION: Exam: XR Chest Exam date and time: 11/06/2024 2:18 PM Age: 79 years old Clinical indication: Shortness of breath; Prior surgery; Surgery date: 6+ months; Surgery type: Pacemaker, valve replacements, RT shoulder replacement; Acute SOB; HX cardiac complications TECHNIQUE: Imaging protocol: Radiologic exam of the chest. Views: 1 view. COMPARISON: CR XR ribs LT mn 3V w [id number] 06/04/2024 12:20 PM FINDINGS: Tubes, catheters and devices: Status post median sternotomy with a single lead pacer. Lungs: Interstitial and ground-glass opacities in the lower lungs bilaterally are slightly increased. Pleural spaces: Unremarkable. No pleural effusion. No pneumothorax. Heart/Mediastinum: Moderate enlargement of the cardiac silhouette without change. Bones/joints: Unremarkable. XR/XR chest 1V portable [id number] IMPRESSION: Slight increase in bilateral pulmonary opacities. Cardiac silhouette enlargement again noted.
--- NOTE | 2024-11-06 14:02 | USCV_ITS ---
Chad Hoover Age: 79 Gender: M : 1945 Exam Date: 11/06/2024 16:53 Ordering Phys: Aaron Dave MD Technologist: Tima Bright [place]am [place] [facility] [place] Indication: acute on chronic chf BP: 103 / 49 HR: 98 Rhythm: Sinus Technical Quality: Adequate MEASUREMENTS (Male / Female) Normal Values 2D ECHO LV Diastolic Diameter PLAX 4.5 cm 4.2 - 5.9 / 3.9 - 5.3 cm IVS Diastolic Thickness 1.3 cm 0.6 - 1.0 / 0.6 - 0.9 cm IVS Systolic Thickness 1.3 cm LVPW Diastolic Thickness 1.1 cm 0.6 - 1.0 / 0.6 - 0.9 cm LVPW Systolic Thickness 1.8 cm LVOT Diameter 2.1 cm LV Ejection Fraction 2D Teich 42.4 % LV Ejection Fraction MOD 4C 45.8 % LV Ejection Fraction MOD 2C 49.5 % LV Ejection Fraction 2C AL 48.4 % LA Diameter 4.4 cm RA Systolic Volume 4C AL 79.0 ml RA Systolic Volume 4C MOD 78.9 ml LA Sys Volume AL 130.0 cm cubed LA Sys Volume Index AL 66.7 cm cubed/m squared Aorta at Sinotubular Diameter 2.8 cm IVC Diameter 3.0 cm M-MODE LA Ao Ratio MM 1.8 AV Cusp Separation MM 2.0 cm DOPPLER AV Peak Velocity 158.0 cm/s LVOT Peak Velocity 133.0 cm/s AV Area Cont Eq vti 3.3 cm squared AV Area Cont Eq pk 3.0 cm squared MV Peak Velocity 192.8 cm/s TV Peak Velocity 345.5 cm/s TR Peak Velocity 348.0 cm/s TR Peak Gradient 48.4 mmHg TR Mean Velocity 273.0 cm/s TR Mean Gradient 31.8 mmHg TR Velocity Time Integral 82.8 cm PV Peak Velocity 186.0 cm/s RV Ejection Time 0.3 s FINDINGS Left Ventricle Mildly increased left ventricular cavity size. Moderately decreased left ventricular systolic function. Left ventricular ejection fraction is estimated at 40-45 %. Global left ventricular hypokinesis. Grade III/IV diastolic dysfunction (restrictive filling pattern), severely elevated filling pressures. Right Ventricle Moderate pulmonary hypertension, RVSP 59 mmHg. Normal right ventricular systolic function. Normal right ventricular size. Right Atrium Moderately increased right atrial size. Left Atrium Moderately increased left atrial size. Mitral Valve Bio Prosthetic mitral valve mean gradient is 7.5 mmHg at a heart rate of 98 bpm. No valvular or paavalvular leak. Aortic Valve Mild aortic valve calcification. No aortic valve stenosis. Mild aortic valve regurgitation. Tricuspid Valve Pjdlsebs-jg-mcghnb tricuspid valve regurgitation. Pulmonic Valve Mild pulmonary valve regurgitation. Pericardium Normal pericardium without effusion. Aorta Normal ascending aorta dimension. IVC The inferior vena cava appears normal. CONCLUSIONS Mildly increased left ventricular cavity size. Moderately decreased left ventricular systolic function. Left ventricular ejection fraction is estimated at 40-45 %. Global left ventricular hypokinesis. Grade III/IV diastolic dysfunction (restrictive filling pattern), severely elevated filling pressures. Moderate pulmonary hypertension, RVSP 59 mmHg. Normal right ventricular systolic function. Normal right ventricular size. Moderately increased left atrial size. Bio Prosthetic mitral valve mean gradient is 7.5 mmHg at a heart rate of 98 bpm. No valvular or paavalvular leak. Mild aortic valve calcification. No aortic valve stenosis. Mild aortic valve regurgitation. Edpqiauy-ew-zinszo tricuspid valve regurgitation. There is no pericardial effusion. Right atrial pressure is around 10 mm of mercury. Guru Buckley MD (Electronically Signed) Final Date: 06 November 2024 18:31 S
--- NOTE | 2024-11-06 14:17 | PM.HP ---
Providers/Chief Complaint Admitting Physician: Aaron Dave MD Primary Care Provider: Nick Kamara DO Chief Complaint: Lower R ABD pain History of Present Illness history as per the patient and brief retrospect chart review: Chad Hoover is a 79 year old male with PMH of multiple comorbidities as mentioned below in the assessment, presented with acute abd pain since midnight that was 10/10 and associated with mild light headedness but no fever or chills, nausea or vomiting or any change in his bowel/urinary habits. he did not had such episodes in the past. he also complained on having chest pain and heaviness along with dyspnea on rest and exertion since few days. he uses one pillow at night and having orthopnea and PND. Also complained on feeling bloated in the last few days. he is compliant to his medications. no other drug, non smoker and non alcoholic. Review of Systems Const: Reports: change in sleep pattern (orthopnea and PND) Eyes: Reports: other (unremarkable) Card: Reports: chest pain, irregular heart rhythm, swelling of feet/ankles, lightheadedness, dyspnea on exertion and orthopnea Resp: Reports: dyspnea GI: Reports: abdominal pain (around the umbilicus and right lower quadrant. 1010 in intensity, ) Medications/Allergies Home Medications ?Medication ?Instructions ?Recorded ?Confirmed ?Last Taken ?Type ascorbic acid (vitamin C) 1,000 mg 2 gm PO DAILY 04/19/19 11/06/24 11/05/24 History tablet multivitamin 1 tab PO DAILY 09/19/21 11/06/24 11/05/24 History cholecalciferol (vitamin D3) 10 10 mcg PO DAILY 07/23/22 11/06/24 11/05/24 History mcg (400 unit) capsule fluticasone 500 mcg-salmeterol 50 1 inh inhalation BID 07/23/22 11/06/24 04/16/24 History mcg/dose blistr powdr for inhalation (Advair Diskus) vitamin B complex 1 cap PO BID 07/23/22 11/06/24 11/05/24 History magnesium oxide 500 mg PO DAILY 01/22/23 11/06/24 04/16/24 History furosemide 40 mg tablet (Lasix) 40 mg PO DAILY PRN edema #30 tabs 03/26/23 11/06/24 11/05/24 Rx acetaminophen 325 mg tablet 650 mg PO QID PRN Pain 04/17/24 11/06/24 Unknown History (Tylenol) albuterol sulfate 90 mcg/actuation 2 puff inhalation Q4H PRN 04/17/24 11/06/24 04/16/24 History aerosol inhaler Shortness Of Breath Or Wheezing turmeric 400 mg capsule 400 mg PO DAILY 04/17/24 11/06/24 04/16/24 History potassium chloride 20 mEq 20 meq PO DAILY PRN With Lasix 04/26/24 11/06/24 11/05/24 Rx tablet,extended release(part/cryst) therapy #30 tabs tamsulosin 0.4 mg capsule 0.4 mg PO DAILY 07/12/24 11/06/24 11/05/24 History basil leaf extract 450 mg capsule 450 mg PO DAILY 11/06/24 11/06/24 11/06/24 History budesonide 160 mcg-glycopyr 9 2 inh inhalation BID 11/06/24 11/06/24 Unknown History mcg-formot 4.8 mcg/actuation HFA inhaler (Breztri Aerosphere) diltiazem HCl 180 mg capsule,24 180 mg PO DAILY 11/06/24 11/06/24 11/05/24 History hr,extended release spironolactone 50 mg tablet 25 mg PO QAM 11/06/24 11/06/24 11/05/24 History Allergies Allergy/AdvReac Type Severity Reaction Status Date / Time oxycodone Allergy Severe other Verified 11/06/24 09:53 PFSH Acute PFSH: Medical History (Updated 11/06/24 @ 15:40 by Aaron Dave MD) Cardiac LV ejection fraction of 40-49% History of cataract 04/2022 Bilateral Hemolytic anemia Anemia Dyspnea on exertion Anticoagulant long-term use 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 He is taking some natural remedies. Shortness of breath Hypertension Mitral stenosis Mitral regurgitation Pulmonary hypertension Pacemaker Patient had the permanent pacer implantation in July 2016. Shoulder pain with history of repair of rotator cuff Surgical History (Updated 11/06/24 @ 15:13 by Eligio Ely M.D) Hx of shoulder surgery Hx of umbilical hernia repair Hx of thumb surgery History of permanent cardiac pacemaker placement H/O mitral valve replacement Patient had a initial mitral valve replacement by Dr. Acevedo in 2013. He developed a perivalvular leak for which he underwent redo surgery by Dr. Sutton Family History Mother Rheumatoid arthritis at age of 62 Grandmother Cancer Dementia Brother Diabetes Father Lung disease Family/Other Lung disease Denies family history of CAD (coronary artery disease) Clotting disorder Chronic kidney disease (CKD) Suicide Anesthesia complication Bleeding disorder Stroke Social History Smoking and tobacco/nicotine status: never used tobacco/nicotine Alcohol intake: never Substance/Drug Use: never Vitals/I&O/Wt Last Vital Signs Temp 97.5 F L 11/06/24 09:47 Pulse 95 11/06/24 13:44 Resp 16 11/06/24 13:44 BP 105/59 11/06/24 13:44 Pulse Ox 91 11/06/24 13:44 O2 Del Method Room Air 11/06/24 13:44 11/05/24 11/06/24 11/06/24 22:59 06:59 14:59 Intake Total 2550 / 2550 Balance 2550 / 2550 Weight last 48 hrs Weight 75.75 kg Physical Exam Const: GENERAL APPEARANCE: in distress and ill appearing Resp: EFFORT & INSPECTION: Yes abnormal respiratory pattern, Yes tachypneic, Yes respiratory distress and Yes uses accessory muscles AUSCULTATION: rales, bronchovesicular breath sounds bilateral and vesicular breath sounds (basal segments) bilateral (basal segments) Cardio: JUGULAR VENOUS DISTENTION: JVD RHYTHM: abnormal rhythm irregularly irregular HEART SOUNDS: Murmur heart sound present (near the precordium, however unable to comment due to tachypnea) systolic GI: PALPATION: Yes Tenderness to palpation present (GI) and Yes Guarding due to palpation present (GI) (right lower quadrant and para umbilics region) Extremity: OTHER: bilateral lower leg pitting edema upto knees Urinary Catheter Management: Nguyen: Cath Placed During This Visit: yes Urinary Catheter Date of Insertion: 11/06/24 Data 11/06/24 09:59 11/06/24 09:59 Micro: Microbiology 11/06/24 11:21 Blood Culture - Preliminary Blood SPECIMEN COLLECTED 11/06/24 09:59 Blood Culture - Preliminary Blood SPECIMEN COLLECTED CT Abd/Pel: I personally reviewed and interpreted this imaging study as follows: My impression: i agree with the acute appendicitis findings as mentioned below Radiologist's impression: Ill-defined thickened and enlarged appearance of the proximal appendix with appendicular with at the origin suggesting acute appendicitis EKG 1: I personally reviewed and interpreted this EKG as follows: (irregularly irregular rhythm on ekg and telemetry) A&P Assessment and plan 1. Sepsis: 2. Acute appendicitis: 3. Systolic CHF, acute on chronic: 4. Shortness of breath: 5. Chest pain: 6. FACUNDO (acute kidney injury): 7. Leukocytosis: 8. Atrial fibrillation with RVR: 9. Pacemaker: 10. H/O mitral valve replacement: 11. Anticoagulant long-term use: 12. Anemia: 13. Thrombocytopenia: 14. Goals of care, counseling/discussion: Plan: - escalate the antibiotics to meropenem 500mg r10cims based on the crcl of 30. and pharmacy reviewed requested in the order - hold fluids considering his fluid overload status, increased pro BNP and increased cardiac sillhoute on CXR - lasix 80mg stat and continue 40mg iv twice daily and titrate according to the BP, and hold if MAP below 65mmhg, measure I/O, folleys cath inserted. - cardiac and surgery consulted on board - Telemtery and trop series with EKG - adequate analgesia - oxygen supplementation with nasal canula to keep normal o2 range - VTE prophylaxis: bilateral compression devices I personally spoke to the cardiology and the general surgery at length to discuss patient plan of care patient will need frequent lab draws as he is on iv lasix and at risk of electrolytes imbalance induced arrythmias i personally viewed patient CXR, EKG, CT abd/pelvis and interpreted. I discussed with the nursing staff and goals of discussion with the patient and family, and proceeded with preference of full code. PDMP PDMP Reviewed: Not Reviewed Attestations Medical Necessity Statement*: he ll need greater than 2 midnight stays for managing his acute conditions and optimisation of health. Diagnoses Sepsis A41.9 Severe sepsis acute organ dysfunction type: acute renal failure Severe sepsis shock status: without septic shock Acute appendicitis K35.80 Systolic CHF, acute on chronic I50.23 Shortness of breath R06.02 Chest pain R07.9 FACUNDO (acute kidney injury) N17.9 Leukocytosis D72.829 Atrial fibrillation with RVR I48.91 Pacemaker Z95.0 H/O mitral valve replacement Z95.2 Anticoagulant long-term use Z79.01 Anemia D64.9 Thrombocytopenia D69.6 Goals of care, counseling/discussion Z71.89 Time Spent (min) 45
--- NOTE | 2024-11-06 14:30 | ECG_ITS ---
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1945 Requested By: Aaron Dave Order Number: [id number] Reading MD: SARA MARQUEZ Measurements Intervals [place] Rate: 106 P: 0 HI: 0 QRS: 122 QRSD: 118 T: -17 QT: 335 QTc: 445 Interpretive Statements ATRIAL FIBRILLATION WITH RAPID VENTRICULAR RESPONSE RIGHT AXIS DEVIATION [QRS AXIS > 100] PATTERN CONSISTENT WITH PULMONARY DISEASE SEPTAL MYOCARDIAL INFARCTION , OF INDETERMINATE AGE [40+ ms Q WAVE IN V1/V2] Compared to ECG 11/06/2024 14:29:17 Myocardial infarct finding now present Sinus tachycardia no longer present Ventricular premature complex(es) no longer present First degree AV block no longer present Atrial abnormality no longer present Intraventricular conduction delay no longer present Electronically Signed On 11-08-2024 13:57:50 CDT by SARA MARQUEZ [email or web address]
[2024-11-06 14:40] LABS: Troponin(5th) Baseline 62 ng/L (0-15)
--- NOTE | 2024-11-06 14:42 | PC.PHAR ---
Patient states he takes listed medications and fills at [facility] . I didn't see to many recent fill dates . Pharmacies were closed that were listed so i couldn't get a recent update .
[2024-11-06 14:49] LABS: Free T4 Free Thyroxine 0.98 ng/dL (0.82-1.77); NT Pro B Type Natriuretic Pept 2793 pg/mL (0-450); Thyroid Stimulating Hormone 4.84 uIU/mL (0.27-4.20)
--- NOTE | 2024-11-06 15:07 | PM.CONSULT ---
Providers/Reason For Consult Consulting Physician/Specialty*: Eligio Ely MD/ Cardiology Reason for Consult*: Pre operative optizmation Requesting Physician: Dr Castellon Attending Physician: Jia Castellon MD Primary Care Provider: Nick Kamara DO History of Present Illness History of Present Illness Chad Hoover is a 79 year old male with past medical history of atrial fibrillation, congestive heart failure with known EF of 35 to 40%, bioprosthetic mitral valve in place who has presented with chest pain and found to have acute appendicitis. Cardiology was consulted for cardiac optimization perioperatively. Patient has felt upper back discomfort recently. Also has chest discomfort. He is sitting up. However on questioning he says this is not secondary to breathing and it only helps his abdominal discomfort. He uses 1 pillow to sleep at night and the night before yesterday he slept in the bed with 1 pillow. EKG shows atrial fibrillation. No significant ST-T wave changes. Review of Systems Card: Reports: dyspnea on exertion Medications/Allergies Home Medications ?Medication ?Instructions ?Recorded ?Confirmed ?Last Taken ?Type ascorbic acid (vitamin C) 1,000 mg 2 gm PO DAILY 04/19/19 11/06/24 11/05/24 History tablet multivitamin 1 tab PO DAILY 09/19/21 11/06/24 11/05/24 History cholecalciferol (vitamin D3) 10 10 mcg PO DAILY 07/23/22 11/06/24 11/05/24 History mcg (400 unit) capsule fluticasone 500 mcg-salmeterol 50 1 inh inhalation BID 07/23/22 11/06/24 04/16/24 History mcg/dose blistr powdr for inhalation (Advair Diskus) vitamin B complex 1 cap PO BID 07/23/22 11/06/24 11/05/24 History magnesium oxide 500 mg PO DAILY 01/22/23 11/06/24 04/16/24 History furosemide 40 mg tablet (Lasix) 40 mg PO DAILY PRN edema #30 tabs 03/26/23 11/06/24 11/05/24 Rx acetaminophen 325 mg tablet 650 mg PO QID PRN Pain 04/17/24 11/06/24 Unknown History (Tylenol) albuterol sulfate 90 mcg/actuation 2 puff inhalation Q4H PRN 04/17/24 11/06/24 04/16/24 History aerosol inhaler Shortness Of Breath Or Wheezing turmeric 400 mg capsule 400 mg PO DAILY 04/17/24 11/06/24 04/16/24 History potassium chloride 20 mEq 20 meq PO DAILY PRN With Lasix 04/26/24 11/06/24 11/05/24 Rx tablet,extended release(part/cryst) therapy #30 tabs tamsulosin 0.4 mg capsule 0.4 mg PO DAILY 07/12/24 11/06/24 11/05/24 History basil leaf extract 450 mg capsule 450 mg PO DAILY 11/06/24 11/06/24 11/06/24 History budesonide 160 mcg-glycopyr 9 2 inh inhalation BID 11/06/24 11/06/24 Unknown History mcg-formot 4.8 mcg/actuation HFA inhaler (Breztri Aerosphere) diltiazem HCl 180 mg capsule,24 180 mg PO DAILY 11/06/24 11/06/24 11/05/24 History hr,extended release spironolactone 50 mg tablet 25 mg PO QAM 11/06/24 11/06/24 11/05/24 History Allergies Allergy/AdvReac Type Severity Reaction Status Date / Time oxycodone Allergy Severe other Verified 11/06/24 09:53 PFSH Acute PFSH: Medical History Cardiac LV ejection fraction of 40-49% History of cataract 04/2022 Bilateral Hemolytic anemia Anemia Dyspnea on exertion Anticoagulant long-term use 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 He is taking some natural remedies. Shortness of breath Hypertension Mitral stenosis Mitral regurgitation Pulmonary hypertension Pacemaker Patient had the permanent pacer implantation in July 2016. Shoulder pain with history of repair of rotator cuff Surgical History Hx of shoulder surgery Hx of umbilical hernia repair Hx of thumb surgery History of permanent cardiac pacemaker placement H/O mitral valve replacement Patient had a initial mitral valve replacement by Dr. Acevedo in 2013. He developed a perivalvular leak for which he underwent redo surgery by Dr. Sutton at the [facility] in [place] in October 2017. Most recent echocardiogram was done in April 2024. LV ejection fraction was 35 to 40%. Family History Mother Rheumatoid arthritis at age of 62 Grandmother Cancer Dementia Brother Diabetes Father Lung disease Family/Other Lung disease Denies family history of CAD (coronary artery disease) Clotting disorder Chronic kidney disease (CKD) Suicide Anesthesia complication Bleeding disorder Stroke Social History Smoking and tobacco/nicotine status: never used tobacco/nicotine Alcohol intake: never Substance/Drug Use: never Vitals/I&O/Wt Last Vital Signs Temp 97.5 F L 11/06/24 09:47 Pulse 109 H 11/06/24 14:41 Resp 18 11/06/24 14:41 BP 113/55 11/06/24 14:41 Pulse Ox 91 11/06/24 14:41 O2 Del Method Room Air 11/06/24 14:41 11/06/24 11/06/24 11/06/24 06:59 14:59 22:59 Intake Total 2550 / 2550 Balance 2550 / 2550 Weight last 48 hrs Weight 167 lb Physical Exam Narrative: GENERAL: Patient is alert, awake and oriented x3. [] NECK: No jugular vein distension. [] HEENT: No cyanosis. No icterus. No pallor. [] HEART: Irregularly irregular, grade 3/6 diastolic murmur LUNGS: Diminished air entry bilaterally CENTRAL NERVOUS SYSTEM: Grossly nonfocal. [] EXTREMITIES: Lower extremities with 1+ edema bilaterally Urinary Catheter Management: Nguyen: Cath Placed During This Visit: yes Urinary Catheter Date of Insertion: 11/06/24 Data 11/06/24 09:59 11/06/24 09:59 Micro: Microbiology 11/06/24 14:54 Blood Culture - Preliminary Blood SPECIMEN COLLECTED 11/06/24 14:50 Blood Culture - Preliminary Blood SPECIMEN COLLECTED 11/06/24 11:21 Blood Culture - Preliminary Blood SPECIMEN COLLECTED 11/06/24 09:59 Blood Culture - Preliminary Blood SPECIMEN COLLECTED A&P Assessment and plan 1. Atrial fibrillation: 2. H/O mitral valve replacement: 3. Pacemaker: 4. LV dysfunction: 5. Dyspnea on exertion: 6. Acute appendicitis: Plan: Patient has presented with acute appendicitis and needs emergent/urgent surgical intervention. He has some volume overload. Can give a dose of Lasix. We will repeat urgent echocardiogram. Obtain chest X ray. Obtain troponins and NT proBNP. If EF and valve is unchanged from before, can proceed with surgery which will have atleast moderate risk of perioperative cardiac event Thank you for involving us with care of this patient. We will continue to follow. Please call with questions. PDMP PDMP Reviewed: Not Reviewed Consult Attestations Medical Necessity Statement: Care expected to cross 2 midnights. Coding Level of Care Code Acute Code for [facility] Fwd Diagnoses Atrial fibrillation I48.91 H/O mitral valve replacement Z95.2 Pacemaker Z95.0 LV dysfunction I51.9 Dyspnea on exertion R06.09 Acute appendicitis K35.80
[2024-11-06] MEDS: FUROsemide 10 mg/mL SDV 10mL 80 MG IVP (15:16)
--- NOTE | 2024-11-06 16:03 | ECG_ITS ---
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1945 Requested By: Aaron Dave Order Number: [id number] Ad MD: SARA MARQUEZ Measurements Intervals [place] Rate: 108 P: -37 CO: 247 QRS: 110 QRSD: 210 T: 156 QT: 299 QTc: 402 Interpretive Statements ATRIAL FIBRILLATION RIGHT ATRIAL ENLARGEMENT [0.3mV P-WAVE] RIGHT AXIS DEVIATION [QRS AXIS > 100] INTRAVENTRICULAR CONDUCTION DELAY [130+ ms QRS DURATION] Compared to ECG 11/06/2024 12:56:14 Ventricular premature complex(es) now present no sig change Electronically Signed On 11-08-2024 14:08:44 CDT by SARA MARQUEZ [id number]
[2024-11-06 16:35] LABS: Troponin 5 2HR 61.91 ng/L (0-15)
[2024-11-06] MEDS: alum-mag-hydroxide-sime 30 mL UDC 15 ML PO (16:41)
[2024-11-06 16:56] LABS: Troponin 5 2HR Delta -0.09 ABS# (0-10)
--- NOTE | 2024-11-06 19:00 | ANES.PREANE2 ---
Pre-Anesthetic Assessment Height/Weight: Height 1.8 m Weight 60.917 kg Temp Pulse Resp BP Pulse Ox O2 Del Method O2 Flow Rate 98.9 F 129 H 20 H 106/54 94 Room Air 0.5 11/06/24 19:10 11/06/24 19:10 11/06/24 19:10 11/06/24 19:10 11/06/24 19:10 11/06/24 19:10 11/06/24 16:29 Operation Date: 11/06/24 18:40 Proposed Procedures p Appendectomy(Not Applicable) - Risa Urban MD Familial anesthetic complications: Noen Was Beta Anjelica taken within 24 hours: N/A Was Clonidine taken within 24 hours: N/A Last intake: > 8 hrs Social No alcohol and No tobacco Exam alert, oriented x 3, clear to auscultation bilaterally and regular rate & rhythm Airway Mallampati: Class I Dentition: full Pulmonary pneumonia CV/HEM Atrial Fibrillation and Congestive Heart Failure Pacemaker Ef 35% Mitral valve replacement Anesthetic Plan ASA status: 4E Anesthesia: General Other: Discussed patient's higher risk for perioperative cardiovascular complications with patient and family Risk of > 500 ml blood loss (7ml/kg in children): No Medications/Allergies Home Medications ?Medication ?Instructions ?Recorded ?Confirmed ?Last Taken ?Type ascorbic acid (vitamin C) 1,000 mg 2 gm PO DAILY 04/19/19 11/06/24 11/05/24 History tablet multivitamin 1 tab PO DAILY 09/19/21 11/06/24 11/05/24 History cholecalciferol (vitamin D3) 10 10 mcg PO DAILY 07/23/22 11/06/24 11/05/24 History mcg (400 unit) capsule fluticasone 500 mcg-salmeterol 50 1 inh inhalation BID 07/23/22 11/06/24 04/16/24 History mcg/dose blistr powdr for inhalation (Advair Diskus) vitamin B complex 1 cap PO BID 07/23/22 11/06/24 11/05/24 History magnesium oxide 500 mg PO DAILY 01/22/23 11/06/24 04/16/24 History furosemide 40 mg tablet (Lasix) 40 mg PO DAILY PRN edema #30 tabs 03/26/23 11/06/24 11/05/24 Rx acetaminophen 325 mg tablet 650 mg PO QID PRN Pain 04/17/24 11/06/24 Unknown History (Tylenol) albuterol sulfate 90 mcg/actuation 2 puff inhalation Q4H PRN 04/17/24 11/06/24 04/16/24 History aerosol inhaler Shortness Of Breath Or Wheezing turmeric 400 mg capsule 400 mg PO DAILY 04/17/24 11/06/24 04/16/24 History potassium chloride 20 mEq 20 meq PO DAILY PRN With Lasix 04/26/24 11/06/24 11/05/24 Rx tablet,extended release(part/cryst) therapy #30 tabs tamsulosin 0.4 mg capsule 0.4 mg PO DAILY 07/12/24 11/06/24 11/05/24 History basil leaf extract 450 mg capsule 450 mg PO DAILY 11/06/24 11/06/24 11/06/24 History budesonide 160 mcg-glycopyr 9 2 inh inhalation BID 11/06/24 11/06/24 Unknown History mcg-formot 4.8 mcg/actuation HFA inhaler (Breztri Aerosphere) diltiazem HCl 180 mg capsule,24 180 mg PO DAILY 11/06/24 11/06/24 11/05/24 History hr,extended release spironolactone 50 mg tablet 25 mg PO QAM 11/06/24 11/06/24 11/05/24 History Allergies Allergy/AdvReac Type Severity Reaction Status Date / Time oxycodone Allergy Severe other Verified 11/06/24 09:53 Current Medications Generic Name Dose Route Start Last Admin Trade Name Freq PRN Reason Stop Dose Admin Al Hydrox/Mg Hydrox/Simethicone 15 ml 11/06/24 13:54 11/06/24 16:41 Orhh-Icg-Gaukvaspi-Suyapa 30 Ml Udc PO 15 ml Q6H PRN Administration INDIGESTION Famotidine 20 mg 11/06/24 14:00 11/06/24 15:16 Famotidine 20 Mg/2 Ml Inj IVP 20 mg Q12H JOSE ARMANDO Administration Furosemide 40 mg 11/06/24 16:45 11/06/24 17:17 Furosemide 10 Mg/Ml Sdv 4ml IVP Not Given Q12H JOSE ARMANDO Meropenem 500 mg 11/06/24 15:15 11/06/24 15:53 Meropenem 500 Mg Sdv IVP 500 mg Q12H JOSE ARMANDO Administration Protocol [facility] Medical History (Updated 11/06/24 @ 15:40 by Aaron Dave MD) Cardiac LV ejection fraction of 40-49% History of cataract 04/2022 Bilateral Hemolytic anemia Anemia Dyspnea on exertion Anticoagulant long-term use 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 He is taking some natural remedies. Shortness of breath Hypertension Mitral stenosis Mitral regurgitation Pulmonary hypertension Pacemaker Patient had the permanent pacer implantation in July 2016. Shoulder pain with history of repair of rotator cuff Surgical History (Updated 11/06/24 @ 15:13 by Eligio Ely M.D) Hx of shoulder surgery Hx of umbilical hernia repair Hx of thumb surgery History of permanent cardiac pacemaker placement H/O mitral valve replacement Patient had a initial mitral valve replacement by Dr. Acevedo in 2013. He developed a perivalvular leak for which he underwent redo surgery by Dr. Sutton Family History Mother Rheumatoid arthritis at age of 62 Grandmother Cancer Dementia Brother Diabetes Father Lung disease Family/Other Lung disease Denies family history of CAD (coronary artery disease) Clotting disorder Chronic kidney disease (CKD) Suicide Anesthesia complication Bleeding disorder Stroke Social History Smoking and tobacco/nicotine status: never used tobacco/nicotine Alcohol intake: never Substance/Drug Use: never Data Anesthesia 11/06/24 09:59 11/06/24 09:59 Short CBC 11/06/24 Range/Units 09:59 WBC 26.73 H (3.29-11.43) 10^3/uL Hgb 11.40 (11.27-16.99) g/dL Hct 36.0 L (37-53) % MCV 100.0 (82-101) fl Plt Count 94 L (157-399) 10^3/cmm BMP 11/06/24 09:59 Sodium 136 Potassium 4.3 Chloride 100 Carbon Dioxide 23 BUN 48 H Creatinine 2.1 H Glucose 118 H Calcium 9.6 Cardiac Enzymes 11/06/24 11/06/24 11/06/24 Range/Units 09:59 14:13 15:52 Troponin T Baseline 62 H (0-15) ng/L Troponin T 120 Minute 61.91 H (0-15) ng/L Delta Troponin T -0.09 L (0-10) ABS# NT-Pro-B Natriuret Pep 2793 H (0-450) pg/mL Liver Function 11/06/24 Range/Units 09:59 Total Bilirubin 2.5 H (0.15-1.2) mg/dL AST 25 (0-40) U/L ALT 12 (0-41) U/L Alkaline Phosphatase 95 (40-130) U/L Albumin 4.4 (3.5-5.2) g/dL Coags 11/06/24 09:59 PT 14.90 INR 1.09 C-Reactive Protein 59.0 H Microbiology 11/06/24 14:54 Blood Culture - Preliminary Blood SPECIMEN COLLECTED 11/06/24 14:50 Blood Culture - Preliminary Blood SPECIMEN COLLECTED 11/06/24 11:21 Blood Culture - Preliminary Blood SPECIMEN COLLECTED 11/06/24 09:59 Blood Culture - Preliminary Blood SPECIMEN COLLECTED Cardiac Studies: Echocardiogram Today Echocardiogram Limited Views 04/17/24 Echocardiogram Ultrasound 04/27/19
[2024-11-06] MEDS: ceFAZolin 2,000 mg SDV 2000 MG IVP (19:25)
[2024-11-06 19:40] LABS: Hematocrit 33.8 % (37-53); Hemoglobin 10.10 g/dL (11.27-16.99); Mean Corpuscular HGB Conc 29.9 g/dL (30-55); Mean Corpuscular Hemoglobin 32.5 pg (27-33); Mean Corpuscular Volume 108.7 fl (82-101); Platelet Count 89 10^3/cmm (157-399); Red Blood Count 3.11 10^6/uL (3.85-5.65)
[2024-11-06] MEDS: BUPivacaine 0.25% INJ 30 mL INJECTION (19:45)
[2024-11-06] MEDS: lidocaine-epi 1% PF 1:200,000 30 mL SDV INJECTION ×2 (19:45→19:46)
[2024-11-06 20:01] LABS: Troponin 5 6HR 67.12 ng/L (0-15); Troponin 5 6HR Delta 5.12 ng/L (0-12)
[2024-11-06 20:06] LABS: Absolute Segmented Neutrophil 24.8 10/cmm (1.6-7.1); Atypical Lymphs 0.0 % (0-5); Band Neutrophils Absolute 0.7 10^3/cmm (0.0-1.2); Slide Review Slide Review Perform; Total Cells Counted 100 (0-100)
[2024-11-06 20:08] LABS: White Blood Count 35.45 10^3/uL (3.29-11.43)
--- NOTE | 2024-11-06 21:05 | ANE.PACU2 ---
Inpatient post-anesthesia follow up: Airway intact: Yes Vital signs: Temperature 98.3 F Pulse Rate 69 Respiratory Rate 17 Blood Pressure 97/65 Pulse Oximetry 100 Oxygen Delivery Me thod Room Air Oxygen Flow Rate 3 Fraction of Inspir ed Oxygen Hydration adequate: Yes Nausea and vomiting: No Pain level: 1 Mental status: Baseline
--- NOTE | 2024-11-06 21:17 | PC.NURSE ---
2100-Dr. Baum states she would like patient to go to ICU. Head Of Physics notified.
--- NOTE | 2024-11-06 21:18 | PC.NURSE ---
2104 - Report called to Valerie and patient taken to ICU 3 via guerny accompanied by anesthesia. Family brought to waiting room with all personal belongings.
--- NOTE | 2024-11-06 21:30 | P.OP_ITS ---
Operative Report Date of procedure: November 06, 2024 Pre-op diagnosis: Acute appendicitis Large approximately 1 cm appendicolith at the origin per CT Post-op diagnosis: Acute appendicitis with wall-thickening, focal necrosis and adjacent inflammatory phlegmon Procedure done: Laparoscopic appendectomy Specimens removed/disposition: Appendix Pathology: Appendix sent for histopathologic examination Surgeon: Risa Urban MD Estimated blood loss: Less than 1 cc, minimal Complications: None apparent Findings: An acutely inflamed appendix was present. It was dilated, edematous, and erythematous. The more proximal portion of the appendix was peraza?polanco in color and markedly dilated, with what appeared to be a very thickened appendiceal wall. There was some inflammatory phlegmon in the right lower quadrant of the abdomen. The inflammatory phlegmon was located adjacent to the more proximal portion (the most diseased/inflamed portion) of the appendix. The appendix was tense and inflamed and it appeared to be on the verge of perforation. It did not, however, appear to be perforated and there was no purulent fluid in the right lower quadrant of the abdomen or the pelvis. The visualized portions of the gallbladder were normal in appearance, with a light peraza?blue serosa. The liver was enlarged and had a mottled appearance to it surface. There were some omental adhesions to the anterior abdominal wall in the epigastric region, consistent with the patient's stated history of possibly a ventral or umbilical hernia repair in the remote past (he was unsure of the details and was not sure if mesh was used in the repair). Procedure: Prior to the surgery, the surgery and what it would entail were discussed with the patient in detail, including the risk, benefits, and potential alternative treatment options. Risks included but were not limited to infection, bleeding, inadvertent injury to surrounding structures/bowel/organs, vascular injury, poor wound healing, hernia formation, postoperative abscess, need for surgical drain placement, heart or lung complications, need for further surgery or interventional radiology procedures, negative appendect, need for ICU admission, possible returning from surgery mechanically ventilated and intubated, and even . All question were answered and the patient wished to proceed with surgery. After informed consent was obtained, the patient was brought back to the opera tive suite and placed in a supine position. General anesthesia and endotracheal intubation were accomplished by the anesthesiologist per anesthesia protocol. The abdomen was prepped and draped in the usual sterile fashion. A timeout verifying the correct patient, procedure to be performed, surgeon, patient medication allergies and preoperative antibiotics was performed. Local anesthetic was infiltrated within the skin and subcutaneous tissues at each incision site prior to making the incisions. An incision was made at Storm's point (due to history of previous ventral hernia repair) with a #11 scalpel blade. Utilizing visual entry technique with a 5 mm trocar/port in the 0 degree laparoscope, the abdomen was entered visualizing all abdominal planes upon insertion, while elevating the abdominal wall. The abdomen was insufflated with sterile carbon dioxide gas to 15 mmHg. No intra-abdominal injury was noted upon visualization. There was a period of time during the operation when the insufflation was decreased to 12 mmHg, which was more well-tolerated by the patient than the 15 mmHg insufflation. An additional 5 mm working port was placed in the suprapubic region under direct visualization, as well as a 12 mm port in the left lower quadrant was placed under direct visualization. The abdomen was inspected laparoscopically, including the right upper quadrant, left upper quadrant, right lower quadrant, left lower quadrant and pelvis with the findings described above. The laparoscope was changed to a 30 degree laparoscope. The appendix was identified and elevated. The inflammatory adhesions were bluntly dissected with a laparoscopic Kitner. Utilizing blunt dissection a window was made in the bloodless fold of Treves. The mesoappendix was divided with the laparoscopic LigaSure [place]/sealer/divider until the base of the appendix was reached. Utilizing a 45 mm laparoscopic linear stapler with a blue load, the appendix was divided at its base. There was no bleeding or leak noted at the staple line. The appendix was placed in a laparoscopic Endo Catch bag and removed through the left lower quadrant 12 mm port site. The inflammatory phlegmon that was located in the right lower quadrant was suctioned. The right lower quadrant was sequentially-repeatedly irrigated with a small amounts of warm sterile saline followed by aspirating the small amounts of irrigant. The pelvis was irrigated and the fluid was aspirated in a similar fashion. The aspirated fluid remained clear the entire time. A total of 2 L of warm sterile saline was utilized. The staple line was again examined, and and there was no leak or bleeding noted. All sponge, needle, and instrument counts were noted to be correct. The fascia at the 12 mm port site in the left lower quadrant of the abdomen was closed under direct visualization with an 0 Vicryl suture utilizing a Jeff-Sully suture passer. Each incision site was irrigated with warm sterile saline. The skin edges of each incision were reapproximated with 4-0 Monocryl suture. Dermabond skin glue was placed over top of each incision site. The patient tolerated the procedure well was extubated. Due to the patient's previously noted comorbidities, and cardiac risk, the patient was transferred to the ICU. He was in stable and satisfactory condition. Anesthesia noted that the patient required a small amount of pressors and was febrile during surgery. Postoperative plan: Continue meropenem Overnight hospitalist was notified about the particulars of the patient Serial abdominal exams and watchful waiting Incentive spirometry Ambulate Clear liquid diet as tolerated (patient is at high risk of developing a postoperative ileus) DVT prophylaxis - mechanical and chemical (if indicated) Physical therapy Medical management per the primary team
--- NOTE | 2024-11-06 21:34 | PC.RESP ---
ekg from 2002 not done, patient not in room is currently in surgery per nursing staff.
[2024-11-06] MEDS: norepinephrine 4 MG/250 ML BAG 7.5 MG IV ×2 (21:37→21:40)
[2024-11-06] MEDS: acetaminophen 1,000 MG/100 ML PIGGYBACK 400 MG IV (23:15)
[2024-11-07] VITALS (66 sets, daily range): BP systolic 66–122; BP diastolic 36–69; PULSE 67–91; RESP 15–25; TEMP 36.5–36.8; O2SAT 76–100
[2024-11-07 04:02] LABS: Hematocrit 37.0 % (37-53); Hemoglobin 10.90 g/dL (11.27-16.99); Mean Corpuscular HGB Conc 29.5 g/dL (30-55); Mean Corpuscular Hemoglobin 32.0 pg (27-33); Mean Corpuscular Volume 108.5 fl (82-101); Platelet Count 100 10^3/cmm (157-399); Red Blood Count 3.41 10^6/uL (3.85-5.65)
[2024-11-07 04:19] LABS: Alanine Aminotransferase 16 U/L (0-41); Albumin Level 3.7 g/dL (3.5-5.2); Alkaline Phosphatase 84 U/L (40-130); Anion Gap 18.8 (5-19); Aspartate Amino Transferase 32 U/L (0-40); Blood Urea Nitrogen 48 mg/dL (8-23); Calcium 8.1 mg/dL (8.5-10.5); Carbon Dioxide 18 mmol/L (22-29); Chloride 103 mmol/L (98-107); Creatinine Clr Calc Pharmacy 20.7992; Globulin 2.9 g/dL (1.3-4.6); Glucose 135 mg/dL (65-115); Magnesium 2.2 mg/dL (1.7-2.3); Osmolality Calculated 295 mOsm/kg (285-295); Potassium 4.8 mmol/L (3.5-5.1); Sodium 135 mmol/L (136-145); Total Protein 6.6 g/dL (6.6-8.7)
[2024-11-07] MEDS: acetaminophen 1,000 MG/100 ML PIGGYBACK 400 MG IV ×2 (04:21→15:33)
[2024-11-07 04:25] LABS: White Blood Count 36.71 10^3/uL (3.29-11.43)
[2024-11-07 04:56] LABS: Slide Review Slide Review Perform
[2024-11-07 04:58] LABS: Absolute Segmented Neutrophil 30.5 10/cmm (1.6-7.1); Atypical Lymphs 1.0 % (0-5); Band Neutrophils Absolute 1.8 10^3/cmm (0.0-1.2); Total Cells Counted 100 (0-100)
[2024-11-07 04:59] LABS: Burr Cells 1+; Giant Platelets Trace; Macrocytosis 2+
[2024-11-07] MEDS: FUROsemide 10 mg/mL SDV 4mL 40 MG IVP (05:28)
[2024-11-07] MEDS: norepinephrine 4 MG/250 ML BAG 30 MG IV (05:53)
--- NOTE | 2024-11-07 05:54 | ECG_ITS ---
[employer] Test Date: 2024-11-07 Pat Name: Chad Hoover Department: Room: 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
--- NOTE | 2024-11-07 08:35 | P.PN_ITS ---
Subjective 2 Subjective: Patient has status post appendectomy. He is feeling well. Requiring low-dose Levophed. Vitals/I&O/Wt Last Vital Signs Temp 97.7 F 11/07/24 05:46 Pulse 86 11/07/24 08:26 Resp 16 11/07/24 08:26 BP 117/69 11/07/24 05:46 Pulse Ox 97 11/07/24 08:26 O2 Del Method Nasal Cannula 11/07/24 08:26 O2 Flow Rate 2 11/07/24 08:26 11/06/24 11/07/24 11/07/24 22:59 06:59 14:59 Intake Total 93.250 / 2643.250 397.625 / 3040.875 26.625 / 26.625 Output Total 1440 / 1440 Balance -1346.750 / 1203.250 397.625 / 1600.875 26.625 / 26.625 Weight last 48 hrs Weight 178 lb 9.191 oz Weight 178 lb 9.191 oz Weight 134 lb 4.8 oz Weight 167 lb Physical Exam 2 Narrative: GENERAL: Patient is alert, awake and oriented x3. [] NECK: No jugular vein distension. [] HEENT: No cyanosis. No icterus. No pallor. [] HEART: Irregularly irregular, grade 3/6 diastolic murmur LUNGS: Diminished air entry bilaterally CENTRAL NERVOUS SYSTEM: Grossly nonfocal. [] EXTREMITIES: Lower extremities with 1+ edema bilaterally Urinary Catheter Management: Nguyen: Cath Placed During This Visit: yes Reason for Continuing Indwelling Catheter: Accurate Measurement of Urinary Output in Critically Ill Patients Urinary Catheter Date of Insertion: 11/06/24 Data 11/08/24 05:20 11/08/24 05:20 Micro: Microbiology 11/06/24 14:54 Blood Culture - Preliminary Blood SPECIMEN COLLECTED 11/06/24 14:50 Blood Culture - Preliminary Blood SPECIMEN COLLECTED 11/06/24 11:21 Blood Culture - Preliminary Blood SPECIMEN COLLECTED 11/06/24 09:59 Blood Culture - Preliminary Blood SPECIMEN COLLECTED A&P Assessment and plan 1. Atrial fibrillation: 2. H/O mitral valve replacement: 3. Pacemaker: 4. LV dysfunction: 5. Dyspnea on exertion: 6. Acute appendicitis: Plan: Will hold Lasix for now. Continue Levophed to maintain MAP above 65mmHg. Thank you for involving us with care of this patient. We will continue to follow. Please call with questions. PDMP PDMP Reviewed: Not Reviewed Attestations 2 Medical Necessity Statement*: Care expected to cross 2 midnights. Coding Level of Care Code Acute Code for g Fwd Diagnoses Atrial fibrillation I48.91 H/O mitral valve replacement Z95.2 Pacemaker Z95.0 LV dysfunction I51.9 Dyspnea on exertion R06.09 Acute appendicitis K35.80
--- NOTE | 2024-11-07 10:52 | P.PN_ITS ---
Subjective 2 Subjective: The patient was seen and evaluated bedside this morning. Levophed was utilized by the hospitalist last night, however he has maintained maps greater than 65. He is doing great, and is asking for food. He denied nausea, vomiting, or abdominal distention. His abdominal pain has completely resolved. The patient is passing flatus, but has not yet had a bowel movement. He has been using his incentive spirometer and achieved 2500 cc with effort. He is already sitting up in the chair. Vitals/I&O/Wt Last Vital Signs Temp 97.7 F 11/07/24 05:46 Pulse 86 11/07/24 08:26 Resp 16 11/07/24 08:26 BP 117/69 11/07/24 05:46 Pulse Ox 97 11/07/24 08:26 O2 Del Method Nasal Cannula 11/07/24 08:26 O2 Flow Rate 2 11/07/24 08:26 11/06/24 11/07/24 11/07/24 22:59 06:59 14:59 Intake Total 93.250 / 2643.250 397.625 / 3040.875 34.500 / 34.500 Output Total 1440 / 1440 Balance -1346.750 / 1203.250 397.625 / 1600.875 34.500 / 34.500 Weight last 48 hrs Weight 178 lb 9.191 oz Weight 178 lb 9.191 oz Weight 134 lb 4.8 oz Weight 167 lb Physical Exam 2 Const: COMMON NORMALS: no acute distress, patient oriented x3, alert and well nourished Chest: COMMONS NORMALS: normal inspection of the chest Resp: COMMON NORMALS: normal respiratory effort and No use of accessory muscles OTHER: 2 L supplemental oxygen via nasal cannul a. GI: COMMON NORMALS: Soft to palpation and non-tender PALPATION: Yes Soft to palpation OTHER: Laparoscopic incisions x 3 - clean, dry, intact. No ecchymosis, no erythema, and no exudate. No rebound tenderness or rigidity. No abdominal distention. Neuro: COMMON NORMALS: patient oriented x3 SENSORIUM/ORIENTATION: Yes alert Psych: COMMON NORMALS: mental status grossly normal, Normal thought process present, cooperative and speech normal SPEECH: Yes normal speech THOUGHT PROCESS: Normal thought process present Urinary Catheter Management: Nguyen: Cath Placed During This Visit: yes Reason for Continuing Indwelling Catheter: Accurate Measurement of Urinary Output in Critically Ill Patients Urinary Catheter Date of Insertion: 11/06/24 Data 11/07/24 03:35 11/07/24 03:35 Micro: Microbiology 11/06/24 09:59 Blood Culture - Preliminary Blood NEGATIVE TO DATE 11/06/24 14:54 Blood Culture - Preliminary Blood SPECIMEN COLLECTED 11/06/24 14:50 Blood Culture - Preliminary Blood SPECIMEN COLLECTED 11/06/24 11:21 Blood Culture - Preliminary Blood SPECIMEN COLLECTED A&P Assessment and plan 1. Acute appendicitis: -- Back in April of 2024, the patient had acute cholecystitis and due to comorbidities, nonoperative management was pursued and was successful. --With the patient's history of cardiomyopathy, mitral valve replacement x 2, FACUNDO on CKI, congestive heart failure chronic A-fib, LV EF of 35 to 40%, in situ pacemaker, orthopnea and dyspnea, chest congestion/chest pain, and review sent long infection treated by his PCP, I recommended cardiology consult and admission to the hospitalist team (CS[facility]), to optimize the patient as much as possible prior to his surgery, as he has a very high risk of a cardiac event or lung complication, and even . This was discussed with the patient and the family members in detail. --Nonoperative management was also discussed with the patient and family members in detail, however due to the 1 cm appendicolith being in the neck of the appendix, he is at a higher risk for failure of nonoperative management. -- Risks included but were not limited to infection, bleeding, inadvertent injury to surrounding structures/bowel/organs, vascular injury, poor wound healing, hernia formation, postoperative abscess, need for surgical drain placement, heart or lung complications, need for ICU admission, possible returning from surgery mechanically ventilated and intubated, injury to intraabdominal organs/bowel, hernia formation, postoperative abscess, need for placement of a surgical drain, need for further surgery or interventional radiology procedures, negative appendectomy, and heart or lung complications. All question were answered and the patient wished to proceed with surgery. Status post laparoscopic appendectomy on November 06, 2024: Diagnosis: Acute appendicitis with wall-thickening, focal necrosis and adjacent inflammatory phlegmon --Continue IV antibiotics, recommend continuing meropenem -- Persistent markedly elevated leukocytosis, discussed with hospitalist, possibly reactive status postsurgery or persistent bilateral infiltrates/opacities seen on chest x-ray and history of lung infection 2 weeks ago. Still requiring just 2 L supplemental oxygen via nasal cannula. -- Discussed with patient, the discontinuation of the Nguyen catheter. However, the patient stated that he has had extreme discomfort with replacement of a Nguyen catheter when he was unable to void during previous hospital admissions. We will allow him to keep the Nguyen catheter for 1 more night to assess volume status and we will plan to remove it tomorrow morning. -- Abdominal exam benign. Advance to a full liquid diet for lunch, and possibly a regular diet for dinner. -- Ambulate 3 times daily - await complete return of bowel function, he is now passing flatus -- PT eval and treat -- Incentive spirometry 10X every hour while awake -- May start chemical DVT prophylaxis of subcu heparin Discussed case with the hospitalist, he is ordered a repeat lactate, chest x- ray, and has a plan to hold Lasix today. -- Of note, this patient has never had a colonoscopy. I would definitely recommend a screening colonoscopy in the outpatient/elective setting several weeks after discharge. 2. Leukocytosis: 3. LV dysfunction: 4. Thrombocytopenia: 5. FACUNDO (acute kidney injury): 6. Atrial fibrillation with RVR: 7. Chest pain: 8. Sepsis: 9. Systolic CHF, acute on chronic: 10. Dyspnea on exertion: 11. Atrial fibrillation: 12. Cardiomyopathy in disease classified elsewhere: 13. Shortness of breath: 14. Pacemaker: 15. H/O mitral valve replacement: PDMP PDMP Reviewed: Not Reviewed Attestations 2 Medical Necessity Statement*: IV antibiotics, monitoring of I's and O's, monitoring vital signs. Coding Level of Care Code Acute Code for [facility] Diagnoses Acute appendicitis K35.80 Leukocytosis D72.829 LV dysfunction I51.9 Thrombocytopenia D69.6 FACUNDO (acute kidney injury) N17.9 Atrial fibrillation with RVR I48.91 Chest pain R07.9 Sepsis A41.9 Systolic CHF, acute on chronic I50.23 Dyspnea on exertion R06.09 Atrial fibrillation I48.91 Cardiomyopathy in disease classified elsewhere I43 Shortness of breath R06.02 Pacemaker Z95.0 H/O mitral valve replacement Z95.2
--- NOTE | 2024-11-07 12:19 | PM.PN ---
Subjective Subjective: the patient was seen today at the beside on nasal canula at 3L/min maintaining normal o2 sats, normal RR, no abd distention, passing gas, no nausea or vomiting. no fever spikes. the patient had one reading of MAP below 65mmhg overnight and was started on NE infusion, currently at 4mics, doing well. no acute concerns as per the patient or family and feels much better than the yesterday Vitals/I&O/Wt Last Vital Signs Temp 98 F 11/07/24 07:30 Pulse 70 11/07/24 10:45 Resp 16 11/07/24 10:45 BP 99/56 11/07/24 10:45 Pulse Ox 98 11/07/24 10:45 O2 Del Method Nasal Cannula 11/07/24 10:45 O2 Flow Rate 3 11/07/24 10:45 11/06/24 11/07/24 11/07/24 22:59 06:59 14:59 Intake Total 93.250 / 2643.250 397.625 / 3040.875 711.250 / 711.250 Output Total 1440 / 1440 Balance -1346.750 / 1203.250 397.625 / 1600.875 711.250 / 711.250 Weight last 48 hrs Weight 81 kg Weight 81 kg Weight 60.917 kg Weight 75.75 kg Physical Exam Narrative: the patient was seen on o2 supplementation through nasal canula 3l/min, saturating above 94%, RR around 18-22, not in distress, looking comfortable, oriented in time place and person, talking in full sentences and looks well perfused. no skin mottling appreciated, capillary refill normal RESP: normal vesicular breathing and no added sounds, mild reduced air entry at the bases. no wheezes or rales Cardio: ejection systolic murmur at the precordium grade 2, no other added murmurs or cardiac sounds GI: mild abd distention, well healed scars of laproscopic intervention no organomegaly, mild tympanic abd on percussion, normal bowel sounds : on folleys catheter, producing urine Extremity: mild bilateral pedal edema, better than yesterday, no skin mottling or any livedo reticularis Neuro: GCS: 15/15, oriented to time place and person. unremarkable exam Urinary Catheter Management: Nguyen: Cath Placed During This Visit: yes Reason for Continuing Indwelling Catheter: Accurate Measurement of Urinary Output in Critically Ill Patients Urinary Catheter Date of Insertion: 11/06/24 Data 11/07/24 03:35 11/07/24 03:35 Micro: Microbiology 11/06/24 11:21 Blood Culture - Preliminary Blood NEGATIVE TO DATE 11/06/24 09:59 Blood Culture - Preliminary Blood NEGATIVE TO DATE 11/06/24 14:54 Blood Culture - Preliminary Blood SPECIMEN COLLECTED 11/06/24 14:50 Blood Culture - Preliminary Blood SPECIMEN COLLECTED CXR: My impression: I have reviewed the CXR and having bibasal consolidations Radiologist's impression: agreed with the radio impression A&P Assessment and plan 1. Sepsis: today capillary refill improved and normal, no obvious skin mottling observed, on folleys catheter producing urine marked leukocytosis ~35k, requiring O2 requirement 3L still having having FACUNDO on top of CKD, acute on chronic CHF resolved NE infusion running overnight due to low MAP reading, Plan: 2 sets of blood culture did not show any remarkable results yet continue meropenem based on renal parameters, dose adjusted repeat lactate and CXR hold lasix for the moment monitor vitals q2hrly monitor for encephalopathy maintain MAP above 65mmhg o2 supplementation to keep the o2 above 94% 2. Acute respiratory failure with hypoxemia: patient is euvolemic, however requires O2 through nasal canula 3L/min. to wean him off oxygen. possible previous pneumonia or post surgery that needed incentive spirometry and PT/OT contributing to the hypoxemia 3. Acute appendicitis: underwent lap removal of the acute appendicitis, start clear fluid diet and proceed as tolerated incentive spirometry bed to chair and continue with the OT/PT continue on meropenem renal adjusted dose monitor for intake and output 4. BPH (benign prostatic hyperplasia): patient is taking tamsulosin and is having active symptoms before the time of admission as well. on folleys catheter and hold tamsulosin due to low MAP requiring NE continue monitoring if BP stable, the consider restarting tamsulosin urology FU at the time of discharge. 5. Systolic CHF, acute on chronic: patient is euvolemic, however requires O2 through nasal canula 3L/min. to wean him off oxygen. possible previous pneumonia or post surgery that needed incentive spirometry and PT/OT contributing to the hypoxemia hold lasix repeat CXR continue telemetry monitoring cardiology FU at the time of discharge 6. FACUNDO (acute kidney injury): element of pre-renal due to hypotension, severe sepsis, could be intrarenal as well due to Low EF and also having BPH, contributing to post renal etiology as well monitor I /O hold lasix, continue folleys for one day cmp tomorrow to follow avoid nephrotoxic drugs monitor electrolytes and correction accordingly US kidney and urine electrolytes, urine osm, urine creat, 7. Leukocytosis: continue antbiotics meropenem 500mg bid renal adjusted monitor for fever, blood cultures did not report any significant finding possible element of acute appendicitis and stress of surgery. continue to monitor 8. Atrial fibrillation with RVR: controlled at the moment hold rate control medications considering his BP readings 9. Macrocytic anemia: MCV around 108, no history of alcohol intake vit b12, folate, iron studies to follow monitor CBC 10. Thrombocytopenia: chronically low plat, around 100K no obvious bleeding continue to monitor 11. Anticoagulant long-term use: hold therapeutic anticoagulation at the moment, considering low platelets and post surgery 12. H/O mitral valve replacement: continue to monitor for any symptoms of heart failure, chest pain or heaviness telemetry monitoring 13. Pacemaker: continue to monitor 14. Goals of care, counseling/discussion: discussed and Full code to continue since admission Plan: I personally spoke to the patient and the family, general surgeon and the assigned nurse. patient/family concerns and questions addressed without any language barrier. agreed with the plan of care and contented with the treatment delivered. PDMP PDMP Reviewed: Not Reviewed Attestations Medical Necessity Statement*: currently having severe sepsis with worsening FACUNDO, post op care and needs further stay in the hospital to optimise his condition Coding Level of Care Code Acute Code for [facility] Fwd Diagnoses Sepsis A41.9 Severe sepsis acute organ dysfunction type: acute renal failure Severe sepsis shock status: without septic shock Acute respiratory failure with hypoxemia J96.01 Acute appendicitis K35.80 BPH (benign prostatic hyperplasia) N40.0 Systolic CHF, acute on chronic I50.23 FACUNDO (acute kidney injury) N17.9 Leukocytosis D72.829 Atrial fibrillation with RVR I48.91 Macrocytic anemia D53.9 Thrombocytopenia D69.6 Anticoagulant long-term use Z79.01 H/O mitral valve replacement Z95.2 Pacemaker Z95.0 Goals of care, counseling/discussion Z71.89
--- NOTE | 2024-11-07 13:11 | USR_ITS ---
PROCEDURE INFORMATION: Exam: US Retroperitoneal, Complete, Kidneys and Bladder Exam date and time: 11/07/2024 2:23 PM Age: 79 years old Clinical indication: Condition or disease; Kidney or ureter condition; Other: Samuel; Additional info: Samuel, h/o bph for further evaluation TECHNIQUE: Imaging protocol: Real-time ultrasound of the retroperitoneum with image documentation. Complete exam focused on the bilateral kidneys and urinary bladder. COMPARISON: US gall bladder [id number] 04/25/2024 8:05 AM FINDINGS: Right kidney: Normal. No stones. No hydronephrosis. Left kidney: Normal. No stones. No hydronephrosis. Urinary bladder: A Nguyen catheter is in good position within the bladder. US/US renal BI* [id number] IMPRESSION: No acute findings.
--- NOTE | 2024-11-07 13:11 | XRR_ITS ---
PROCEDURE INFORMATION: Exam: XR Chest Exam date and time: 11/07/2024 1:39 PM Age: 79 years old Clinical indication: Shortness of breath; Additional info: O2 requirement post op; Post diuresis TECHNIQUE: Imaging protocol: Radiologic exam of the chest. Views: 1 view. COMPARISON: CR (CHEST, ) 11/06/2024 2:18 PM FINDINGS: Tubes, catheters and devices: Cardiac pacemaker on the left with leads in satisfactory position. Lungs: Both lungs demonstrate diffuse interstitial coarsening which is felt to be chronic. No lung mass or infiltrate. Pleural spaces: Unremarkable. No pleural effusion. No pneumothorax. Heart/Mediastinum: Severe cardiomegaly is noted. Bones/joints: Sternal sutures are noted. A right shoulder prosthesis is well seated and well aligned. XR/XR chest 1V portable [id number] IMPRESSION: Stable cardiomegaly
[2024-11-07 13:26] LABS: Ferritin 283 ng/mL (30-400); Iron 25 ug/dL (59-158); Total Iron Binding Capacity 240 mcg/dl; Unsaturated Iron Binding 215 ug/dL (112-347)
[2024-11-07 13:40] LABS: Vitamin B12 1417 pg/mL (232-1245)
--- NOTE | 2024-11-07 14:00 | ECG_ITS ---
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1945 Requested By: Aaron Dave Order Number: [id number] Reading MD: SARA MARQUEZ Measurements Intervals [place] Rate: 71 P: 0 CA: 0 QRS: 80 QRSD: 130 T: 180 QT: 436 QTc: 477 Interpretive Statements ATRIAL FIBRILLATION ELECTRONIC VENTRICULAR PACEMAKER -- CONTOUR ANALYSIS BASED ON INTRINSIC RHYTHM INDETERMINATE AXIS SEPTAL MYOCARDIAL INFARCTION , OF INDETERMINATE AGE [40+ ms Q WAVE IN V1/V2] MODERATE T-WAVE ABNORMALITY, CONSIDER LATERAL ISCHEMIA [-0.1+ mV T-WAVE IN I/aVL/V5/V6] Compared to ECG 11/07/2024 05:54:36 Myocardial infarct finding still present Electronically Signed On 11-08-2024 14:03:22 CDT by SARA MARQUEZ [id number] [id number]
[2024-11-07 14:19] LABS: Lactate (Lactic Acid level) 3.0 mmol/L (0.5-2.2)
[2024-11-07] MEDS: heparin 5,000 unit/mL INJ 1 mL 5000 UNIT SUBCUT (15:19)
[2024-11-07 16:35] LABS: Glucose Urine UA Negative (Normal); Nitrate Urine Negative (Negative); Specific Gravity, Urine 1.016 (1.005-1.030)
[2024-11-07 16:40] LABS: Add Urine Microscopic? YES
[2024-11-07 16:46] LABS: UA Slide Review UA Slide Review Perf
[2024-11-07 16:48] LABS: UA Manual Slide Review YES
[2024-11-07 16:51] LABS: Potassium, Radom Urine 28 mmol/L; Urine Random Chloride 32 mmol/L; Urine Random Sodium 28 mmol/L
[2024-11-07 16:56] LABS: Creatinine Urine, Random 64 mg/dL (39-259); Microalbum Creatinine Ratio Ur 16 mg/dL (0-20)
--- NOTE | 2024-11-07 19:52 | PC.NURSE ---
Shift summary: Pt has sat up in chair for nearly all of shift. He Scott been up after lunch to ambulate. He ambulated once around unit. His gait was steady and tolerated it well. Paced rhythm noted on monitor. Levophed remains infusing at 4mcg/min. Several attempts to decrease rate but pt's BP not tolerating the decreases. NS bolus of 500 ml at 50ml/hr started this evening. He has had a great appetite and has drank plenty of fluids this shift. He has active Bowel sounds x4. He is passing gas. He has denied pain throughout the shift. 1150 ml of urinary output noted. Family very attentive.
[2024-11-07] MEDS: norepinephrine 4 MG/250 ML BAG 15 MG IV (20:48)
[2024-11-08] VITALS (96 sets, daily range): BP systolic 80–121; BP diastolic 45–74; PULSE 68–130; RESP 2–41; TEMP 36.3–36.6; O2SAT 78–100
[2024-11-08] MEDS: heparin 5,000 unit/mL INJ 1 mL 5000 UNIT SUBCUT ×2 (03:00→14:30)
[2024-11-08 06:20] LABS: Hematocrit 36.0 % (37-53); Hemoglobin 10.80 g/dL (11.27-16.99); Mean Corpuscular HGB Conc 30.0 g/dL (30-55); Mean Corpuscular Hemoglobin 31.6 pg (27-33); Mean Corpuscular Volume 105.3 fl (82-101); Platelet Count 113 10^3/cmm (157-399); Red Blood Count 3.42 10^6/uL (3.85-5.65)
[2024-11-08 06:36] LABS: Lactate (Lactic Acid level) 0.9 mmol/L (0.5-2.2)
[2024-11-08 06:37] LABS: Alanine Aminotransferase 11 U/L (0-41); Albumin Level 3.5 g/dL (3.5-5.2); Alkaline Phosphatase 84 U/L (40-130); Anion Gap 15.6 (5-19); Aspartate Amino Transferase 33 U/L (0-40); Blood Urea Nitrogen 51 mg/dL (8-23); Calcium 8.3 mg/dL (8.5-10.5); Carbon Dioxide 21 mmol/L (22-29); Chloride 105 mmol/L (98-107); Creatinine Clr Calc Pharmacy 28.7226; Globulin 2.6 g/dL (1.3-4.6); Glucose 112 mg/dL (65-115); Osmolality Calculated 298 mOsm/kg (285-295); Potassium 4.6 mmol/L (3.5-5.1); Sodium 137 mmol/L (136-145); Total Protein 6.1 g/dL (6.6-8.7)
[2024-11-08 07:57] LABS: White Blood Count 31.32 10^3/uL (3.29-11.43)
[2024-11-08 08:10] LABS: Absolute Segmented Neutrophil 26.3 10/cmm (1.6-7.1); Atypical Lymphs 0.0 % (0-5); Band Neutrophils Absolute 0.0 10^3/cmm (0.0-1.2); Total Cells Counted 100 (0-100)
[2024-11-08 08:11] LABS: Anisocytosis 1+; Giant Platelets Trace
--- NOTE | 2024-11-08 11:53 | P.PN_ITS ---
<Statement entered by Eligio Ely M.D - 11/09/24 10:07> Patient was cared for in conjunction with an advanced practice practitioner.? I reviewed the chart and all pertinent data including imaging, telemetry, and laboratory results.? I discussed the patient in detail with the advanced practice practitioner.? Please see?their note for progress note, testing results and agreed upon plan of care for the patient. Subjective 2 Subjective: He is sitting up eating breakfast this morning. Has some abdominal pain due to surgical incisions. No chest pain or shortness of breath. He remains on Levophed currently 1 mcg, attempting to wean off. Vitals/I&O/Wt Last Vital Signs Temp 97.8 F 11/08/24 09:00 Pulse 78 11/08/24 10:15 Resp 27 H 11/08/24 10:15 BP 90/45 11/08/24 10:15 Pulse Ox 92 11/08/24 10:15 O2 Del Method Room Air 11/08/24 09:31 O2 Flow Rate 3 11/07/24 12:30 11/07/24 11/08/24 11/08/24 22:59 06:59 14:59 Intake Total 956.187 / 3006.625 804.375 / 3006.625 360 / 360 Output Total 1150 / 2150 1000 / 2150 Balance -193.813 / 856.625 -195.625 / 856.625 360 / 360 Weight last 48 hrs Weight 176 lb Weight 176 lb Weight 178 lb 9.191 oz Weight 178 lb 9.191 oz Weight 134 lb 4.8 oz Physical Exam 2 Const: COMMON NORMALS: no acute distress and patient oriented x3 GENERAL APPEARANCE: cooperative and comfortable ORIENTATION/CONSCIOUSNESS: Yes awake, Yes oriented to person, Yes oriented to place and Yes oriented to time Chest: COMMONS NORMALS: normal inspection of the chest and normal palpation of entire chest wall CHEST: Yes Symmetrical chest wall rise Resp: COMMON NORMALS: normal respiratory effort, No retractions, No use of accessory muscles and clear to auscultation bilaterally EFFORT & INSPECTION: Yes symmetric chest movement AUSCULTATION: clear to auscultation bilaterally Cardio: COMMON NORMALS: regular rate, regular rhythm, S1 normal heart sound present, S2 normal heart sound present, No gallops present (Cardio), No clicks present (Cardio) and No rub (Cardio) RATE: regular rate RHYTHM: regular rhythm HEART SOUNDS: S1 normal heart sound present, S2 normal heart sound present and Murmur heart sound present systolic Intensity: III/ PERIPHERAL PULSES: radial pulses present Extremity: GENERAL: Yes edema (1+ pitting edema bilateral lower extremity below the knee) Neuro: COMMON NORMALS: patient oriented x3 and moves all extremities S ENSORIUM/ORIENTATION: Yes oriented to person, Yes oriented to place and Yes oriented to time Urinary Catheter Management: Nguyen: Cath Placed During This Visit: yes Reason for Continuing Indwelling Catheter: Accurate Measurement of Urinary Output in Critically Ill Patients Urinary Catheter Date of Insertion: 11/06/24 Data 11/08/24 05:20 11/08/24 05:20 Micro: Microbiology 11/06/24 14:54 Blood Culture - Preliminary Blood NEGATIVE TO DATE 11/06/24 14:50 Blood Culture - Preliminary Blood NEGATIVE TO DATE 11/06/24 11:21 Blood Culture - Preliminary Blood NEGATIVE TO DATE 11/06/24 09:59 Blood Culture - Preliminary Blood NEGATIVE TO DATE A&P Assessment and plan 1. Atrial fibrillation: 2. H/O mitral valve replacement: 3. Pacemaker: 4. LV dysfunction: 5. Dyspnea on exertion: 6. Acute appendicitis: Plan: Appears stable from a cardiovascular perspective. Appears euvolemic currently. Continue to wean Levophed. PDMP PDMP Reviewed: Not Reviewed Attestations 2 Medical Necessity Statement*: Hypotension requiring vasopressor Coding Level of Care Code Acute Code for [facility] Fw Diagnoses Atrial fibrillation I48.91 H/O mitral valve replacement Z95.2 Pacemaker Z95.0 LV dysfunction I51.9 Dyspnea on exertion R06.09 Acute appendicitis K35.80
[2024-11-08] MEDS: norepinephrine 4 MG/250 ML BAG 7.5 MG IV (14:51)
--- NOTE | 2024-11-08 15:20 | P.PN_ITS ---
Subjective 2 Subjective: Afebrile Levo at 2 Abdomen benign Leukocytosis trending down Vitals/I&O/Wt Last Vital Signs Temp 97.8 F 11/08/24 09:00 Pulse 76 11/08/24 14:30 Resp 21 H 11/08/24 14:30 BP 94/59 11/08/24 14:30 Pulse Ox 92 11/08/24 14:30 O2 Del Method Room Air 11/08/24 09:31 O2 Flow Rate 3 11/07/24 12:30 11/08/24 11/08/24 11/08/24 06:59 14:59 22:59 Intake Total 804.375 / 3006.625 425.375 / 425.375 Output Total 1000 / 2150 600 / 600 Balance -195.625 / 856.625 -174.625 / -174.625 Weight last 48 hrs Weight 176 lb Weight 176 lb Weight 178 lb 9.191 oz Weight 178 lb 9.191 oz Weight 134 lb 4.8 oz Physical Exam 2 Narrative: Chest: Unlabored breathing room air. No lymphadenopathy. Heart: Regular rate and rhythm. Abdomen: Soft, mildly tender, mildly distended. No masses or lymphadenopathy. Incisions are well-healed Urinary Catheter Management: Nguyen: Cath Placed During This Visit: yes Reason for Continuing Indwelling Catheter: Accurate Measurement of Urinary Output in Critically Ill Patients Urinary Catheter Date of Insertion: 11/06/24 Data 11/08/24 05:20 11/08/24 05:20 Micro: Microbiology 11/06/24 14:54 Blood Culture - Preliminary Blood NEGATIVE TO DATE 11/06/24 14:50 Blood Culture - Preliminary Blood NEGATIVE TO DATE 11/06/24 11:21 Blood Culture - Preliminary Blood NEGATIVE TO DATE 11/06/24 09:59 Blood Culture - Preliminary Blood NEGATIVE TO DATE A&P Assessment and plan 1. Appendicitis: Plan: 79-year-old male status post lap appendectomy. Leukocytosis trending down. Levo@2. Abdomen is benign. Recommend continuing IV antibiotics for at least 4 days. Rest of care per hospitalist. Okay for clear liquids. PDMP PDMP Reviewed: Not Reviewed Attestations 2 Medical Necessity Statement*: N/A Coding Level of Care Code 53306 Diagnoses Appendicitis K37
--- NOTE | 2024-11-08 20:09 | P.PN_ITS ---
Subjective 2 Subjective: Patient was seen in the morning, no acute concerns He was a little bloated, and reported some distention however able to pass gas and move around Vitals/I&O/Wt Last Vital Signs Temp 97.8 F 11/08/24 09:00 Pulse 100 11/08/24 18:15 Resp 24 H 11/08/24 18:15 BP 102/60 11/08/24 18:15 Pulse Ox 90 11/08/24 18:15 O2 Del Method Room Air 11/08/24 09:31 O2 Flow Rate 3 11/07/24 12:30 11/08/24 11/08/24 11/08/24 06:59 14:59 22:59 Intake Total 804.375 / 3006.625 425.375 / 425.375 14.875 / 440.250 Output Total 1000 / 2150 600 / 600 100 / 700 Balance -195.625 / 856.625 -174.625 / -174.625 -85.125 / -259.750 Weight last 48 hrs Weight 79.832 kg Weight 79.832 kg Weight 81 kg Weight 81 kg Physical Exam 2 Narrative: General: Alert oriented x3, patient seen lying comfortably in the chair without any oxygen supplementation Cardio: Regular rate rhythm, normal S1-S2, no murmurs rubs gallops, JVD normal Respiratory: Good bilateral air entry, no wheezes no rhonchi appreciated GI: Abdomen soft, nontender, mild gaseous distention normoactive bowel sounds present all 4 quadrants, Neuro: No gross neurological deficit Behavior: Appropriate and cooperative Extremities: Pulses 2+, mild trace edema Skin: Visible skin intact, no rashes Urinary Catheter Management: Nguyen: Cath Placed During This Visit: yes, but has since been removed by the nurse Reason for Continuing Indwelling Catheter: Accurate Measurement of Urinary Output in Critically Ill Patients Urinary Catheter Date of Insertion: 11/06/24 Date Urinary Catheter Removed: 11/08/24 Time Urinary Catheter Discontinued: 16:00 Data 11/08/24 05:20 11/08/24 05:20 A&P Assessment and plan 1. Appendicitis: S/p appendectomy Follow with the surgery plan and continue meropenem as per renal adjusted dose 500 mg every 12 hourly 2. Macrocytic anemia: Continue to monitor Normal folate and vitamin B12 3. Atrial fibrillation with RVR: Heart rate controlled continue to monitor 4. FACUNDO (acute kidney injury): Adequate hydration to maintain Continue to monitor kidney functions 5. Sepsis: Sepsis is resolving however currently having leukocytosis which is trending down Continue on antibiotics Monitor any signs of sepsis worsening or septic shock 6. Thrombocytopenia: Continue to monitor for platelets 7. Systolic CHF, acute on chronic: Patient euvolemic, cardiology on board Continue monitor any signs of acute on chronic CHF or desaturation PDMP PDMP Reviewed: Not Reviewed Attestations 2 Medical Necessity Statement*: Patient will need more than 2 midnight stay in the hospital for further optimization of his care Critical Care Time: I have spent more than 40 minutes in the patient management of acute critical illness further with extended discussion of condition with the patient and the family, reviewing the chart independently, EKG and chest x-rays and further imaging studies and laboratory values with interpretation. Coding Level of Care Code 66253 Diagnoses Appendicitis K37 Macrocytic anemia D53.9 Atrial fibrillation with RVR I48.91 FACUNDO (acute kidney injury) N17.9 Sepsis A41.9 Thrombocytopenia D69.6 Systolic CHF, acute on chronic I50.23
--- NOTE | 2024-11-08 22:00 | ECG_ITS ---
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1945 Requested By: Aaron Dave Order Number: [id number] Reading MD: SARA MARQUEZ Measurements Intervals [place] Rate: 73 P: 0 ID: 0 QRS: 153 QRSD: 121 T: -42 QT: 394 QTc: 437 Interpretive Statements ELECTRONIC VENTRICULAR PACEMAKER ABNORMAL RHYTHM ECG Compared to ECG 11/07/2024 13:24:43 Indeterminate axis no longer present Myocardial infarct finding no longer present T-wave abnormality no longer present Possible ischemia no longer present Electronically Signed On 11-08-2024 14:02:28 CDT by SAAR MARQUEZ [email or web address] [id number]
[2024-11-09] VITALS (49 sets, daily range): BP systolic 77–111; BP diastolic 51–81; PULSE 70–121; RESP 10–41; TEMP 36.5–36.9; O2SAT 73–100
[2024-11-09] MEDS: sodium chloride 0.9% (plus) 50 ML 100 ML (00:12)
[2024-11-09] MEDS: heparin 5,000 unit/mL INJ 1 mL 5000 UNIT SUBCUT (02:14)
[2024-11-09 05:37] LABS: Hematocrit 33.6 % (37-53); Hemoglobin 10.60 g/dL (11.27-16.99); Mean Corpuscular HGB Conc 31.5 g/dL (30-55); Mean Corpuscular Hemoglobin 32.5 pg (27-33); Mean Corpuscular Volume 103.1 fl (82-101); Platelet Count 110 10^3/cmm (157-399); Red Blood Count 3.26 10^6/uL (3.85-5.65); White Blood Count 18.60 10^3/uL (3.29-11.43)
[2024-11-09 06:09] LABS: Alanine Aminotransferase 11 U/L (0-41); Albumin Level 3.4 g/dL (3.5-5.2); Alkaline Phosphatase 74 U/L (40-130); Anion Gap 13.6 (5-19); Aspartate Amino Transferase 30 U/L (0-40); Blood Urea Nitrogen 46 mg/dL (8-23); Calcium 8.7 mg/dL (8.5-10.5); Carbon Dioxide 23 mmol/L (22-29); Chloride 107 mmol/L (98-107); Creatinine Clr Calc Pharmacy 33.5934; Globulin 2.4 g/dL (1.3-4.6); Glucose 89 mg/dL (65-115); Osmolality Calculated 297 mOsm/kg (285-295); Potassium 5.6 mmol/L (3.5-5.1); Sodium 138 mmol/L (136-145); Total Protein 5.8 g/dL (6.6-8.7)
[2024-11-09 06:14] LABS: Lactate (Lactic Acid level) 0.7 mmol/L (0.5-2.2)
[2024-11-09 07:27] LABS: Absolute Segmented Neutrophil 13.4 10/cmm (1.6-7.1); Atypical Lymphs 0.0 % (0-5); Band Neutrophils Absolute 0.0 10^3/cmm (0.0-1.2); Total Cells Counted 100 (0-100)
[2024-11-09 07:28] LABS: Anisocytosis 1+
[2024-11-09] MEDS: meropenem 500 MG in sodium chloride 0.9% (plus) 50 ML 100 MG IVP (09:20)
--- NOTE | 2024-11-09 09:23 | P.PN_ITS ---
Subjective 2 Subjective: Off Levophed Leukocytosis down Abdomen benign Passing gas Tolerating regular diet Vitals/I&O/Wt Last Vital Signs Temp 97.9 F 11/09/24 04:18 Pulse 75 11/09/24 09:07 Resp 16 11/09/24 09:07 BP 103/64 11/09/24 06:45 Pulse Ox 97 11/09/24 09:09 O2 Del Method Room Air 11/09/24 09:09 O2 Flow Rate 3 11/07/24 12:30 11/08/24 11/09/24 11/09/24 22:59 06:59 14:59 Intake Total 254.875 / 680.250 110 / 790.250 50 / 50 Output Total 400 / 1000 600 / 1600 Balance -145.125 / -319.750 -490 / -809.750 50 / 50 Weight last 48 hrs Weight 180 lb 4.65 oz Weight 176 lb Weight 176 lb Physical Exam 2 Narrative: Chest: Unlabored breathing room air. No lymphadenopathy. Heart: A-fib Abdomen: Soft, nontender, nondistended. Incisions intact Urinary Catheter Management: Nguyen: Cath Placed During This Visit: yes, but has since been removed by the nurse Reason for Continuing Indwelling Catheter: Accurate Measurement of Urinary Output in Critically Ill Patients Urinary Catheter Date of Insertion: 11/06/24 Date Urinary Catheter Removed: 11/08/24 Time Urinary Catheter Discontinued: 16:00 Data 11/09/24 05:23 11/09/24 05:23 A&P Assessment and plan 1. Appendicitis: Plan: 79-year-old male status post lap appendectomy. Bowel function resumed off Levophed. Tolerating regular diet. Okay to transition to Augmentin for 7 days. From a surgical perspective okay to transfer to floor or discharge. Rest of care per hospitalist. Discussed with nurse. PDMP PDMP Reviewed: Not Reviewed Attestations 2 Medical Necessity Statement*: N/A Coding Level of Care Code 83824 Diagnoses Appendicitis K37
[2024-11-09] MEDS: FUROsemide 10 mg/mL SDV 4mL 40 MG IVP (10:54)
--- NOTE | 2024-11-09 11:26 | P.PN_ITS ---
<Statement entered by Eligio Ely M.D - 11/09/24 11:42> Patient was cared for in conjunction with an advanced practice practitioner.? I reviewed the chart and all pertinent data including imaging, telemetry, and laboratory results.? I discussed the patient in detail with the advanced practice practitioner.? Please see?their note for progress note, testing results and agreed upon plan of care for the patient. Subjective 2 Subjective: This is a very pleasant 79-year-old gentleman status post appendectomy. Patient has a history of A-fib refused anticoagulation previously. EF is 40%. He does have lower extremity edema which he states is chronic. He states he does not require oxygen at baseline. They are weaning patient's O2 off. Lungs are clear on exam. He does have a little bit of shortness of breath which he states is normal for him. O2 sat stable. Heart rate is fairly controlled in the 90s consistently. Blood pressure has been soft. Currently 111/64. He states he quit taking his amiodarone at home because he did not like the way it made him feel. He takes diltiazem 180 mg at home and states that when he takes this hip his blood pressure gets into the 80s systolic at times. He states his PCP recently had him increase his Lasix to 40 twice daily and this is stabilized his heart failure symptoms. Vitals/I&O/Wt Last Vital Signs Temp 98.5 F 11/09/24 08:00 Pulse 95 11/09/24 10:15 Resp 21 H 11/09/24 10:15 BP 111/64 11/09/24 10:15 Pulse Ox 90 11/09/24 10:00 O2 Del Method Room Air 11/09/24 09:09 O2 Flow Rate 3 11/07/24 12:30 11/08/24 11/09/24 11/09/24 22:59 06:59 14:59 Intake Total 254.875 / 680.250 110 / 790.250 300 / 300 Output Total 400 / 1000 600 / 1600 Balance -145.125 / -319.750 -490 / -809.750 300 / 300 Weight last 48 hrs Weight 180 lb 4.65 oz Weight 176 lb Weight 176 lb Physical Exam 2 Narrative: General: No apparent distress HENMT: normoceophalic Muskuloskeletal: Full ROM Respiratory: Slight increased respiratory effort, clear to auscultation bilaterally throughout all lung mack, no use of accessory muscles Cardio: No JVD, regular rate, regular rhythm, S1 S2 normal, no murmurs, peripheral pulses 2+ radial palpated bilaterally GI: Normal to inspection, nondistended Extremities: Full ROM, normal, normal capillary refill, no cyanosis, 2+ edema bilateral lower extremities Neuro: Alert and oriented x4, no focal motor deficits Psych: Affect normal, denies suicidal ideation, mental status grossly normal Skin: No rashes or lesions noted, no wounds Urinary Catheter Management: Nguyen: Cath Placed During This Visit: yes, but has since been removed by the nurse Reason for Continuing Indwelling Catheter: Accurate Measurement of Urinary Output in Critically Ill Patients Urinary Catheter Date of Insertion: 11/06/24 Date Urinary Catheter Removed: 11/08/24 Time Urinary Catheter Discontinued: 16:00 Data 11/09/24 05:23 11/09/24 05:23 A&P Assessment and plan 1. Longstanding persistent atrial fibrillation: 2. H/O mitral valve replacement: 3. Pacemaker: 4. LV dysfunction: 5. Dyspnea on exertion: 6. Other acute appendicitis: Plan: Patient is stable but agree with IV diuresis with Lasix 40 mg x 1. Patient's potassium slightly increased. Patient would like to go home. If patient diuresis well and potassium normalizes okay for discharge this afternoon from cardiology perspective. Due to his hypotension blood pressure medications should be held including diltiazem with an event monitor placed for 1 week and close follow-up in the clinic to see Dr. Hamilton in 1 week. Continue home dose Lasix at 40 twice daily. PDMP PDMP Reviewed: Not Reviewed Attestations 2 Medical Necessity Statement*: Deferred to primary. Coding Level of Care Code Acute Code for [facility] Fwd Diagnoses Longstanding persistent atrial fibrillation I48.11 Atrial fibrillation type: longstanding persistent H/O mitral valve replacement Z95.2 Pacemaker Z95.0 LV dysfunction I51.9 Dyspnea on exertion R06.09 Other acute appendicitis K35.890 Acute appendicitis type: other
--- NOTE | 2024-11-09 13:14 | PC.NURSE ---
Patient arrived on floor from ICU nurse at 1314. This nurse Resumed care at this time.
[2024-11-09 15:25] LABS: Blood Urea Nitrogen 48 mg/dL (8-23); Calcium 8.6 mg/dL (8.5-10.5); Carbon Dioxide 21 mmol/L (22-29); Chloride 100 mmol/L (98-107); Creatinine Clr Calc Pharmacy 39.8922; Glucose 111 mg/dL (65-115); Osmolality Calculated 289 mOsm/kg (285-295); Sodium 133 mmol/L (136-145)
[2024-11-09 15:33] LABS: Anion Gap 16.2 (5-19); Potassium 4.2 mmol/L (3.5-5.1)
--- NOTE | 2024-11-09 15:39 | P.DS_ITS ---
Discharge Providers Date of Admission: 11/06/24 12:07 Date of Discharge: November 09, 2024 Attending Provider at Admission: Jia Castellon MD Attending Provider at Discharge: Aaron Dave MD Primary Care Provider: Nick Kamara DO Diagnoses at Discharge Discharge Diagnosis 1. Longstanding persistent atrial fibrillation: 2. H/O mitral valve replacement: 3. Pacemaker: 4. LV dysfunction: 5. Dyspnea on exertion: 6. Other acute appendicitis: Reason for Visit Reason for Visit: Lower R ABD pain Brief History: history as per the patient and brief retrospect chart review: Chad Hoover is a 79 year old male with PMH of multiple comorbidities as mentioned below in the assessment, presented with acute abd pain since midnight that was 10/10 and associated with mild light headedness but no fever or chills, nausea or vomiting or any change in his bowel/urinary habits. he did not had such episodes in the past. he also complained on having chest pain and heaviness along with dyspnea on rest and exertion since few days. he uses one pillow at night and having orthopnea and PND. Also complained on feeling bloated in the last few days. he is compliant to his medications. no other drug, non smoker and non alcoholic. Hospital Course Hospital Course Upon arrival to the ER further investigation revealed the patient was having acute appendicitis with ileal stone that deemed surgery. However the first patient needs optimization in terms of his septic shock and cardiac status. The patient seem to be having fluid overload that was diuresed with Lasix with insertion of Nguyen's catheter and monitoring of his oxygen saturation that required supplementation initially through nasal cannula. The patient had surgery on the same day in the evening which was uneventful and without any complication. The patient was also manage in terms of his septic shock since he was having acute kidney injury on the top of CKD, acute exacerbation of chronic heart failure and high proBNP with marked leukocytosis reaching around 30- 35,000. The patient improved later on and was kept on meropenem, lactate was repeated with adequate hydration and maintenance of euvolemic status. The patient improved significantly with removal of his oxygen supplementation. He was able to mobilize with the help of OT PT and no complaining of chest pain abdominal pain or any nausea or vomiting. The patient had electrolyte correction done in the hospital. The kidney functions came back to baseline. Surgery was on board and plan for the discharge of the patient with oral antibiotics with Augmentin for 7 to 10 days and prescribed accordingly. Cardiology was also on board and patient medication reconciled accordingly. Nguyen's catheter was removed and the patient was able to pass urine without any difficulty. The patient was made aware about each step of plan of care during his hospital stay, he agreed without any language barrier and understands it. The family was also made aware of all his condition and management and agreed with it. 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 Physical Exam Narrative: General: Alert oriented x3, patient seen lying comfortably in the chair without any oxygen supplementation Cardio: Regular rate rhythm, normal S1-S2, no murmurs rubs gallops, JVD normal Respiratory: Good bilateral air entry, no wheezes no rhonchi appreciated GI: Abdomen soft, nontender, mild gaseous distention normoactive bowel sounds present all 4 quadrants, Neuro: No gross neurological deficit Behavior: Appropriate and cooperative Extremities: Pulses 2+, mild trace edema Skin: Visible skin intact, no rashes Const: GENERAL APPEARANCE: cooperative, comfortable and ill appearing Extremity: OTHER: Urinary Catheter Management: Nguyen: Cath Placed During This Visit: yes, but has since been removed by the nurse Reason for Continuing Indwelling Catheter: Accurate Measurement of Urinary Output in Critically Ill Patients Urinary Catheter Date of Insertion: 11/06/24 Date Urinary Catheter Removed: 11/08/24 Time Urinary Catheter Discontinued: 16:00 Discharge Data Studies Completed and Pending Completed Studies During Hospitalization Category Date Time Status CT abdomen pelvis wo con [id number] Stat Cat Scan 11/06/24 10:00 Completed XR chest 1V portable [id number] Stat Exams 11/06/24 13:54 Completed XR chest 1V portable [id number] Stat Exams 11/07/24 13:11 Completed CV. echo complete* [id number] Stat Ultrasound 11/06/24 14:02 Completed US renal BI* [id number] Stat Ultrasound 11/07/24 13:11 Completed Pending at discharge Category Date Time Status Blood Culture Stat Lab 11/06/24 11:21 Results Blood Culture Stat Lab 11/06/24 14:54 Results CMP [Comprehensive Metabolic Panel] AM LABS Lab 11/10/24 04:00 Ordered Complete Blood Count w/Man Dif AM LABS Lab 11/10/24 04:00 Ordered Osmolality Urine Stat Lab 11/07/24 15:40 Received Pathology: Surgical [PTH] Routine Pth 11/06/24 20:18 Received Radiology Impressions Abdomen/Pelvis CT 11/06/24 10:00 IMPRESSION: 1. Ill-defined thickened and enlarged appearance of the proximal appendix with appendicular with at the origin suggesting acute appendicitis. No evidence of perforation. Recommend surgical consultation. 2.Other incidental and/or chronic findings as detailed above. COMMENTS: Consistent with the [employer]'s Incidental Findings Committee white paper (J Am Jessika Radiol 2018): Any incidental renal lesion less than 1 cm or classified as too small to characterize, or any incidental cystic renal lesion characterized as simple-appearing, is likely benign. No follow-up imaging is recommended for these lesions per consensus recommendations based on imaging criteria. THIS REPORT CONTAINS FINDINGS THAT MAY BE CRITICAL TO PATIENT CARE. The findings were verbally communicated by me via telephone conference to HARISH NORWOOD at 11:16 AM CDT on 11/06/2024. The findings were acknowledged and understood. Chest X-Ray 11/07/24 13:11 IMPRESSION: Stable cardiomegaly Renal Ultrasound 11/07/24 13:11 IMPRESSION: No acute findings. Laboratory Results WBC 18.60 10^3/uL (3.29-11.43) H 11/09/24 05:23 RBC 3.26 10^6/uL (3.85-5.65) L 11/09/24 05:23 Hgb 10.60 g/dL (11.27-16.99) L 11/09/24 05:23 Hct 33.6 % (37-53) L 11/09/24 05:23 MCV 103.1 fl (82-101) H 11/09/24 05:23 MCH 32.5 pg (27-33) 11/09/24 05:23 MCHC 31.5 g/dL (30-55) 11/09/24 05:23 RDW 14.8 % (12.1-15.1) 11/09/24 05:23 Plt Count 110 10^3/cmm (157-399) L 11/09/24 05:23 MPV 10.8 fL (7.4-10.4) H 11/09/24 05:23 Neut % (Auto) Not Reportable 11/07/24 03:35 Lymph % (Auto) Not Reportable 11/07/24 03:35 Towns % (Auto) Not Reportable 11/07/24 03:35 Eos % (Auto) Not Reportable 11/07/24 03:35 Baso % (Auto) Not Reportable 11/07/24 03:35 Neut # (Auto) Not Reportable 11/07/24 03:35 Lymph # (Auto) Not Reportable 11/07/24 03:35 Towns # (Auto) Not Reportable 11/07/24 03:35 Eos # (Auto) Not Reportable 11/07/24 03:35 Baso # (Auto) Not Reportable 11/07/24 03:35 Nucleated RBC % (auto) Not Reportable 11/07/24 03:35 Total Counted 100 (0-100) 11/09/24 05:23 Atypical Lymphs % 0.0 % (0-5) 11/09/24 05:23 Absolute Neutrophils 13.4 10^3/cmm (1.4-6.5) H 11/09/24 05:23 Segmented Neutrophils 72 % 11/09/24 05:23 Band Neutrophils 0.0 % 11/09/24 05:23 Absolute Lymphocytes 1.3 10^3/cmm (1.2-3.4) 11/09/24 05:23 Lymphocytes (Manual) 7 % 11/09/24 05:23 Monocytes (Manual) 16.0 % 11/09/24 05:23 Absolute Monocytes 3.0 10^3/cmm (0.1-0.6) H 11/09/24 05:23 Eosinophils (Manual) 5 % 11/09/24 05:23 Absolute Eosinophils 0.9 10^3/cmm (0.0-0.7) H 11/09/24 05:23 Basophils (Manual) 0.0 % 11/09/24 05:23 Absolute Basophils 0.0 10^3/cmm (0.0-0.2) 11/09/24 05:23 Metamyelocytes 1.0 % 11/07/24 03:35 Myelocytes 3.0 % 11/07/24 03:35 Promyelocytes 1.0 % 11/06/24 09:59 Nucleated RBCs # Not Reportable 11/07/24 03:35 Platelet Estimate Decreased (Normal) 11/09/24 05:23 Giant Platelets Trace 11/08/24 05:20 Poikilocytosis Trace 11/06/24 09:59 Anisocytosis 1+ H 11/09/24 05:23 Macrocytosis 2+ H 11/07/24 03:35 Flat Lick Cells 1+ H 11/07/24 03:35 PT 14.90 SECONDS (12.1-14.9) 11/06/24 09:59 INR 1.09 (0.8-1.2) 11/06/24 09:59 Sodium 133 mmol/L (136-145) L 11/09/24 14:55 Potassium 4.2 mmol/L (3.5-5.1) 11/09/24 14:55 Chloride 100 mmol/L (98-107) 11/09/24 14:55 Carbon Dioxide 21 mmol/L (22-29) L 11/09/24 14:55 Anion Gap 16.2 (5-19) 11/09/24 14:55 BUN 48 mg/dL (8-23) H 11/09/24 14:55 Creatinine 1.6 mg/dL (0.7-1.2) H 11/09/24 14:55 GFR Calculation Not Reportable 11/09/24 14:55 Glucose 111 mg/dL (65-115) 11/09/24 14:55 Calculated Osmolality 289 mOsm/kg (285-295) 11/09/24 14:55 Lactic Acid 1.0 mmol/L (0.5-2.2) 11/06/24 09:59 Lactate 0.7 mmol/L (0.5-2.2) 11/09/24 05:23 Calcium 8.6 mg/dL (8.5-10.5) 11/09/24 14:55 Phosphorus 4.7 mg/dL (2.5-4.5) H 11/07/24 03:35 Magnesium 2.2 mg/dL (1.7-2.3) 11/07/24 03:35 Iron 25 ug/dL (59-158) L 11/07/24 03:35 Iron Cancelled 11/07/24 03:35 TIBC 240 mcg/dl 11/07/24 03:35 % Saturation 10.4 % (20-50) L 11/07/24 03:35 Unsat Iron Binding 215 ug/dL (112-347) 11/07/24 03:35 Ferritin 283 ng/mL (30-400) 11/07/24 03:35 Total Bilirubin 1.3 mg/dL (0.15-1.2) H 11/09/24 05:23 AST 30 U/L (0-40) 11/09/24 05:23 ALT 11 U/L (0-41) 11/09/24 05:23 Alkaline Phosphatase 74 U/L (40-130) 11/09/24 05:23 Troponin T Baseline 62 ng/L (0-15) H 11/06/24 14:13 Troponin T 120 Minute 61.91 ng/L (0-15) H 11/06/24 15:52 Delta Troponin T -0.09 ABS# (0-10) L 11/06/24 15:52 Troponin T Hi Sens 6Hr 67.12 ng/L (0-15) H 11/06/24 18:54 Troponin T Hi Sens 6Hr Delta 5.12 ng/L (0-12) 11/06/24 18:54 C-Reactive Protein 59.0 mg/L (0.0-4.9) H 11/06/24 09:59 NT-Pro-B Natriuret Pep 2793 pg/mL (0-450) H 11/06/24 09:59 Total Protein 5.8 g/dL (6.6-8.7) L 11/09/24 05:23 Albumin 3.4 g/dL (3.5-5.2) L 11/09/24 05:23 Globulin 2.4 g/dL (1.3-4.6) 11/09/24 05:23 Lipase 47 U/L (13-60) 11/06/24 09:59 Vitamin B12 1417 pg/mL (232-1245) H 11/07/24 03:35 Folate > 20.0 ng/mL (4.5-32.2) 11/07/24 03:35 TSH 4.84 uIU/mL (0.27-4.20) H 11/06/24 09:59 Free T4 0.98 ng/dL (0.82-1.77) 11/06/24 09:59 Urine Color Yellow (Yellow) 11/07/24 15:40 Urine Appearance Clear (CLEAR) 11/07/24 15:40 Urine pH 5.0 (5-7) 11/07/24 15:40 Ur Specific Urania 1.016 (1.005-1.030) 11/07/24 15:40 Urine Protein Trace (Negative) A 11/07/24 15:40 Urine Glucose (UA) Negative (Normal) 11/07/24 15:40 Urine Ketones Negative (Negative) 11/07/24 15:40 Urine Blood Negative (Negative) 11/07/24 15:40 Urine Nitrate Negative (Negative) 11/07/24 15:40 Urine Bilirubin Negative (Negative) 11/07/24 15:40 Urine Urobilinogen 0.2 mg/dL (Negative) 11/07/24 15:40 Ur Leukocyte Esterase 1+ (Negative) A 11/07/24 15:40 Urine RBC None /hpf (0-2) 11/07/24 15:40 Urine WBC 5-10 /hpf (0-5) H 11/07/24 15:40 Ur Squamous Epith Cells None /hpf (0-5) 11/07/24 15:40 Amorphous Sediment Not Reportable 11/07/24 15:40 Urine Bacteria Trace /hpf (NONE) 11/07/24 15:40 Hyaline Casts 15-25 /lpf H 11/07/24 15:40 Coarse Granular Casts 5-10 /lpf H 11/07/24 15:40 Urine Mucus 1+ /hpf 11/07/24 15:40 Ur Random Microalbumin 1 ug/dL (0-20) 11/07/24 15:40 Ur Random Sodium 28 mmol/L 11/07/24 15:40 Ur Random Potassium 28 mmol/L 11/07/24 15:40 Ur Random Chloride 32 mmol/L 11/07/24 15:40 Urine Creatinine 61 mg/dL (39-259) 11/07/24 15:40 Urine Creatinine 64 mg/dL (39-259) 11/07/24 15:40 Microalb/Creat Ratio 16 mg/dL (0-20) 11/07/24 15:40 Vitals Last Vital Signs Temp 97.7 F 11/09/24 15:13 Pulse 82 11/09/24 15:13 Resp 17 11/09/24 15:13 BP 110/63 11/09/24 15:13 Pulse Ox 94 11/09/24 15:13 O2 Del Method Room Air 11/09/24 15:13 O2 Flow Rate 3 11/07/24 12:30 Discharge Plan Discharge Patient Disposition: Home Condition: Stable Prescriptions: New amoxicillin-pot clavulanate [Augmentin] 500-125 mg tablet 1 tab PO Q8H 10 Days Qty: 30 0RF Continued ascorbic acid (vitamin C) 1,000 mg tablet 2 gm PO DAILY cholecalciferol (vitamin D3) 10 mcg (400 unit) capsule 10 mcg PO DAILY vitamin B complex Capsule 1 cap PO BID tamsulosin 0.4 mg capsule 0.4 mg PO DAILY multivitamin Tablet 1 tab PO DAILY fluticasone propion-salmeterol [Advair Diskus] 500-50 mcg/dose blister with device 1 inh inhalation BID magnesium oxide 500 mg tablet 500 mg PO DAILY albuterol sulfate 90 mcg/actuation HFA aerosol inhaler 2 puff INHALATION Q4H PRN (Reason: Shortness Of Breath Or Wheezing) acetaminophen [Tylenol] 325 mg Tablet 650 mg PO QID PRN (Reason: Pain) turmeric 400 mg Capsule 400 mg PO DAILY spironolactone 50 mg tablet 25 mg PO QAM Breztri Aerosphere 160-9-4.8 mcg/actuation Hfa Aerosol Inhaler 2 inh INHALATION BID basil leaf extract 450 mg Capsule 450 mg PO DAILY Changed furosemide [Lasix] 40 mg tablet 40 mg PO BID PRN (Reason: edema) Qty: 60 3RF Discontinued potassium chloride 20 mEq tablet,ER particles/crystals 20 meq PO DAILY PRN (Reason: With Lasix therapy) Qty: 30 3RF Rx Instructions: Dose reduced diltiazem HCl 180 mg capsule,extended release 24 hr 180 mg PO DAILY Discharge Order = DC NOW: Discharge Order (Routine); Ordered 11/09/24 Ordered By: Aaron Dave Other Ambulatory Orders: MCT/Event Monitor 7 Days (Routine) Timeframe: 20241109 Facility: [facility] - Location: Radiology Ordered By: Lisette Ordonez Referrals: Tanner Villagomez MD [Physician, General Surgery] - 11/25/24 8:15 am Referral Note: Mayra Hamilton MD [Physician, Cardiology] - 11/15/24 9:00 am Referral Note: Nick Kamara DO [Primary Care Provider, Family Practice] - 11/11/24 9:20 am Discharge Diet: Advance as tolerated Discharge Activity: Resume usual activity Patient Instructions: Amoxicillin/Clavulanate Potassium (By mouth), Acute Wound Care (DC), Laparoscopic Appendectomy (GEN), Opioid Safety, Post Anesthesia Care, Pain Management, Patient Portal & Yeimi Instructions Discharge Attestations Time Spent in Discharge Care*: critical care time Specific Discharge Activities: educating patient, educating and/or supporting family/caregiver, discussing with pcp/other providers, discussing with geriatric case manager/social workers/dc planners, documenting/other paperwork and evaluating patient/reviewing data Quality Metrics Clinical Quality Measures [ No reported AMI, CVA or VTE this stay] Coding Level of Care Code Critical Care >/= 30 minutes Diagnoses Longstanding persistent atrial fibrillation I48.11 Atrial fibrillation type: longstanding persistent H/O mitral valve replacement Z95.2 Pacemaker Z95.0 LV dysfunction I51.9 Dyspnea on exertion R06.00 Other acute appendicitis K35.890 Acute appendicitis type: other
--- NOTE | 2024-11-09 16:06 | PC.NURSE ---
Discharge Note Patient discharged to home via private vehicle accompanied by . Discharge instructions reviewed with patient and/or customer support representative. Mobile pharmacy medications and/or prescriptions provided. Belongings/home medications returned.
== END 2024-11-09 16:14 | disposition home or self-care (01) | DRG 853 ==
LOC: ER 12:12 → MEDSURG 13:20 → CSU 14:33 → ICU 21:07 → MEDSURG 11-09 13:17
PROVIDERS: Surgery; Admitting Provider Internal Medicine; Emergency Provider Emergency Medicine; PCP Electrodiagnostic Medicine; Visit Provider Student in an Organized Health Care Education/Training Program
PROC: 0DTJ4ZZ Resection of Appendix, Percutaneous Endoscopic Approach (ICD-10-PCS; CPT 44950; principal; 2024-11-06 18:30)
DX: A41.9 Sepsis, unspecified organism (principal); I50.23 Acute on chronic systolic (congestive) heart failure; J96.01 Acute respiratory failure with hypoxia; N17.9 Acute kidney failure, unspecified; I13.0 Hypertensive heart and chronic kidney disease with heart failure and stage 1 through stage 4 chronic kidney disease, or unspecified chronic kidney disease; I42.9 Cardiomyopathy, unspecified; I48.20 Chronic atrial fibrillation, unspecified; K35.891 Other acute appendicitis without perforation, with gangrene; N40.0 Benign prostatic hyperplasia without lower urinary tract symptoms; D69.6 Thrombocytopenia, unspecified; D63.1 Anemia in chronic kidney disease; R65.20 Severe sepsis without septic shock; N18.9 Chronic kidney disease, unspecified; Z79.01 Long term (current) use of anticoagulants; Z95.0 Presence of cardiac pacemaker; Z95.2 Presence of prosthetic heart valve; Z79.899 Other long term (current) drug therapy; Z88.5 Allergy status to narcotic agent; Z89.012 Acquired absence of left thumb
CPT/HCPCS: 36415; 51702; 71045; 74176; 76770; 80048; 80053; 81001; 82044; 82436; 82570; 82607; 82728; 82746; 83540; 83550; 83605; 83690; 83735; 83880; 83935; 84100; 84133; 84300; 84439; 84443; 84484; 85007; 85025; 85027; 85610; 86140; 87040; 88304; 93005; 93306; 94664; 96361; 96365; 96372; 96375; 97161; 97166; 97535; 99285; J0131; J0690; J1100; J1644; J1885; J1938; J2185; J2371; J2405; J2543; J2704; J3010; J3490; J7030; J7040; J9999

== ENCOUNTER → 2024-11-15 08:56 | Outpatient (BNVA) | payer MEDICARE, SELFPAY | PROVIDERS: PCP Electrodiagnostic Medicine; Visit Provider Nurse Practitioner Family | DX: I48.91 Unspecified atrial fibrillation (principal); I43 Cardiomyopathy in diseases classified elsewhere; R06.09 Other forms of dyspnea; Z98.890 Other specified postprocedural states; Z95.2 Presence of prosthetic heart valve; I51.9 Heart disease, unspecified | CPT/HCPCS: 36415; 80048; 83880; 85007; 85025; 99214 ==

== ENCOUNTER → 2024-11-22 08:32 | Outpatient (BNVA) | payer MEDICARE, SELFPAY | PROVIDERS: PCP Electrodiagnostic Medicine; Visit Provider Nurse Practitioner Family | DX: I11.0 Hypertensive heart disease with heart failure (principal); I50.9 Heart failure, unspecified; I43 Cardiomyopathy in diseases classified elsewhere; I95.9 Hypotension, unspecified; I48.91 Unspecified atrial fibrillation; Z95.2 Presence of prosthetic heart valve; Z95.0 Presence of cardiac pacemaker | CPT/HCPCS: 99213 ==

== ENCOUNTER → 2024-11-25 08:11 | Outpatient (BNVA) | payer MEDICARE, SELFPAY | PROVIDERS: PCP Electrodiagnostic Medicine; Visit Provider Student in an Organized Health Care Education/Training Program | DX: K37 Unspecified appendicitis (principal) | CPT/HCPCS: 99204 ==

== ENCOUNTER → 2025-01-18 15:34 | Outpatient (BNVA) | payer MEDICARE, SELFPAY | PROVIDERS: PCP Electrodiagnostic Medicine; Visit Provider Internal Medicine Cardiovascular Disease | DX: I48.21 Permanent atrial fibrillation (principal); I50.22 Chronic systolic (congestive) heart failure; I36.1 Nonrheumatic tricuspid (valve) insufficiency; I27.20 Pulmonary hypertension, unspecified; D64.9 Anemia, unspecified; D69.6 Thrombocytopenia, unspecified; Z95.0 Presence of cardiac pacemaker; Z95.2 Presence of prosthetic heart valve | CPT/HCPCS: 93005; 99214 ==

== ENCOUNTER → 2025-01-26 15:57 | Outpatient (BNVA) | payer MEDICARE, SELFPAY | PROVIDERS: PCP Electrodiagnostic Medicine; Visit Provider Internal Medicine Cardiovascular Disease | DX: Z45.018 Encounter for adjustment and management of other part of cardiac pacemaker (principal) | CPT/HCPCS: 93296 ==